=== PATIENT | female | born 1985 | race Caucasian/White ===

== ENCOUNTER 2022-06-24 23:43 | Observation (INO) ==
[2022-06-25] MEDS ORDERED: MoRPHine SULFATE 4 MG/ML 1 ML CARP\\VIAL ONE (00:02)
[2022-06-25] MEDS ORDERED: ONDANSETRON INJ 2 MG/ML 2 ML VIAL ONE ×2 (00:03→04:59)
[2022-06-25] MEDS ORDERED: ONDANSETRON INJ 2 MG/ML 2 ML VIAL IV STA (00:08)
[2022-06-25] MEDS ORDERED: MoRPHine SULFATE 4 MG/ML 1 ML CARP\\VIAL IV STA ×3 (00:08→01:35)
[2022-06-25] MEDS ORDERED: SODIUM CHLORIDE 0.9% 1000ML 1,000 ML IV SCH (00:15)
[2022-06-25] MEDS ORDERED: SODIUM CHLORIDE 0.9% 250 ML IV PRN ×3 (00:22→01:57)
[2022-06-25 00:23] LABS: Hematocrit (blood only) 34.3 % (34.1-44.9); Hemoglobin 11.8 g/dl (12.0-16.0); Mean Corpuscular Hemoglobin 30.3 pg (25.0-34.0); Mean Corpuscular Hgb Conc 34.4 g/dL (32.0-36.0); Mean Corpuscular Volume 88.2 fL (80.0-100.0); Mean Platelet Volume 10.1 fL (9.4-12.3); Platelet Count 384 K/uL (130-400); RDW Coefficient of Variation 15.6 % (11.5-14.5); RDW Standard Deviation 49.9 fL (36.4-46.3); Red Blood Count 3.89 M/uL (3.93-5.22); White Blood Count 28.74 K/ul (4.8-10.8)
[2022-06-25 00:40] LABS: Basophils % (auto) 0.3 %; Eosinophils # (auto) 0.05 K/uL (0-0.50); Eosinophils % (auto) 0.2 %; Immature Granulocytes # (auto) 0.21 K/uL (0.00-0.02); Immature Granulocytes % (auto) 0.7 %; Lymphocytes % (auto) 10.1 %; Monocytes # (auto) 0.86 K/uL (0.24-0.82); Neutrophils # (auto) 24.62 K/uL (1.4-6.5); Neutrophils % (auto) 85.7 %; RBC Morphology Unremarkable
[2022-06-25 00:44] LABS: Albumin Globulin Ratio 1.3 (0.9-2); BUN Creatinine Ratio 23.1 (10-20); Bilirubin,Total 0.4 mg/dl (0.2-1.0); Calcium 8.9 mg/dl (8.5-10.1); Creatinine Clr Calc Pharmacy 146.8 ml/min; Est GFR (African American) 133.3 ml/min; Globulin 3.2 gm/dl (2.5-4.0); Potassium 3.9 mmol/L (3.5-5.1); Total Protein 7.2 gm/dl (6.0-8.3)
--- NOTE | 2022-06-25 00:59 | Emergency Department Note ---
History of Present Illness General Chief complaint: Abdominal Pain Stated complaint: ABD PAIN,TROUBLE BREATHING,PAIN IN LUNGS 8.5 WKS P Time Seen by Provider: 06/24/22 23:54 History of Present Illness Maximum Pain Intensity: 7 This 37-year-old who is 8 and half weeks presents to the ER complaining of severe abdominal pain and rib pain for the past few hours Location: Abdomen Quality: Severe Severity: Severe Duration: This evening Timing: This evening Context: Patient was concerned and came in Modifying factors: better with nothing; worse with movement Patient is due to have her ultrasound tomorrow. She states her clots have been doubling. She follows with [facility]. This is her fourth . She has 1 living child. Patient denies vaginal bleeding, fevers, vomiting, diarrhea. Patient appears in severe amount of pain she is tachycardic and family is present. Home Medications Medication Instructions Recorded Confirmed Type aspirin 81 mg tablet,delayed 81 mg PO DAILY 06/25/22 06/25/22 History release vit no.133-ferrous 1 tab PO DAILY 06/25/22 06/25/22 History fumarate 28 mg-folic acid 800 mcg tablet () propranolol 10 mg tablet 10 mg PO DIRECTED PRN Migraine 06/25/22 06/25/22 History Headache sumatriptan succinate 100 mg tablet 100 mg PO DIRECTED PRN Migraine 06/25/22 06/25/22 History Headache Allergies Allergy/AdvReac Type Severity Reaction Status Date / Time No Known Allergies Allergy Verified 06/25/22 00:15 Past Med/Surg History Medical History History of multiple miscarriages No chronic diseases present Surgical History No significant past surgical history Social History Smoking Status: Never smoker Tobacco Type: Cigarettes Preferred Language: Portuguese Feels Safe at Home: Yes Review of Systems A total of 10 systems reviewed and were otherwise negative Physical Exam Vital Signs Vital Signs - 24 hr 06/24/22 23:44 06/25/22 00:13 06/25/22 00:13 Temperature 36.5 C Temperature Source Temporal Artery Scan Pulse Rate 117 H 99 H Pulse Rate [Finger] 95 H Pulse Rhythm Regular Pulse Strength Normal Respiratory Rate 22 20 Respiratory Effort / Characteristics Non-Labored Spontaneous Respiratory Depth Normal Respiratory Pattern Regular Blood Pressure 130/81 Blood Pressure [Left Arm] 119/80 Blood Pressure Mean 97 Blood Pressure Mean [Left Arm] 93 Blood Pressure Position Sitting Blood Pressure Position [Left Arm] Pulse Oximetry 99 97 97 Oxygen Delivery Method Room Air Room Air Sepsis Recent Fever Within 48 Hours No Sepsis New/Unexplained Change in Mental Status No Sepsis Action Taken by Nursing No Action Required 06/25/22 02:00 06/25/22 02:26 Temperature 36.9 C Temperature Source Oral Pulse Rate 99 H Pulse Rate [Finger] 90 Pulse Rhythm Pulse Strength Respiratory Rate 17 Respiratory Effort / Characteristics Respiratory Depth Respiratory Pattern Blood Pressure 142/92 H Blood Pressure [Left Arm] 131/78 Blood Pressure Mean 108 Blood Pressure Mean [Left Arm] 95 Blood Pressure Position Blood Pressure Position [Left Arm] Sitting Pulse Oximetry 98 97 Oxygen Delivery Method Room Air Sepsis Recent Fever Within 48 Hours Sepsis New/Unexplained Change in Mental Status Sepsis Action Taken by Nursing VITALS: Vitals are noted on the nurse's note and reviewed by myself. Vital signs mildly tachycardic. GENERAL: White female who appears in pain, in acute distress SKIN: The skin was without rashes, erythema, edema, or bruising. There is no tenting of the skin. Capillary reflex less than 2 seconds. HEAD: Normocephalic atraumatic. EARS: External auditory canals clear, EYES: Pupils equal round and reactive to light and accommodation. Conjunctivae without injection, sclerae without icterus. Extraocular movements intact. NOSE: Patent, turbinates without inflammation or discharge. MOUTH: Mucous membranes moist. Pharynx without erythema or exudate. Uvula midline. Airway patent. Tongue does not deviate. NECK: Supple without nuchal rigidity. No lymphadenopathy. No thyromegaly. Cervical spine is nontender. No JVD. HEART: Mildly tachycardic rate and rhythm LUNGS: Clear to auscultation bilaterally without wheezes, rales or rhonchi. No retractions or accessory muscle use. ABDOMEN: Positive bowel sounds x 4. Normal tympanic percussion. Soft, diffusely exquisitely tender to palpation, without masses or organomegaly. Paredes sign negative. + guarding + rebound tenderness. No CVA tenderness MUSCULOSKELETAL: No muscle atrophy, erythema, or edema noted. NEURO: Patient was alert and oriented to person place and time. Normal sensation to light and sharp touch. No focal neurological deficits. Course Administered Medications Discontinued Medications Hydromorphone HCl (Hydromorphone Inj 1 Mg/Ml Syringe) Confirm Administered Dose 1 mg .ROUTE .STK-MED ONE Stop: 06/25/22 02:15 Last Admin: 06/25/22 02:17 Dose: 1 mg Documented By: ALYSSA Hydromorphone HCl (Hydromorphone Inj 1 Mg/Ml Syringe) 1 mg IV NOW STA Stop: 06/25/22 02:17 Last Admin: 06/25/22 02:18 Dose: Not Given Documented By: ALYSSA Sodium Chloride (Nss 1000ml) 1,000 mls @ 999 mls/hr IV .Q1H1M GLENDY Stop: 06/25/22 01:15 Last Infusion: 06/25/22 01:05 Dose: 0 mls/hr Documented By: Admin: 06/25/22 00:13 Dose: 999 mls/hr Documented By: ANAY Sodium Chloride (Nss 1000ml) 1,000 mls @ 999 mls/hr IV .Q1H1M ONE Stop: 06/25/22 02:35 Last Admin: 06/25/22 01:41 Dose: 999 mls/hr Documented By: ANAY Morphine Sulfate (Morphine Sulfate 4 Mg/Ml 1 Ml Carp\Vial) Confirm Administered Dose 4 mg .ROUTE .STK-MED ONE Stop: 06/25/22 00:03 Last Admin: 06/25/22 00:09 Dose: 4 mg Documented By: ANAY Morphine Sulfate (Morphine Sulfate 4 Mg/Ml 1 Ml Carp\Vial) 4 mg IV NOW STA Stop: 06/25/22 00:09 Last Admin: 06/25/22 00:13 Dose: Not Given Documented By: ANAY Morphine Sulfate (Morphine Sulfate 4 Mg/Ml 1 Ml Carp\Vial) 4 mg IV NOW STA Stop: 06/25/22 00:54 Last Admin: 06/25/22 01:00 Dose: 4 mg Documented By: ANAY Morphine Sulfate (Morphine Sulfate 4 Mg/Ml 1 Ml Carp\Vial) 4 mg IV NOW STA Stop: 06/25/22 01:36 Last Admin: 06/25/22 01:40 Dose: 4 mg Documented By: ANAY Ondansetron HCl (Ondansetron Inj 2 Mg/Ml 2 Ml Vial) Confirm Administered Dose 4 mg .ROUTE .STK-MED ONE Stop: 06/25/22 00:04 Last Admin: 06/25/22 00:09 Dose: 4 mg Documented By: ANAY Ondansetron HCl (Ondansetron Inj 2 Mg/Ml 2 Ml Vial) 4 mg IV NOW STA Stop: 06/25/22 00:09 Last Admin: 06/25/22 00:13 Dose: Not Given Documented By: ANAY Medical Decision Making Medical Records Attestation: I reviewed the patient's medical records. Home Medications Current Medication List: was personally reviewed by me Laboratory Data Attestation: I reviewed the patient's lab results. 06/25/22 00:05 06/25/22 00:05 Lab Results 06/25/22 06/25/22 06/25/22 Range/Units 00:05 00:05 00:05 WBC 28.74 H (4.8-10.8) K/ul RBC 3.89 L (3.93-5.22) M/uL Hgb 11.8 L (12.0-16.0) g/dl POC Hgb (12.0-16.0) g/dl Hct 34.3 (34.1-44.9) % POC Hct (37-47) % MCV 88.2 (80.0-100.0) fL MCH 30.3 (25.0-34.0) pg MCHC 34.4 (32.0-36.0) g/dL RDW Std Deviation 49.9 H (36.4-46.3) fL RDW Coeff of Eveline 15.6 H (11.5-14.5) % Plt Count 384 (130-400) K/uL MPV 10.1 (9.4-12.3) fL Immature Gran % (Auto) 0.7 % Neut % (Auto) 85.7 % Lymph % (Auto) 10.1 % [place]ock[place] % (Auto) 3.0 % Eos % (Auto) 0.2 % Baso % (Auto) 0.3 % Neut # (Auto) 24.62 H (1.4-6.5) K/uL Lymph # (Auto) 2.90 (1.2-3.4) K/uL [place] # (Auto) 0.86 H (0.24-0.82) K/uL Eos # (Auto) 0.05 (0-0.50) K/uL Baso # (Auto) 0.10 (0-0.2) K/uL Immature Gran # (Auto) 0.21 H (0.00-0.02) K/uL RBC Morphology Unremarkable POC Sodium (135-144) mmol/L Sodium 132 L (136-145) mmol/L POC Potassium (3.3-5.0) mmol/L Potassium 3.9 (3.5-5.1) mmol/L POC Chloride (101-112) mmol/L Chloride 104 (98-107) mmol/L Carbon Dioxide 18 L (21-32) mmol/L POC Total CO2 (24-31) mmol/L Anion Gap 10 (3-11) POC Anion Gap (16-25) mmol/L POC BUN (7-18) mg/dl BUN 15 (6-23) mg/dl Creatinine 0.65 (0.6-1.2) mg/dl POC Creatinine (0.6-1.3) mg/dl Est Cr Clr Drug Dosing 146.8 ml/min Est GFR ( Amer) 133.3 ml/min Est GFR (Non-Af Amer) 115.0 ml/min BUN/Creatinine Ratio 23.1 H (10-20) Glucose 186 H (70-99(Fasting)) mg/dl POC Glucose (other) (70-99) mg/dl Calcium 8.9 (8.5-10.1) mg/dl POC Ioniz Calcium Gregorio (1.12-1.32) mmol/l Total Bilirubin 0.4 (0.2-1.0) mg/dl AST 16 (13-39) U/L ALT 20 (7-52) U/L Alkaline Phosphatase 61 (34-104) U/L Total Protein 7.2 (6.0-8.3) gm/dl Albumin 4.0 (3.4-5.0) gm/dl Globulin 3.2 (2.5-4.0) gm/dl Albumin/Globulin Ratio 1.3 (0.9-2) HCG, Quant 55914 mIU/ml SARS-CoV-2, RNA, NAAT (NEGATIVE) Blood Type Antibody Screen Crossmatch 06/25/22 06/25/22 06/25/22 Range/Units 00:11 01:50 Unknown WBC (4.8-10.8) K/ul RBC (3.93-5.22) M/uL Hgb (12.0-16.0) g/dl POC Hgb 9.9 L (12.0-16.0) g/dl Hct (34.1-44.9) % POC Hct 29 L (37-47) % MCV (80.0-100.0) fL MCH (25.0-34.0) pg MCHC (32.0-36.0) g/dL RDW Std Deviation (36.4-46.3) fL RDW Coeff of Eveline (11.5-14.5) % Plt Count (130-400) K/uL MPV (9.4-12.3) fL Immature Gran % (Auto) % Neut % (Auto) % Lymph % (Auto) % [place]ock[place] % (Auto) % Eos % (Auto) % Baso % (Auto) % Neut # (Auto) (1.4-6.5) K/uL Lymph # (Auto) (1.2-3.4) K/uL [place] # (Auto) (0.24-0.82) K/uL Eos # (Auto) (0-0.50) K/uL Baso # (Auto) (0-0.2) K/uL Immature Gran # (Auto) (0.00-0.02) K/uL RBC Morphology POC Sodium 136 (135-144) mmol/L Sodium (136-145) mmol/L POC Potassium 4.1 (3.3-5.0) mmol/L Potassium (3.5-5.1) mmol/L POC Chloride 105 (101-112) mmol/L Chloride (98-107) mmol/L Carbon Dioxide (21-32) mmol/L POC Total CO2 19 L (24-31) mmol/L Anion Gap (3-11) POC Anion Gap 17.0 (16-25) mmol/L POC BUN 14 (7-18) mg/dl BUN (6-23) mg/dl Creatinine (0.6-1.2) mg/dl POC Creatinine 0.5 L (0.6-1.3) mg/dl Est Cr Clr Drug Dosing ml/min Est GFR ( Amer) ml/min Est GFR (Non-Af Amer) ml/min BUN/Creatinine Ratio (10-20) Glucose (70-99(Fasting)) mg/dl POC Glucose (other) 149 H (70-99) mg/dl Calcium (8.5-10.1) mg/dl POC Ioniz Calcium Gregorio 1.17 (1.12-1.32) mmol/l Total Bilirubin (0.2-1.0) mg/dl AST (13-39) U/L ALT (7-52) U/L Alkaline Phosphatase (34-104) U/L Total Protein (6.0-8.3) gm/dl Albumin (3.4-5.0) gm/dl Globulin (2.5-4.0) gm/dl Albumin/Globulin Ratio (0.9-2) HCG, Quant mIU/ml SARS-CoV-2, RNA, NAAT NEGATIVE (NEGATIVE) Blood Type O Positive Antibody Screen NEGATIVE Crossmatch See Detail Imaging Data Attestation: I personally reviewed and interpreted this imaging study as follows: MDM Narrative Prior records/ancillary studies reviewed. Triage Nursing notes reviewed. Additional history obtained from family The patient's history was concerning for abdominal pain who is 8 and half weeks Differential diagnosis: Etiologies such as ruptured ectopic , miscarriage, appendicitis, diverticulitis, PUD, biliary pathology, UTI, pancreatitis, obstruction, mese nteric ischemia, aortic pathology, infections, inflammatory bowel disease, renal colic, as well as others were entertained. Physical examination findings: As above. ER treatment provided: An order was placed for continuous cardiac monitoring. The monitor shows a rate of 60-1 50 with a sinus rhythm per my interpretation. Limited Point of Care FAST Ultrasound performed by me: Indication: Concerns for ruptured ectopic Findings: Limited cardiac ultrasonography via subxiphoid and parasternal long view showed cardiac wall motion activity, no pericardial fluid, no tamponade. Limited chest ultrasound revealed bilateral lung sliding. Limited abdominal ultrasound revealed + free fluid within Morrisons pouch, + splenorenal space, + the pouch of Tyrel. Concerns for ruptured topic per my interpretation Impression: + FAST exam. 2 lines were emergently placed. Patient was typed and crossmatched for 2 units. She was consented to blood. Patient was transfused 2 units. OB was emergently contacted. On reassessment the patient felt better. Diagnostics interpreted by me: The labs revealed leukocytosis, mild anemia per my interpretation Repeat H&H was lower and patient was emergently transfused 2 units that was typed and crossmatched. Imaging studies: ent: FANTA DURAN (Female) : 89 Status: ER Date: 06/25/22 01:12 Room #: History: severe pain Slices: 69 Priors: Tech: Priya oPrtillo @ [phone] Exams: US OB 1st TRIMESTER Contrast: Accession Numbers: [id number] Referring Physician: YASMEEN ALVAREZ Preliminary Findings Only See Final Report For Complete Findings US OB 1st TRIMESTER: Difficult scan because the patient was in a lot of pain. There is complex free fluid in the pelvic cul-de-sac around bilateral adnexa as and trace free fluid in Morison's pouch. The endometrium is heterogeneous, vascular and thickened up to 2.5 cm. This could represent decidual reaction. Right ovary could not be visualized. Superior to the uterus and adjacent to the left ovary are 2 thick-walled collections. One of them measures 4 cm x 3 cm. The other measures 4 cm x 2.2 cm. The first contains a pole with a heart rate of 170 bpm and represents a left-sided ectopic . Since there is complex fluid in the cul-de-sac, rupture is suspected. (The second collection without a pole may represent an ovarian cyst.) The measurements correspond to approximately 6 weeks and 5 days. Radiologist: Chaparro Naik MD Study ready at 01:17 and initial results transmitted at 01:40 Communications: Clear Time Type Notes Call Doctor Ectopic Consultation: A consultation was placed with the OB Dr. Ag. The case was discussed and diagnostics were reviewed. The patient was evaluated in the ER for further treatment. I spoke to radiology who reviewed the ultrasound with me and patient is concerning for ruptured ectopic.Radiologist was unsure if there is flow to the ovary. He recommends clinical evaluation. Exam and history seem consistent with ruptured ectopic and concerns for possible left ovarian torsion . OB was immediately contacted. 2 lines were placed. She was typed and crossmatched for 2 units. She was hydrated as above. She was consented to blood. She will be taken to the OR by OB. Patient was reassessed multiple times. My bedside FAST ultrasound exam was positive she is sent down for dedicated ultrasound for OB. All questions were answered. She was reassessed multiple times. By the evaluation outlined above emergent etiologies such as appendicitis, diverticulitis, PUD, biliary pathology, UTI, pancreatitis, obstruction, mes enteric ischemia, aortic pathology, infections, inflammatory bowel disease, renal colic, as well as others were deemed relatively unlikely. The pt informed about the findings as listed above. All questions were answered and pleased with the treatment. The chart was completed utilizing [employer] Speech voice recognition software. Grammatical errors, random word insertions, pronoun errors, and incomplete sentences are an occassional consequence of this system due to software limitations, ambient noise, and hardware issues. Any formal questions or concerns about the content, text, or information contained within the body of this dictation should be directly addressed to the physician assistant associate full professor for clarification. Impression & Plan Hemoperitoneum due to rupture of left tubal ectopic , Ovarian torsion Critical Care Time Critical Care Time: Yes Total Critical Care Time: 35 I have personally spent 35 minutes of critical care time in the direct management of this patient. This includes bedside care, interpretation of diagnostic studies, and testing, discussion with consultants, patient, and family members, and other required patient management activities. This 35 minutes is in excess of all separately billable procedures. Discharge Plan Visit Data Chief Complaint: Abdominal Pain Stated Complaint: ABD PAIN,TROUBLE BREATHING,PAIN IN LUNGS 8.5 WKS P ED Provider: Yasmeen Alvarez ED Midlevel Provider: Sheba Merino Discharge Problem: Hemoperitoneum due to rupture of left tubal ectopic , Ovarian torsion Patient Disposition: Being Evaluated by Surgeon Condition: Fair Discharge Instructions Interventions: ED Discharge Assessment Last Done: 06/25/22 02:30
[2022-06-25] MEDS ORDERED: SODIUM CHLORIDE 0.9% 1000ML 1,000 ML IV ONE (01:35)
--- NOTE | 2022-06-25 01:47 | History & Physical Report ---
Date of Service June 25, 2022 Assessment & Plan (1) Ectopic : Plan: Operative laparoscopy with removal of ectopic planned History of Present Illness Chief Complaint: abdominal pain Primary Care Provider: Roland CrewsDO sumit 37 F [id number] presents to ER with lower quadrant abdominal pain that started earli er last night and has gotten progressively worse. Patient was scheduled to have blood work but never was seen in our office. Allergies Allergy/AdvReac Type Severity Reaction Status Date / Time No Known Allergies Allergy Verified 06/25/22 00:15 Home Medications Medication Instructions Recorded Confirmed Type aspirin 81 mg tablet,delayed 81 mg PO DAILY 06/25/22 06/25/22 History release vit no.133-ferrous 1 tab PO DAILY 06/25/22 06/25/22 History fumarate 28 mg-folic acid 800 mcg tablet () propranolol 10 mg tablet 10 mg PO DIRECTED PRN Migraine 06/25/22 06/25/22 History Headache sumatriptan succinate 100 mg tablet 100 mg PO DIRECTED PRN Migraine 06/25/22 06/25/22 History Headache Past Med/Surg History Medical History History of multiple miscarriages No chronic diseases present Surgical History No significant past surgical history Social History Smoking Status: Never smoker Tobacco Type: Cigarettes Preferred Language: Citizen Of [place] Feels Safe at Home: Yes Review of Systems Review of Systems: All systems reviewed & are unremarkable except as noted in HPI & below Physical Exam Constitutional: WD/WN, vitals as above Eyes: PERRL, conjunctivae normal, anicteric sclerae Respiratory: normal respiratory effort, lungs clear to auscultation Cardiovascular: RRR, no murmur, no edema Gastrointestinal (Abdomen): Inspection/Auscultation: + significant pannus abdomen is diffusely tender with presence of guarding and rebound. Musculoskeletal: Extremities: extremities normal to inspection Skin: no rashes, warm and dry Neurologic: patellar DTR's 2+ bilat, sensation intact Psychiatric: A+Ox3, euthymic affect Results & Data Results & Data ([facility]) Vital Signs (Past 12 Hours) Vital Signs Temp Pulse Pulse Resp BP BP Pulse Ox 06/25/22 00:13 99 H 97 06/25/22 00:13 95 H 20 119/80 97 06/24/22 23:44 36.5 C 117 H 22 130/81 99 O2 Del Method 06/25/22 00:13 Room Air 06/25/22 00:13 06/24/22 23:44 Room Air Code Status & VTE Plan VTE Prophylaxis Plan VTE Prophylaxis will be ordered: No
[2022-06-25 02:02] LABS: iSTAT Creatinine 0.5 mg/dl (0.6-1.3); iSTAT Hemoglobin 9.9 g/dl (12.0-16.0); iSTAT Ionized Calcium 1.17 mmol/l (1.12-1.32); iSTAT Potassium 4.1 mmol/L (3.3-5.0)
[2022-06-25] MEDS ORDERED: HYDROmorphone INJ 1 MG/ML SYRINGE ONE (02:14)
[2022-06-25] MEDS ORDERED: HYDROmorphone INJ 1 MG/ML SYRINGE IV STA (02:16)
[2022-06-25] MEDS ORDERED: fentaNYL citrate 100 MCG/2 ML VIAL ONE ×2 (02:16→03:47)
--- NOTE | 2022-06-25 02:16 | Anesthesiology Consultation ---
Date of Service June 25, 2022 Assessment & Plan (1) Encounter for pre-operative examination: Chart Review Chart Review: Acceptable Risk for Surgery History Surgery Operation Date: 06/25/22 02:30 Proposed Procedures p Laparoscopic Operative - Otoniel Ag MD Height/Weight Height: 5 ft 4 in Weight: 110.4 kg Allergies Allergy/AdvReac Type Severity Reaction Status Date / Time No Known Allergies Allergy Verified 06/25/22 00:15 Medications Home Medications Medication Instructions Recorded Confirmed Last Taken aspirin 81 mg tablet,delayed 81 mg PO DAILY 06/25/22 06/25/22 06/24/22 release vit no.133-ferrous 1 tab PO DAILY 06/25/22 06/25/22 06/24/22 fumarate 28 mg-folic acid 800 mcg tablet () propranolol 10 mg tablet 10 mg PO DIRECTED PRN Migraine 06/25/22 06/25/22 Unknown Headache sumatriptan succinate 100 mg tablet 100 mg PO DIRECTED PRN Migraine 06/25/22 06/25/22 Unknown Headache Active Medications Generic Name Dose Route Start Last Admin Trade Name Mee PRN Reason Stop Dose Admin Sodium Chloride 1,000 mls @ 999 mls/hr 06/25/22 01:35 06/25/22 01:41 Nss 1000ml IV 06/25/22 02:35 999 mls/hr .Q1H1M ONE Administration Past Medical History Medical History History of multiple miscarriages No chronic diseases present Past Surgical History Surgical History No significant past surgical history Social History Smoking Status: Never smoker Physical Exam Vital Signs Last Vital Signs Temp 36.5 C 06/24/22 23:44 Pulse 90 06/25/22 02:00 Resp 20 06/25/22 00:13 BP 131/78 06/25/22 02:00 Pulse Ox 98 06/25/22 02:00 O2 Del Method 06/25/22 02:00 Testing Laboratory Results 06/25/22 00:05 06/25/22 00:05 HCG, Quant [id number] mIU/ml 06/25/22 00:05 Blood Type O Positive 06/25/22 00:11 Antibody Screen NEGATIVE 06/25/22 00:11 06/25/22 01:50 POC Glucose (other) 149 H 06/25/22 00:05 HCG, Quant [id number]
[2022-06-25] MEDS ORDERED: BUPIVACAINE 0.5 % 5 MG/1 ML MPF 30ML VIAL ONE (02:21)
[2022-06-25] MEDS ORDERED: LIDOCAINE 2% MPF LOCAL 5 ML VIAL INFIL ONE (02:24)
[2022-06-25] MEDS ORDERED: PROPOFOL IV EMULSION 10 MG/ML 20 ML VIAL IV ONE (02:24)
[2022-06-25] MEDS ORDERED: ROCURONIUM BROMIDE 10 MG/ML 5 ML VIAL IV ONE (02:24)
[2022-06-25] MEDS ORDERED: SUCCINYLCHOLINE CHLORIDE 20 MG/ML 10 ML VIAL IV ONE (02:26)
[2022-06-25] MEDS ORDERED: ONDANSETRON INJ 2 MG/ML 2 ML VIAL IV PRN ×2 (03:27→05:44)
[2022-06-25] MEDS ORDERED: ATROPINE SULFATE 0.1 MG/ML 10ML SYR IV PRN (03:27)
[2022-06-25] MEDS ORDERED: PROMETHAZINE HCL 12.5 MG in SODIUM CHLORIDE 0.9% 50 ML IV PRN (03:27)
[2022-06-25] MEDS: HYDROmorphone INJ 1 MG/ML SYRINGE IV PRN ×2 (04:57→06:04)
[2022-06-25] MEDS ORDERED: ETOMIDATE 2 MG/ML 20 ML VIAL IV ONE (04:59)
[2022-06-25] MEDS ORDERED: NEOSTIGMINE METHYLSULFATE 1 MG/ML 10ML VIAL ONE (04:59)
[2022-06-25] MEDS ORDERED: GLYCOPYRROLATE 0.2 MG/ML VIAL ONE (04:59)
[2022-06-25] MEDS ORDERED: METOCLOPRAMIDE HCL INJ 5 MG/ML 2 ML VIAL ONE (04:59)
--- NOTE | 2022-06-25 05:01 | Post Operative Brief Note ---
Immediate Post Op Note v1 Date of Surgery June 25, 2022 Pre & Post Diagnosis Operation Date: 06/25/22 02:30 Pre-Op Diagnosis: (1) Ectopic Post-Op Diagnosis: (1) Ectopic I identified the patient and participated in the time-out.: Yes Procedure Operation Date: 06/25/22 02:30 Actual Procedures p Operative Laparoscopy with removal of Ectopic and Left Fallopian Tube(Not Applicable) - Otoniel Ag MD Surgeon Otoniel Ag MD [employer] [facility] surgery manager Estimated Blood Loss 50 Findings Consistent with Post-Op Diagnosis hemoperitoneum ruptured ectopic on left Fluids LR 1200 ml Specimens left tube and ectopic Drains Smith Catheter Anesthesia Type General Complications none Disposition Accompanied Patient To Recovery: Yes Overlapping Procedure I was present for: the critical portions of procedure. I was immediately available: during the entire case. Back up surgeon: was not required during procedure.
--- NOTE | 2022-06-25 05:12 | Anesthesiology Progress Note ---
Date of Service June 25, 2022 Anesthesia Post Procedure Vital Signs Vital Signs: Temp Pulse Pulse Pulse Resp BP BP 06/25/22 05:05 88 22 141/83 H 06/25/22 04:55 36.5 C 86 22 138/83 06/25/22 04:49 36.5 C 110 H 24 153/90 H 06/25/22 02:26 36.9 C 99 H 17 142/92 H 06/25/22 02:00 90 131/78 06/25/22 00:13 99 H 06/25/22 00:13 95 H 20 119/80 06/24/22 23:44 36.5 C 117 H 22 130/81 Pulse Ox O2 Del Method 06/25/22 05:05 92 Room Air 06/25/22 04:55 94 Room Air 06/25/22 04:49 97 Room Air 06/25/22 02:26 97 06/25/22 02:00 98 Room Air 06/25/22 00:13 97 Room Air 06/25/22 00:13 97 06/24/22 23:44 99 Room Air Pain Intensity Abdomen: Pain Intensity: 5 Transfer of Care Handoff Completed per policy Notes Mental Status: alert / awake / arousable Patient Amnestic to Procedure: Yes Nausea / Vomiting: adequately controlled Pain: adequately controlled Airway Patency, RR, SpO2: stable & adequate BP & HR: stable & adequate Hydration State: stable & adequate Anesthetic Complications: no major complications apparent
[2022-06-25] MEDS ORDERED: KETOROLAC 30 MG/ML VIAL IV PRN (05:44)
[2022-06-25] MEDS ORDERED: LACTATED RINGER'S 1,000 ML IV ONE (06:00)
[2022-06-25 07:08] LABS: Basophils # (auto) 0.04 K/uL (0-0.2); Basophils % (auto) 0.2 %; Hematocrit (blood only) 29.5 % (34.1-44.9); Hemoglobin 10.5 g/dl (12.0-16.0); Immature Granulocytes # (auto) 0.07 K/uL (0.00-0.02); Immature Granulocytes % (auto) 0.4 %; Lymphocytes # (auto) 2.02 K/uL (1.2-3.4); Lymphocytes % (auto) 10.7 %; Mean Corpuscular Hemoglobin 30.7 pg (25.0-34.0); Mean Corpuscular Hgb Conc 35.6 g/dL (32.0-36.0); Mean Corpuscular Volume 86.3 fL (80.0-100.0); Mean Platelet Volume 9.9 fL (9.4-12.3); Monocytes # (auto) 1.06 K/uL (0.24-0.82); Monocytes % (auto) 5.6 %; Neutrophils # (auto) 15.66 K/uL (1.4-6.5); Neutrophils % (auto) 83.1 %; Platelet Count 308 K/uL (130-400); RDW Coefficient of Variation 15.4 % (11.5-14.5); RDW Standard Deviation 48.6 fL (36.4-46.3); Red Blood Count 3.42 M/uL (3.93-5.22); White Blood Count 18.85 K/ul (4.8-10.8)
[2022-06-25] MEDS: MoRPHine SULFATE 4 MG/ML 1 ML CARP\\VIAL IV PRN ×6 (07:13→12:41)
[2022-06-25] MEDS: LACTATED RINGER'S 1,000 ML IV SCH ×2 (07:17→18:23)
--- NOTE | 2022-06-25 08:45 | Ultrasound Report ---
US OB <= 14 weeks fetus CLINICAL HISTORY: severe pelvic pain, ? rupture ectopic COMPARISON STUDY: Obstetrical ultrasound 07/15/2021. FINDINGS: The uterus measures 9.6 x 5.4 x 6.9 cm. Moderate amount of complex fluid seen within the pe lvis and extending into Morison's pouch. This likely represents hemoperitoneum. Endometrium is abnorm ally thickened and heterogeneous demonstrating color flow. This measures 4.2 x 4.1 x 2.4 cm. No intra uterine gestational sac identified. The right ovary was not identified. The left ovary measures 3.9 x 2.2 x 3.6 cm. The technologist had difficulty demonstrating color flow within the left ovary which c ould be technical. Within the left adnexa there is a 2.2 cm gestational sac containing an 8 mm pole with a heart rate of 170 BPM. Therefore, this is consistent with an ectopic . IMPRESSION: 1. Ectopic within the left adnexa with moderate hemoperitoneum suggesting a ruptured ectopi c . Emergent gynecologic consultation recommended. 2. The technologist was unable to document color flow within the left ovary which is likely technical given the normal size left ovary. However, clinical correlation recommended. 3. Enlarged and heterogeneous endometrium containing color flow. This could represent decidual reacti on. However, follow-up recommended to ensure resolution and to exclude the less likely possibility of a molar . ACT 112: Negative or not required by law. Electronically signed by: Samuel Galarza M.D. 06/25/2022 8:43 AM
[2022-06-25 10:19] LABS: Basophils # (auto) 0.05 K/uL (0-0.2); Basophils % (auto) 0.3 %; Eosinophils # (auto) 0.01 K/uL (0-0.50); Eosinophils % (auto) 0.1 %; Hematocrit (blood only) 29.1 % (34.1-44.9); Hemoglobin 9.9 g/dl (12.0-16.0); Immature Granulocytes # (auto) 0.06 K/uL (0.00-0.02); Immature Granulocytes % (auto) 0.4 %; Lymphocytes % (auto) 15.9 %; Mean Corpuscular Hemoglobin 30.4 pg (25.0-34.0); Mean Corpuscular Volume 89.3 fL (80.0-100.0); Monocytes # (auto) 0.98 K/uL (0.24-0.82); Neutrophils # (auto) 12.68 K/uL (1.4-6.5); Neutrophils % (auto) 77.3 %; Platelet Count 277 K/uL (130-400); RDW Coefficient of Variation 15.4 % (11.5-14.5); RDW Standard Deviation 50.8 fL (36.4-46.3); Red Blood Count 3.26 M/uL (3.93-5.22); White Blood Count 16.38 K/ul (4.8-10.8)
--- NOTE | 2022-06-25 10:27 | Obstetrical Progress Note ---
Date of Service June 25, 2022 Assessment & Plan Admission and Anticipated Discharge Date Admission Date: June 25, 2022 Subjective Postop check Patient is seen and examined Feels better but complains of "pain spasms" on and off, in her upper abdomen, under ribs OOB to BR and voided with no problems. No CP/ SOB/ Dizziness/ N&V/ VB/ Leg pain Tolerating clears Vital Signs Temp Pulse Pulse Pulse Resp BP BP 06/25/22 08:00 37.4 C 115 H 14 133/73 06/25/22 07:00 37.5 C 116 H 18 129/78 06/25/22 06:00 37.1 C 95 H 18 136/83 06/25/22 05:47 37.2 C 94 H 16 145/88 H 06/25/22 05:15 36.7 C 87 20 140/81 06/25/22 05:05 88 22 141/83 H 06/25/22 04:55 36.5 C 86 22 138/83 06/25/22 04:49 36.5 C 110 H 24 153/90 H 06/25/22 02:26 36.9 C 99 H 17 142/92 H 06/25/22 02:00 90 131/78 06/25/22 00:13 99 H 06/25/22 00:13 95 H 20 119/80 06/24/22 23:44 36.5 C 117 H 22 130/81 Pulse Ox O2 Del Method 06/25/22 08:00 95 Room Air 06/25/22 07:00 96 Room Air 06/25/22 06:00 94 Room Air 06/25/22 05:47 93 Room Air 06/25/22 05:15 92 Room Air 06/25/22 05:05 92 Room Air 06/25/22 04:55 94 Room Air 06/25/22 04:49 97 Room Air 06/25/22 02:26 97 06/25/22 02:00 98 Room Air 06/25/22 00:13 97 Room Air 06/25/22 00:13 97 06/24/22 23:44 99 Room Air PE: General: Alert, orientedx3, NAD CVS: S1S2 RRR Lungs: CTAB Abd: soft, tender, ND, BS+, Incisions C/D/I No VB Ext: NT, no edema, SCD's on AP: 37 yo female s/p Laparoscopy with ruptured ectopic and incomplete evacuation of blood cloths , pod#0 VSS Afebrile with pain Plan to add IV Tylenol and CBC now Continue to monitor closely Results & Data ([facility]) Vital Signs (Past 12 Hours) Vital Signs Temp Pulse Pulse Pulse Resp BP BP 06/25/22 08:00 37.4 C 115 H 14 133/73 06/25/22 07:00 37.5 C 116 H 18 129/78 06/25/22 06:00 37.1 C 95 H 18 136/83 06/25/22 05:47 37.2 C 94 H 16 145/88 H 06/25/22 05:15 36.7 C 87 20 140/81 06/25/22 05:05 88 22 141/83 H 06/25/22 04:55 36.5 C 86 22 138/83 06/25/22 04:49 36.5 C 110 H 24 153/90 H 06/25/22 02:26 36.9 C 99 H 17 142/92 H 06/25/22 02:00 90 131/78 06/25/22 00:13 99 H 06/25/22 00:13 95 H 20 119/80 06/24/22 23:44 36.5 C 117 H 22 130/81 Pulse Ox O2 Del Method 06/25/22 08:00 95 Room Air 06/25/22 07:00 96 Room Air 06/25/22 06:00 94 Room Air 06/25/22 05:47 93 Room Air 06/25/22 05:15 92 Room Air 06/25/22 05:05 92 Room Air 06/25/22 04:55 94 Room Air 06/25/22 04:49 97 Room Air 06/25/22 02:26 97 06/25/22 02:00 98 Room Air 06/25/22 00:13 97 Room Air 06/25/22 00:13 97 06/24/22 23:44 99 Room Air
[2022-06-25] MEDS: ACETAMINOPHEN 1,000 MG/100 ML VIAL IV PRN (10:52)
[2022-06-25] MEDS: AMOXICILLIN/CLAVULANATE 875 MG TAB PO SCH ×2 (12:05→17:33)
--- NOTE | 2022-06-25 13:28 | Operative Report (OR) ---
DATE OF SURGERY: 06/25/2022. PREOPERATIVE DIAGNOSIS: Ruptured left ectopic . POSTOPERATIVE DIAGNOSES: Ruptured left ectopic plus hemoperitoneum. SURGEON: Otoniel Ag MD. LANDSCAPE PHOTOGRAPHER: neurosurgical physician assistant. ANESTHESIA: General. COMPLICATIONS: None. TOTAL FLUIDS: 1200 mL. ESTIMATED BLOOD LOSS: 50 mL. TOTAL URINE: 200 mL. SPECIMEN: Left tube and ectopic . PROCEDURES: Operative laparoscopy with left salpingectomy and removal of ectopic and evacu ation of hemoperitoneum. CLINICAL HISTORY: The patient is a 37-year-old female, para 1-0-2-1, who presents to the ER with acu te abdominal pain that started the night prior and has progressively worsened to the point where she needed to come into the ER because of diffuse abdominal pain. There was no vaginal bleeding. The phoebe tiffanie had known she was and was attempting to set up a followup appointment for car e and had not yet been to the office. Because of the significant pain and the fluid that was in the abdomen that was diagnosed by ultrasound and a mass consistent with a left ectopic, decision was made to operate. The patient was given informed consent including the risks, benefits, and alternatives to surgery. A timeout was called prior to the start of the surgery. DESCRIPTION OF PROCEDURE: Under satisfactory general anesthesia, the patient was prepped and draped in the usual sterile fashion. A Smith catheter was then inserted. The vagina was inspected. There was no active bleeding. The posterior vault was examined. A weighted speculum was placed. A long A llis clamp was placed on the anterior lip of the cervix followed by a sponge on a stick for uterine m anipulation. Attention was then directed abdominally. Marcaine 1% was instilled infraumbilically. A small incision was made infraumbilically with a #11 knife blade. This was lifted up with 2 Allis c lamps. The Veress needle was then inserted and then tested for adequacy and approximately 3.5 liters of carbon dioxide gas were then used to create an artificial pneumoperitoneum. Veress needle was wi thdrawn. Incision was widened to approximately 1 cm. An 11 mm port was then inserted under direct vi sualization with the video camera. Upon entering into the abdominal cavity, it was noted that there was a hemoperitoneum with blood traveling up the gutters on both the right and left side up to the li adán edge. A second 5 mm probe was then inserted suprapubically in the midline under direct visualiza tion. The [place] mixer operator vacuum pan salt was then inserted and some of the blood was then suction irrigated and rem smooth for visualization. The ectopic was noted to be on the left side. The right tube and ovary were intact. Uterus was intact. After visualizing the ectopic on the left tube, a third port was insert ed on the left side. A #12 port was then inserted under direct visualization. The tube was grasped with a grasper and then using the LigaSure device, the tube was then cut free from the uterus using t he energy from LigaSure device. This was done serially and direct visualization was noted and pictur es were taken at the end of this procedure. The end of the tube was then irrigated. No active bleed ing was noted. The EndoCatch bag large was inserted into the port and then the specimen was placed i nto the bag and then removed from the left port. The specimen was then submitted to pathology for a separate evaluation. At the end of the procedure, some of the blood was then removed. The patient w as placed in reverse Trendelenburg and lot of the blood was removed, but there were still remaining b lood trapped into the small and large bowel that was not able to be removed. The final sponge, needl e and instrument counts were found to be correct. All remaining ports were then removed. The surgic al site was inspected with no bleeding and this was documented with still photography. The two large ports were then closed with 0 Vicryl suture in a deep suture, followed by 4-0 Monocryl for the subcu ticular skin and then Dermabond. The two instruments from the vagina were removed and then the Smith catheter was removed. The final sponge, needle and instrument count were found to be correct. The patient was then placed supine on a stretcher and taken to recovery room in stable condition. Total blood loss was 50 mL, the total fluids 1200 mL, and the total urine is 200 mL. Job ID: [id number]
[2022-06-25] MEDS: CALCIUM CARBONATE 500 MG CHEWABLE TAB PO PRN ×2 (13:48→18:51)
[2022-06-25] MEDS: oxyCODONE HCL IR 5 MG TAB (IMMEDIATE RELEASE) PO PRN ×3 (14:35→22:44)
--- NOTE | 2022-06-25 19:11 | Gynecologic Progress Note ---
Date of Service June 25, 2022 Assessment & Plan Admission and Anticipated Discharge Date Admission Date: June 25, 2022 Subjective Patient is reevaluated. Pain is better, was able to walk around the hallways Still has lower rib/ upper abdominal pain with deep brething. Voiding without difficulty. Flatus negative Has been eating small bites with no N&V Vital Signs Temp Pulse Pulse Pulse Resp BP BP 06/25/22 16:00 37.5 C 91 H 14 152/83 H 06/25/22 11:44 36.9 C 106 H 14 132/91 06/25/22 08:00 37.4 C 115 H 14 133/73 06/25/22 07:00 37.5 C 116 H 18 129/78 06/25/22 06:00 37.1 C 95 H 18 136/83 06/25/22 05:47 37.2 C 94 H 16 145/88 H 06/25/22 05:15 36.7 C 87 20 140/81 06/25/22 05:05 88 22 141/83 H 06/25/22 04:55 36.5 C 86 22 138/83 06/25/22 04:49 36.5 C 110 H 24 153/90 H 06/25/22 02:26 36.9 C 99 H 17 142/92 H 06/25/22 02:00 90 131/78 06/25/22 00:13 99 H 06/25/22 00:13 95 H 20 119/80 06/24/22 23:44 36.5 C 117 H 22 130/81 Pulse Ox O2 Del Method 06/25/22 16:00 96 Room Air 06/25/22 11:44 95 Room Air 06/25/22 08:00 95 Room Air 06/25/22 07:00 96 Room Air 06/25/22 06:00 94 Room Air 06/25/22 05:47 93 Room Air 06/25/22 05:15 92 Room Air 06/25/22 05:05 92 Room Air 06/25/22 04:55 94 Room Air 06/25/22 04:49 97 Room Air 06/25/22 02:26 97 06/25/22 02:00 98 Room Air 06/25/22 00:13 97 Room Air 06/25/22 00:13 97 06/24/22 23:44 99 Room Air Intake and Output 06/25/22 06/25/22 06/25/22 06:59 14:59 22:59 Intake Total 3600 / 3600 1100 / 2450 1350 / 2450 Output Total 50 / 50 400 / 1400 1000 / 1400 Balance 3550 / 3550 700 / 1050 350 / 1050 Intake: IV 1999 / 1999 1100 / 2100 1000 / 2100 Acetaminophen 1,000 mg In 100 100 / 100 ml @ 400 mls/hr IV Q8H PRN Rx#: [id number] Lactated Ringer's 1,000 ml @ 1000 / 2000 1000 / 2000 125 mls/hr IV .Q8H GLENDY Rx#: [id number] Sodium Chloride 0.9% 1000ML 1, 2000 / 1999 000 ml @ 999 mls/hr IV .Q1H1M ONE Rx#:[id number] IV Perioperative 1600 / 1600 Oral 350 / 350 Intake (Blood Product) Amt 0 / 0 Packed Cells, Leukoreduced 0 / 0 Unit [id number] Output: Urine 400 / 1400 1000 / 1400 Estimated Blood Loss 50 / 50 Other: Weight 110.4 kg Weight Measurement Method Stated by Patient Lab Results 06/25/22 06/25/22 06/25/22 Range/Units 00:05 00:05 00:05 WBC 28.74 H (4.8-10.8) K/ul RBC 3.89 L (3.93-5.22) M/uL Hgb 11.8 L (12.0-16.0) g/dl POC Hgb (12.0-16.0) g/dl Hct 34.3 (34.1-44.9) % POC Hct (37-47) % MCV 88.2 (80.0-100.0) fL MCH 30.3 (25.0-34.0) pg MCHC 34.4 (32.0-36.0) g/dL RDW Std Deviation 49.9 H (36.4-46.3) fL RDW Coeff of Eveline 15.6 H (11.5-14.5) % Plt Count 384 (130-400) K/uL MPV 10.1 (9.4-12.3) fL Immature Gran % (Auto) 0.7 % Neut % (Auto) 85.7 % Lymph % (Auto) 10.1 % Castro % (Auto) 3.0 % Eos % (Auto) 0.2 % Baso % (Auto) 0.3 % Neut # (Auto) 24.62 H (1.4-6.5) K/uL Lymph # (Auto) 2.90 (1.2-3.4) K/uL Castro # (Auto) 0.86 H (0.24-0.82) K/uL Eos # (Auto) 0.05 (0-0.50) K/uL Baso # (Auto) 0.10 (0-0.2) K/uL Immature Gran # (Auto) 0.21 H (0.00-0.02) K/uL RBC Morphology Unremarkable POC Sodium (135-144) mmol/L Sodium 132 L (136-145) mmol/L POC Potassium (3.3-5.0) mmol/L Potassium 3.9 (3.5-5.1) mmol/L POC Chloride (101-112) mmol/L Chloride 104 (98-107) mmol/L Carbon Dioxide 18 L (21-32) mmol/L POC Total CO2 (24-31) mmol/L Anion Gap 10 (3-11) POC Anion Gap (16-25) mmol/L POC BUN (7-18) mg/dl BUN 15 (6-23) mg/dl Creatinine 0.65 (0.6-1.2) mg/dl POC Creatinine (0.6-1.3) mg/dl Est Cr Clr Drug Dosing 146.8 ml/min Est GFR ( Amer) 133.3 ml/min Est GFR (Non-Af Amer) 115.0 ml/min BUN/Creatinine Ratio 23.1 H (10-20) Glucose 186 H (70-99(Fasting)) mg/dl POC Glucose (other) (70-99) mg/dl Calcium 8.9 (8.5-10.1) mg/dl POC Ioniz Calcium Gregorio (1.12-1.32) mmol/l Total Bilirubin 0.4 (0.2-1.0) mg/dl AST 16 (13-39) U/L ALT 20 (7-52) U/L Alkaline Phosphatase 61 (34-104) U/L Total Protein 7.2 (6.0-8.3) gm/dl Albumin 4.0 (3.4-5.0) gm/dl Globulin 3.2 (2.5-4.0) gm/dl Albumin/Globulin Ratio 1.3 (0.9-2) HCG, Quant 27061 mIU/ml SARS-CoV-2, RNA, NAAT (NEGATIVE) Blood Type Antibody Screen Crossmatch 06/25/22 06/25/22 06/25/22 Range/Units 00:11 01:50 06:57 WBC 18.85 H (4.8-10.8) K/ul RBC 3.42 L (3.93-5.22) M/uL Hgb 10.5 L (12.0-16.0) g/dl POC Hgb 9.9 L (12.0-16.0) g/dl Hct 29.5 L (34.1-44.9) % POC Hct 29 L (37-47) % MCV 86.3 (80.0-100.0) fL MCH 30.7 (25.0-34.0) pg MCHC 35.6 (32.0-36.0) g/dL RDW Std Deviation 48.6 H (36.4-46.3) fL RDW Coeff of Eveline 15.4 H (11.5-14.5) % Plt Count 308 (130-400) K/uL MPV 9.9 (9.4-12.3) fL Immature Gran % (Auto) 0.4 % Neut % (Auto) 83.1 % Lymph % (Auto) 10.7 % Castro % (Auto) 5.6 % Eos % (Auto) 0.0 % Baso % (Auto) 0.2 % Neut # (Auto) 15.66 H (1.4-6.5) K/uL Lymph # (Auto) 2.02 (1.2-3.4) K/uL Castro # (Auto) 1.06 H (0.24-0.82) K/uL Eos # (Auto) 0.00 (0-0.50) K/uL Baso # (Auto) 0.04 (0-0.2) K/uL Immature Gran # (Auto) 0.07 H (0.00-0.02) K/uL RBC Morphology POC Sodium 136 (135-144) mmol/L Sodium (136-145) mmol/L POC Potassium 4.1 (3.3-5.0) mmol/L Potassium (3.5-5.1) mmol/L POC Chloride 105 (101-112) mmol/L Chloride (98-107) mmol/L Carbon Dioxide (21-32) mmol/L POC Total CO2 19 L (24-31) mmol/L Anion Gap (3-11) POC Anion Gap 17.0 (16-25) mmol/L POC BUN 14 (7-18) mg/dl BUN (6-23) mg/dl Creatinine (0.6-1.2) mg/dl POC Creatinine 0.5 L (0.6-1.3) mg/dl Est Cr Clr Drug Dosing ml/min Est GFR ( Amer) ml/min Est GFR (Non-Af Amer) ml/min BUN/Creatinine Ratio (10-20) Glucose (70-99(Fasting)) mg/dl POC Glucose (other) 149 H (70-99) mg/dl Calcium (8.5-10.1) mg/dl POC Ioniz Calcium Gregorio 1.17 (1.12-1.32) mmol/l Total Bilirubin (0.2-1.0) mg/dl AST (13-39) U/L ALT (7-52) U/L Alkaline Phosphatase (34-104) U/L Total Protein (6.0-8.3) gm/dl Albumin (3.4-5.0) gm/dl Globulin (2.5-4.0) gm/dl Albumin/Globulin Ratio (0.9-2) HCG, Quant mIU/ml SARS-CoV-2, RNA, NAAT (NEGATIVE) Blood Type O Positive Antibody Screen NEGATIVE Crossmatch See Detail 06/25/22 06/25/22 Range/Units 10:07 Unknown WBC 16.38 H (4.8-10.8) K/ul RBC 3.26 L (3.93-5.22) M/uL Hgb 9.9 L (12.0-16.0) g/dl POC Hgb (12.0-16.0) g/dl Hct 29.1 L (34.1-44.9) % POC Hct (37-47) % MCV 89.3 (80.0-100.0) fL MCH 30.4 (25.0-34.0) pg MCHC 34.0 (32.0-36.0) g/dL RDW Std Deviation 50.8 H (36.4-46.3) fL RDW Coeff of Eveline 15.4 H (11.5-14.5) % Plt Count 277 (130-400) K/uL MPV 10.0 (9.4-12.3) fL Immature Gran % (Auto) 0.4 % Neut % (Auto) 77.3 % Lymph % (Auto) 15.9 % Castro % (Auto) 6.0 % Eos % (Auto) 0.1 % Baso % (Auto) 0.3 % Neut # (Auto) 12.68 H (1.4-6.5) K/uL Lymph # (Auto) 2.60 (1.2-3.4) K/uL Castro # (Auto) 0.98 H (0.24-0.82) K/uL Eos # (Auto) 0.01 (0-0.50) K/uL Baso # (Auto) 0.05 (0-0.2) K/uL Immature Gran # (Auto) 0.06 H (0.00-0.02) K/uL RBC Morphology POC Sodium (135-144) mmol/L Sodium (136-145) mmol/L POC Potassium (3.3-5.0) mmol/L Potassium (3.5-5.1) mmol/L POC Chloride (101-112) mmol/L Chloride (98-107) mmol/L Carbon Dioxide (21-32) mmol/L POC Total CO2 (24-31) mmol/L Anion Gap (3-11) POC Anion Gap (16-25) mmol/L POC BUN (7-18) mg/dl BUN (6-23) mg/dl Creatinine (0.6-1.2) mg/dl POC Creatinine (0.6-1.3) mg/dl Est Cr Clr Drug Dosing ml/min Est GFR ( Amer) ml/min Est GFR (Non-Af Amer) ml/min BUN/Creatinine Ratio (10-20) Glucose (70-99(Fasting)) mg/dl POC Glucose (other) (70-99) mg/dl Calcium (8.5-10.1) mg/dl POC Ioniz Calcium Gregorio (1.12-1.32) mmol/l Total Bilirubin (0.2-1.0) mg/dl AST (13-39) U/L ALT (7-52) U/L Alkaline Phosphatase (34-104) U/L Total Protein (6.0-8.3) gm/dl Albumin (3.4-5.0) gm/dl Globulin (2.5-4.0) gm/dl Albumin/Globulin Ratio (0.9-2) HCG, Quant mIU/ml SARS-CoV-2, RNA, NAAT NEGATIVE (NEGATIVE) Blood Type Antibody Screen Crossmatch CVS S1S2 RRR Lungs: CTAB Abd: soft, less tender, ND, BS diminished No VB Ext: NT, NO edema Plan to observe overnight, IVF with KCL, Reglan to increase bowel motility Continue to monitor closely Results & Data ([facility]) Vital Signs (Past 12 Hours) Vital Signs Temp Pulse Resp BP Pulse Ox O2 Del Method 06/25/22 16:00 37.5 C 91 H 14 152/83 H 96 Room Air 06/25/22 11:44 36.9 C 106 H 14 132/91 95 Room Air 06/25/22 08:00 37.4 C 115 H 14 133/73 95 Room Air
[2022-06-25] MEDS: D5NSS + 20MEQ KCL 20 MEQ/1,000 ML BAG IV SCH (19:31)
[2022-06-25] MEDS: METOCLOPRAMIDE HCL INJ 5 MG/ML 2 ML VIAL IV SCH (19:31)
[2022-06-25] MEDS: IBUPROFEN 600 MG TAB PO PRN (19:32)
[2022-06-26] MEDS: METOCLOPRAMIDE HCL INJ 5 MG/ML 2 ML VIAL IV SCH ×2 (02:06→07:28)
[2022-06-26] MEDS: D5NSS + 20MEQ KCL 20 MEQ/1,000 ML BAG IV SCH ×2 (02:06→09:29)
[2022-06-26] MEDS: IBUPROFEN 600 MG TAB PO PRN ×2 (02:18→10:09)
[2022-06-26] MEDS: oxyCODONE HCL IR 5 MG TAB (IMMEDIATE RELEASE) PO PRN ×3 (02:18→10:08)
[2022-06-26] MEDS ORDERED: COUGH DROP (SUGAR FREE) LOZ 24 LOZ/1 BOX BUCCAL ONE (04:53)
[2022-06-26] MEDS: AMOXICILLIN/CLAVULANATE 875 MG TAB PO SCH (07:28)
[2022-06-26] MEDS: ACETAMINOPHEN 1,000 MG/100 ML VIAL IV PRN (07:39)
--- NOTE | 2022-07-02 14:00 | Discharge Summary (DS) ---
DATE OF ADMISSION: 06/25/2022. DATE OF DISCHARGE: 06/26/2022. HOSPITAL COURSE: The patient was admitted on 06/25/2022 through the emergency room with no current p renatal care. She is a 37-year-old female, para 1-0-2-1, presenting to the ER with acute abdominal p ain that started the night prior and progressively worsened to the point needing to be seen due to di ffuse abdominal pain. There was no vaginal bleeding. Labs were drawn. The hCG level was 33,535. T here was an ectopic seen in the left adnexa with moderate hemoperitoneum, suggesting a rupt ured ectopic . The patient was taken to the operating room where an operative laparoscopy w ith left salpingectomy, removal of ectopic and evacuation of hemoperitoneum was performed. There were no complications of this procedure. The patient was subsequently discharged home on 06/15, the following morning in stable condition. Home going instructions were given. Medications on discharge include Motrin and Percocet. Followup will be in the office in 1 week for a followup visit. Regular diet on discharge. CONDITION ON DISCHARGE: Stable. Job ID: [id number]
== END 2022-06-26 10:30 | disposition home or self-care (01) ==
LOC: ED 23:43 → OR 06-25 02:30 → INTOOBSV 06-25 02:31 → 4E1 06-25 02:31 → OR 06-25 02:37

== ENCOUNTER 2023-12-28 07:40 | Inpatient (IN) ==
--- OUTSIDE RECORDS SUMMARY | 2023-12-28 07:47 | External Medical Summary | Summary of Care ---
Author Name Unknown Organization [facility] Address [address] [place] [address] Phone [phone] Care Team Providers Care Sr. Operations Manager Name Role Phone Unavailable Primary Care Provider Unavailabl e Reason for Visit * Reason Comments Blood Pressure Check Encounter Details Date Type Department Care Team (Late st Contact Info) Description 12/18/2023 10:00 AM EDT Nurse Only Gynecology/Obstetrics [facility] [address] [facility] [address] [address], Nurse Obgyn Injection [address] [place] [address] Blood Pressure Check Allergies No known active allergiesdocumented as of this encounter (statuses as of 12/18/2023) Medications Medication Sig Dispensed Refills Start Date End Date Status Vitamin 27-0.8 MG Oral Tablet Take by mouth. Active Aspirin 81 MG Oral Capsule Take by mouth. Active Magnesium 400 MG Oral Tablet Take by mouth. Active QA on RequestTouch Verio Flex System w/Device Kit Use to test blood sugars 4 times daily (fasting, 1 hour after breakfast, lunch, and dinner) 1 Kit 10/09/2023 Active Additional Information Patient not taking.Reported on 10/19/2023 OneTouch Delica Lancets 30G Use to test blood sugars 4 times daily (fasting, 1 hour after breakfast, lunch, and dinner) 200 Each 6 10/09/2023 Active Additional Information Patient not taking.Reported on 10/19/2023 OneTouch Verio In Vitro Strip (Glucose Blood) Use to test blood sugars 4 times daily (fasting, 1 hour after breakfast, lunch, and dinner) 100 Strip 6 10/23/2023 Active OneTouch Verio In Vitro Strip (Glucose Blood) Use to test blood sugars 4 times daily (fasting, 1 hour after breakfast, lunch, and dinner) 125 Strip 6 10/23/2023 Active documented as of this encounter (statuses as of 12/18/2023) Active Problems Problem Noted Date Diagnosed Date with 29 completed weeks gestation 11/2023 Excessive growth affec ting management of , antepartum 10/08/2023 Last Assessment & Plan: EFW 90%ile today with large AC. Projected EFW at her EDC along very stable growth curve is < 4500g and Yari should be delivered at 39 weeks. Diet controlled gestational diabetes mellitus (GDM) in third trimester 07/06/2023 Overview: Diagnosed at 27 weeks Nutrition consult ordered Lab Results Component Value Date/Time 50-G GESTATIONAL GLUCOSE, 1 HOUR - [facility] 175 (H) 07/04/2023 12:39 PM 100-G GESTATIONAL GLUCOSE, 1 HOUR - [facility] 196 (H) 10/08/2023 09:08 AM 100-G GESTATIONAL GLUCOSE, 2 HOUR - [facility] 186 (H) 10/08/2023 10:05 AM 100-G GESTATIONAL GLUCOSE, 3 HOUR - [facility] 114 10/08/2023 11:02 AM 100-G GESTATIONAL GLUCOSE, FASTING - [facility] 84 10/08/2023 08:01 AM 10/19/23: MFM ADAPT consult complete. Enrolled in Current [employer]. Instructions provided to report blood sugars each week for MFM review; Patient has her glucometer and lancets, however, has been waiting for pharmacy to have strips in stock. Rx for strips was called in to a different pharmacy today, so pt is hoping to receive strips tomorrow. 10/27/23: RPM reviewed; Stable. Continue diet control. 11/03/[id number] 11/10/23: RPM reviewed; Stable 11/17/[id number]-inbscxt stable 11/24/[id number]-tbixnz 11/30/[id number]-rghluo 12/08/[id number]-NOZ-boryko 12/15/[id number]-zjiwwk Last Assessment & Plan: Working with ADAPT. Supervision of high [facility] 06/26/2023 Bipolar disease during 06/26/2023 Subchorionic hematoma, antepartum 06/09/2023 Overview: -At [facility] 9w1d -> "small GLENDY" per ER physician Last Assessment & Plan: DISCUSSION: -Reviewed that the cause of subchorionic hemorrhage (GLENDY) is largely unknown. However, in the absence of vaginal bleeding, a small GLENDY is not associated with an increased rate of poor outcomes. Most asymptomatic GLENDY resolve by 20 weeks gestation. -GLENDY associated with vaginal bleeding is associated with an increased risk for miscarriage, placental abruption, premature rupture of amniotic membranes, and labor/delivery. - outcome associated with GLENDY also relates to location, with worse outcomes observed for retroplacental hematomas, compared to marginal hematomas. The location, rather than the size of a GLENDY may be the most important predictor of outcome. Evidence relating to the size of the hematoma and the risk of adverse outcomes is inconclusive. RECOMMENDATIONS: -Expectant management is recommended with close monitoring of maternal tolerance of bleeding. History of transfusion 06/04/2023 Overview: Pt report received blood during emergent surgery d/t ectopic Last Assessment & Plan: -Positive AB screen, see above. Red blood cell antibody positive 06/03/2023 Overview: O positive Positive for antibodies: anti-c, anti-e, and anti-fya See scanned encounter regarding transfusion recommendations Last Assessment & Plan: Repeat titer drawn 12/02. Antepartum multigravida of advanced maternal age 1206/02/2023 Overview: Patient age 38 at delivery NIPT: to be coordinate by primary OB Genetics referral: declined MFM anatomy scan scheduled on 08/10/2023 Last Assessment & Plan: Considerations: We discussed the increased of both obstetric and medical complication associated with advanced maternal age, especially maternal age > 45 years of age. There is not an increased risk of aneuploidy if using donor eggs. There is an increased risk of stillbirth, miscarriage, ectopic , congenital anomalies, preeclampsia, poor growth, gestational diabetes, placenta previa, anomalies, need for section, and other medical/obstetric complications. As a result of the above, there is an increased risk of delivery which is associated with an increased risk of morbidity and mortality. After discussion of the genetic screening/testing options pt opted to pursue cffDNA to be coordinated by primary OB In addition to the risk of chromosomal abnormalities, there is an increased risk of congenital/structural anomalies. Recommendations: Recommend M anatomy ultrasound at 19-20 weeks gestation. Recommend daily Baby Aspirin 81 mg If patient takes Lovenox prior to cffDNA being drawn, there is an increased risk for low fraction/no-call results This is also true given her starting BMI in Would likely defer cffDNA until 13-14 weeks if able to avoid false negatives Class 3 severe obesity due t o excess calories without serious comorbidity with body mass index (BMI) of 40.0 to 44.9 in adult 05/29/2023 Family history of autism 05/29/2023 Overview: FOB's siblings with history of autism Last Assessment & Plan: -Declines genetics referral ASCUS with positive high risk HPV cervical 07/10 Overview: Hx of ASCUS +HPV on pap Last Assessment & Plan: -Ensure proper follow up by primary ACCESS TECH team History of migraine 06/28/2021 Overview: Fioricet not covered by insurance. Neurologist recommended propranolol. Message to [facility] for advice. Migraine with aura and witho ut status migrainosus, not intractable 03/23/2018 Obesity affecting , antepartum 03/23/20 18 Overview: Pre gravid BMI: 42.6 Class 3 obesity Recommend early 1 hour GTT Baseline Preeclampsia Labs Lab Results Component Value Date/Time PLATELET AUTO - [facility] 343 05/29/2023 01:04 PM CREATININE - [facility] 0.6 05/29/2023 01:04 PM AST - [facility] 17 05/29/2023 01:04 PM ALT - [facility] 19 05/29/2023 01:04 PM PROTEIN/ CREATININE RATIO, URINE - [facility] 73 05/29/2023 03:07 PM Last Assessment & Plan: I reviewed the ultrasound. The overall estimated weight is consistent with the 89th percentile for the gestational age and the anatomy that was visualized appears unremarkable. The amniotic fluid volume is subjectively normal and the fetus is in the transverse presentation. Estimated Date of Delivery Comme nts Yes 01/02/2024 Based on last me nstrual period of 03/28/2023 documented as of this encounter (statuses as of 12/18/2023) Resolved Problems Problem Noted Date Diagnosed Date Resolved Date Uterine fibroid in 06/02/2023 06/09/2023 Overview: Uterine fibroid noted on dating ultrasound EXAM: US PELVIS TRANS-VAGINAL OB - 05/08/2023 9:01 am HISTORY: dating COMPARISON: None TECHNIQUE: Real time transvaginal sonographic imaging of the pelvis was performed. FINDINGS Early gestational sac in uterus containing yolk sac and no pole. Mean sac diameter 11 mm which equates to 5 weeks 1 day. MYOMETRIUM: Heterogeneous, small anterior fibroid measuring 1.5 x 1.2 x 1.2 cm RIGHT OVARY: 3.2 cm x 1.6 cm x 1.4 cm, 3.6 ml. Normal LEFT OVARY: 2.2 cm x 1.8 cm x 2.0 cm, 4.1 ml. Normal MISCELLANEOUS: No significant free fluid. IMPRESSION 1. Early gestational sac in uterus containing yolk sac and no pole. Mean sac diameter 11 mm which equates to 5 weeks 1 day. Most likely too early in to see pole. Blighted ovum another possibility. Follow-up ultrasound in 2 weeks could distinguish these possibilities. Supervision of normal 05/29/2023 06/26/2023 Antiphospholipid antibody sy ndrome complicating 05/29/2023 12/04/2023 Overview: Per MFM (Ask a Doc) pt technically does not have diagnosis of APS. Possible diagnosis of APS [biochemical and ectopic pregnancies do not contribute to the diagnosis, bu the possible loss after 10 weeks would qualify] Additionally, lab testing repeated but not 12 weeks apart and different AB were positive on each draw (anticardiolipin AB first and then b2-glycoprotein at repeat) Hx: 2014 - male infant, full term different FOB, conceieved on COCPs, , no complications 06/2021 - SAB, did have US confirmed , demise sometime between [id number]-85 w0d, no testing done, no difficulty conceiving, current FOB 09/2021 - biochemical, 3 days +HPTs, then bled and became negative. Neg hcg just after bleeding, no difficulty conceiving, current FOB 06/2022 - ectopic , surgical removal of and L tube, current FOB 10/2022 - biochemical, +HPT, then bled, current FOB Last Assessment & Plan: CONSIDERATIONS: Discussed that antiphospholipid syndrome (APS) is an immune disorder that has been associated with obstetric morbidity including recurrent miscarriage, loss, growth restriction, preeclampsia and delivery. Discussed that to be diagnosed with APS, a patient must have both clinical and laboratory features. One of the following establishes the clinical criteria: Vascular thrombosis (arterial, venous, or small vessel thrombosis in any tissue or organ). One or more unexplained demise at or beyond 10 weeks' gestation of a morphologically normal fetus (documented by ultrasound or direct examination of fetus). One or more premature births of a morphologically normal prior to 34 weeks' gestation due to severe preeclampsia, eclampsia, or placental insufficiency (eg FGR [ growth restriction]). Three or more unexplained, consecutive miscarriages prior to 10 weeks (with maternal/paternal chromosomal, anatomic, and hormonal causes excluded). For laboratory criteria, the same test for acquired antibody must be abnormal twice, 12 weeks apart (as transient elevations can occur and resolve): 1. Positive lupus anticoagulant (LAC). 2. Anticardiolipin antibodies (GEOVANNA) (IgG or IgM greater than 40 or greater than 99th percentile). 3. Anti-?2-glycoprotein I greater than 99th percentile. patients without a history of thrombotic events may also benefit from anticoagulation, though the optimal treatment has not been well studied. Women with APS have a 5% to 12% risk of arterial or venous thromboembolism in , a fourth of which occur . RECOMMENDATIONS: For patients with antiphospholipid syndrome (APS) and either a history of recurrent loss or sporadic loss and no prior episode of VTE, we recommend low-dose aspirin (81 mg or less) and prophylactic dose anticoagulation therapy throughout with lovenox and transition heparin at 36 weeks and 6 weeks . Recommend serial Maternal- Medicine ultrasounds for growth starting at 24 weeks' gestation. Recommend surveillance with twice weekly NST starting at 32 weeks and delivery by EDC. Estrogen-containing oral contraceptives should be avoided because of the increased risk of thrombosis. Recommend followup with Hematology or Rheumatology after the period for long-term management. Ask-A-Doc message sent today given questionable but concerning Hx for APS. Pending recommendations the above reccs may differ. Regardless, patient will have serial growth scans for C3 obesity but medication regimen will either be ASA alone or ASA with prophylactic AC. Body mass index (BMI) of 40. 0 to 44.9 in adult 10/20/2022 06/26/2023 Overview: Per Obesity protocol Supervision of other normal 06/28/2021 06/24/2022 , normal first 01/03/2014/02/2015 Overview: Urine culture contaminated at NOB. Repeat next visit Patient declines flu vaccine. 03/27/2014 Holley Eng RN Patient declines Tdap vaccine 06/05/14 Holley Eng RN Induction scheduled for 08/07 Obesity, Class I, BMI 30.0-3 4.9 (see actual BMI) 01/03/2014 08/13/2020 Overview: Early glucola ordered-- WNL ASCUS with positive high risk HPV 06/24/2012 08/13/2020 Overview: 05/25- pap ASCUS +HR HPV Colpo 07/27Dr Haim - ecc neg Pap 02/24 - ASCUs + HR HPV Colpo 06/27 Dr Briceno - CIN1 neg ECC, repeat pap 6 mon Pap 01/25- WNL Seborrheic dermatitis 10/14/20052020 Overview: forehead ICD-10 update of inactive term Nystagmus 09/16/2004 08/13/2020 ALCOHOL ABUSE-UNSPEC 02/07/2004 021 Major depressive disorder, r ecurrent episode, moderate 08/14/2003 08/13/2020 BIPOLAR AFFEC, DEPR-MOD 08/14/200306/2020 Borderline personality disorder 08/14/2003 08/13/2020 documented as of this encounter (statuses as of 12/18/2023) Immunizations Name Administration Dates Next Due COVID-19 mRNA, LNP-s, No Pre serve, 2-Dose Series (FamilyLeaf) 05/04/2021,09/04/2020,08/14/2020 COVID-19, MRNA-LNP, 23-24, P F, 30 MCG/0.3 mL, 12 YRS AND ABOVE, IM ([facility] [facility] 03/07/2023 HPV Vaccine, 4-Valent 05/26/2012,02/24/2012,07/17 PPD 08/19/2022,01/09/2012,02/10/2007 Seasonal Influenza Vac, Quad , Cell Cult, PF, 6 Mos and Up, IM, (Flucelvax Quad) 02/27/2022 Seasonal Influenza Virus Vac cine, Unspecified Formulation 03/21/2020 Seasonal Influenza, PF, 6 M & above, IM , (FluLaval or Fluzone) 03/02/2021,03/23/2018 Seasonal Influenza, Quadriva lent, No Preserve, IM 03/07/2023 Seasonal Influenza, Split, I IV3, With Preserve, Inj 02/24/2012,05/30/2011,03/29/2010 TDAP (age 10 and older)(Boostrix) 10/08/2023 TDAP, Age 7 and older, IM (Adacel) 05/30/2011 documented as of this encounter Social History Tobacco Use Types Packs/Day Years Used Date Smoking Tobacco: Former Cigarettes 0.3 2 1 - 03/23/2013 Smokeless Tobacco: Never Alcohol Use Standard Drinks/Week Comments Not Currently 1.7 (1 standard drink = 0.6 oz p ure alcohol) none since + preg test AUDIT-C Answer Date Recorded Q1: How often do you have a drink containing alc ohol? Monthly or less 08/13/2020 Q2: How many drinks containi ng alcohol do you have on a typical day when you are drinking? Not asked 08/13/2020 Q3: How often do you have si x or more drinks on one occasion? Not asked 08/13/2020 PHQ-2 Answer Date Recorded PHQ-2 Score 0 10/25/2018 Hunger Vital Sign Answer Date Recorded Within the past 12 months, y ou worried that your food would run out before you got the money to buy more. Never true 08/04/19 24 Within the past 12 months, t he food you bought just didn't last and you didn't have money to get more. Never true 08/04/2023 [place] Depression Scale Answer Date Recorded [place] Depression Scale Total 5 05/29/2023 The thought of harming myself has occurred to me . Never 05/29/2023 Childcare Answer Date Recorded Do you feel overwhelmed with taking care of a child, family member or friend? No 08/04/2023 Does your family need help f inding childcare? (Household - for ages 0-17 years) Not on file 08/04/2023 Clothing Answer Date Recorded Have you been unable to get clothing when it was really needed? No 08/04/2023 Is your family able to get c lothes or diapers when needed? (Household - for ages 0-17 years) Not on file 08/04/2023 Personal Safety Answer Date Recorded Do you feel unsafe or have concerns for your saf ety? No 08/04/2023 Do you have concerns for you r family's safety? (Household - for ages 0-17 years) Not on file 08/04/2023 Utilities Answer Date Recorded Do you have trouble paying y our heating, water, or electric bill? No 08/04/2023 Is your family able to pay t he heat, water, or electric bill? (Household - for ages 0-17 years) Not on file 08/04/2023 Does your family have access to good internet? (Household - for ages 0-17 years) Not on file 08/04/2023 Employment Status Answer Date Recorded Are you unemployed or without regular income? No 08/04/2023 Does the household have a re gular source of income? (Household - for ages 0-17 years) Not on file 08/04/2023 Social Connections Answer Date Recorded How often do you feel lonely or isolated from th ose around you? Never 08/04/2023 Financial Resource Strain Answer Date R ecorded Do you have any trouble payi ng for your medications, or do you think you might in the future? No 08/04/2023 Does your family have troubl e paying for medicine? (Household - for ages 0-17 years) Not on file 08/04/2023 Transportation Needs Answer Date Record ed READ ONLY Do you have troubl e getting a ride to medical visits or work? Never True 08/04/2023 Does your family have a hard time getting a ride to doctors visits? (Household - for ages 0-17 years) Not on file 08/04/2023 Has lack of transportation k ept you from medical appointments, meetings, work, or from getting things needed for daily living? Check all that apply. (Adult - for ages 18 years and over) Not on file 08/04/2023 Do you (or your family) have trouble finding or paying for a ride (transportation)? (Household - for ages 0-17 years) Not on file 08/04/2023 Housing Stability Answer Date Recorded Do you currently live in a s helter or have no steady place to sleep at night? No 08/04/2023 READ ONLY Do you think you a re at risk of becoming homeless? No 08/04/2023 Does your family worry about paying for your home or becoming homeless? (Household - for ages 0-17 years) Not on file 0 08/04/2023 Are you homeless or worried that you might be in the future? (Adult - for ages 18 years and over) Not on file Are you (or your family) javid eless or worried that you might be in the future? (Household - for ages 0-17 years) Not on file Food Insecurity Answer Date Recorded Do you need food for this week? No 08/04/2023 Are you able to get enough f ood for your family? (Household - for ages 0-17 years) Not on file 08/04/2023 Does your family need food t his week? (Household - for ages 0-17 years) Not on file 08/04/2023 Do you always have enough fo od for your family? (Household - for ages 0-17 years) Not on file 08/04/2023 Estimated Date of Delivery Comme nts Yes 01/02/2024 Based on last me nstrual period of 03/28/2023 Sex and Gender Information Value Date Recorded Sex Assigned at Female 11/17/2021 7:15 PM EDT Gender Identity Female 11/17/2021 7:15 PM EDT Sexual Orientation Straight 11/17/2021 7: 15 PM EDT Job Start Date Occupation Industry Not on file Not on file Not on file documented as of this encounter Last Filed Vital Signs Vital Sign Reading Time Taken Comments Blood Pressure 122/82 12/18/2023 10:04 AM EDT Pulse - - Temperature - - Respiratory Rate - - Oxygen Saturation - - Inhaled Oxygen Concentration - - Weight - - Height - - Body Mass Index - - documented in this encounter Nursing Notes * Caroline Cabrera LPN - 12/18/2023 10:12 AM EDT Pt here today for BP check Denies new onset of MOHAN, vision changes, decreased movement. BP today in office 122/82 Urine collected- results in chart All information review with Wandy FINCH who advised good BP today, to keep next week appt as scheduled and to call with onset of new symptoms/concerns. Pt verbalized understanding. documented in this encounter Plan of Treatment Upcoming Encounters Date Type Department Care Team (Late st Contact Info) Description 12/23/2023 1:00 PM EDT Office Visit Gynecology/Obstetrics Enzo Snyder [address] [place] [address] Niya Goodrich CRNP [address] [place] [address] Talita Snyder [facility] [address] [place] [address] 12/30/2023 1:00 PM EDT Office Visit Gynecology/Obstetrics Enzo Snyder [address] [place] [address] Niya Goodrich CRNP [address] [place] [address] Claudio, Non Stress [facility] [address] [place] [address] Health Maintenance Due Date Last Done Comments Influenza Vaccine (FLU shot) (#1) 2024 03/07/2023, 02/27/2022, 03/02/2021, Additional history exists Diabetes Screening 05/29/2026 05/29/2023, 0 07/15/2022, 03/14/2004 Pap Smear 05/29/2026 05/29/2023, 06/15, 05/18/2018, Additional history exists Cervical Cancer Screening 05/29/2028 HPV/Co-Test 05/29/2028 05/29/2023 DTaP,Tdap,and Td Vaccines (8 - Td or Tdap) 10/07/2033 10/08/2023, 05/30/2011, 02/04/2000, Additional history exists Hepatitis B Vaccine Completed 06/22/2000, 04/07/2000, 02/04/2000 HPV (Gardasil) Vaccine Completed 2, 02/24/2012, 08/11/2011 COVID-19 Vaccine Completed 03/07/2023, , 09/04/2020, Additional history exists MENINGOCOCCAL (MENACTRA/MENVEO) Aged Out No longer eligible based on patient's age to complete this topic Pneumococcal Vaccine: Pediatrics (0 to 5 Years) and At-Risk Patients (6 to 64 Years) Aged Out No longer eligible based on patient's age to complete this topic documented as of this encounter Medical Devices Not on filedocumented as of this encounter Procedures Procedure Name Priority Date/Time Associated Diagnosis Comments URINALYSIS, POINT OF CARE (ENTER/EDIT) Routine 12/18/2023 BP check documented in this encounter Results * URINALYSIS, POINT OF CARE (ENTER/EDIT) (12/18/2023) Color, Urine Yellow Yellow or Light Yellow Clarity, Urine Clear Clear Glucose, Urine Negative Negative mg/dL Bilirubin, Urine Negative Negative Ketone, Urine Negative Negative mg/dL Specific [place], Urine 1.025 1.003 - 1.030 Blood, Urine Negative Negative pH, Urine 7.0 5.0 - 7.5 units Protein, Urine Trace Negative mg/dL Urobilinogen, Urine 0.2 0.2 - 1.0 mg/dL Nitrite, Urine Negative Negative Esterase, Urine Trace Negative Urine 12/18/2023 Jt Whitmore MD LAB POINT OF CARE [facility] ENTER/EDIT ORDERABLES documented in this encounter Visit Diagnoses Diagnosis BP check- Primary Screening for hypertension documented in this encounter
--- OUTSIDE RECORDS SUMMARY | 2023-12-28 07:47 | External Medical Summary | Summary of Care ---
Author Name Unknown Organization [facility] Address [address] [place] [address] Phone [phone] Care Team Providers Care Behavioral Medical Director Name Role Phone Unavailable Primary Care Provider Unavailabl e Reason for Visit * Reason Comments Non Stress Test Return Visit Encounter Details Date Type Department Care Team (Late st Contact Info) Description 12/23/2023 1:00 PM EDT Office Visit Gynecology/Obstetric s [facility] [address] [facility] [place] [address] Niya Goodrich CRNP [address] [facility] [address] Tal[facility] Stress Tests [facility]no[facility] [address] [facility] [address] Supervision of high risk in third trimester*; Obesity affecting , antepartum, unspecified obesity type; Family history of autism; Antepartum multigravida of advanced maternal age; Red blood cell antibody positive; History of transfusion; Subchorionic hematoma, antepartum, single or unspecified fetus; Bipolar disease during in third trimester (HCC); Diet controlled gestational diabetes mellitus (GDM) in third trimester; Excessive growth affecting management of , antepartum, single or unspecified fetus Allergies No known active allergiesdocumented as of this encounter (statuses as of 12/23/2023) Medications Medication Sig Dispensed Refills Start Date End Date Status Vitamin 27-0.8 MG Oral Tablet Take by mouth. Active Aspirin 81 MG Oral Capsule Take by mouth. Active Magnesium 400 MG Oral Tablet Take by mouth. Active [employer]vision Pharm[employer] Verio Flex System w/Device Kit Use to [...] as of this encounter (statuses as of 12/23/2023) Active Problems Problem Noted Date Diagnosed Date [...] 10/27/23: RPM reviewed; Stable. Continue diet control. 11/03/20239787-BHR-dqyscf 11/10/23: RPM reviewed; Stable 11/17/20234979-QDH-kqcrvnm stable 11/24/20238542-UPV-pwzguu 11/30/20239798-UQP-uwfhgh 12/08/20235046-UEK-valedv 12/15/20233925-CZV-tqkdzw 12/21/23: RPM reviewed; Stable Last Assessment & Plan: Working with [employer]. Supervision of high risk in third [facility] 06/26/2023 Bipolar disease during 06/26/2023 Subchorionic hematoma, antepartum 06/09/2023 Overview: -At [facility] 9w1d -> "small GLENDY" per ER [...] increased risk of congenital/structural anomalies. Recommendations: Recommend MFM anatomy ultrasound at 19-20 weeks gestation. 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 Neurologist recommended propranolol. Message to [facility] for advice. Migraine with aura and witho [...] as of this encounter (statuses as of 12/23/2023) Resolved Problems Problem Noted Date Diagnosed Date [...] have US confirmed , demise sometime between 0z1a-14 w0d, no testing done, no difficulty conceiving, [...] other normal 06/28/2021 06/24/2022 , normal first 01/03/2014 03/0 02/2015 Overview: Urine culture contaminated at [facility]. Repeat next visit Patient declines flu vaccine. 03/27/2014 Holley L Eng, RN Patient declines Tdap vaccine 06/05/14 Holley Eng, BETTY Induction scheduled for 08/07 Obesity, Class I, [...] as of this encounter (statuses as of 12/23/2023) Immunizations Name Administration Dates Next Due COVID-19 mRNA, LNP-s, No Pre serve, 2-Dose Series ([facility]) 05/04/2021,09/04/2020,08/14/2020 COVID-19, MRNA-LNP, 23-24, P F, 30 MCG/0.3 mL, 12 YRS AND ABOVE, IM ([employer]-ComirnatSpoqa) 03/07/2023 HPV Vaccine, 4-Valent 05/26/2012,02/24/2012,07/17 PPD 08/19/2022,01/09/2012,02/10/2007 [...] money to get more. Never true 08/04/2023 [place] Depression Scale Answer Date Recorded [place] Depression Scale Total 5 05/29/2023 The thought [...] Sign Reading Time Taken Comments Blood Pressure 124/82 12/23/2023 1:03 PM EDT Pulse - - Temperature - - Respiratory Rate - - Oxygen Saturation - - Inhaled Oxygen Concentration - - Weight 115.7 kg (255 lb) 12/23/2023 1:03 PM EDT Height - - Body Mass Index 43.77 12/02/2023 2:32 PM EDT documented in this encounter Progress Notes * Niya Goodrich CRNP - 12/23/2023 12:55 PM EDT 38w4d Baby is active. Some ctx, were as close as every 8 mins on Thursday, but since spaced out. No LOF or bleeding. Declines cervical exam. Induction is next week, return prn. JOSETTE To ASSESSMENT assessment with Non-stress Test completed on 12/23/2023 at 38.4 weeks gestation for indicationof obesity heart baseline: 120 bpm Variability: Moderate Decelerations: absent Accelerations: present Contractions: Present x1 NST start time: 1253 NST stop time: 1318 NST strip reviewed, interpreted, and approved by OB provider, JOSETTE To . NST strip stored in clinic storage file documented in this encounter Plan of Treatment Upcoming Encounters Date Type Department Care Team (Late st Contact Info) Description 01/19/2024 11:30 AM EDT Office Visit Gynecology/Obstetrics [facility] [address] [place] [address] Wandy Li CRNP [address] [place] [address] 02/08/2024 10:30 AM EDT Office Visit Gynecology/Obstetrics [facility] [place] [address] Ju Yan, DNP, CNM [address] [facility] [place] [address] Health Maintenance Due Date Last Done Comments [...] Not on filedocumented as of this encounter Visit Diagnoses Diagnosis Supervision of high risk in third trimester- Primary Unspecified high-risk Obesity affecting , antepartum, unspecified obesity type Family history of autism Family history of psychiatric condition Antepartum multigravida of advanced maternal age Red blood cell antibody positive Other and unspecified nonspecific immunological findings History of transfusion Other specified personal history presenting hazards to health Subchorionic hematoma, antepartum, single or unspecified fetus Bipolar disease during in third trimester (HCC) Diet controlled gestational diabetes mellitus (GDM) in third trimester Excessive growth affecting management of , antepartum, single or unspecified fetus documented in this encounter
--- OUTSIDE RECORDS SUMMARY | 2023-12-28 07:47 | External Medical Summary | Summary of Care ---
Author Name Unknown Organization [facility] Address [address] [place] [address] Phone [phone] Care Team Providers Care Director Of In Service Education Name Role Phone Unavailable Primary Care Provider Unavailabl e Reason for Visit * Reason Comments Outpatient Testing Encounter Details Date Type Department Care Team (Late st Contact Info) Description 12/16/2023 1:50 PM EDT Laboratory Laboratory, [facility] [address] [place] [id number] [facility] [address] [place] [address] Elevated blood pressure, situational Allergies No known active allergiesdocumented as of this encounter (statuses as of 12/16/2023) Medications Medication Sig Dispensed Refills Start Date End Date Status Vitamin 27-0.8 MG Oral Tablet Take by mouth. Active Aspirin 81 MG Oral Capsule Take by mouth. Active Magnesium 400 MG Oral Tablet Take by mouth. Active OneTouch Verio Flex System w/Device Kit Use to [...] as of this encounter (statuses as of 12/16/2023) Active Problems Problem Noted Date Diagnosed Date [...] 10/27/23: RPM reviewed; Stable. Continue diet control. 11/03/20235197-TJD-amcudz 11/10/23: RPM reviewed; Stable 11/17/20235847-PZD-fkrvwgv stable 11/24/20231328-YRX-uinyqt 11/30/20231546-PLX-gioyff 12/08/20236285-SOK-nxiseo 12/15/20238303-VEU-vsmohw Last Assessment & Plan: Working with [employer]. 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 Neurologist recommended propranolol. Message to [facility] for advice. Migraine with aura and [...] as of this encounter (statuses as of 12/16/2023) Resolved Problems Problem Noted Date Diagnosed Date [...] b2-glycoprotein at repeat) Hx: 2014 - male , full term different FOB, conceieved on COCPs, , no complications 06/2021 - SAB, did have US confirmed , demise sometime between 9t4v-60 w0d, no testing done, no difficulty conceiving, [...] Overview: 05/25- pap ASCUS +HR HPV Colpo 07/27 Haim - ecc neg Pap 02/24 - [...] as of this encounter (statuses as of 12/16/2023) Immunizations Name Administration Dates Next Due COVID-19 mRNA, LNP-s, No Pre serve, 2-Dose Series ([employer]) 05/04/2021,09/04/2020,08/14/2020 COVID-19, MRNA-LNP, 23-24, P F, 30 MCG/0.3 mL, 12 YRS AND ABOVE, IM (PFI[employer]ER-Comirnaty) 03/07/2023 HPV Vaccine, 4-Valent 05/26/2012,02/24/2012,07/17 PPD 08/19/2022,01/09/2012,02/10/2007 [...] money to get more. Never true 08/04/2023 [place] Depression Scale Answer Date Recorded [place] Depression Scale Total 5 05/29/2023 The thought [...] on file documented as of this encounter Plan of Treatment Upcoming Encounters Date Type Department Care Team (Late st Contact Info) Description 12/18/2023 10:00 AM EDT Nurse Only Gynecology/Obstetrics [facility] [address] [place] [address] Gw, Nurse Obgyn Injection [address] [place] [address] 12/23/2023 1:00 PM EDT Office Visit Gynecology/Obstetrics [facility] [address] [place] [address] Niya Goodrich CRNP [address] [place] [address] Claudio Non Stress Tests Enoch [address] [place] [address] 12/30/2023 1:00 PM EDT Office Visit Gynecology/Obstetrics [facility] [address] [place] [address] BackNiya monroy CRNP [address] [place] [address] Claudio Non Stress Tests Enoch [address] [place] [address] Pending Results Name Type Priority Associated Diagnoses Date /Time PROTEIN/ CREATININE RATIO, URINE Lab Routine Elevated blood pressure, situational 12/16/2023 1:50 PM EDT CBC Lab Routine Elevated blood pressure, situational 12/16/2023 1:50 PM EDT CREATININE Lab Routine Elevated blood pressure, situational 12/16/2023 1:50 PM EDT HEPATIC FUNCTION PANEL Lab Routine Elevated blood pressure, situational 12/16/2023 1:50 PM EDT Health Maintenance Due Date Last Done Comments [...] as of this encounter Visit Diagnoses Diagnosis Elevated blood pressure, situational Elevated blood pressure reading without diagnosis of hypertension documented in this encounter
--- OUTSIDE RECORDS SUMMARY | 2023-12-28 07:48 | External Medical Summary ---
Author Name Unknown Address Unknown Organization K01:LABORATORY [facility] - [address] [place] [address] Laboratory Report Ordering Provider Test Date Status JOCE ROTH 12/03/2023 08:27:12 Final Serial titers for anti-e, an ti-C, anti- Fy(a) Observation Date Value Abnormality Reference (Units ) Status ABO 12/03/2023 08:27:12 O Final RH 12/03/2023 08:27:12 Positive Final Antibodies may delay blood a vailability
If RBC use is anticipated, place a prepare order RED BLOOD CELL ANTIBODY SCREEN 12/03/2023 08:27:12 Positive Final SPECIMEN EXPIRATION DATE 12/03/2023 08:27:12 12/06/2023 23:5 9 Final Performing Location LABORATORY [facility] - [address] [place] [address]
--- OUTSIDE RECORDS SUMMARY | 2023-12-28 07:48 | External Medical Summary ---
Author Name Unknown Address Unknown Organization K0G:[facility] - [address] [place] [address] Laboratory Report Ordering Provider Test Date Status TISHBACKER 12/16/2023 13:50:45 Final Observation Date Value Abnormality Reference (Units ) Status Albumin 12/16/2023 13:50:45 3.7 Below low normal 3.8-5.0 (g/dL) Final AST (Aspartate aminotransferase) 12/16/2023 13:50:45 11 10-35 (U/L) Final Alk Phos 12/16/2023 13:50:45 147 Above high normal 35-130 (U/L) Final ALT (Alanine aminotransferase) 12/16/2023 13:50:45 <5 Below low normal 10-35 (U/L) Final Bilirubin, Total 12/16/2023 13:50:45 0.2 <=1.2 (mg/dL) Final Bilirubin, Direct 12/16/2023 13:50:45 <0.2 0.0-0.3 (mg/dL) Final Protein 12/16/2023 13:50:45 6.9 6.0-8.3 (g/dL) Final Performing Location [facility] - [address] [place] [address]
--- OUTSIDE RECORDS SUMMARY | 2023-12-28 07:48 | External Medical Summary ---
Author Name Unknown Address Unknown Organization K01:[facility] [place] [address] [place] [address] Laboratory Report Ordering Provider Test Date Status HAZEL NEWTON 12/09/2023 11:13:46 Final Observation Date Value Abnormality Reference (Units ) Status Streptococcus agalactiae DNA [Presence] in Specimen by NIKOS with probe detection 12/09/2023 11:13:46 Negative Negative Final No Group B Streptococcus det ected by culture-enhanced PCR (amplified probe). GBS GBSCT - [facility] 12/09/2023 11:13:46 0.0 Final GBS SPCCT - [facility] 12/09/2023 11:13:46 30.5 Final Performing Location [facility] [place] [address] [place] [address]
--- OUTSIDE RECORDS SUMMARY | 2023-12-28 07:48 | External Medical Summary | Summary of Care ---
Author Name Unknown Organization [facility] Address [address] [place] [address] Phone [phone] Care Team Providers Care Rn Ccu Name Role Phone Unavailable Primary Care Provider Unavailabl e Reason for Visit * Reason Comments Outpatient Testing Encounter Details Date Type Department Care Team (Late st Contact Info) Description 12/03/2023 9:20 AM EDT Laboratory Laboratory, [facility] [address] [place] [phone] [facility] [address] [place] [address] Red blood cell antibody positive Allergies No known active allergiesdocumented as of this encounter (statuses as of 12/07/2023) Medications Medication Sig Dispensed Refills Start Date [...] as of this encounter (statuses as of 12/07/2023) Active Problems Problem Noted Date Diagnosed Date [...] 10/27/23: RPM reviewed; Stable. Continue diet control. 11/03/20236786-YFG-synqlv 11/10/23: RPM reviewed; Stable 11/17/20233748-YNE-vnxxoyw stable 11/24/20233627-ZWD-drfopz 11/30/20237553-VUB-dwhgud Last Assessment & Plan: Working with [employer]. Supervision of high risk in third trim annamarie 06/26/2023 Bipolar disease during 06/26/2023 Subchorionic hematoma, antepartum 06/09/2023 Overview: -At [facility] 9w1d -> "small GLENDY" per ER physician [...] increased risk of congenital/structural anomalies. Recommendations: Recommend [facility] anatomy ultrasound at 19-20 weeks gestation. 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 Neurologist recommended propranolol. Message to [facility] for advice. Migraine with aura and [...] as of this encounter (statuses as of 12/07/2023) Resolved Problems Problem Noted Date Diagnosed Date [...] have US confirmed , demise sometime between 1n2a-34 w0d, no testing done, no difficulty conceiving, [...] episode, moderate 08/14/2003 08/13/2020 BIPOLAR AFFEC, DEPR-MOD 08/14/2003/06/2020 Borderline personality disorder 08/14/2003 08/13/2020 documented as of this encounter (statuses as of 12/07/2023) Immunizations Name Administration Dates Next Due COVID-19 mRNA, LNP-s, No Pre serve, 2-Dose Series ([employer]) 05/04/2021,09/04/2020,08/14/2020 COVID-19, MRNA-LNP, 23-24, P F, 30 MCG/0.3 mL, 12 YRS AND ABOVE, IM ([employer]) 03/07/2023 HPV Vaccine, 4-Valent 05/26/2012,02/24/2012,07/17 PPD 08/19/2022,01/09/2012,02/10/2007 [...] money to get more. Never true 08/04/2023 [place] Depression Scale Answer Date Recorded [place] Depression Scale Total 5 05/29/2023 The thought [...] Care Team (Late st Contact Info) Description 12/09/2023 10:15 AM EDT Office Visit Gynecology/Obstetrics [facility] [address] [place] [address] Wandy Li CRNP [address] [place] [address] Claudio, Non Stress Tests Enoch [address] [place] [address] 12/16/2023 1:00 PM EDT Office Visit Gynecology/Obstetrics [facility] [address] [place] [address] Niya Goodrich CRNP [address] [place] [address] Claudio, Non Stress Tests Enoch [address] [place] [address] 12/23/2023 1:00 PM EDT Office Visit Gynecology/Obstetrics [facility] [address] [place] [address] Niya Goodrich CRNP [address] [place] [address] Claudio, Non Stress Tests Enoch [address] [place] [address] 12/30/2023 1:00 PM EDT Office Visit Gynecology/Obstetrics Enzo [facility] [address] [place] [address] [place], JOSETTE Holliday [address] [place] [address] Claudio, Non Stress Tests Enoch [address] [place] [address] Pending Results Name Type Priority Associated Diagnoses Date /Time RED BLOOD CELL ANTIBODY IDENTIFICATION INTERPRETATION Lab STAT Red blood cell antibody positive 12/03/2023 8:27 AM EDT Scheduled Orders Name Type Priority Associated Diagnoses Orde r Schedule RED BLOOD CELL ANTIBODY IDENTIFICATION INTERPRETATION Lab STAT Red blood cell antibody positive Expected: 12/07/2023, Expires: 01/05/2025 Health Maintenance Due Date Last Done Comments Diabetes Screening 05/29/2026 05/29/2023, 0 07/15/2022, 03/14/2004 Pap Smear 05/29/2026 05/29/2023, 06/15, 05/18/2018, Additional history exists Cervical Cancer Screening 05/29/2028 HPV/Co-Test 05/29/2028 05/29/2023 DTaP,Tdap,and Td Vaccines (8 - Td or Tdap) 10/07/2033 10/08/2023, 05/30/2011, 02/04/2000, Additional history exists Hepatitis B Completed 06/22/2000, 03/16, 02/04/2000 GARDASIL-HPV IMMUNIZATION SERIES Completed 05/26/2012, 02/24/2012, 08/11/2011 COVID-19 Vaccine Completed 03/07/2023, , 09/04/2020, Additional history exists Influenza Vaccine (FLU shot) Completed , 02/27/2022, 03/02/2021, Additional history exists MENINGOCOCCAL (MENACTRA/MENVEO) Aged Out [...] Procedure Name Priority Date/Time Associated Diagnosis Comments RED BLOOD CELL ANTIBODY IDENTIFICATION STAT 12/03/2023 8:27 AM EDT Red blood cell antibody positive RED BLOOD CELL ANTIBODY TITER Routine 12/03/2023 8:27 AM EDT Red blood cell antibody positive TYPE AND SCREEN STAT 12/03/2023 8:27 AM EDT Red blood cell antibody positive documented in this encounter Results * RED BLOOD CELL ANTIBODY IDENTIFICATION (12/03/2023 8:27 AM EDT) Red Blood Cell Antibody Identification No new alloantibodies identified 12/07/2023 12:27 PM EDT LAB[facility] Comment:Previously identifie d Anti-C, Anti-e, and Anti-Fya, no additional alloantibodies identified. Blood Venous blood specimen / Unknown Venipuncture / Unknown 12/03/2023 8:27 AM EDT 12/03/2023 8:27 AM EDT Eloy Bae MD LAB BLOOD BANK TEST ORDERABLES LAB[facility]ATORY [facility] [address] [place] [address] * TYPE AND SCREEN (12/03/2023 8:27 AM EDT) ABO O 12/03/2023 2:53 PM EDT LAB[facility] Rh Positive 12/03/2023 2:53 PM EDT [facility] Comment: Antibodies may delay blood availability If RBC use is anticipated, place a prepare order Red Blood Cell Antibody Screen Positive 12/03/2023 2:53 PM EDT LAB[facility] Specimen Expiration Date 12/06/2023 23:59 12/03/2023 2:53 PM EDT LAB[facility] Blood Venous blood specimen / Unknown Venipuncture / Unknown 12/03/2023 8:27 AM EDT 12/03/2023 8:27 AM EDT Eloy Bae MD LAB BLOOD BANK TEST ORDERABLES Performing Organization Address City/[facility] Co de Phone Number LABORATORY [facility] [address] [place] [address] * RED BLOOD CELL ANTIBODY TITER (12/03/2023 8:27 AM EDT) Antibody Titer Anti-C Titer: Less than 1 Anti-Fya Titer : Less than 1 Anti-e Titer : Less than 1 12/04/2023 2:58 PM EDT LAB[facility]ORY [facility] Blood Venous blood specimen / Unknown Venipuncture / Unknown 12/03/2023 8:27 AM EDT 12/03/2023 8:27 AM EDT Eloy Bae MD LAB BLOOD BANK TEST ORDERABLES Performing Organization Address City/[facility] Co de Phone Number LAB[facility]ATORY [facility] [address] [place] [address] documented in this encounter Visit Diagnoses Diagnosis Red blood cell antibody positive Other and unspecified nonspecific immunological findings documented in this encounter
--- OUTSIDE RECORDS SUMMARY | 2023-12-28 07:48 | External Medical Summary | Summary of Care ---
Author Name Unknown Organization [facility] Address [address] [place] [address] Phone [phone] Care Team Providers Care Accounting Systems Manager Name Role Phone Unavailable Primary Care Provider Unavailabl e Encounter Details Date Type Department Care Team (Late st Contact Info) Description 12/03/2023 8:45 AM EDT Office Visit Fixed Income Analyst Obstetrics Maternal Medicine, [facility] [address] [place] [address] Kiah Pompa, DO [address] [place], [place] [id number] Red blood cell antibody positive*; Obesity affecting , antepartum, unspecified obesity type; Excessive growth affecting management of , antepartum, single or unspecified fetus; Ultrasound for screening for growth restriction; 35 weeks gestation of Allergies No known active allergiesdocumented as of this encounter (statuses as of 12/04/2023) Medications Medication Sig Dispensed Refills Start Date End Date Status Vitamin 27-0.8 MG Oral Tablet Take by mouth. Active Aspirin 81 MG Oral Capsule Take by mouth. Active Magnesium 400 MG Oral Tablet Take by mouth. Active LocBox LabsTouch Verio Flex System w/Device Kit Use to [...] as of this encounter (statuses as of 12/04/2023) Active Problems Problem Noted Date Diagnosed Date [...] 10/27/23: RPM reviewed; Stable. Continue diet control. 11/03/20230976-UPS-cwpqby 11/10/23: RPM reviewed; Stable 11/17/20233946-JFF-eomrpkk stable 11/24/20230891-DWY-bbrwtd 11/30/[id number]-QXM-ffagqx Last Assessment & Plan: Working with [employer]. Supervision of high risk in [facility] 06/26/2023 Bipolar disease during 06/26/2023 Subchorionic hematoma, antepartum 06/09/2023 Overview: -At [facility] 9w1d -> "small GLENDY" per ER physician [...] Plan: -Ensure proper follow up by primary ACTIVITIES COORDINATOR team History of migraine 06/28/2021 Overview: Fioricet not covered by insurance. Neurologist recommended propranolol. Message to [facility] for advice. Migraine with aura and [...] as of this encounter (statuses as of 12/04/2023) Resolved Problems Problem Noted Date Diagnosed Date [...] have US confirmed , demise sometime between 1o7j-10 w0d, no testing done, no difficulty conceiving, [...] episode, moderate 08/14/2003 08/13/2020 BIPOLAR AFFEC, DEPR-MOD 08/14/2003 03/0 06/2020 Borderline personality disorder 08/14/2003 08/13/2020 documented as of this encounter (statuses as of 12/04/2023) Immunizations Name Administration Dates Next Due COVID-19 mRNA, LNP-s, No Pre serve, 2-Dose Series (Phantom) 05/04/2021,09/04/2020,08/14/2020 COVID-19, MRNA-LNP, 23-24, P F, 30 MCG/0.3 mL, 12 YRS AND ABOVE, IM (Aptela-ComirnatOptify) 03/07/2023 DTaP Dipth/Tet/Acell Pertussis (Infanrix), Peds 06/16/1992,11/13/1988,01/14/1988,1987,1987 HPV Vaccine, 4-Valent 05/26/2012,02/24/2012,07/17 Hepatitis B, 0-19 yrs 06/22/2000,04/07/2000,01/14 MMR - Measles/Mumps/Rubella Vaccine 06/16/1992,0 08/13/1988 OPV - Polio Virus Vaccine (Oral) 993,11/13/1988,01/14/1988,1987,1987 PPD 08/19/2022,01/09/2012,02/10/2007 Seasonal Influenza Vac, Quad , Cell Cult, PF, 6 Mos and Up, IM, (Flucelvax Quad) 02/27/2022 Seasonal Influenza Virus Vac cine, Unspecified Formulation 03/21/2020 Seasonal Influenza, PF, 6 M & above, IM , (FluLaval or Fluzone) 03/02/2021,03/23/2018 Seasonal Influenza, Quadriva lent, No Preserve, IM 03/07/2023 Seasonal Influenza, Split, I IV3, With Preserve, Inj 02/24/2012,05/30/2011,03/29/2010 TD - Tetanus/Diptheria (ADULT) 02/04/2000 TDAP (age 10 and older)(Boostrix) 10/08/2023 TDAP, [...] money to get more. Never true 08/04/2023 [place] Depression Scale Answer Date Recorded [place] Depression Scale Total 5 05/29/2023 The thought [...] on file documented as of this encounter Progress Notes * Kiah Pompa, DO - 12/04/2023 9:17 AM EDT Yari presented for an ultrasound for the following indications: Red blood cell antibody positive Assessment & Plan: Repeat titer drawn 12/02. Obesity affecting , antepartum, unspecified obesity type Excessive growth affecting management of , antepartum, single or unspecified fetus Assessment & Plan: EFW 90%ile today with large AC. Projected EFW at her EDC along very stable growth curve is < 4500g and Yari should be delivered at 39 weeks. Ultrasound for screening for growth restriction 35 weeks gestation of Ultrasound summary: Patient presented for growth assessment at 35w 5d. Large AC noted at 99% with overall EFW of 3209 g at 90%. ANTONIO 17.6 cm. Cephalic presentation. I reviewed the ultrasound images. Yari was given the opportunity to meet with me if she had any questions. Please refer to the ultrasound report for additional details about today's ultrasound examination. RECOMMENDATIONS: Follow up with MFM for ultrasound as clinically indicated. Weekly NSTs. See prior formal MFM consultation note. Thank you for allowing us to participate in the care of this patient. Please call with any questions. Kiah Pompa DO 12/04/2023 9:17 AM documented in this encounter Miscellaneous Notes * Assessment & Plan Note - Kiah Pompa DO - 12/04/2023 9:17 AM EDT Associated Problem(s): Excessive growth affecting management of , antepartum EFW 90%ile today with large AC. Projected EFW at her EDC along very stable growth curve is < 4500g and Yari should be delivered at 39 weeks. * Assessment & Plan Note - Kiah Pompa DO - 12/04/2023 9:16 AM EDT Associated Problem(s): Red blood cell antibody positive Repeat titer drawn 12/02. documented in this encounter Plan of Treatment Upcoming Encounters Date Type Department Care Team (Late st Contact Info) Description 12/09/2023 10:15 AM EDT Office Visit Gynecology/Obstetrics Enzo Snyder [address] [place] [address] Wandy Li CRNP [address] [place] [address] Claudio Non Stress Tests Enoch [address] [place] [address] 12/16/2023 1:00 PM EDT Office Visit Gynecology/Obstetrics Enzo Snyder [address] [place] [address] BackNiya monroy CRNP [address] [place], [place] [address] Claudio Non Stress Tests Enoch [address] [place] [address] 12/23/2023 1:00 PM EDT Office Visit Gynecology/Obstetrics Enzo Snyder [address] [place] [address] BackerNiya CRNP [address] [place] [address] Talita Snyder Stress Tests Enoch [address] [place] [address] 12/30/2023 1:00 PM EDT Office Visit Gynecology/Obstetrics Enzo Snyder [address] [place] [address] BackerNiya CRNP [address] [place] [address] Talita Snyder Stress Tests Enoch [address] [place] [address] Health Maintenance Due Date Last Done Comments [...] as of this encounter Visit Diagnoses Diagnosis Red blood cell antibody positive- Primary Other and unspecified nonspecific immunological findings Obesity affecting , antepartum, unspecified obesity type Excessive growth affecting management of , antepartum, single or unspecified fetus Ultrasound for screening for growth restriction screening for growth retardation using ultrasonics 35 weeks gestation of state, incidental documented in this encounter
--- OUTSIDE RECORDS SUMMARY | 2023-12-28 07:48 | External Medical Summary ---
Author Name Unknown Address Unknown Organization K[facility] [facility] [address] [place] [id number] Laboratory Report Ordering Provider Test Date Status ERLIN WINSTON 12/16/2023 13:50:45 Final Observation Date Value Abnormality Reference (Units ) Status Creatinine 12/16/2023 13:50:45 0.6 0.5-1.0 (mg/dL) Final Glomerular filtration rate/1.73 sq M.predicted [Volume Rate/Area] in Serum, Plasma or Blood by Creatinine-based formula (CKD-EPI) 12/16/2023 13:50:45 >90 >=60 (mL/min) Final eGFR is calculated based on the CKD-EPI 2020 equation Performing Location [facility]ORY [facility] [address] - [address] [place] [address]
--- OUTSIDE RECORDS SUMMARY | 2023-12-28 07:48 | External Medical Summary ---
Author Name Unknown Address Unknown Organization K0G:[facility] [place] [address] [place] [id number] Laboratory Report Ordering Provider Test Date Status TISHBACKER 12/16/2023 13:50:45 Final Observation Date Value Abnormality Reference (Units ) Status WBC, Total 12/16/2023 13:50:45 13.54 Above high normal 4 .00-10.80 (K/uL) Final RBC 12/16/2023 13:50:45 4.39 3.85-5.15 (M/uL) Final Hemoglobin 12/16/2023 13:50:45 12.6 12.0-15.3 (g/dL) Final HCT 12/16/2023 13:50:45 38.0 36.0-45.2 (%) Final MCV 12/16/2023 13:50:45 86.6 81.5-97.5 (fL) Final MCH 12/16/2023 13:50:45 28.7 27.0-34.0 (pg) Final MCHC 12/16/2023 13:50:45 33.2 32.0-36.0 (g/dL) Final RDW 12/16/2023 13:50:45 14.7 11.5-15.5 (%) Final Platelets 12/16/2023 13:50:45 264 140-400 (K /uL) Final MPV 12/16/2023 13:50:45 11.9 6.6-11.1 ( fL) Final Performing Location LAB[facility]ATORY [facility] [place] [address] - [address] [place] [id number]
--- OUTSIDE RECORDS SUMMARY | 2023-12-28 07:48 | External Medical Summary | Summary of Care ---
Author Name Unknown Organization [facility] Address [address] [place] [address] Phone [phone] Care Team Providers Care Gas Manager Name Role Phone Unavailable Primary Care Provider Unavailabl e Reason for Visit * Reason Comments Outpatient Testing Encounter Details Date Type Department Care Team (Late st Contact Info) Description 12/03/2023 9:20 AM EDT Laboratory Laboratory, [facility] [address] [place] [phone] [facility] [address] [place] [address] Red blood cell antibody positive Allergies No known active allergiesdocumented as of this encounter (statuses as of 12/03/2023) Medications Medication Sig Dispensed Refills Start Date [...] as of this encounter (statuses as of 12/03/2023) Active Problems Problem Noted Date Diagnosed Date with 29 completed weeks gestation 11/2023 Excessive growth affec ting management of , antepartum 10/08/2023 Last Assessment & Plan: LGA persists today, with EFW at 94%ile. Message left for patient and myG message sent to review her results; prior at 4000g. This baby likely similar in size. We will reevaluate at next visit. Diet controlled gestational diabetes mellitus (GDM) in [...] 10/27/23: RPM reviewed; Stable. Continue diet control. 11/03/[id number]-ATX-euesxj 11/10/23: RPM reviewed; Stable 11/17/[id number]-WED-vopwguv stable 11/24/20237588-SLV-iqvhqt 11/30/20230481-OKB-jzaotz Last Assessment & Plan: Working with [employer]. Supervision of high risk in [facility] 06/26/2023 Bipolar disease during 06/26/2023 Subchorionic hematoma, antepartum 06/09/2023 Overview: -At [facility] 9w1d -> "small GLENDY" per ER [...] regarding transfusion recommendations Last Assessment & Plan: I reviewed her most recent antibody titer. I told her that the critical titer would be 8 or above for MCA Doppler evaluation. Antepartum multigravida of advanced maternal age 1206/02/2023 [...] increased risk of congenital/structural anomalies. Recommendations: Recommend [facility] anatomy ultrasound at 19-20 weeks gestation. [...] of 40.0 to 44.9 in adult 05/29/2023 Antiphospholipid antibody syndrome complicating 05/29/2023 Overview: Per M (Ask a Doc) pt technically does not [...] have US confirmed , demise sometime between 6u5w-41 w0d, no testing done, no difficulty conceiving, [...] ASA alone or ASA with prophylactic AC. Family history of autism 05/29/2023 Overview: FOB's siblings with history of autism Last Assessment & Plan: -Declines genetics referral ASCUS with positive high risk HPV cervical 07/10 Overview: Hx of ASCUS +HPV on pap Last Assessment & Plan: -Ensure proper follow up by primary IT OPERATIONS ANALYST team History of migraine 06/28/2021 Overview: Fioricet not covered by insurance. Neurologist recommended propranolol. Message to [facility] for advice. Migraine with aura and [...] as of this encounter (statuses as of 12/03/2023) Resolved Problems Problem Noted Date Diagnosed Date [...] these possibilities. Supervision of normal 05/29/2023 06/26/2023 Body mass index (BMI) of 40. 0 [...] as of this encounter (statuses as of 12/03/2023) Immunizations Name Administration Dates Next Due COVID-19 mRNA, LNP-s, No Pre serve, 2-Dose Series ([employer]) 05/04/2021,09/04/2020,08/14/2020 COVID-19, MRNA-LNP, 23-24, P F, 30 [...] money to buy more. Never true 08/04/19 Within the past 12 months, t he food you bought just didn't last and you didn't have money to get more. Never true 08/04/2023 [place] Depression Scale Answer Date Recorded [place] Depression Scale Total 5 05/29/2023 The thought [...] Contact Info) Description 12/03/2023 8:45 AM EDT Imaging Maternal Medicine Imaging, Enoch Snyder [address] [place] [address] [place] [address] Antepartum multigravida of advanced maternal age; Antiphospholipid antibody syndrome complicating (HCC); Class 3 severe obesity due to excess calories without serious comorbidity with body mass index (BMI) of 40.0 to 44.9 in adult (HCC); Migraine with aura and without status migrainosus, not intractable; Obesity affecting , antepartum, unspecified obesity type; Red blood cell antibody positive 12/03/2023 8:45 AM EDT Office Visit As400 Programmer Obstetrics Maternal Medicine, Enoch Snyder [address] [place] [address] [place] [address] Kiah Pompa, DO [address] [place] [address] Arrived 12/09/2023 10:15 AM EDT Office Visit [facility]necology[facility] s [facility]zo [facility] [place] [address] Wandy Li CRNP [address] [facility] [place] [address] Snyder, Non Stress Tests Enoch [address] [place] [address] 12/16/2023 1:00 PM EDT Office Visit Gynecology/Obstetric s Enzo Snyder [address] [place] [address] Backer, JOSETTE Holliday [address] [place] [address] Claudio, Non Stress Tests Enoch [address] [place] [address] 12/23/2023 1:00 PM EDT Office Visit Gynecology/Obstetric s Enzo Snyder [address] [place] [address] Backer, JOSETTE Holliday [address] [place] [address] Claudio Non Stress Tests Enoch [address] [place] [address] 12/30/2023 1:00 PM EDT Office Visit Gynecology/Obstetric s Enzo Snyder [address] [place] [address] Backer, JOSETTE Holliday [address] [place] [address] Claudio Non Stress Tests Enoch [address] [place] [address] Pending Results Name Type Priority Associated Diagnoses Date /Time RED BLOOD CELL ANTIBODY TITER Lab Routine Red blood cell antibody positive 12/03/2023 8:27 AM EDT Health Maintenance Due Date Last Done [...] as of this encounter Visit Diagnoses Diagnosis Antepartum multigravida of advanced maternal age Antiphospholipid antibody syndrome complicating (HCC) Other current maternal conditions classifiable elsewhere, complicating , childbirth, or the puerperium, unspecified as to episode of care Class 3 severe obesity due to excess calories without serious comorbidity with body mass index (BMI) of 40.0 to 44.9 in adult (HCC) Migraine with aura and without status migrainosus, not intractable Migraine with aura, without mention of intractable migraine without mention of status migrainosus Obesity affecting , antepartum, unspecified obesity type Red blood cell antibody positive Other and unspecified nonspecific immunological findings Red blood cell antibody positive Other and unspecified nonspecific immunological findings documented in this encounter
--- OUTSIDE RECORDS SUMMARY | 2023-12-28 07:48 | External Medical Summary | Summary of Care ---
Author Name Unknown Organization [facility] Address [address] [place] [address] Phone [phone] Care Team Providers Care Plate Printer Name Role Phone Unavailable Primary Care Provider Unavailabl e Encounter Details Date Type Department Care Team (Late st Contact Info) Description 12/03/2023 8:45 AM EDT Office Visit Animal Care Worker Obstetrics Maternal Medicine, [facility] [address] [place] [address] Kiah Pompa, DO [address] [place], [place] [phone] Red blood cell antibody positive*; Obesity affecting [...] MG Oral Tablet Take by mouth. Active NudgeTouch Verio Flex System w/Device Kit Use to [...] 10/27/23: RPM reviewed; Stable. Continue diet control. 11/03/20231215-GEQ-xrhgxz 11/10/23: RPM reviewed; Stable 11/17/20234701-EQW-dbykmku stable 11/24/20231094-VWO-teahjf 11/30/20238040-YRJ-dejmjb Last Assessment & Plan: Working with [employer]T. Supervision of high risk in [facility] 06/26/2023 Bipolar disease during 06/26/2023 Subchorionic hematoma, antepartum 06/09/2023 Overview: -At [facility] 9w1d -> "small GLENDY" per ER physician [...] Plan: -Ensure proper follow up by primary PRE K TEACHER team History of migraine 06/28/2021 Overview: Fioricet not covered by insurance. Neurologist recommended propranolol. Message to [facility] for advice. Migraine with aura [...] have US confirmed , demise sometime between 5d3h-08 w0d, no testing done, no difficulty conceiving, [...] mRNA, LNP-s, No Pre serve, 2-Dose Series ([employer]) 05/04/2021,09/04/2020,08/14/2020 COVID-19, MRNA-LNP, 23-24, P F, 30 MCG/0.3 mL, 12 YRS AND ABOVE, IM (emere-Comirnaty) 03/07/2023 HPV Vaccine, 4-Valent 05/26/2012,02/24/2012,07/17 PPD 08/19/2022,01/09/2012,02/10/2007 [...] money to get more. Never true 08/04/2023 [place] Depression Scale Answer Date Recorded [place] Depression Scale Total 5 05/29/2023 The thought [...] of this encounter Progress Notes * Kiah Pompa DO - 12/04/2023 9:17 AM EDT Yari [...] Visit Gynecology/Obstetrics Enzo Snyder [address] [place] [address] Wandy Li CRNP [address] [place] [address] Claudio Non Stress Tests Enoch [address] [place] [address] 12/16/2023 1:00 PM EDT Office Visit Gynecology/Obstetrics Enzo Snyder [address] [place] [address] Niya Goodrich CRNP [address] [place] [address] Claudio Non Stress Tests Enoch [address] [place] [address] 12/23/2023 1:00 PM EDT Office Visit Gynecology/Obstetrics Enzo Snyder [address] [place] [address] Niya Goodrich CRNP [address] [place] [address] Claudio, Non Stress Tests Enoch [address] [place] [address] 12/30/2023 1:00 PM EDT Office Visit Gynecology/Obstetrics Enzo Snyder [address] [place] [address] Niya Goodrich CRNP [address] [place] [address] Claudio, Non Stress Tests Enoch [address] [place] [place] [address] Health Maintenance Due Date Last Done Comments [...]
--- OUTSIDE RECORDS SUMMARY | 2023-12-28 07:48 | External Medical Summary | Summary of Care ---
Author Name Unknown Organization [facility] Address [address] [place] [address] Phone [phone] Care Team Providers Care Hydroelectric Plant Electrical Engineer Name Role Phone Unavailable Primary Care Provider Unavailabl e Reason for Visit * Reason Comments Return Visit Non Stress Test Encounter Details Date Type Department Care Team (Late st Contact Info) Description 12/16/2023 1:00 PM EDT Office Visit Gynecology/Obstetric s Ulises'tayo Snyder [address] [facility] [place] [address] Niya Goodrich CRNP [address] [place] [address] Talita Snyder Stress Tests Enoch [address] [facility] [place] [address] Supervision of high risk in third trimester*; [...] of , antepartum, single or unspecified fetus; Elevated blood pressure, situational Allergies No known [...] 10/27/23: RPM reviewed; Stable. Continue diet control. 11/03/20235974-XHB-eusmou 11/10/23: RPM reviewed; Stable 11/17/20230831-ZOO-tlkyomr stable 11/24/20239419-BWG-weeitf 11/30/20236177-XJH-zyywqf 12/08/20239070-SAN-fonuqk 12/15/20235864-NKB-txjexj Last Assessment & Plan: Working with [employer]. Supervision of high risk in [facility] 06/26/2023 Bipolar disease during 06/26/2023 Subchorionic hematoma, antepartum 06/09/2023 Overview: -At [facility] 9w1d -> "small GLENDY" per ER [...] Plan: -Ensure proper follow up by primary DIRECTOR FAMILY team History of migraine 06/28/2021 Overview: Fioricet not covered by insurance. Neurologist recommended propranolol. Message to [facility] for advice. Migraine with aura and [...] have US confirmed , demise sometime between 2z9q-48 w0d, no testing done, no difficulty conceiving, [...] moderate 08/14/2003 08/13/2020 BIPOLAR AFFEC, DEPR-MOD 08/14/2003 030 06/2020 Borderline personality disorder 08/14/2003 08/13/2020 documented as of this encounter (statuses as of 12/16/2023) Immunizations Name Administration Dates Next Due COVID-19 mRNA, LNP-s, No Pre serve, 2-Dose Series (TRELYS) 05/04/2021,09/04/2020,08/14/2020 COVID-19, MRNA-LNP, 23-24, P F, 30 MCG/0.3 mL, 12 YRS AND ABOVE, IM (P[employer]ir[employer]) 03/07/2023 HPV Vaccine, 4-Valent 05/26/2012,02/24/2012,07/17 PPD 08/19/2022,01/09/2012,02/10/2007 [...] money to get more. Never true 08/04/2023 Columbia Depression Scale Answer Date Recorded Columbia Depression Scale Total 5 05/29/2023 The [...] Sign Reading Time Taken Comments Blood Pressure 134/88 12/16/2023 1:06 PM EDT Pulse - - Temperature - - Respiratory Rate - - Oxygen Saturation - - Inhaled Oxygen Concentration - - Weight 116.6 kg (257 lb) 12/16/2023 1:06 PM EDT Height - - Body Mass Index 44.11 12/02/2023 2:32 PM EDT documented in this encounter Progress Notes * Niya Goodrich CRNP - 12/16/2023 1:06 PM EDT 37w4d BP elevated, not to 140/90. She denies vision changes, epigastric pain, increased swelling. Had a MOHAN over the weekend, resolved; attributes this to the weather. Baby is moving well. Generally more uncomfortable with pelvic pain/pressure. No regular ctx, bleeding, leaking. Will get preE labs, pt to return Thursday for nurse visit for BP check/urine dip. Call sooner with any new symptoms/concerns - reviewed reasons to call. JOSETTE To ASSESSMENT assessment with Non-stress Test completed on 12/16/2023 at 37.4 weeks gestation for indication of obesity heart baseline: 120 bpm Variability: Moderate Decelerations: absent Accelerations: present Contractions: Present, irregular NST start time: 1257 NST stop time: 1322 NST strip reviewed, interpreted, and approved by OB provider, JOSETTE To . NST strip stored in clinic storage file documented in this encounter Plan of Treatment Upcoming Encounters Date Type Department Care Team (Late st Contact Info) Description 12/18/2023 10:00 AM EDT Nurse Only Gynecology/Obstetrics UlisesElietayo Snyder [address] [place] [address] Gw, Nurse Obgyn Injection [address] [place] [address] 12/23/2023 1:00 PM EDT Office Visit Gynecology/Obstetrics Ulisesjosi Snyder [address] [place] [address] Niya Goodrich CRNP [address] [place] [address] Claudio Non Stress Tests Enoch [address] [place] [address] 12/30/2023 1:00 PM EDT Office Visit Gynecology/Obstetrics Ulisesjosi Snyder [address] [place] [address] Niya Goodrich CRNP [address] [place] [address] Snyder, Non Stress Tests Enoch [address] [place] [address] Pending Results Name Type Priority Associated Diagnoses Date /Time PROTEIN/ CREATININE RATIO, URINE Lab Routine Elevated blood pressure, situational 12/16/2023 1:50 PM EDT CBC Lab Routine Elevated blood pressure, situational 12/16/2023 1:50 PM EDT CREATININE Lab Routine Elevated blood pressure, situational 12/16/2023 1:50 PM EDT HEPATIC FUNCTION PANEL Lab Routine Elevated blood pressure, situational 12/16/2023 1:50 PM EDT Scheduled Orders Name Type Priority Associated Diagnoses Orde r Schedule PROTEIN/ CREATININE RATIO, URINE Lab Routine Elevated blood pressure, situational Expected: 12/16/2023 (Approximate), Expires: 12/15/2024 CBC Lab Routine Elevated blood pressure, situational Expected: 12/16/2023 (Approximate), Expires: 12/15/2024 CREATININE Lab Routine Elevated blood pressure, situational Expected: 12/16/2023 (Approximate), Expires: 12/15/2024 HEPATIC FUNCTION PANEL Lab Routine Elevated blood pressure, situational Expected: 12/16/2023 (Approximate), Expires: 12/15/2024 Health Maintenance Due Date Last Done Comments [...] of , antepartum, single or unspecified fetus Elevated blood pressure, situational Elevated blood pressure reading without diagnosis of hypertension documented in this encounter
--- OUTSIDE RECORDS SUMMARY | 2023-12-28 07:48 | External Medical Summary ---
Author Name Unknown Address Unknown Organization K01:[facility] - [address] [address] Laboratory Report Ordering Provider Test Date Status ERLIN WINSTON 12/16/2023 13:50:45 Final Normal: <150 mg/ g creatinine
High: 150-500 mg/g creatinine
Very High: >500 mg/g creatinine
Nephrotic: >3000 mg/g creatinine Observation Date Value Abnormality Reference (Units ) Status Protein/Creatinine [Ratio] in Urine 12/16/2023 13:50:45 119 <150 (mg/g ) Final Protein, Urine 12/16/2023 13:50:45 13 (mg/dL) Final Creatinine, Urine 12/16/2023 13:50:45 109 (mg/dL) Final Performing Location [facility] - [address] [place] [address]
--- OUTSIDE RECORDS SUMMARY | 2023-12-28 07:48 | External Medical Summary | Summary of Care ---
Author Name Unknown Organization [facility] Address [address] [place] [address] Phone [phone] Care Team Providers Care Manager Nuclear Name Role Phone Unavailable Primary Care Provider Unavailabl e Reason for Visit * Reason Comments Return Visit Non Stress Test Encounter Details Date Type Department Care Team (Late st Contact Info) Description 12/09/2023 10:15 AM EDT Office Visit Gynecology/Obstetric s Ulises's Claudio [address] [place] [address] Wandy Li CRNP [address] [place] [facility] [place] [address] Claudio Non Stress Tests Enoch [address] [place] [address] Antepartum multigravida of advanced maternal age*; Obesity affecting , antepartum, unspecified obesity type; Family history of autism; Red blood cell antibody positive; History of transfusion; Supervision of high risk in third trimester; Bipolar disease during in third trimester (HCC); Diet controlled gestational diabetes mellitus (GDM) in third trimester; Excessive growth affecting management of , antepartum, single or unspecified fetus Allergies No known active allergiesdocumented as of this encounter (statuses as of 12/09/2023) Medications Medication Sig Dispensed Refills Start Date End Date Status Vitamin 27-0.8 MG Oral Tablet Take by mouth. Active Aspirin 81 MG Oral Capsule Take by mouth. Active Magnesium 400 MG Oral Tablet Take by mouth. Active DotProductTouch Verio Flex System w/Device Kit Use to [...] as of this encounter (statuses as of 12/09/2023) Active Problems Problem Noted Date Diagnosed Date [...] 10/27/23: RPM reviewed; Stable. Continue diet control. 11/03/20239371-LGS-jyalur 11/10/23: RPM reviewed; Stable 11/17/20230413-BLJ-kxdptio stable 11/24/20239978-PEI-ikizkx 11/30/20231692-REM-ofybpi 12/08/20235339-EFH-zxcose Last Assessment & Plan: Working with [employer]. Supervision of high risk in third [facility] [place]amar[place] 06/26/2023 Bipolar disease during 06/26/2023 Subchorionic hematoma, antepartum 06/09/2023 Overview: -At [facility] 9w1d -> "small GLENDY" per ER [...] Plan: -Ensure proper follow up by primary SPEEDER HAND team History of migraine 06/28/2021 Overview: Fioricet not covered by insurance. Neurologist recommended propranolol. Message to [facility] for advice. Migraine with aura and witho [...] as of this encounter (statuses as of 12/09/2023) Resolved Problems Problem Noted Date Diagnosed Date [...] have US confirmed , demise sometime between 5c8d-81 w0d, no testing done, no difficulty conceiving, [...] as of this encounter (statuses as of 12/09/2023) Immunizations Name Administration Dates Next Due COVID-19 mRNA, LNP-s, No Pre serve, 2-Dose Series ([employer]) 05/04/2021,09/04/2020,08/14/2020 COVID-19, MRNA-LNP, 23-24, P F, 30 MCG/0.3 mL, 12 YRS AND ABOVE, IM ([facility]) 03/07/2023 HPV Vaccine, 4-Valent 05/26/2012,02/24/2012,07/17 PPD 08/19/2022,01/09/2012,02/10/2007 [...] money to get more. Never true 08/04/2023 Lyons Depression Scale Answer Date Recorded Ly[place] Depression Scale Total 5 05/29/2023 The thought [...] Sign Reading Time Taken Comments Blood Pressure 118/70 12/09/2023 10:21 AM EDT Pulse - - Temperature - - Respiratory Rate - - Oxygen Saturation - - Inhaled Oxygen Concentration - - Weight 116 kg (255 lb 12.8 oz) 12/09/2023 10:21 AM EDT Height - - Body Mass Index 43.91 12/02/2023 2:32 PM EDT documented in this encounter Progress Notes * Wandy Li CRNP - 12/09/2023 10:23 AM EDT 36w4d No concerns. Feeling well overall. Baby is active. Denies contractions, bleeding, LOF. Reports good blood sugar readings, has had only a few elevated readings. Baby continues to be LGA, had last growth last week with MFM. Recommend IOL at 39w, scheduled today. GBS today. Sanitation Director Documentation Provider requested line assembler. Name of line assembler: Caroline ASSESSMENT assessment with Non-stress Test completed on 12/09/2023 at 36.4weeks gestation for indication of obesity heart baseline: 130 bpm Variability: Moderate Decelerations: absent Accelerations: present Contractions: None NST start time: 1008 NST stop time: 1042 NST strip reviewed, interpreted, and approved by OB provider, JOSETTE Byers . NST strip stored in clinic storage file * Divya Lambert MED ASSIST - 12/09/2023 10:21 AM EDT Patient present today for NST 36w4d Denies vaginal bleeding/rom + movements Increased constipation GBS today documented in this encounter Plan of Treatment Upcoming Encounters Date Type Department Care Team (Late st Contact Info) Description 12/16/2023 1:00 PM EDT Office Visit Gynecology/Obstetrics Enzo Snyder [address] [place] [address] Niya Goodrich CRNP [address] [place] [address] Talita Snyder Stress Tests Enoch [address] [place] [address] 12/23/2023 1:00 PM EDT Office Visit Gynecology/Obstetrics Enzo Snyder [address] [place] [address] Niya Goodrich CRNP [address] [place] [address] Claudio Non Stress Tests Enoch [address] [place] [address] 12/30/2023 1:00 PM EDT Office Visit Gynecology/Obstetrics Enzo Snyder [address] [place] [address] Niya Goodrich CRNP [address] [place] [address] Snyder, Non Stress Tests Enoch [address] [place] [address] Pending Results Name Type Priority Associated Diagnoses Date /Time GROUP B STREP CULTURE/PCR Lab Routine Antepartum multigravida of advanced maternal age 0612/09/2023 11:13 AM EDT Scheduled Orders Name Type Priority Associated Diagnoses Orde r Schedule GROUP B STREP CULTURE/PCR Lab Routine Antepartum multigravida of advanced maternal age Expected: 12/09/2023, Expires: 12/08/2024 Health Maintenance Due Date Last Done Comments [...] Diagnoses Diagnosis Antepartum multigravida of advanced maternal age- Primary Obesity affecting , antepartum, unspecified obesity type Family history of autism Family history of psychiatric condition Red blood cell antibody positive Other and unspecified nonspecific immunological findings History of transfusion Other specified personal history presenting hazards to health Supervision of high risk in third trimester Unspecified high-risk Bipolar disease during in third trimester (HCC) Diet controlled gestational diabetes mellitus (GDM) in third trimester Excessive growth affecting management of , antepartum, single or unspecified fetus documented in this encounter
--- OUTSIDE RECORDS SUMMARY | 2023-12-28 07:48 | External Medical Summary | Summary of Care ---
Author Name Unknown Organization [facility] Address [address] [place] [address] Phone [phone] Care Team Providers Care Farm Mechanic Apprentice Name Role Phone Unavailable Primary Care Provider Unavailabl e Encounter Details Date Type Department Care Team (Late st Contact Info) Description 12/09/2023 Telephone Gynecology/Obstetrics Enzo Snyder [address] [address] Wandy Li CRNP [address] [place] [address] Allergies No known active allergiesdocumented as of this encounter (statuses as of 12/10/2023) Medications Medication Sig Dispensed Refills Start Date End Date Status Vitamin 27-0.8 MG Oral Tablet Take by mouth. Active Aspirin 81 MG Oral Capsule Take by mouth. Active Magnesium 400 MG Oral Tablet Take by mouth. Active Amino AppsTouch Verio Flex System w/Device Kit Use to [...] Additional Information Patient not taking.Reported on 10/19/2023 Amino AppsTouch Verio In Vitro Strip (Glucose Blood) Use to test blood sugars 4 times daily (fasting, 1 hour after breakfast, lunch, and dinner) 100 Strip 6 10/23/2023 Active OneMindBodyGreenuch VerZidoff eCommerce In Vitro Strip (Glucose Blood) Use to test blood sugars 4 times daily (fasting, 1 hour after breakfast, lunch, and dinner) 125 Strip 6 10/23/2023 Active documented as of this encounter (statuses as of 12/10/2023) Active Problems Problem Noted Date Diagnosed Date [...] 10/27/23: RPM reviewed; Stable. Continue diet control. 11/03/20230240-AUP-fflfwq 11/10/23: RPM reviewed; Stable 11/17/20230009-PWI-odcdwlp stable 11/24/20239248-GOD-obrhkh 11/30/20238595-YAD-hfxdqa 12/08/20234923-NUG-ytzfud Last Assessment & Plan: Working with [employer]. 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 Neurologist recommended propranolol. Message to [facility] for advice. Migraine with aura and witho [...] as of this encounter (statuses as of 12/10/2023) Resolved Problems Problem Noted Date Diagnosed Date [...] have US confirmed , demise sometime between 7b4s-84 w0d, no testing done, no difficulty conceiving, [...] visit Patient declines flu vaccine. 03/27/2014 Holley Eng, RN Patient declines Tdap vaccine 06/05/14 Holley Eng, RN Induction scheduled for 08/07 Obesity, Class [...] 6 mon Pap 01/25- WNL Seborrheic dermatitis 10/14/2005 03/01/ 2021 Overview: forehead ICD-10 update of inactive term Nystagmus 09/16/2004 08/13/2020 ALCOHOL ABUSE-UNSPEC 02/07/2004 021 Major depressive disorder, r ecurrent episode, moderate 08/14/2003 08/13/2020 BIPOLAR AFFEC, DEPR-MOD 08/14/2003 03/0 06/2020 Borderline personality disorder 08/14/2003 08/13/2020 documented as of this encounter (statuses as of 12/10/2023) Immunizations Name Administration Dates Next Due COVID-19 mRNA, LNP-s, No Pre serve, 2-Dose Series ([employer]) 05/04/2021,09/04/2020,08/14/2020 COVID-19, MRNA-LNP, 23-24, P F, 30 [...] money to get more. Never true 08/04/2023 [place] Depression Scale Answer Date Recorded [place] Depression Scale Total 5 05/29/2023 The thought [...] on file documented as of this encounter Miscellaneous Notes * Telephone Encounter - Jaky Santamaria RN - 12/09/2023 12:58 PM EDT Maurice Christiansen scheduled patient for IOL on 12/27 at [facility]. Please make provider aware. Also sent her message r/e fax number for FMLA. documented in this encounter Plan of Treatment Upcoming Encounters Date Type Department Care Team (Late st Contact Info) Description 12/16/2023 1:00 PM EDT Office Visit Gynecology/Obstetrics Enzo Snyder [address] [place] [address] Niya Goodrich CRNP [address] [place] [address] Talita Snyder Stress Tests Enoch [address] [place] [address] 12/23/2023 1:00 PM EDT Office Visit Gynecology/Obstetrics Enzo Snyder [address] [place] [address] Niya Goodrich CRNP [address] [place] [address] Talita Snyder Stress Tests Enoch [address] [place] [address] 12/30/2023 1:00 PM EDT Office Visit Gynecology/Obstetrics Enzo Snyder [address] [place] [address] Backer, NiyaJOSETTE Vo [address] [place] [address] Claudio, Non Stress Tests Enoch [address] [place] [address] Health Maintenance Due Date Last Done Comments [...]
--- OUTSIDE RECORDS SUMMARY | 2023-12-28 07:48 | External Medical Summary | Summary of Care ---
Author Name Unknown Organization [facility] Address [address] [place] [address] Phone [phone] Care Team Providers Care Air Chipper Name Role Phone Unavailable Primary Care Provider Unavailabl e Encounter Details Date Type Department Care Team (Late st Contact Info) Description 12/09/2023 Telephone Gynecology/Obstetrics Enzo Snyder [address] [address] Wandy Li CRNP [address] [place] [address] Allergies No known active allergiesdocumented as of this encounter (statuses as of 12/09/2023) Medications Medication Sig Dispensed Refills Start Date End Date Status Vitamin 27-0.8 MG Oral Tablet Take by mouth. Active Aspirin 81 MG Oral Capsule Take by mouth. Active Magnesium 400 MG Oral Tablet Take by mouth. Active GameFlyTouch Verio Flex System w/Device Kit Use to [...] Additional Information Patient not taking.Reported on 10/19/2023 GameFlyTouch Verio In Vitro Strip (Glucose Blood) Use to test blood sugars 4 times daily (fasting, 1 hour after breakfast, lunch, and dinner) 100 Strip 6 10/23/2023 Active OneInotek Pharmaceuticalsuch VerNusocket In Vitro Strip (Glucose Blood) Use to [...] 10/27/23: RPM reviewed; Stable. Continue diet control. 11/03/20239537-LQC-pbxaew 11/10/23: RPM reviewed; Stable 11/17/20232792-KXF-qujgedr stable 11/24/20235914-YUE-ldohto 11/30/20239200-ODK-eopzgt 12/08/20237412-HME-zhgohs Last Assessment & Plan: Working with [employer]. Supervision of high risk in third [facility] [place]amar[place] 06/26/2023 Bipolar disease during 06/26/2023 Subchorionic hematoma, antepartum 06/09/2023 Overview: -At [facility] 9w1d -> "small GLENDY" per ER [...] Plan: -Ensure proper follow up by primary PERSONAL COMPANION team History of migraine 06/28/2021 Overview: Fioricet not covered by insurance. Neurologist recommended propranolol. Message to [facility] for advice. Migraine with aura and [...] have US confirmed , demise sometime between 7a5w-59 w0d, no testing done, no difficulty conceiving, [...] mRNA, LNP-s, No Pre serve, 2-Dose Series ([employer]) 05/04/2021,09/04/2020,08/14/2020 COVID-19, MRNA-LNP, 23-24, P F, 30 [...] money to get more. Never true 08/04/2023 [place] Depression Scale Answer Date Recorded [place] Depression Scale Total 5 05/29/2023 The thought [...] scheduled patient for IOL on 12/27 at [facility]. Please make provider aware. Also sent her message r/e fax number for FMLA. documented in this encounter Plan of Treatment Upcoming Encounters Date Type Department Care Team (Late st Contact Info) Description 12/16/2023 1:00 PM EDT Office Visit Gynecology/Obstetrics Enzo Snyder [address] [place] [address] Niya Goodrich CRNP [address] [place] [address] Talita Snyder Stress Tests Enoch [address] [place] [address] 12/23/2023 1:00 PM EDT Office Visit Gynecology/Obstetrics Enzo Snyder [address] [place] [address] Niya Goodrich CRNP [address] [place] [address] Talita Snyder Stress Tests Enoch [address] [place] [address] 12/30/2023 1:00 PM EDT Office Visit Gynecology/Obstetrics Enzo Snyder [address] [place] [address] Backer, NiyaJOSETTE Vo [address] [place] [address] Claudio, Non Stress Tests Enoch [address] [place] [address] Health Maintenance Due Date Last Done Comments [...]
--- OUTSIDE RECORDS SUMMARY | 2023-12-28 07:48 | External Medical Summary | Summary of Care ---
Author Name Unknown Organization [facility] Address [address] [place] [address] Phone [phone] Care Team Providers Care Tablet Coater Name Role Phone Unavailable Primary Care Provider Unavailabl e Encounter Details Date Type Department Care Team (Late st Contact Info) Description 12/09/2023 Telephone Gynecology/Obstetrics Enzo Snyder [address] [place] [address] Wandy Li CRNP [address] [place] [address] Allergies No known active allergiesdocumented as of this encounter (statuses as of 12/10/2023) Medications Medication Sig Dispensed Refills Start Date End Date Status Vitamin 27-0.8 MG Oral Tablet Take by mouth. Active Aspirin 81 MG Oral Capsule Take by mouth. Active Magnesium 400 MG Oral Tablet Take by mouth. Active SocialGuidesTouch Verio Flex System w/Device Kit Use to [...] Additional Information Patient not taking.Reported on 10/19/2023 SocialGuidesTouch Verio In Vitro Strip (Glucose Blood) Use to test blood sugars 4 times daily (fasting, 1 hour after breakfast, lunch, and dinner) 100 Strip 6 10/23/2023 Active OneHeySpaceuch VerBountii In Vitro Strip (Glucose Blood) Use to [...] 10/27/23: RPM reviewed; Stable. Continue diet control. 11/03/20232262-JTW-nykypi 11/10/23: RPM reviewed; Stable 11/17/20235561-VGY-yibwswy stable 11/24/20235363-GZU-zygmzf 11/30/20231922-NPP-iwmkge 12/08/20230131-KCD-wcpvwe Last Assessment & Plan: Working with [employer]. Supervision of high risk in third [facility] 06/26/2023 Bipolar disease during 06/26/2023 Subchorionic hematoma, antepartum 06/09/2023 Overview: -At [facility] 9w1d -> "small GLENDY" per ER physician [...] Plan: -Ensure proper follow up by primary CHEF SAUCIER team History of migraine 06/28/2021 Overview: Fioricet not covered by insurance. Neurologist recommended propranolol. Message to [facility] for advice. Migraine with aura and [...] have US confirmed , demise sometime between 1u6m-69 w0d, no testing done, no difficulty conceiving, [...] mRNA, LNP-s, No Pre serve, 2-Dose Series ([employer]) 05/04/2021,09/04/2020,08/14/2020 COVID-19, MRNA-LNP, -24, P F, 30 MCG/0.3 mL, 12 YRS AND ABOVE, IM (PFIZER-Comirnaty) 03/07/2023 DTaP Dipth/Tet/Acell Pertussis (Infanrix), Peds 06/16/1992,11/13/1988,01/14/1988,1987,1987 [...] money to get more. Never true 08/04/2023 [place] Depression Scale Answer Date Recorded [place] Depression Scale Total 5 05/29/2023 The thought [...] encounter Miscellaneous Notes * Telephone Encounter - Елена Muñiz OSA - 12/10/2023 3:03 PM EDT Forms faxed to number listed below. * Telephone Encounter - Jaky Santamaria RN - 12/09/2023 12:58 PM EDT Maurice Christiansen scheduled patient for IOL on 12/27 at [facility]. Please make provider aware. Also sent her message r/e fax number for FMLA. documented in this encounter Plan of Treatment Upcoming Encounters Date Type Department Care Team (Late st Contact Info) Description 12/16/2023 1:00 PM EDT Office Visit Gynecology/Obstetrics Enzo Snyder [address] [place] [address] Niya Goodrich CRNP [address] [place] [address] Claudio, Non Stress Tests Enoch [address] [place] [address] 12/23/2023 1:00 PM EDT Office Visit Gynecology/Obstetrics Enzo Snyder [address] [place] [address] Niya Goodrich CRNP [address] [place] [address] Claudio Non Stress Tests Enoch [address] [place], [place] [address] 12/30/2023 1:00 PM EDT Office Visit Gynecology/Obstetrics Enzo Snyder [address] [place] [address] Niya Goodrich CRNP [address] [place] [address] Claudio Non Stress Tests Enoch [address] [place], [place] [address] Health Maintenance Due Date Last Done Comments [...]
--- OUTSIDE RECORDS SUMMARY | 2023-12-28 07:48 | External Medical Summary | Summary of Care ---
Author Name Unknown Organization [facility] Address [address] [place] [address] Phone [phone] Care Team Providers Care Guest Relations Manager Name Role Phone Unavailable Primary Care Provider Unavailabl e Encounter Details Date Type Department Care Team (Late st Contact Info) Description 12/03/2023 8:45 AM EDT Office Visit Space Planner Obstetrics Maternal Medicine, [facility] [address] [place] [address] Kiah Pompa, DO [address], [place] [id number] Red blood cell antibody positive*; Obesity affecting [...] MG Oral Tablet Take by mouth. Active Graphite SoftwareTouch Verio Flex System w/Device Kit Use to [...] 10/27/23: RPM reviewed; Stable. Continue diet control. 11/03/20236492-YVB-uosvhg 11/10/23: RPM reviewed; Stable 11/17/20233026-PZC-efphbdn stable 11/24/20234636-HSL-kfjnkz 11/30/20233979-MYZ-lhwhle Last Assessment & Plan: Working with [employer]. Supervision of high risk in 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 Neurologist recommended propranolol. Message to [facility] for advice. Migraine with aura and [...] have US confirmed , demise sometime between 7r2u-62 w0d, no testing done, no difficulty conceiving, [...] mRNA, LNP-s, No Pre serve, 2-Dose Series ([employer]cing[employer]Net) 05/04/2021,09/04/2020,08/14/2020 COVID-19, MRNA-LNP, 23-24, P F, 30 MCG/0.3 mL, 12 YRS AND ABOVE, IM ([employer]-Comirnaty) 03/07/2023 HPV Vaccine, 4-Valent 05/26/2012,02/24/2012,07/17 PPD 08/19/2022,01/09/2012,02/10/2007 [...] money to get more. Never true 08/04/2023 [place] Depression Scale Answer Date Recorded [place] Depression Scale Total 5 05/29/2023 The thought [...] Snyder [address] [place] [address] Wandy Li CRNP [address] [place] [address] Claudio Non Stress Tests Enoch [address] [place] [address] 12/16/2023 1:00 PM EDT Office Visit Gynecology/Obstetrics Enzo Snyder [address] [place] [address] Niya Goodrich CRNP [address] [place] [address] Claudio Non Stress Tests Enoch [address] [place] [address] 12/23/2023 1:00 PM EDT Office Visit Gynecology/Obstetrics Enzo Snyder [address] [place] [address] Niya Goodrich CRNP [address] [place] [address] Claudio, Non Stress Tests Enoch [address] [place] [address] 12/30/2023 1:00 PM EDT Office Visit Gynecology/Obstetrics Enzo Snyder [address] [place] [address] Niya Goodrich CRNP [address] [place] [address] Claudio, Non Stress Tests Enoch [address] [place] [address] Health Maintenance Due Date Last Done Comments [...]
--- OUTSIDE RECORDS SUMMARY | 2023-12-28 07:49 | External Medical Summary | Summary of Care ---
Author Name Unknown Organization [facility] Address [address] [place] [address] Phone [phone] Care Team Providers Care Town Justice Name Role Phone Unavailable Primary Care Provider Unavailabl e Reason for Visit * Reason Comments Return Visit Non Stress Test Encounter Details Date Type Department Care Team (Late st Contact Info) Description 11/25/2023 1:15 PM EDT Office Visit Gynecology/Obstetric s Enzo Snyder [address] [place] [address] Matilda Lambert PA-C [address] [place] [address] Claudio Non Stress Tests Enoch [address] [place] [address] Supervision of high risk in third trimester*; Obesity affecting , antepartum, unspecified obesity type; Antiphospholipid antibody syndrome complicating (HCC); Family history of autism; Antepartum multigravida of [...] as of this encounter (statuses as of 11/25/2023) Medications Medication Sig Dispensed Refills Start Date [...] as of this encounter (statuses as of 11/25/2023) Active Problems Problem Noted Date Diagnosed Date [...] 10/27/23: RPM reviewed; Stable. Continue diet control. 11/03/20237561-YTM-hncngs 11/10/23: RPM reviewed; Stable 11/17/20238706-JXP-xgvcows stable 11/24/20232320-SZV-dnhgqi Last Assessment & Plan: Working with [employer]. Supervision of high risk in third [facility] [place] 06/26/2023 Bipolar disease during 06/26/2023 Subchorionic hematoma, antepartum 06/09/2023 Overview: -At [facility] 9w1d -> "small GLENDY" per ER physician [...] have US confirmed , demise sometime between 1x0e-15 w0d, no testing done, no difficulty conceiving, [...] Plan: -Ensure proper follow up by primary SERVICE DESK TECHNICIAN team History of migraine 06/28/2021 Overview: Fioricet not covered by insurance. Neurologist recommended propranolol. Message to [facility] for advice. Migraine with aura and [...] as of this encounter (statuses as of 11/25/2023) Resolved Problems Problem Noted Date Diagnosed Date [...] as of this encounter (statuses as of 11/25/2023) Immunizations Name Administration Dates Next Due COVID-19 mRNA, LNP-s, No Pre serve, 2-Dose Series ([employer]) 05/04/2021,09/04/2020,08/14/2020 COVID-19, MRNA-LNP, 23-24, P F, 30 MCG/0.3 mL, 12 YRS AND ABOVE, IM (CIT[employer] PharmaceuticalComirnatLexpertia.com) 03/07/2023 HPV Vaccine, 4-Valent 05/26/2012,02/24/2012,07/17 PPD 08/19/2022,01/09/2012,02/10/2007 [...] money to get more. Never true 08/04/2023 [place] Depression Scale Answer Date Recorded [place] Depression Scale Total 5 05/29/2023 The thought of harming myself has occurred to me . Never 05/29/2023 Estimated Date of Delivery Comme nts Yes [...] Sign Reading Time Taken Comments Blood Pressure 128/84 11/25/2023 1:24 PM EDT Pulse - - Temperature - - Respiratory Rate - - Oxygen Saturation - - Inhaled Oxygen Concentration - - Weight 115.2 kg (254 lb) 11/25/2023 1:24 PM EDT Height 162.6 cm (5' 4") 11/25/2023 1:24 PM EDT Body Mass Index 43.6 11/25/2023 1:24 PM EDT documented in this encounter Progress Notes * Matilda Lambert PA-C - 11/25/2023 2:00 PM EDT 34w4d ASSESSMENT assessment with Non-stress Test completed on 11/25/2023 at 34.4 weeks gestation for indicationof gestational diabetes mellitus and obesity heart baseline: 125 bpm Variability: Moderate Decelerations: absent Accelerations: present Contractions: None NST start time: 13:25 NST stop time: 14:47 NST strip reviewed, interpreted, and approved by OB provider, Matilda Lambert PA-C. NST strip stored in clinic storage file Doing well. Getting more uncomfortable sleeping at night. Denies VB, LOF, contractions. Pos fm. Paperwork from work given to Елена today. Pt to let us know fax number. RTC in 1 week for NST secondary to class 3. Next MFM scan 12/03/2023. Matilda Lambert PA-C documented in this encounter Nursing Notes * Naomi Oshea LPN - 11/25/2023 1:36 PM EDT 34w4d NST, ANDREW documented in this encounter Plan of Treatment Upcoming Encounters Date Type Department Care Team (Late st Contact Info) Description 12/02/2023 2:30 PM EDT Office Visit Gynecology/Obstetrics Enzo Snyder [address] [place] [address] Jt Whitmore MD [address] [place] [address] Claudio, Non Stress Tests Enoch [address] [place] [address] 12/03/2023 8:45 AM EDT Imaging Maternal Medicine Imaging, [place] [address] 12/03/2023 8:45 AM EDT Office Visit Desktop Architect Obstetrics Maternal Medicine, [place] [place] [address] Kiah Pompa, DO [address] [place] [address] 12/09/2023 10:15 AM EDT Office Visit Gynecology/Obstetrics Enzo Snyder [address] [place] [address] Wandy Li CRNP [address] [place] [address] Claudio Non Stress Tests Enoch [address] [place] [address] 12/16/2023 1:00 PM EDT Office Visit Gynecology/Obstetrics Enzo Snyder [address] [place] [address] iNya Goodrich CRNP [address] [place] [address] Claudio Non Stress Tests Enoch [address] [place] [address] 12/23/2023 1:00 PM EDT Office Visit Gynecology/Obstetrics Enzo Snyder [address] [place] [address] Niya Goodrich CRNP [address] [place] [address] Claudio, Non Stress Tests Enoch [address] [place] [address] 12/30/2023 1:00 PM EDT Office Visit Gynecology/Obstetrics Enzo Snyder [address] [place] [address] Niya Goodrich CRNP [address] [place] [address] Claudio, Non Stress Tests Enoch [address] [place] [address] Health Maintenance Due Date Last Done Comments [...] Obesity affecting , antepartum, unspecified obesity type Antiphospholipid antibody syndrome complicating (HCC) Other current maternal conditions classifiable elsewhere, complicating , childbirth, or the puerperium, unspecified as to episode of care Family history of autism Family history of [...]
--- OUTSIDE RECORDS SUMMARY | 2023-12-28 07:49 | External Medical Summary ---
Author Name Unknown Address Unknown Organization K01:[facility] [place] [facility] - [facility] [address] [facility] [place] [address] Laboratory Report Ordering Provider Test Date Status JOCE ROTH 12/03/2023 08:27:12 Final Observation Date Value Abnormality Reference (Units) Status Blood group antibody investigation [Interpretation] in Plasma or RBC 12/03/2023 08:27:12 Findings: Final Blood group antibody investigation [Interpretation] in Plasma or RBC 12/03/2023 08:27:12 No new antibodies detected Final Blood group antibody investigation [Interpretation] in Plasma or RBC 12/03/2023 08:27:12 Anti-C, -e, and -Fy(a) Titers: All less than 1 Final Blood group antibody investigation [Interpretation] in Plasma or RBC 12/03/2023 08:27:12 Final Blood group antibody investigation [Interpretation] in Plasma or RBC 12/03/2023 08:27:12 The patient is a 38 year old female with ABO/RH type of O positive. Results of this antibody identification testing are consistent with the patient's history of Anti-e, Anti-Fy(a) and demonstrate Anti-C. Antibody to C-antigen, e-antigen, Fy(a)-antigen can result from alloimmunization from transfusion or . These findings place the patient at risk for hemolytic transfusion reaction. Crossmatch compatible O-slvxorq-upsvvegp, r-fsurrbu-mvzefjiv, Fy(a)-antigen-negative RBCs should be given if transfusion is necessary, approximately less than 1% of blood donors will be compatible. Final Blood group antibody investigation [Interpretation] in Plasma or RBC 12/03/2023 08:27:12 Final Performing Location [facility] [place] [facility] [address] [facility] [place] [address]
--- OUTSIDE RECORDS SUMMARY | 2023-12-28 07:49 | External Medical Summary | Summary of Care ---
Author Name Unknown Organization [facility] Address [address] [place] [address] Phone [phone] Care Team Providers Care Renovation Plant Supervisor Name Role Phone Unavailable Primary Care Provider Unavailabl e Reason for Visit * Reason Comments Return Visit Encounter Details Date Type Department Care Team (Late st Contact Info) Description 11/13/2023 4:30 PM EDT Office Visit Gynecology/Obstetric s Enzo Snyder [address] [place] [address] Matilda Lambert PA-C [address] [place] [address] Supervision of high risk in third trimester*; [...] as of this encounter (statuses as of 11/13/2023) Medications Medication Sig Dispensed Refills Start Date [...] as of this encounter (statuses as of 11/13/2023) Active Problems Problem Noted Date Diagnosed Date [...] 10/27/23: RPM reviewed; Stable. Continue diet control. 11/03/20235951-HSX-lixaqn 11/10/23: RPM reviewed; Stable Last Assessment & Plan: Working with [employer]. Supervision of high risk in third trim [place] 06/26/2023 Bipolar disease during 06/26/2023 Subchorionic hematoma, antepartum 06/09/2023 Overview: -At [facility] 9w1d -> "small GLENDY" per ER physician [...] Antiphospholipid antibody syndrome complicating 05/29/2023 Overview: Per [facility] (Ask a Doc) pt technically does not [...] have US confirmed , demise sometime between 3i2o-38 w0d, no testing done, no difficulty conceiving, [...] Plan: -Ensure proper follow up by primary CAD DRAFTER team History of migraine 06/28/2021 Overview: Fioricet not covered by insurance. Neurologist recommended propranolol. Message to [facility] for advice. Migraine with aura and [...] as of this encounter (statuses as of 11/13/2023) Resolved Problems Problem Noted Date Diagnosed Date [...] as of this encounter (statuses as of 11/13/2023) Immunizations Name Administration Dates Next Due COVID-19 mRNA, LNP-s, No Pre serve, 2-Dose Series ([employer] 05/04/2021,09/04/2020,08/14/2020 COVID-19, MRNA-LNP, 23-24, P F, 30 MCG/0.3 mL, 12 YRS AND ABOVE, IM (CollabspotComirnat) 03/07/2023 HPV Vaccine, 4-Valent 05/26/2012,02/24/2012,07/17 PPD 08/19/2022,01/09/2012,02/10/2007 [...] money to get more. Never true 08/04/2023 [place] Depression Scale Answer Date Recorded [place] Depression Scale Total 5 05/29/2023 The thought [...] Sign Reading Time Taken Comments Blood Pressure 122/72 11/13/2023 4:31 PM EDT Pulse - - Temperature - - Respiratory Rate - - Oxygen Saturation - - Inhaled Oxygen Concentration - - Weight 117.1 kg (258 lb 3.2 oz) 11/13/2023 4:31 PM EDT Height 162.6 cm (5' 4") 11/13/2023 4:31 PM EDT Body Mass Index 44.32 11/13/2023 4:31 PM EDT documented in this encounter Progress Notes * Matilda Lambert PA-C - 11/13/2023 5:09 PM EDT 32w6d Doing well. Baby is LGA, next growth planned with MFM in 3 weeks. GDM remains diet controlled and she is compliant with reporting. Reviewed NST to start weekly at 34 weeks. Pt aware and will scheduled. Delivery by EDC. Denies LOF, VB, contractions. Baby is active. RTC in about 2 weeks Matlida Lambert PA-C documented in this encounter Nursing Notes * Jaky Santamaria RN - 11/13/2023 4:25 PM EDT Patient here for ANDREW visit 32w6d No concerns Labor instructions given +FM Jaky Santamaria RN documented in this encounter Plan of Treatment Upcoming Encounters Date Type Department Care Team (Late st Contact Info) Description 12/03/2023 8:45 AM EDT Imaging Maternal Medicine Imaging, [facility] [address] [place] [phone] 12/03/2023 8:45 AM EDT Office Visit School Photographer Obstetrics Maternal Medicine, [address] [place] [address] Kiah Pompa, DO [address] [place] [address] Health Maintenance Due Date Last Done Comments [...]
--- OUTSIDE RECORDS SUMMARY | 2023-12-28 07:49 | External Medical Summary | Summary of Care ---
Author Name Unknown Organization [facility] Address [address] [place] [address] Phone [phone] Care Team Providers Care Senior Hardware Engineer Name Role Phone Unavailable Primary Care Provider Unavailabl e Encounter Details Date Type Department Care Team (Late st Contact Info) Description 12/02/2023 2:30 PM EDT Office Visit Gynecology/Obstetric s Ulises'tayo Snyder [address] [place] [address] Jt Whitmore MD [address] [place] [address] Talita Snyder Stress Tests Enoch [address] [place] [address] Obesity affecting , antepartum, unspecified obesity type*; Antiphospholipid antibody syndrome complicating (HCC); Family history of autism; Antepartum multigravida of advanced maternal age; Red blood cell antibody positive; History of transfusion; Subchorionic hematoma, antepartum, single or unspecified fetus; Supervision of high risk in third trimester; Bipolar disease during in third trimester (HCC); Diet controlled gestational diabetes mellitus (GDM) in third trimester; Excessive growth affecting management of , antepartum, single or unspecified fetus Allergies No known active allergiesdocumented as of this encounter (statuses as of 12/02/2023) Medications Medication Sig Dispensed Refills Start Date End Date Status Vitamin 27-0.8 MG Oral Tablet Take by mouth. Active Aspirin 81 MG Oral Capsule Take by mouth. Active Magnesium 400 MG Oral Tablet Take by mouth. Active [employer]Touch Verio Flex System w/Device Kit Use to [...] as of this encounter (statuses as of 12/02/2023) Active Problems Problem Noted Date Diagnosed Date [...] 11:02 AM 100-G GESTATIONAL GLUCOSE, FASTING - INGEER 84 10/08/2023 08:01 AM 10/19/23: MFM ADAPT [...] 10/27/23: RPM reviewed; Stable. Continue diet control. 11/03/20239094-MIM-fafhui 11/10/23: RPM reviewed; Stable 11/17/20236519-CSJ-hiyfgeb stable 11/24/20233700-EGX-zrswil 11/30/20238123-OLC-wszsen Last Assessment & Plan: Working with ADAPT. Supervision of high risk in third [facility] 06/26/2023 Bipolar disease during 06/26/2023 Subchorionic hematoma, antepartum 06/09/2023 Overview: -At [facility] 9w1d -> "small GLENDY" per ER [...] Antiphospholipid antibody syndrome complicating 05/29/2023 Overview: Per MFM (Ask a Doc) pt [...] have US confirmed , demise sometime between 8b5j-47 w0d, no testing done, no difficulty conceiving, [...] Plan: -Ensure proper follow up by primary SYSTEMS DEVELOPMENT CONSULTANT team History of migraine 06/28/2021 Overview: Fioricet not covered by insurance. Neurologist recommended propranolol. Message to [facility] for advice. Migraine with aura and [...] as of this encounter (statuses as of 12/02/2023) Resolved Problems Problem Noted Date Diagnosed Date [...] moderate 08/14/2003 08/13/2020 BIPOLAR AFFEC, DEPR-MOD 08/14/2003 0306/2020 Borderline personality disorder 08/14/2003 08/13/2020 documented as of this encounter (statuses as of 12/02/2023) Immunizations Name Administration Dates Next Due COVID-19 mRNA, LNP-s, No Pre serve, 2-Dose Series ([employer]) 05/04/2021,09/04/2020,08/14/2020 COVID-19, MRNA-LNP, 23-24, P F, 30 MCG/0.3 mL, 12 YRS AND ABOVE, IM ([email or web address]) 03/07/2023 HPV Vaccine, 4-Valent 05/26/2012,02/24/2012,07/17 PPD 08/19/2022,01/09/2012,02/10/2007 [...] money to get more. Never true 08/04/2023 Elida Depression Scale Answer Date Recorded Elida Depression Scale Total 5 05/29/2023 The thought [...] 08/04/2023 Does the household have a re lar source of income? (Household - for ages [...] Sign Reading Time Taken Comments Blood Pressure 120/68 12/02/2023 2:32 PM EDT Pulse - - Temperature - - Respiratory Rate - - Oxygen Saturation - - Inhaled Oxygen Concentration - - Weight 115.7 kg (255 lb) 12/02/2023 2:32 PM EDT Height 162.6 cm (5' 4") 12/02/2023 2:32 PM EDT Body Mass Index 43.77 12/02/2023 2:32 PM EDT documented in this encounter Progress Notes * Jt Whitmore MD - 12/02/2023 3:17 PM EDT ASSESSMENT assessment with Non-stress Test completed on 12/02/2023 at 35weeks gestation for indication ofobesity heart baseline: 130 bpm Variability: Moderate Decelerations: absent Accelerations: present Contractions: None NST start time: 14:22 NST stop time: 14;50 NST strip reviewed, interpreted, and approved by OB provider, . NST strip stored in clinic storage file documented in this encounter Plan of Treatment Upcoming Encounters Date Type Department Care Team (Late st Contact Info) Description 12/03/2023 8:45 AM EDT Imaging Maternal Medicine Imaging, Enoch Jacksons [address] [place] [address] 12/03/2023 8:45 AM EDT Office Visit Banking Center Manager Obstetrics Maternal Medicine, Enoch Snyder [address] [place] [address] Kiah Pompa, DO [address] [place] [address] 12/09/2023 10:15 AM EDT Office Visit Gynecology/Obstetrics UlisesElietayo Snyder [address] [place] [address] Wandy Li CRNP [address] [place] [address] Claudio, Non Stress Tests Enoch [address] [place] [address] 12/16/2023 1:00 PM EDT Office Visit Gynecology/Obstetrics Ulisesjosi Jacksons [address] [place] [address] Niya Goodrich CRNP [address] [place] [address] Snyder, Non Stress Tests Enoch [address] [place] [address] 12/23/2023 1:00 PM EDT Office Visit Gynecology/Obstetrics Enzo Snyder [address] [place] [address] Niya Goodrich CRNP [address] [place] [address] Claudio, Non Stress Tests Enoch [address] [place] [address] 12/30/2023 1:00 PM EDT Office Visit Gynecology/Obstetrics Enzo Snyder [address] [place] [address] Niya Goodrich CRNP [address] [place] [address] Claudio, Non Stress Tests Enoch [address] [place] [address] Health Maintenance Due Date Last Done Comments [...] as of this encounter Visit Diagnoses Diagnosis Obesity affecting , antepartum, unspecified obesity type- Primary Antiphospholipid antibody syndrome complicating (HCC) Other current [...] Subchorionic hematoma, antepartum, single or unspecified fetus Supervision of high risk in third trimester Unspecified high-risk Bipolar disease during in third trimester (HCC) Diet controlled gestational diabetes mellitus (GDM) in third trimester Excessive growth affecting management of , antepartum, single or unspecified fetus documented in this encounter
--- OUTSIDE RECORDS SUMMARY | 2023-12-28 07:49 | External Medical Summary ---
Author Name Unknown Address Unknown Organization K01:LABORATORY [facility] - [address] [place] [address] Laboratory Report Ordering Provider Test Date Status JOCE ROTH 12/03/2023 08:27:12 Final Serial titers for anti-e, an ti-C, anti- Fy(a) Observation Date Value Abnormality Reference (Units ) Status ANTIBODY TITER 12/03/2023 08:27:12 Anti-C Titer: Less than 1 Final ANTIBODY TITER 12/03/2023 08:27:12 Anti-Fya Titer : Less than 1 Final ANTIBODY TITER 12/03/2023 08:27:12 Anti-e Titer : Less than 1 Final Performing Location LAB[facility]ATORY [facility] B[facility]OD [facility] - [address] [place] [address]
--- OUTSIDE RECORDS SUMMARY | 2023-12-28 07:49 | External Medical Summary | Summary of Care ---
Author Name Unknown Organization [facility] Address [address] [place] [address] Phone [phone] Care Team Providers Care Lyft Driver Name Role Phone Unavailable Primary Care Provider Unavailabl e Reason for Visit * Reason Comments Outpatient Testing Encounter Details Date Type Department Care Team (Late st Contact Info) Description 11/05/2023 1:10 PM EDT Laboratory Laboratory, [facility] [address] [place] [id number] [facility] [address] [place] [address] Red blood cell antibody positive Allergies No known active allergiesdocumented as of this encounter (statuses as of 11/10/2023) Medications Medication Sig Dispensed Refills Start Date [...] as of this encounter (statuses as of 11/10/2023) Active Problems Problem Noted Date Diagnosed Date [...] 10/27/23: RPM reviewed; Stable. Continue diet control. 11/03/20232759-COT-mlwtnx Last Assessment & Plan: Working with ADAPT. Supervision of high risk in [facility] 06/26/2023 Bipolar disease during 06/26/2023 [...] have US confirmed , demise sometime between 0t4x-39 w0d, no testing done, no difficulty conceiving, [...] Plan: -Ensure proper follow up by primary TRAIN MASTER team History of migraine 06/28/2021 Overview: Fioricet not covered by insurance. Neurologist recommended propranolol. Message to [facility] for advice. Migraine with aura and witho [...] as of this encounter (statuses as of 11/10/2023) Resolved Problems Problem Noted Date Diagnosed Date [...] as of this encounter (statuses as of 11/10/2023) Immunizations Name Administration Dates Next Due COVID-19 mRNA, LNP-s, No Pre serve, 2-Dose Series ([employer]) 05/04/2021,09/04/2020,08/14/2020 COVID-19, MRNA-LNP, 23-24, P F, 30 [...] 02/04/2000 TDAP (age 10 and older)(Boostrix) 10/08/2023 TDAP (age 11 and older)(Adacel) 05/30/2011 documented as of this encounter Social [...] money to get more. Never true 08/04/2023 Kellogg Depression Scale Answer Date Recorded Kellogg Depression Scale Total 5 05/29/2023 The thought [...] as of this encounter Miscellaneous Notes * Addendum Note - Favio Peters, TECH - 11/10/2023 10:05 AM EDTAddended by: FAVIO PETERS on: 11/10/2023 10:05 AM Modules accepted: Orders documented in this encounter Plan of Treatment Upcoming Encounters Date Type Department Care Team (Late st Contact Info) Description 11/13/2023 4:30 PM EDT Office Visit Gynecology/Obstetrics Enzo Snyder [address] [place] [address] Matilda Lambert PA-C [address] [place] [address] 12/03/2023 8:45 AM EDT Imaging Maternal Medicine Imaging, Enoch Jacksontayo [place] [phone] 12/03/2023 8:45 AM EDT Office Visit Raw Material Handler Obstetrics [facility]aternal Medicine[facility] [place] [address] Kiah Pompa, DO [address] [place] [address] Pending Results Name Type Priority Associated Diagnoses Date /Time RED BLOOD CELL ANTIBODY TITER Lab Routine Red blood cell antibody positive 11/05/2023 12:31 PM EDT RED BLOOD CELL ANTIBODY IDENTIFICATION INTERPRETATION Lab Routine Red blood cell antibody positive 11/05/2023 12:31 PM EDT Scheduled Orders Name Type Priority Associated Diagnoses Orde r Schedule RED BLOOD CELL ANTIBODY IDENTIFICATION INTERPRETATION Lab Routine Red blood cell antibody positive Expected: 11/10/2023, Expires: 12/10/2024 Health Maintenance Due Date Last Done Comments [...] Comments RED BLOOD CELL ANTIBODY IDENTIFICATION STAT 11/05/2023 12:31 PM EDT Red blood cell antibody positive TYPE AND SCREEN STAT 11/05/2023 12:31 PM EDT Red blood cell antibody positive documented in this encounter Results * RED BLOOD CELL ANTIBODY IDENTIFICATION (11/05/2023 12:31 PM EDT) Red Blood Cell Antibody Identification No new alloantibodies identified 11/06/2023 10:17 AM EDT LAB[facility]ATORY [facility] Comment:Previously identifie d Anti-C, Anti-e, and Anti-Fya Blood Venous blood specimen / Unknown Venipuncture / Unknown 11/05/2023 12:31 PM EDT 11/05/2023 12:31 PM EDT Eloy Bae MD LAB BLOOD BANK TEST ORDERABLES LAB[facility]ATORY [facility] [address] [place] [address] * TYPE AND SCREEN (11/05/2023 12:31 PM EDT) ABO O 11/06/2023 7:11 AM EDT LAB[facility]ATORY [facility] Rh Positive 11/06/2023 7:11 AM EDT LAB[facility]ATORY [facility] Red Blood Cell Antibody Screen Positive 11/06/2023 7:11 AM EDT LAB[facility]ATORY [facility] Comment: Antibodies may delay blood availability If RBC use is anticipated, place a prepare order Specimen Expiration Date 11/08/2023 23:59 11/06/2023 7:11 AM EDT LAB[facility]ATORY [facility] Blood Venous blood specimen / Unknown Venipuncture / Unknown 11/05/2023 12:31 PM EDT 11/05/2023 12:31 PM EDT Eloy Bae MD LAB BLOOD BANK TEST ORDERABLES LAB[facility]ATORY [facility] [address] [place] [address] documented in this encounter Visit Diagnoses Diagnosis Red blood cell antibody positive Other and unspecified nonspecific immunological findings documented in this encounter
--- OUTSIDE RECORDS SUMMARY | 2023-12-28 07:49 | External Medical Summary | Summary of Care ---
Author Name Unknown Organization [facility] Address [address] [place] [address] Phone [phone] Care Team Providers Care Recruit Instructor Name Role Phone Unavailable Primary Care Provider Unavailabl e Encounter Details Date Type Department Care Team (Late st Contact Info) Description 11/27/2023 Telephone Gynecology/Obstetrics Enzo Snyder [address] [place] [address] Matilda Lambert PA-C [address] [place] [address] Allergies No known active allergiesdocumented as of this encounter (statuses as of 11/27/2023) Medications Medication Sig Dispensed Refills Start Date End Date Status Vitamin 27-0.8 MG Oral Tablet Take by mouth. Active Aspirin 81 MG Oral Capsule Take by mouth. Active Magnesium 400 MG Oral Tablet Take by mouth. Active [employer]Touch Verio Flex System w/Device Kit Use to [...] Additional Information Patient not taking.Reported on 10/19/2023 Dang LeTouch Verio In Vitro Strip (Glucose Blood) Use to test blood sugars 4 times daily (fasting, 1 hour after breakfast, lunch, and dinner) 100 Strip 6 10/23/2023 Active [employer] In Vitro Strip (Glucose Blood) Use to test blood sugars 4 times daily (fasting, 1 hour after breakfast, lunch, and dinner) 125 Strip 6 10/23/2023 Active documented as of this encounter (statuses as of 11/27/2023) Active Problems Problem Noted Date Diagnosed Date with 29 completed weeks gestation 11/2023 Excessive growth affec ting management of , antepartum 10/08/2023 Last Assessment & Plan: LGA persists today, with EFW at 94%ile. Message left for patient and Coravin message sent to review her results; prior [...] 10/27/23: RPM reviewed; Stable. Continue diet control. 11/03/20238094-PED-rbeaak 11/10/23: RPM reviewed; Stable 11/17/20230197-SGC-qleyzss stable 11/24/20230055-EHV-xxmxpx Last Assessment & Plan: Working with ADAPT. Supervision of high risk in third [facility] 06/26/2023 Bipolar disease during 06/26/2023 Subchorionic hematoma, antepartum 06/09/2023 Overview: -At [facility] 9w1d -> "small GLENDY" per [...] have US confirmed , demise sometime between 5z5i-15 w0d, no testing done, no difficulty conceiving, [...] Plan: -Ensure proper follow up by primary INSTITUTIONAL NUTRITION CONSULTANT team History of migraine 06/28/2021 Overview: Fioricet not covered by insurance. Neurologist recommended propranolol. Message to [facility] for advice. Migraine with aura and [...] as of this encounter (statuses as of 11/27/2023) Resolved Problems Problem Noted Date Diagnosed Date [...] Patient declines flu vaccine. 03/27/2014 Holley Eng, BETTY Patient declines Tdap vaccine 06/05/14 Holley Eng [...] as of this encounter (statuses as of 11/27/2023) Immunizations Name Administration Dates Next Due COVID-19 mRNA, LNP-s, No Pre serve, 2-Dose Series ([employer]) 05/04/2021,09/04/2020,08/14/2020 COVID-19, MRNA-LNP, 23-24, P F, 30 MCG/0.3 mL, 12 YRS AND ABOVE, IM ([employer]) 03/07/2023 HPV Vaccine, 4-Valent 05/26/2012,02/24/2012,07/17 PPD 08/19/2022,01/09/2012,02/10/2007 [...] money to get more. Never true 08/04/2023 Steptoe Depression Scale Answer Date Recorded Steptoe Depression Scale Total 5 05/29/2023 The thought [...] encounter Miscellaneous Notes * Telephone Encounter - Matilda Lambert PA-C - 11/27/2023 8:03 AM EDT Leave paperwork completed and signed by provider. Given back to Елена. Pt was to send in fax number so we know where to fax. Will await her response. Matilda Lambert PA-C documented in this encounter Plan of Treatment Upcoming Encounters Date Type Department Care Team (Late st Contact Info) Description 12/02/2023 2:30 PM EDT Office Visit Gynecology/Obstetrics [facility] [address] [place] [address] Jt Whitmore MD [address] [place] [address] Talita Snyder Stress Tests Enoch [address] [place] [address] 12/03/2023 8:45 AM EDT Imaging Maternal Medicine Imaging, [address] [address] 12/03/2023 8:45 AM EDT Office Visit Dynamotor Repairer Obstetrics Maternal Medicine, Enoch Snyder [address] [place] [address] Kiah Pompa, DO [address] [place] [address] 12/09/2023 10:15 AM EDT Office Visit Gynecology/Obstetrics [place] Snyder [address] [place] [address] Wandy Li CRNP [address] [place] [address] Talita Snyder Stress Tests Enoch [address] [place] [address] 12/16/2023 1:00 PM EDT Office Visit Gynecology/Obstetrics [place] Snyder [address] [place] [address] Niya Goodrich CRNP [address] [place] [address] Talita Snyder Stress Tests Enoch [address] [place] [address] 12/23/2023 1:00 PM EDT Office Visit Gynecology/Obstetrics Enzo Snyder [address] [place] [address] Niya Goodrich CRNP [address] [place] [address] Claudio, Non Stress Tests Enoch [address] [place] [address] 12/30/2023 1:00 PM EDT Office Visit Gynecology/Obstetrics Enzo Snyder [address] [place] [address] Niya Goodrich CRNP [address] [place] [address] Claudio, Non Stress Tests Enoch [address] [place] [address] Health Maintenance Due Date Last Done Comments [...]
--- OUTSIDE RECORDS SUMMARY | 2023-12-28 07:49 | External Medical Summary ---
Author Name Unknown Address Unknown Organization K01:LABORATORY [facility] - [address] [place] [address] Laboratory Report Ordering Provider Test Date Status JOCE ROTH 12/03/2023 08:27:12 Correction Serial titers for anti-e, an ti-C, anti- Fy(a) Observation Date Value Abnormality Reference (Units) Status RED BLOOD CELL ANTIBODY IDENTIFICATION 08:27:12 No new alloantibodies identified Correction Previously identified Anti-C , Anti-e, and Anti-Fya, no additional alloantibodies identified. Performing Location LABORATORY [facility] B[facility]OD [facility] - [address] [place] [address]
--- OUTSIDE RECORDS SUMMARY | 2023-12-28 07:50 | External Medical Summary ---
Author Name Unknown Address Unknown Organization K01:[facility] [address] [facility] [address] Laboratory Report Ordering Provider Test Date Status JOCE ROTH 11/05/2023 12:31:35 Final Observation Date Value Abnormality Reference (Units) Status Blood group antibody investigation [Interpretation] in Plasma or RBC 11/05/2023 12:31:35 Findings: Final Blood group antibody investigation [Interpretation] in Plasma or RBC 11/05/2023 12:31:35 Anti-C, Anti-e, and Anti-Fy(a) Final Blood group antibody investigation [Interpretation] in Plasma or RBC 11/05/2023 12:31:35 Final Blood group antibody investigation [Interpretation] in Plasma or RBC 11/05/2023 12:31:35 Final Blood group antibody investigation [Interpretation] in Plasma or RBC 11/05/2023 12:31:35 The patient is a 38 year old female with ABO/RH type of O Results of this antibody identification testing demonstrate Anti-C, Anti-e, Anti-Fy(a). Antibody to C-antigen, e-antigen, Fy(a)-antigen can result from alloimmunization from transfusion or . These findings place the patient at risk for hemolytic transfusion reaction. Crossmatch compatible G-tbmewgz-zouazpbz, o-vzaouxc-jrhwzoxe, Fy(a)-antigen-negative RBCs should be given if transfusion is necessary, approximately less than 1% of blood donors will be compatible. Final Performing Location [facility] [place] [address] [facility] [address]
--- OUTSIDE RECORDS SUMMARY | 2023-12-28 07:50 | External Medical Summary | Summary of Care ---
Author Name Unknown Organization [facility] Address [address] [place] [address] Phone [phone] Care Team Providers Care Communications Planner Name Role Phone Unavailable Primary Care Provider Unavailabl e Reason for Referral * Evaluate & Treat - Unlimited Visits (Within 3 days (urgent)) - Authorized Specialty Diagnoses / Procedures Referred By Contac t Referred To Contact Substation Manager Diagnoses Diet controlled gestational diabetes mellitus (GDM) in third trimester Sheba Mckinnon CRNP [address] [place] [address] Referral ID Status Reason Start Date Expiration Date Visits Requested Visits Authorized [id number] Authorized Specialty Services Required 10/19/2023 1 1 Question Answer Referral Priority Within 3 days (urgent) Where should this appointment be scheduled? [facility] Type Chronic Disease Management Chronic Disease Management Diabetes in Alarm Settings Standard per protocol Comments OneTouch Verio Reason for Visit * Reason Comments Consultation Gestational diabetes * Evaluate & Treat - Unlimited Visits (Within 3 days (urgent)) - Authorized Specialty Diagnoses / Procedures Referred By Contac t Referred To Contact Obstetrics/Gynecology / Maternal Medicine Diagnoses Gestational diabetes mellitus (GDM), antepartum, gestational diabetes method of control unspecified Nubia Saab CNM [address] [place] [address] Referral ID Status Reason Start Date Expiration Date Visits Requested Visits Authorized [id number] Authorized Specialty Services Required 10/09/2023 [id number] Encounter Details Date Type Department Care Team (Late st Contact Info) Description 10/19/2023 4:15 PM EDT Telemedicine Auto Suspension And Steering Mechanic Obstetrics Maternal Medicine, [place] [address] [place] [address] Sheba Mckinnon CRNP [address] [place] [address] Diet controlled gestational diabetes mellitus (GDM) in third trimester*; Supervision of high risk in third trimester; with 29 completed weeks gestation Allergies No known active allergiesdocumented as of this encounter (statuses as of 10/19/2023) Medications Medication Sig Dispensed Refills Start Date End Date Status Vitamin 27-0.8 MG Oral Tablet Take by mouth. 0 Active Aspirin 81 MG Oral Capsule Take by mouth. 0 Active Magnesium 400 MG Oral Tablet Take by mouth. 0 Active OneTouch Verio In Vitro Strip (Glucose Blood) Use to test blood sugars 4 times daily (fasting, 1 hour after breakfast, lunch, and dinner) 125 Strip 6 10/09/2023 Active Additional Information Patient not taking.Reported on 10/19/2023 OneTouch Verio Flex System w/Device Kit Use to test blood sugars 4 times daily (fasting, 1 hour after breakfast, lunch, and dinner) 1 Kit 0 10/09/2023 Active Additional Information Patient not taking.Reported on 10/19/2023 OneTouch Delica Lancets 30G Use to test blood sugars 4 times daily (fasting, 1 hour after breakfast, lunch, and dinner) 200 Each 6 10/09/2023 Active Additional Information Patient not taking.Reported on 10/19/2023 documented as of this encounter (statuses as of 10/19/2023) Active Problems Problem Noted Date Diagnosed Date with 29 completed weeks gestation 11/2023 Excessive growth affec ting management of , antepartum 10/08/2023 Last Assessment & Plan: LGA growth noted today. 3'GTT performed today is positive. Recommend aggressive blood glucose management and will continue to follow for growth. Please refer to [facility] RANDOLPH if we can assist with GDM. Diet controlled gestational diabetes mellitus (GDM) in [...] pt is hoping to receive strips tomorrow. Last Assessment & Plan: CONSIDERATIONS: Reviewed etiology and risks associated with gestational diabetes mellitus (GDM), including risks to , fetus, and maternal progression to Type 2 DM. Instructed on proper use of glucometer; supplies ordered, if indicated. Advised that life-long screening for diabetes is recommended every 1-3 years. RECOMMENDATIONS: Recommend monitoring blood sugars with daily fasting blood sugar (maintained at less than or equal to 95) and 1 hour postprandial measurements (maintained at less than or equal to 140). Medications should be adjusted to maintain these target values. Report levels to MFM (Maternal- Medicine) weekly. Recommend nutrition consult with RDN (Registered Dietitian Transmission Maintenance Supervisor). Lifestyle changes are also indicated including optimizing gestational weight gain and physical activity of 30 minutes per day, if not otherwise contraindicated in . Insulin is preferred if medications are indicated to optimize euglycemia. Metformin (preferred over glyburide) may also be used in some circumstances. Reviewed the risks and benefits of each. Recommend ultrasound, surveillance and delivery as follows: A1GDM, delivery should be accomplished by 41w0d. A2GDM, recommend growth assessment with MFM every 4 weeks, initiate surveillance at 32 weeks and continue until delivery at 39 weeks. Recommend intrapartum monitoring every 1-2 hours (A2GDM) or every 4 hours (A1GDM) and treat with insulin if indicated. Recommend 2-hour glucose tolerance testing with 75-gram glucose load 6-8 weeks . Supervision of high risk in [facility] 06/26/2023 Bipolar disease during 06/26/2023 Subchorionic hematoma, antepartum 06/09/2023 Overview: -At [facility] 9w1d -> "small GLENDY" per ER [...] Antiphospholipid antibody syndrome complicating 05/29/2023 Overview: Per [facility] (Ask a Doc) pt technically does not [...] have US confirmed , demise sometime between 7o4y-75 w0d, no testing done, no difficulty conceiving, [...] Plan: -Ensure proper follow up by primary ELECTRONIC INSTRUMENT TRADES WORKER team History of migraine 06/28/2021 Overview: Fioricet not covered by insurance. Neurologist recommended propranolol. Message to [facility] for advice. Migraine with aura and witho [...] as of this encounter (statuses as of 10/19/2023) Resolved Problems Problem Noted Date Diagnosed Date [...] as of this encounter (statuses as of 10/19/2023) Immunizations Name Administration Dates Next Due COVID-19 mRNA, LNP-s, No Pre serve, 2-Dose Series ([employer]) 05/04/2021,09/04/2020,08/14/2020 COVID-19, MRNA-LNP, 23-24, P F, 30 MCG/0.3 mL, 12 YRS AND ABOVE, IM ([employer]-Comirnaty) 03/07/2023 HPV Vaccine, 4-Valent 05/26/2012,02/24/2012,07/17 PPD 08/19/2022,01/09/2012,02/10/2007 [...] 02/24/2012,05/30/2011,03/29/2010 TDAP (age 10 and older)(Boostrix) 10/08/2023 TDAP [...] money to get more. Never true 08/04/2023 [place] Depression Scale Answer Date Recorded [place] Depression Scale Total 5 05/29/2023 The thought [...] as of this encounter Progress Notes * Sheba Mckinnon CRNP - 10/19/2023 5:09 PM EDT MATERNAL MEDICINE CONSULT Yari Justice Consult date: 10/19/23 REFERRING PROVIDER: JOSETTE Byers Patient location: HOME. I was in a hospital or clinic location. After connecting through televideo,patient was verified with two unique identifiers. Patient (or authorized legal senior customer service representative) was then informed that this was a Telemedicine visit and being conducted confidentially over secure lines. Methods to assure confidentiality were taken. Patient acknowledged consent and understanding of pr ivacy and security of the Telemedicine visit. The patient agreed to participate. Yari Lindquist is a 38 year old with intrauterine at 29w2d (Estimated Date of Delivery: 01/02/24 by exact LMP) who presents today for an MFM consult due to gestational diabetes. Ms. Lindquist had a full MFM consult on 06/09/2023 due to advanced maternal age, obesity, Antiphospholipid antibody syndrome, history of uterine fibroid, family history of autism and red blood cell antibodies. Please refer to prior MFM consult and notes for details regarding additional risk factors and recommendations. HPI/CURRENT : pre- BMI=class 3 obesity (115.7 kg (255 lb); 5' 4"); complicated by above. Genetic testing: Opted out [id number] Problems (from 05/28/23 to present) Problem Noted Resolved Diet controlled gestational diabetes mellitus (GDM) in third trimester 07/06/2023 by Niya Goodrich CRNP No Overview Addendum 10/19/2023 5:09 PM by Sheba Mckinnon CRNP Diagnosed at 27 weeks Nutrition consult ordered [...] 10/19/23: MFM [facility] consult complete. Enrolled in [employer]. Instructions provided to report blood sugars each week for MFM review; Patient has her glucometer and lancets, however, has been waiting for pharmacy to have strips in stock. Rx for strips was called in to a different pharmacy today,so pt is hoping to receive strips tomorrow. I have reviewed this patient's previous OB ultrasound reports, pertinent labwork and testing provided by her referring OB provider. Current Outpatient Medications Medication Sig Dispense Refill Aspirin 81 MG Oral Capsule Take by mouth. Magnesium 400 MG Oral Tablet Take by mouth. OneTouch Delica Lancets 30G Use to test blood sugars 4 times daily (fasting, 1 hour after breakfast, lunch, and dinner) (Patient not taking: Reported on 10/19/2023) 200 Each 6 OneTouch Verio Flex System w/Device Kit Use to test blood sugars 4 times daily (fasting, 1 hour after breakfast, lunch, and dinner) (Patient not taking: Reported on 10/19/2023) 1 Kit 0 OneTouch Verio In Vitro Strip (Glucose Blood) Use to test blood sugars 4 times daily (fasting, 1 hour after breakfast, lunch, and dinner) (Patient not taking: Reported on 10/19/2023) 125 Strip 6 Vitamin 27-0.8 MG Oral Tablet Take by mouth. No current facility-administered medications for this visit. Review of patient's allergies indicates: No Known Allergies OB History Para Term AB Living 6 1 1 0 4 1 SAB IAB Ectopic Multiple Live Births 3 0 1 0 1 # Outcome Date GA Lbr Sunny/2nd Weight Sex Delivery Anes PTL Lv 6 Current 5 SAB 10/2022 Biochemical 4 Ectopic 06/2022 9w6d ECTOPIC PREG Comments: missed ab at 11 weeks 3 SAB 09/2021 Biochemical Comments: 4-5 weeks 2 SAB 06/2021 8w4d AB, SP, 1 Comments: loss between [id number], more likely <10 weeks 1 Term 08/04/14 40w5d 16:42 / 01:36 3.9 kg (8 lb 9.6 oz) M Vag-Spont EPI N BOUBACAR Comments: no complications Obstetric Comments FOB#2: Antony 35 yo healthy, no other children from prior relationships Past Medical History: Diagnosis Date Alcohol abuse, unspecified 01/22/2004 Alcohol Abuse Antiphospholipid antibody syndrome (HCC) ASCUS with positive high risk HPV cervical 07/10/2021 Hx of ASCUS +HPV on pap Bipolar I disorder, most recent episode depressed, moderate (HCC) 08/14/2003 Borderline personality disorder (HCC) 08/14/2003 Ectopic of left ovary 06/25/2022 INFORMATION 01/22/2004 suicide thoughts Major depressive disorder, recurrent episode, moderate (HCC) 08/14/2003 Migraine Miscarriage 06/15/2021, 09/2021, 06/25/22 Mixed, or nondependent drug abuse 01/22/2004 Marijuana Nystagmus 09/16/2004 Varicella without complication 06/15/1991 Past Surgical History: Procedure Laterality Date NONE SD TX ECTOPIC W/O SALPING&/OOPHORECTOMY Left 06/25/2022 salpingectomy Family History Problem Relation Age of Onset Diabetes Mother Allergies Mother Seasonal Hypertension Mother Other (endometrosis) Mother Hypertension Father No Known Problems Brother Hypertension Aunt (Unspecified) maternal Diabetes Aunt (Unspecified) maternal Cancer Aunt (Unspecified) ovarian and skin; maternal aunt Blood Disorder Aunt (Unspecified) DVT Hypertension Uncle (Unspecified) maternal Diabetes Uncle (Unspecified) maternal Hypertension Grandmother (Maternal) Heart Disorder Grandmother (Maternal) [place] Cancer Grandmother (Maternal) throat and brain cancer Hypertension Grandfather (Maternal) Stroke Grandfather (Maternal) Heart Disorder Grandfather (Maternal) [place] Diabetes Grandfather (Maternal) Blood Disorder Grandfather (Maternal) DVT No Known Problems Brother (Half) No Known Problems Brother (Half) No Known Problems Brother (Half) No Known Problems Sister (Half) Social History Tobacco Use Smoking status: Former Current packs/day: 0.00 Average packs/day: 0.3 packs/day for 2.0 years (0.5 ttl pk-yrs) Types: Cigarettes Start date: 03/23/2011 Quit date: 03/23/2013 Years since quittin.5 Smokeless tobacco: Never Vaping Use Vaping Use: Never used Substance Use Topics Alcohol use: Not Currently Alcohol/week: 1.7 standard drinks of alcohol Types: 2 Mixed drink(s) containing 1.5 shots of alcohol per week Comment: none since + preg test Drug use: No Comment: Pt denies 02/04/13 REVIEW OF SYSTEMS: headaches: no nausea/vomiting: denies reports movement: yes abdominal pain/tenderness/cramping/contractions: no vaginal bleeding: no vaginal leaking of fluid: no all other systems negative PHYSICAL EXAM: LMP 03/28/2023 General: Well appearing Psych: Alert to time, place, and person and Pleasant DISCUSSION/RECOMMENDATIONS: Problem List Items Addressed This Visit [id number] Diet controlled gestational diabetes mellitus (GDM) in third trimester CONSIDERATIONS: Reviewed etiology and risks associated with gestational diabetes mellitus (GDM), including risks topregnancy, fetus, and maternal progression to Type 2 DM. Instructed on proper use of glucometer; supplies ordered, if indicated. Advised that life-long screening for diabetes is recommended every 1-3 years. RECOMMENDATIONS: Recommend monitoring blood sugars with daily fasting blood sugar (maintained at less than or equal to 95) and 1 hour postprandial measurements (maintained at less than or equal to 140). Medications should be adjusted to maintain these target values. Report levels to MFM (Maternal- Medicine) weekly. Recommend nutrition consult with RDN (Registered Dietitian Transmission Maintenance Supervisor). Lifestyle changes are also indicated including optimizing gestational weight gain and physical activity of 30 minutes per day, if not otherwise contraindicated in . Insulin is preferred if medications are indicated to optimize euglycemia. Metformin (preferred overglyburide) may also be used in some circumstances. Reviewed the risks and benefits of each. Recommend ultrasound, surveillance and delivery as follows: A1GDM, delivery should be accomplished by 41w0d. A2GDM, recommend growth assessment with MFM every 4 weeks, initiate surveillance at 32 weeks and continue until delivery at 39 weeks. Recommend intrapartum monitoring every 1-2 hours (A2GDM) or every 4 hours (A1GDM) and treat with insulin if indicated. Recommend 2-hour glucose tolerance testing with 75-gram glucose load 6-8 weeks . Follow up ultrasound with Maternal Medicine is scheduled on 11/05/2023 at [facility] for growth scan secondary to gestational diabetes and previously addressed indications. Patient isaware of upcoming MFM appointment. JOSETTE Leung 10/19/2023 5:20 PM documented in this encounter Miscellaneous Notes * Assessment & Plan Note - Sheba Mckinnon CRNP - 10/19/2023 4:34 PM EDT Associated Problem(s): Diet controlled gestational diabetes mellitus (GDM) in third trimester CONSIDERATIONS: Reviewed etiology and risks associated with gestational diabetes mellitus (GDM), including risks topregnancy, fetus, and maternal progression to Type 2 DM. Instructed on proper use of glucometer; supplies ordered, if indicated. Advised that life-long screening for diabetes is recommended every 1-3 years. RECOMMENDATIONS: Recommend monitoring blood sugars with daily fasting blood sugar (maintained at less than or equal to 95) and 1 hour postprandial measurements (maintained at less than or equal to 140). Medications should be adjusted to maintain these target values. Report levels to MFM (Maternal- Medicine) weekly. Recommend nutrition consult with RDN (Registered Dietitian Transmission Maintenance Supervisor). Lifestyle changes are also indicated including optimizing gestational weight gain and physical activity of 30 minutes per day, if not otherwise contraindicated in . Insulin is preferred if medications are indicated to optimize euglycemia. Metformin (preferred overglyburide) may also be used in some circumstances. Reviewed the risks and benefits of each. Recommend ultrasound, surveillance and delivery as follows: A1GDM, delivery should be accomplished by 41w0d. A2GDM, recommend growth assessment with MFM every 4 weeks, initiate surveillance at 32 weeks and continue until delivery at 39 weeks. Recommend intrapartum monitoring every 1-2 hours (A2GDM) or every 4 hours (A1GDM) and treat with insulin if indicated. Recommend 2-hour glucose tolerance testing with 75-gram glucose load 6-8 weeks . documented in this encounter Plan of Treatment Upcoming Encounters Date Type Department Care Team (Late st Contact Info) Description 10/27/2023 4:15 PM EDT Office Visit Gynecology/Obstetrics [place] [address] Mariya Dent, [place] [place] [address] 11/05/2023 11:45 AM EDT Imaging [place] [address] 12/03/2023 8:45 AM EDT Imaging [place] [address] Scheduled Referrals Name Type Priority Associated Diagnoses Orde r Schedule REMOTE PATIENT MONITORING REFERRAL Referral Within 3 days (urgent) Diet controlled gestational diabetes mellitus (GDM) in third trimester Ordered: 10/19/2023 Health Maintenance Due Date Last Done Comments [...] as of this encounter Visit Diagnoses Diagnosis Diet controlled gestational diabetes mellitus (GDM) in third trimester- Primary Supervision of high risk in third trimester Unspecified high-risk with 29 completed weeks gestation documented in this encounter
--- OUTSIDE RECORDS SUMMARY | 2023-12-28 07:50 | External Medical Summary | Summary of Care ---
Author Name Unknown Organization [facility] Address [address] [place] [address] Phone [phone] Care Team Providers Care Replanting Machine Crew Name Role Phone Unavailable Primary Care Provider Unavailabl e Encounter Details Date Type Department Care Team (Late st Contact Info) Description 11/05/2023 11:45 AM EDT Office Visit Tape Deck Installer Obstetrics Maternal Medicine, [facility] [address] [place] [address] Kiah Pompa, DO [address], [place] [id number] Obesity affecting , antepartum, unspecified obesity type*; Excessive growth affecting management of , antepartum, single or unspecified fetus; Antepartum multigravida of advanced maternal age; Diet controlled gestational diabetes mellitus (GDM) in third trimester Allergies No known active allergiesdocumented as of this encounter (statuses as of 11/05/2023) Medications Medication Sig Dispensed Refills Start Date [...] as of this encounter (statuses as of 11/05/2023) Active Problems Problem Noted Date Diagnosed Date with 29 completed weeks gestation 11/2023 Excessive growth affec ting management of , antepartum 10/08/2023 Last Assessment & Plan: LGA persists today, with EFW at 94%ile. Message left for patient and TapHome message sent to review her results; prior [...] 10/27/23: RPM reviewed; Stable. Continue diet control. 11/03/[id number] Last Assessment & Plan: Working with [facility]. Supervision of high risk in third trim annamarie 06/26/2023 Bipolar disease during 06/26/2023 Subchorionic hematoma, antepartum 06/09/2023 Overview: -At [facility] 9w1d -> "small GLENDY" [...] have US confirmed , demise sometime between 7u6s-97 w0d, no testing done, no difficulty conceiving, [...] Plan: -Ensure proper follow up by primary EMULSION COATER team History of migraine 06/28/2021 Overview: Fioricet not covered by insurance. Neurologist recommended propranolol. Message to [facility] for advice. Migraine with aura and [...] as of this encounter (statuses as of 11/05/2023) Resolved Problems Problem Noted Date Diagnosed Date [...] 05/25- pap ASCUS +HR HPV Colpo 07/27Dr Mastusu - ecc neg Pap 02/24 - ASCUs [...] as of this encounter (statuses as of 11/05/2023) Immunizations Name Administration Dates Next Due COVID-19 mRNA, LNP-s, No Pre serve, 2-Dose Series ([employer]) 05/04/2021,09/04/2020,08/14/2020 COVID-19, MRNA-LNP, 23-24, P F, 30 [...] money to get more. Never true 08/04/2023 [place] Depression Scale Answer Date Recorded [place] Depression Scale Total 5 05/29/2023 The thought [...] as of this encounter Progress Notes * Kaih Pompa, DO - 11/05/2023 12:54 PM EDT Yari presented today at 31w5d for an ultrasound for the following indications: Obesity affecting , antepartum, unspecified obesity type Excessive growth affecting management of , antepartum, single or unspecified fetus Assessment & Plan: LGA persists today, with EFW at 94%ile. Message left for patient and myG message sent to review herresults; prior at 4000g. This baby likely similar in size. We will reevaluate at next visit. Antepartum multigravida of advanced maternal age Diet controlled gestational diabetes mellitus (GDM) in third trimester Assessment & Plan: Working with [facility]. Ultrasound summary: Patient presented for growth assessment at 31w 5d. Large AC noted at >99% with overall EFW of 2293 g at 94%. ANTONIO 18.4 cm. Cephalic presentation. I reviewed the ultrasound images. Yari was given the opportunity to meet with me if she had any questions. Please refer to the ultrasound report for additional details about today's ultrasound examination. RECOMMENDATIONS: Recommend follow up ultrasound with MFM in 4-6 weeks for growth secondary to above indications. Weekly NSTs at 34 weeks. See prior formal MFM consultation note. Thank you for allowing us to participate in the care of this patient. Please call with any questions. Kiah Pompa DO 11/05/2023 12:54 PM documented in this encounter Miscellaneous Notes * Assessment & Plan Note - Kiah Pompa DO - 11/05/2023 12:53 PM EDT Associated Problem(s): Excessive growth affecting management of , antepartum LGA persists today, with EFW at 94%ile. Message left for patient and myG message sent to review herresults; prior at 4000g. This baby likely similar in size. We will reevaluate at next visit. * Assessment & Plan Note - Kiah Pompa DO - 11/05/2023 12:18 PM EDT Associated Problem(s): Diet controlled gestational diabetes mellitus (GDM) in third trimester Working with [facility]. documented in this encounter Plan of Treatment Upcoming Encounters Date Type Department Care Team (Late st Contact Info) Description 11/13/2023 4:30 PM EDT Office Visit Gynecology/Obstetrics [place] [address] [facility] [place] [address] Matilda Lambert PA-C [address] [place] [address] 12/03/2023 8:45 AM EDT Imaging Maternal Medicine Imaging, [place] [address] [place] [address] 12/03/2023 8:45 AM EDT Office Visit Tape Deck Installer Obstetrics Maternal Medicine, [place] [address] [facility] [place] [address] Kiah Pompa DO [address] [place] [address] Health Maintenance Due Date Last Done Comments [...] affecting , antepartum, unspecified obesity type- Primary Excessive growth affecting management of , antepartum, single or unspecified fetus Antepartum multigravida of advanced maternal age Diet controlled gestational diabetes mellitus (GDM) in third trimester documented in this encounter
--- OUTSIDE RECORDS SUMMARY | 2023-12-28 07:50 | External Medical Summary ---
Author Name Unknown Address Unknown Organization [id number]:[facility] - [address] [place] [id number] Laboratory Report Ordering Provider Test Date Status JOCE ROTH 11/05/2023 12:31:35 Final Serial titers for anti-e, an ti-C, anti- Fy(a) Observation Date Value Abnormality Reference (Units) Status RED BLOOD CELL ANTIBODY IDENTIFICATION 11/05/2023 12:31:35 No new alloantibodies identified Final Previously identified Anti-C , Anti-e, and Anti-Fya Performing Location [facility] - [address] [place] [id number]
--- OUTSIDE RECORDS SUMMARY | 2023-12-28 07:50 | External Medical Summary ---
Author Name Unknown Address Unknown Organization K01:LABORATORY [facility] - [address] [place] [id number] Laboratory Report Ordering Provider Test Date Status ARGELIANATHALIA 10/28/2023 14:37:39 Final Observation Date Value Abnormality Reference (Units) Status Bacteria identified in Specimen by Culture 10/28/2023 14:37:39 No significant growth Final Test: Culture, Urine, Quant itative
Specimen Source: Urine, Clean Catch
Specimen Type: Urine
Specimen Date: 10/28/2023 2:37 PM
Result Date: 10/29/2023 4:21 PM
Result Status: Final result
Resulting Lab: LABORATORY [facility]
[address]
[facility] [address]

CULTURE

No significant growth

null Performing Location LABORATORY [facility] - [address] [facility] [address]
--- OUTSIDE RECORDS SUMMARY | 2023-12-28 07:50 | External Medical Summary | Summary of Care ---
Author Name Unknown Organization [facility] Address [address] [place] [address] Phone [phone] Care Team Providers Care Associate Faculty Name Role Phone Unavailable Primary Care Provider Unavailabl e Reason for Visit * Reason Comments Medication Refill Encounter Details Date Type Department Care Team (Late st Contact Info) Description 10/21/2023 Refill Gynecology/Obstetrics [facility] 132 [facility] [place] [address] Aaron Chavez CNM [address] [place], [place] [id number] Allergies No known active allergiesdocumented as of this encounter (statuses as of 10/23/2023) Medications Medication Sig Dispensed Refills Start Date End Date Status Vitamin 27-0.8 MG Oral Tablet Take by mouth. 0 Active Aspirin 81 MG Oral Capsule Take by mouth. 0 Active Magnesium 400 MG Oral Tablet Take by mouth. 0 Active OneTouch Verio Flex System w/Device Kit [...] and dinner) 125 Strip 6 10/23/2023 Active OneTouch Verio In Vitro Strip (Glucose Blood) Use to test blood sugars 4 times daily (fasting, 1 hour after breakfast, lunch, and dinner) 125 Strip 6 10/09/2023 10/21/2023 Discontinue d(Refill) documented as of this encounter (statuses as of 10/23/2023) Active Problems Problem Noted Date Diagnosed Date [...] Recommend nutrition consult with RDN (Registered Dietitian Craft Coordinator). Lifestyle changes are also indicated including optimizing [...] weeks . Supervision of high risk in third [facility] 06/26/2023 Bipolar disease during 06/26/2023 Subchorionic hematoma, antepartum 06/09/2023 Overview: -At [facility] 9w1d -> "small GLENDY" per ER physician [...] have US confirmed , demise sometime between 8f0h-93 w0d, no testing done, no difficulty conceiving, [...] Plan: -Ensure proper follow up by primary FILLING AND STAPLING MACHINE OPERATOR team History of migraine 06/28/2021 Overview: Fioricet not covered by insurance. Neurologist recommended propranolol. Message to [facility] for advice. Migraine with aura and [...] as of this encounter (statuses as of 10/23/2023) Resolved Problems Problem Noted Date Diagnosed Date [...] other normal 06/28/2021 06/24/2022 , normal first 01/03/201402/2015 Overview: Urine culture contaminated at [facility]. Repeat [...] as of this encounter (statuses as of 10/23/2023) Immunizations Name Administration Dates Next Due COVID-19 mRNA, LNP-s, No Pre serve, 2-Dose Series (Chromatik) 05/04/2021,09/04/2020,08/14/2020 COVID-19, MRNA-LNP, 23-24, P F, 30 MCG/0.3 mL, 12 YRS AND ABOVE, IM ([facility]) 03/07/2023 HPV Vaccine, 4-Valent 05/26/2012,02/24/2012,07/17 PPD 08/19/2022,01/09/2012,02/10/2007 [...] money to get more. Never true 08/04/2023 [place] Depression Scale Answer Date Recorded [place] Depression Scale Total 5 05/29/2023 The thought [...] encounter Miscellaneous Notes * Telephone Encounter - Aaron Chavez CNM - 10/23/2023 8:08 AM EDTSigned Prescriptions: Disp Refills OneTouch Verio In Vitro Strip (Glucose Blo*125 St*6 Sig: Use to test blood sugars 4 times daily (fasting, 1 hour after breakfast, lunch, and dinner) Authorizing Provider: AARON CHAVEZ * Telephone Encounter - Padmini Albert LPN - 10/21/2023 4:34 PM EDTPending Prescriptions: Disp Refills OneTouch Verio In Vitro Strip (Glucose Blo*125 St*6 Sig: Use to test blood sugars 4 times daily (fasting, 1 hour after breakfast, lunch, and dinner) * Telephone Encounter - Padmini Albert LPN - 10/21/2023 4:34 PM EDT Patient is [facility] test [facility] documented in this encounter Plan of Treatment Upcoming Encounters Date Type Department Care Team (Late st Contact Info) Description 10/27/2023 4:15 PM EDT Office Visit Gynecology/Obstetrics Enzo Logan [place] [address] Mariya Dent, [facility] [address] [place] [address] 11/05/2023 11:45 AM EDT Imaging Maternal Medicine Imaging, Enoch Younger [address] [place] [phone] 12/03/2023 8:45 AM EDT Imaging Maternal Medicine Imaging, Enoch Snyder A[address] Dick[place]ail [place] [phone] Health Maintenance Due Date Last Done Comments [...]
--- OUTSIDE RECORDS SUMMARY | 2023-12-28 07:50 | External Medical Summary | Summary of Care ---
Author Name Unknown Organization [facility] Address [address] [place] [address] Phone [phone] Care Team Providers Care Retail Advertising Sales Manager Name Role Phone Unavailable Primary Care Provider Unavailabl e Reason for Visit * Reason Comments Non Stress Test Return Visit Encounter Details Date Type Department Care Team (Late st Contact Info) Description 10/28/2023 12:45 PM EDT Office Visit Gynecology/Obstetric s [facility] [address] [place] [address] Mariya Dent, [facility] [address] [place] [address] Snyder, Non Stress Tests Enoch [address] [place] [address] High-risk , third trimester*; Cramping affecting , antepartum Allergies No known active allergiesdocumented as of this encounter (statuses as of 10/28/2023) Medications Medication Sig Dispensed Refills Start Date [...] as of this encounter (statuses as of 10/28/2023) Active Problems Problem Noted Date Diagnosed Date [...] 10/27/23: RPM reviewed; Stable. Continue diet control. Last Assessment & Plan: CONSIDERATIONS: Reviewed etiology [...] Recommend nutrition consult with RDN (Registered Dietitian Commercial Floor Covering Installer). Lifestyle changes are also indicated including optimizing [...] weeks . Supervision of high risk in [facility] 06/26/2023 Bipolar disease during 06/26/2023 Subchorionic hematoma, antepartum 06/09/2023 Overview: -At [facility] 9w1d -> "small GLENDY" per ER [...] have US confirmed , demise sometime between 8i0v-53 w0d, no testing done, no difficulty conceiving, [...] Plan: -Ensure proper follow up by primary INDUSTRIAL AUTOMATION SPECIALIST team History of migraine 06/28/2021 Overview: Fioricet [...] as of this encounter (statuses as of 10/28/2023) Resolved Problems Problem Noted Date Diagnosed Date [...] as of this encounter (statuses as of 10/28/2023) Immunizations Name Administration Dates Next Due COVID-19 mRNA, LNP-s, No Pre serve, 2-Dose Series (WebLayers) 05/04/2021,09/04/2020,08/14/2020 COVID-19, MRNA-LNP, 23-24, P F, 30 [...] to get more. Never true 08/04/2023 [place] Depression Scale Answer Date Recorded [place] Depression Scale Total 5 05/29/2023 The thought [...] as of this encounter Progress Notes * Mariya Dent CNM - 10/28/2023 1:27 PM EDT Yari Lindquist is a 38 year old female here for an acute routine OB appointment at 30w4d Her Estimated Date of Delivery: 01/02/24 She affirms movement. Denies vaginal bleeding, LOF, N/V, headaches, vision changes, and RUQ pain. She has felt crampy since Thursday (10/26) morning, which has worsened today. Has been feeling intermittent contractions but no consistent pattern. Has felt only one contraction today. She left work because she felt that she needed to rest due to the cramping/contractions. She called the triage line and Dr. Tarango recommended she be seen in the office. She has had 60 ounces of water to drink today and 120 ounces of water yesterday. PHYSICAL EXAM: ASSESSMENT assessment with Non-stress Test completed on 10/28/2023 at 30w4d EGA for indication of patient's concern about contractions and cramping. heart baseline: 130 bpm Variability: Moderate Decelerations: absent Accelerations: present Contractions: None NST start time: 1336 NST stop time: 1406 NST strip reviewed, interpreted, and approved by OB provider, Mariya Dent CNM. NST strip stored in clinic storage file. NST reactive Fundal height: not assessed ASSESSMENT/PLAN: Supervision of - labor precautions and kick counts reviewed -urine culture ordered to rule out infection as a cause of cramping -patient is comfortable going home; she states that she called because she was worried and was needing reassurance - RTO in 2 weeks Mariya Dent CNM documented in this encounter Plan of Treatment Upcoming Encounters Date Type Department Care Team (Late st Contact Info) Description 11/05/2023 11:45 AM EDT Imaging Maternal Medicine Imaging, Enoch Snyder [address] [place] [address] 11/13/2023 4:30 PM EDT Office Visit Gynecology/Obstetrics Enzo Snyder [address] [place] [address] Matilda Lambert PA-C [address] [place] [address] 12/03/2023 8:45 AM EDT Imaging Maternal Medicine Imaging, Enoch Snyder [address] [place] [phone] Pending Results Name Type Priority Associated Diagnoses Date /Time CULTURE, URINE, QUANTITATIVE Lab Routine Cramping affecting , antepartum 10/28/2023 2:37 PM EDT Health Maintenance Due Date Last [...] as of this encounter Visit Diagnoses Diagnosis High-risk , third trimester- Primary Cramping affecting , antepartum documented in this encounter
--- OUTSIDE RECORDS SUMMARY | 2023-12-28 07:50 | External Medical Summary | Summary of Care ---
Author Name Unknown Organization [facility] Address [address] [place] [address] Phone [phone] Care Team Providers Care Commercial Producer Name Role Phone Unavailable Primary Care Provider Unavailabl e Reason for Visit * Reason Comments Outpatient Testing Encounter Details Date Type Department Care Team (Late st Contact Info) Description 11/05/2023 1:10 PM EDT Laboratory Laboratory, [facility] [address] [place] [phone] [facility] [address] [place] [address] Red blood cell antibody positive Allergies No [...] 10/27/23: RPM reviewed; Stable. Continue diet control. 11/03/20237884-WDQ-pleooz Last Assessment & Plan: Working with [facility]. Supervision of high risk in third trim [facility] 06/26/2023 Bipolar disease during 06/26/2023 Subchorionic hematoma, antepartum 06/09/2023 Overview: -At [facility] 9w1d -> "small GLENDY" per [...] have US confirmed , demise sometime between 5t3c-23 w0d, no testing done, no difficulty conceiving, [...] Plan: -Ensure proper follow up by primary PEDICURIST team History of migraine 06/28/2021 Overview: Fioricet not covered by insurance. Neurologist recommended propranolol. Message to [facility] for advice. Migraine with aura [...] mRNA, LNP-s, No Pre serve, 2-Dose Series (ipsy) 05/04/2021,09/04/2020,08/14/2020 COVID-19, MRNA-LNP, 23-24, P F, 30 MCG/0.3 mL, 12 YRS AND ABOVE, IM ([employer]) 03/07/2023 HPV Vaccine, 4-Valent 05/26/2012,02/24/2012,07/17 PPD 08/19/2022,01/09/2012,02/10/2007 [...] money to get more. Never true 08/04/2023 [place] Depression Scale Answer Date Recorded [place] Depression Scale Total 5 05/29/2023 The thought [...] 11/13/2023 4:30 PM EDT Office Visit Gynecology/Obstetrics [place] Claudio [address] [place] [address] Matilda Lambert PA-C [address] [place] [address] 12/03/2023 8:45 AM EDT Imaging Maternal Medicine Imaging, [place] [phone] 12/03/2023 8:45 AM EDT Office Visit Millinery Designer Obstetrics Maternal Medicine, Enoch Snyder [address] [place] [address] Kiah Pompa, DO [address] [facility] [place] [address] Pending Results Name Type Priority Associated Diagnoses Date /Time RED BLOOD CELL ANTIBODY TITER Lab Routine Red blood cell antibody positive 11/05/2023 12:31 PM EDT Health Maintenance Due Date Last [...]
--- OUTSIDE RECORDS SUMMARY | 2023-12-28 07:50 | External Medical Summary | Summary of Care ---
Author Name Unknown Organization [facility] Address [address] [place] [address] Phone [phone] Care Team Providers Care Fur Stretcher Name Role Phone Unavailable Primary Care Provider Unavailmitzy e Encounter Details Date Type Department Care Team (Late st Contact Info) Description 10/28/2023 Telephone Gynecology/Obstetrics [facility] 132 [facility] [place] [address] Mariya Dent, [facility] [address] [place], [place] [phone] Allergies No known active allergiesdocumented as of [...] Recommend nutrition consult with RDN (Registered Dietitian Search Engine Marketing Manager). Lifestyle changes are also indicated including optimizing [...] . Supervision of high risk in third trim [facility] 06/26/2023 Bipolar disease during 06/26/2023 Subchorionic hematoma, antepartum 06/09/2023 Overview: -At [facility] 9w1d -> "small GLENDY" per [...] have US confirmed , demise sometime between 6m9c-95 w0d, no testing done, no difficulty conceiving, [...] Plan: -Ensure proper follow up by primary MANAGER OF ALLIED HEALTH SERVICES team History of migraine 06/28/2021 Overview: Fioricet [...] other normal 06/28/2021 06/24/2022 , normal first 01/03/2014/0 02/2015 Overview: Urine culture contaminated at [facility]. [...] mRNA, LNP-s, No Pre serve, 2-Dose Series (Space-Time Insight) 05/04/2021,09/04/2020,08/14/2020 COVID-19, MRNA-LNP, 23-24, P F, 30 [...] money to get more. Never true 08/04/2023 [place] Depression Scale Answer Date Recorded [place] Depression Scale Total 5 05/29/2023 The thought [...] encounter Miscellaneous Notes * Telephone Encounter - Padmini Albert LPN - 10/28/2023 12:44 PM EDT Mariya agreeable to see patient. * Telephone Encounter - Santiago Moura MD - 10/28/2023 12:01 PM EDT No rooms in L&D Can she come to office for NST and VE? Thanks * Telephone Encounter - Arianna Zheng LPN - 10/28/2023 10:49 AM EDT Pt calling in (30w4d) with concerns of having cramping this morning. States she was seen yesterday (Mariya Dent) in office and was having lindsay bobby contractions. Advised to call office with any contractions that are happening more than 4 times an hour. States yesterday moving around was making the contractions worse. States yesterday morning it started with cramping and then started with contractions around noon and states today the same thing has happened, this morning she started with cramping (09/22) but she is with a lot of concern that the contractions are going to start up again and with being told yesterday that having contractions more than 4 times an hour at her gestation age is concerning she is now in tears worried something is wrong. States she has been getting 100-120 oz of water a day, has had 40oz today so far. + movement Denies vaginal pressure, LOF, vaginal bleeding. Denies trying tylenol the last 2 days, advised to try tylenol every 4-6 hours as needed for the discomfort as well as trying a warm bath and warm compresses to help. Please review with restoration technician provider and call pt back to discuss recommendations at [phone] Arianna Zheng LPN documented in this encounter Plan of Treatment Upcoming Encounters Date Type Department Care Team (Late st Contact Info) Description 11/05/2023 11:45 AM EDT Imaging Maternal Medicine Imaging, Enoch Snyder [address] [place] [address] 12/03/2023 8:45 AM EDT Imaging Maternal Medicine Imaging, Enoch Snyder [address] [place] [phone] Health Maintenance Due Date Last Done Comments [...]
--- OUTSIDE RECORDS SUMMARY | 2023-12-28 07:50 | External Medical Summary | Summary of Care ---
Author Name Unknown Organization [facility] Address [address] [place] [address] Phone [phone] Care Team Providers Care Residential Solar Consultant Name Role Phone Unavailable Primary Care Provider Unavailabl e Reason for Visit * Reason Onset Date Comments Home Monitoring Telephone 10/22/2023 Encounter Details Date Type Department Care Team (Late st Contact Info) Description 10/22/2023 Telephone Care Coordination [address] [place], [place] [phone] Brant Jerome Community Health Chemical Manager [address] [place] [address] Home Monitoring Telephone Allergies No known active allergiesdocumented as of this encounter (statuses as of 10/22/2023) Medications Medication Sig Dispensed Refills Start Date [...] as of this encounter (statuses as of 10/22/2023) Active Problems Problem Noted Date Diagnosed Date [...] Recommend nutrition consult with RDN (Registered Dietitian Health Benefits Specialist). Lifestyle changes are also indicated including optimizing [...] weeks . Supervision of high risk in [facility] 06/26/2023 Bipolar disease during 06/26/2023 [...] have US confirmed , demise sometime between 6r4x-36 w0d, no testing done, no difficulty conceiving, [...] Plan: -Ensure proper follow up by primary INSTRUCTIONAL LEADER team History of migraine 06/28/2021 Overview: Fioricet not covered by insurance. Neurologist recommended propranolol. Message to [facility] for advice. Migraine with aura and witho ut status migrainosus, not intractable 03/23/2018 Obesity affecting , antepartum 03/23/20 Overview: Pre gravid BMI: 42.6 Class 3 [...] as of this encounter (statuses as of 10/22/2023) Resolved Problems Problem Noted Date Diagnosed Date [...] 05/25- pap ASCUS +HR HPV Colpo 07/27Dr Whitmore - ecc neg Pap 02/24 - ASCUs [...] as of this encounter (statuses as of 10/22/2023) Immunizations Name Administration Dates Next Due COVID-19 mRNA, LNP-s, No Pre serve, 2-Dose Series ([facility]) 05/04/2021,09/04/2020,08/14/2020 COVID-19, MRNA-LNP, 23-24, P F, 30 MCG/0.3 mL, 12 YRS AND ABOVE, IM (drop.io-Comirnaty) 03/07/2023 HPV Vaccine, 4-Valent 05/26/2012,02/24/2012,07/17 PPD 08/19/2022,01/09/2012,02/10/2007 [...] money to get more. Never true 08/04/2023 [place] Depression Scale Answer Date Recorded [place] Depression Scale Total 5 05/29/2023 The thought [...] encounter Miscellaneous Notes * Telephone Encounter - Brant Jerome Community Health Chemical Manager - 10/22/2023 10:08 AM EDT Unable to contact for remote glucose monitoring. Attempts made on 10/19,10/20 and 10/21. Just Fab message also sent. Brant Jerome Community Programs Specialist documented in this encounter Plan of Treatment Upcoming Encounters Date Type Department Care Team (Late st Contact Info) Description 10/27/2023 4:15 PM EDT Office Visit Gynecology/Obstetrics Enzo [place] [address] Mariya Dent, [address] [place] [address] 11/05/2023 11:45 AM EDT Imaging Maternal Medicine Imaging, [place] [phone] 12/03/2023 8:45 AM EDT Imaging Maternal Medicine Imaging, [place] [phone] Health Maintenance Due Date Last Done Comments [...]
--- OUTSIDE RECORDS SUMMARY | 2023-12-28 07:50 | External Medical Summary | Summary of Care ---
Author Name Unknown Organization [facility] Address [address] [place] [address] Phone [phone] Care Team Providers Care Lettuce Trimmer Name Role Phone Unavailable Primary Care Provider Unavailabl e Reason for Visit * Reason Onset Date Comments Home Monitoring Orders Only 10/22/2023 Encounter Details Date Type Department Care Team (Late st Contact Info) Description 10/22/2023 Home Monitoring Metal Hanging Helper Obstetrics Maternal Medicine, [place] [address] [place] [address] Sheba Mckinnon CRNP [address] [place] [address] Diet controlled gestational diabetes mellitus (GDM) in third trimester* Allergies No known active allergiesdocumented as of [...] Recommend nutrition consult with RDN (Registered Dietitian Tag Meter Operator). Lifestyle changes are also indicated including optimizing [...] . Supervision of high risk in third [facility] 06/26/2023 Bipolar disease during 06/26/2023 Subchorionic hematoma, antepartum 06/09/2023 Overview: -At [facility] 9w1d -> "small GLENDY" per [...] have US confirmed , demise sometime between 1v5w-46 w0d, no testing done, no difficulty conceiving, [...] -Ensure proper follow up by primary MANAGER CONVENTION team History of migraine 06/28/2021 Overview: Fioricet not covered by insurance. Neurologist recommended propranolol. Message to [facility] for advice. Migraine with aura and witho [...] 06/05/14 Holley Eng RN Induction scheduled for Mon 08/07 Obesity, Class I, BMI 30.0-3 4.9 [...] mRNA, LNP-s, No Pre serve, 2-Dose Series (NXVISION) 05/04/2021,09/04/2020,08/14/2020 COVID-19, MRNA-LNP, 23-24, P F, 30 MCG/0.3 mL, 12 YRS AND ABOVE, IM (Nuovo WindComirnaty) 03/07/2023 HPV Vaccine, 4-Valent 05/26/2012,02/24/2012,07/17 PPD 08/19/2022,01/09/2012,02/10/2007 [...] money to get more. Never true 08/04/2023 [place] Depression Scale Answer Date Recorded [place] Depression Scale Total 5 05/29/2023 The thought [...] as of this encounter Progress Notes * Neris Mack, Community Health Engineering Faculty - 10/22/2023 10:23 AM EDT Patient has been successfully enrolled to the [id number] Diabetes Management in program. Standard alarm settings have been set as follows: Singular glucose level > 200 Singular glucose level < 60 Patient has been advised to take blood sugar four times a day (fasting upon waking, and one hour after each meal). Patient has been oriented to remote patient monitoring, assisted with initial device set-up, and provided with instruction and education regarding the program. Patient understands that this monitoring should not be used as a replacement for emergency and/or urgent care. If patient experiences any urgent symptoms, they are aware to call office/exceptional student education aide provider for additional instructions. In emergency situations, they will report directly to the ED for further evaluation. If you would like to customize the alert parameters and/or instructions for this patient, please let me know and we can have them changed. documented in this encounter Plan of Treatment Upcoming Encounters Date Type Department Care Team (Late st Contact Info) Description 10/27/2023 4:15 PM EDT Office Visit Gynecology/Obstetrics [place] [address] Mariya Dent, [address] [place] [address] 11/05/2023 11:45 AM EDT [place] [address] 12/03/2023 8:45 AM ED[place] [phone] Health Maintenance Due Date Last Done Comments [...] diabetes mellitus (GDM) in third trimester- Primary documented in this encounter
--- OUTSIDE RECORDS SUMMARY | 2023-12-28 07:50 | External Medical Summary | Summary of Care ---
Author Name Unknown Organization [facility] Address [address] [place] [address] Phone [phone] Care Team Providers Care Railroad Car Letterer Name Role Phone Unavailable Primary Care Provider Unavailabl e Reason for Visit * Reason Onset Date Comments Medication Refill 10/16/2023 Encounter Details Date Type Department Care Team (Late st Contact Info) Description 10/09/2023 Refill Gynecology/Obstetrics [facility] [address] [facility] [place] [address] Aaron Chavez, [place] [address] [facility] [place] [address] Allergies No known active allergiesdocumented as of [...] and dinner) 125 Strip 6 10/09/2023 Active OneTouch Verio Flex System w/Device Kit Use to test blood sugars 4 times daily (fasting, 1 hour after breakfast, lunch, and dinner) 1 Kit 0 10/09/2023 Active OneTouch Delica Lancets 30G Use to test blood sugars 4 times daily (fasting, 1 hour after breakfast, lunch, and dinner) 200 Each 6 10/09/2023 Active ScaleOut Software Verio Flex System w/Device Kit Use to test blood sugars 4 times daily (fasting, 1 hour after breakfast, lunch, and dinner) 1 Kit 0 10/09/2023 10/09/2023 Discontinued( Refill) OneTouch Verio In Vitro Strip (Glucose Blood) Use to test blood sugars 4 times daily (fasting, 1 hour after breakfast, lunch, and dinner) 125 Strip 6 10/09/2023 10/09/2023 Discontinued( Refill) [employer] Lancets 30G Use to test blood sugars 4 times daily (fasting, 1 hour after breakfast, lunch, and dinner) 200 Each 6 10/09/2023 10/09/2023 Discontinued( Refill) documented as of this encounter (statuses as of 10/19/2023) Active Problems Problem Noted Date Diagnosed Date Excessive growth affec ting management of , [...] FASTING - [facility] 84 10/08/2023 08:01 AM High-risk 06/26/2023 Bipolar disease during 06/26/2023 Subchorionic hematoma, [...] have US confirmed , demise sometime between 4n2m-73 w0d, no testing done, no difficulty conceiving, [...] Plan: -Ensure proper follow up by primary BOOM TENDER team History of migraine 06/28/2021 Overview: Fioricet not covered by insurance. Neurologist recommended propranolol. Message to [facility] for advice. Migraine with aura and [...] mRNA, LNP-s, No Pre serve, 2-Dose Series (GOOM) 05/04/2021,09/04/2020,08/14/2020 COVID-19, MRNA-LNP, 23-24, P F, 30 [...] money to get more. Never true 08/04/2023 [place] Depression Scale Answer Date Recorded [place] Depression Scale Total 5 05/29/2023 The thought [...] encounter Miscellaneous Notes * Addendum Note - Anibal Seo RN - 10/19/2023 4:14 PM EDTAddended by: ANIBAL SEO on: 10/19/2023 04:14 PM Modules accepted: Orders * Telephone Encounter - Anibal Seo RN - 10/19/2023 4:12 PM EDT Pt returned call. Made aware. She will use the lancets, but the test strips were not in stock at [facility], she is asking we send the prescription for the test strips to [facility]. Pended. * Telephone Encounter - Anibal Seo RN - 10/19/2023 3:55 PM EDT Attempted to call patient. No answer, LVM to return call. * Telephone Encounter - Aaron Chavez CNM - 10/17/2023 8:55 AM EDT Those lancets are fine to use with the Verio system. * Telephone Encounter - Padmini Albert LPN - 10/16/2023 3:39 PM EDT Patient called stating that She has lancets that do not go with her device and she is unsure what to do now. The lancets written for are OneTouch Delica. * Telephone Encounter - Aaron Chavez CNM - 10/09/2023 3:34 PM EDTSigned Prescriptions: Disp Refills OneTouch Verio In Vitro Strip (Glucose Blo*125 St*6 Sig: Use to test blood sugars 4 times daily (fasting, 1 hour after breakfast, lunch, and dinner)Authorizing Provider: AARON CHAVEZTouch Verio Flex System w/Device Kit 1 Kit 0 Sig: Use to test blood sugars 4times daily (fasting, 1 hour after breakfast, lunch, and dinner)Authorizing Provide r: AARON CHAVEZ OneTouch Delica Lancets 30G 200 Ea*6 Sig: Use to test blood sugars 4 times daily (fasting, 1 hour after breakfast, lunch, and dinner)Authorizing Provider: AARON CHAVEZ * Telephone Encounter - Padmini Albert LPN - 10/09/2023 3:11 PM EDT Al did not have stock of supplies, she asked if we could try [place] on [facility] * Telephone Encounter - Padmini Albert LPN - 10/09/2023 3:05 PM EDT left message for patient to call office * Telephone Encounter - Arianna Zheng LPN - 10/09/2023 2:57 PM EDT [facility] pt * Telephone Encounter - Arianna Zheng LPN - 10/09/2023 2:57 PM EDT ----- Message from Aaron Chavez CNM sent at 10/09/2023 11:07 AM EDT ----- Please let Yari know that I sent diabetes supplies to her pharmacy. documented in this encounter Plan of Treatment Upcoming Encounters Date Type Department Care Team (Late st Contact Info) Description 10/19/2023 4:15 PM EDT Telemedicine Coat Baster Obstetrics Maternal Medicine, [address] [place] [address] Sheba Mckinnon CRNP [address] [place] [address] Diet controlled gestational diabetes mellitus (GDM) in third trimester* 10/27/2023 4:15 PM EDT Office Visit Gynecology/Obstetric s Enzo Jacksons [address] [place] [address] Mariya Dent [facility] [address] [place] [address] 11/05/2023 11:45 AM EDT Imaging Maternal Medicine Imaging, [facility] [address] [place] [phone] 12/03/2023 8:45 AM EDT Imaging Maternal Medicine Imaging, [place] [address] [place] [phone] Health Maintenance Due Date Last Done Comments [...]
--- OUTSIDE RECORDS SUMMARY | 2023-12-28 07:50 | External Medical Summary | Summary of Care ---
Author Name Unknown Organization [facility] Address [address] [place] [address] Phone [phone] Care Team Providers Care Family Lawyer Name Role Phone Unavailable Primary Care Provider Unavailmitzy e Encounter Details Date Type Department Care Team (Late st Contact Info) Description 10/29/2023 Telephone Gynecology/Obstetrics [facility] [address] [place] [address] Mariya Dent, [facility] [address] [employer], [place] [phone] Allergies No known active allergiesdocumented as of this encounter (statuses as of 11/02/2023) Medications Medication Sig Dispensed Refills Start Date End Date Status Vitamin 27-0.8 MG Oral Tablet Take by mouth. Active Aspirin 81 MG Oral Capsule Take by mouth. Active Magnesium 400 MG Oral Tablet Take by mouth. Active NaviHealthTouch Verio Flex System w/Device Kit Use to [...] Additional Information Patient not taking.Reported on 10/19/2023 NaviHealthTouch Verio In Vitro Strip (Glucose Blood) Use to test blood sugars 4 times daily (fasting, 1 hour after breakfast, lunch, and dinner) 100 Strip 6 10/23/2023 Active FirstHand Technologiesuch VerProtein Bar In Vitro Strip (Glucose Blood) Use to test blood sugars 4 times daily (fasting, 1 hour after breakfast, lunch, and dinner) 125 Strip 6 10/23/2023 Active documented as of this encounter (statuses as of 11/02/2023) Active Problems Problem Noted Date Diagnosed Date [...] Recommend nutrition consult with RDN (Registered Dietitian Tubular Products Fabricator). Lifestyle changes are also indicated including optimizing [...] 06/26/2023 Subchorionic hematoma, antepartum 06/09/2023 Overview: -At [facility] 9w1d -> "small GLENDY" per ER physician [...] have US confirmed , demise sometime between 3a3w-92 w0d, no testing done, no difficulty conceiving, [...] Plan: -Ensure proper follow up by primary ELEVATOR OPERATOR team History of migraine 06/28/2021 Overview: Fioricet not covered by insurance. Neurologist recommended propranolol. Message to [facility] for advice. Migraine with aura and [...] as of this encounter (statuses as of 11/02/2023) Resolved Problems Problem Noted Date Diagnosed Date [...] other normal 06/28/2021 06/24/2022 , normal first 01/03/20140 02/2015 Overview: Urine culture contaminated at [facility]. [...] as of this encounter (statuses as of 11/02/2023) Immunizations Name Administration Dates Next Due COVID-19 mRNA, LNP-s, No Pre serve, 2-Dose Series ([email or web address][employer]) 05/04/2021,09/04/2020,08/14/2020 COVID-19, MRNA-LNP, 23-24, P F, 30 MCG/0.3 mL, 12 YRS AND ABOVE, IM ([employer]-Comirnat) 03/07/2023 HPV Vaccine, 4-Valent 05/26/2012,02/24/2012,07/17 PPD 08/19/2022,01/09/2012,02/10/2007 [...] money to get more. Never true 08/04/2023 [place] Depression Scale Answer Date Recorded [place] Depression Scale Total 5 05/29/2023 The thought [...] Telephone Encounter - Padmini Albert LPN - 10/29/2023 4:50 PM EDT ----- Message from Mariya Dent CNM sent at 10/29/2023 4:46 PM EDT ----- Please let patient know her urine culture showed no infection. Thanks! Mariya Dent CNM documented in this encounter Plan of Treatment Upcoming Encounters Date Type Department Care Team (Late st Contact Info) Description 11/05/2023 11:45 AM EDT Imaging Maternal Medicine [facility] [address] [place] [phone] 11/13/2023 4:30 PM EDT Office Visit Gynecology/Obstetrics Ulisesjosi Claudio [address] [place] [address] Matilda Lambert PA-C [address] [place] [address] 12/03/2023 8:45 AM EDT Imaging Maternal Medicine [facility] Nelson [address] [place] [phone] Health Maintenance Due Date Last Done Comments [...]
--- OUTSIDE RECORDS SUMMARY | 2023-12-28 07:50 | External Medical Summary | Summary of Care ---
Author Name Unknown Organization [facility] Address [address] [place] [address] Phone [phone] Care Team Providers Care Link Knitting Machine Operator Name Role Phone Unavailable Primary Care Provider Unavailabl e Encounter Details Date Type Department Care Team (Late st Contact Info) Description 11/05/2023 11:45 AM EDT Office Visit Regulatory Compliance Officer Obstetrics Maternal Medicine, [facility] [address] [place] [address] Kiah Pompa, DO [address] [place], [place] [phone] Obesity affecting , antepartum, unspecified obesity type*; [...] at 94%ile. Message left for patient and [employer] message sent to review her results; prior [...] 10/27/23: RPM reviewed; Stable. Continue diet control. 11/03/[id number] Last Assessment & Plan: Working with [facility]. Supervision of high risk in third trim annamarie 06/26/2023 Bipolar disease during 06/26/2023 Subchorionic hematoma, antepartum 06/09/2023 Overview: -At [facility] 9w1d -> "small GLENDY" per [...] have US confirmed , demise sometime between 7a2c-97 w0d, no testing done, no difficulty conceiving, [...] -Ensure proper follow up by primary DIRECTOR CHILD team History of migraine 06/28/2021 Overview: Fioricet not covered by insurance. Neurologist recommended propranolol. Message to [facility] for advice. Migraine with aura and [...] mRNA, LNP-s, No Pre serve, 2-Dose Series ([employer]) 05/04/2021,09/04/2020,08/14/2020 COVID-19, MRNA-LNP, 23-24, P F, 30 MCG/0.3 mL, 12 YRS AND ABOVE, IM ([employer]ane[employer]-ComirnatGuarnic) 03/07/2023 HPV Vaccine, 4-Valent 05/26/2012,02/24/2012,07/17 PPD 08/19/2022,01/09/2012,02/10/2007 [...] money to get more. Never true 08/04/2023 [place] Depression Scale Answer Date Recorded [place] Depression Scale Total 5 05/29/2023 The thought [...] this encounter Progress Notes * Kiah Pompa, - 11/05/2023 12:54 PM EDT Yari presented [...] EDT Office Visit Gynecology/Obstetrics Enzo Snyder [address] [address] Matilda Lambert PA-C [address] [place] [address] 12/03/2023 8:45 AM EDT Imaging Maternal Medicine Imaging, [place]noch Snyder [address] [place] [phone] 12/03/2023 8:45 AM EDT Office Visit Regulatory Compliance Officer Obstetrics Maternal Medicine, [facility] [address] [place] [address] Kiah Pompa, DO [address] [place] [address] Health Maintenance Due Date Last Done Comments [...]
--- OUTSIDE RECORDS SUMMARY | 2023-12-28 07:50 | External Medical Summary | Summary of Care ---
Author Name Unknown Organization [facility] Address [address] [place] [address] Phone [phone] Care Team Providers Care Charter Coach Driver Name Role Phone Unavailable Primary Care Provider Unavailabl e Reason for Visit * Reason Comments Return Visit Encounter Details Date Type Department Care Team (Late st Contact Info) Description 10/27/2023 4:15 PM EDT Office Visit Gynecology/Obstetric [facility] 132 [facility] [place] [address] Mariya Dent, [facility] 400 [facility] [place] [address] Supervision of high risk in third trimester*; Antiphospholipid antibody syndrome complicating (HCC); Antepartum multigravida of advanced maternal age; Red blood cell antibody positive; Diet controlled gestational diabetes mellitus (GDM) in third trimester; Excessive growth affecting management of , antepartum, single or unspecified fetus; Class 3 obesity (HCC) Allergies No known active allergiesdocumented as of this encounter (statuses as of 10/27/2023) Medications Medication Sig Dispensed Refills Start Date [...] as of this encounter (statuses as of 10/27/2023) Active Problems Problem Noted Date Diagnosed Date [...] Recommend nutrition consult with RDN (Registered Dietitian Oracle Data Warehouse Developer). Lifestyle changes are also indicated including optimizing [...] weeks . Supervision of high risk in [facility] 06/26/2023 Bipolar disease during 06/26/2023 Subchorionic hematoma, antepartum 06/09/2023 Overview: -At [facility] 9w1d -> "small GLENDY" per ER [...] have US confirmed , demise sometime between 1z8c-77 w0d, no testing done, no difficulty conceiving, [...] Plan: -Ensure proper follow up by primary ADVERTISING SALES MANAGER team History of migraine 06/28/2021 Overview: Fioricet not covered by insurance. Neurologist recommended propranolol. Message to [facility] for advice. Migraine with aura and [...] as of this encounter (statuses as of 10/27/2023) Resolved Problems Problem Noted Date Diagnosed Date [...] as of this encounter (statuses as of 10/27/2023) Immunizations Name Administration Dates Next Due COVID-19 mRNA, LNP-s, No Pre serve, 2-Dose Series ([employer]) 05/04/2021,09/04/2020,08/14/2020 COVID-19, MRNA-LNP, 23-24, P F, 30 [...] money to get more. Never true 08/04/2023 [place] Depression Scale Answer Date Recorded [place] Depression Scale Total 5 05/29/2023 The thought [...] Sign Reading Time Taken Comments Blood Pressure 124/76 10/27/2023 4:03 PM EDT Pulse - - Temperature - - Respiratory Rate - - Oxygen Saturation - - Inhaled Oxygen Concentration - - Weight 117 kg (258 lb) 10/27/2023 4:03 PM EDT Height - - Body Mass Index 44.29 10/08/2023 10:48 AM EDT documented in this encounter Progress Notes * Mariya Dent, ASIA - 10/27/2023 4:10 PM EDT Yari Lindquist is a 38 year old female here for her routine OB appointment at 30w3d Her Estimated Date of Delivery: 01/02/24 REVIEW OF SYSTEMS: She affirms movement. Denies vaginal bleeding, LOF, contractions, N/V, vision changes, and RUQ pain. +SOB, due to baby pushing on lungs +Mild cramping. Has occasional headaches, every few weeks, relieved by tylenol. Feels like there is fluid in her ears. Feels that she can hear fluid in her left ear and feel it inher right ear. 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 Has 3 more weeks of school. Seeing a chiropractor for numbness and burning in left thigh. Chiropractor is somewhat helpful. Still has some flare ups. PHYSICAL EXAM: Filed Vitals: 10/27/23 1603 BP: 124/76 Weight: 117 kg (258 lb) +FHT 120-130bpm Fundal height: not assessed ASSESSMENT/PLAN: (O99.119, D68.61) Antiphospholipid antibody syndrome complicating (HCC) Plan: -See previous notes. It is unclear whether or not she meets diagnostic criteria for APS, however the decision was made by MFM and hematology to defer Lovenox or other anticoagulation antepartum at this time. -She takes 81mg aspirin daily for pre-eclampsia prevention (O09.529) Antepartum multigravida of advanced maternal age (R76.8) Red blood cell antibody positive (O24.410) Diet controlled gestational diabetes mellitus (GDM) in third trimester Plan: -Discussed patient's concern about GDM management and body image and food. -Recommended book "Real food for gestational diabetes" -Encouraged patient to continue checking BG 4x daily and send to [facility] (O36.60X0) Excessive growth affecting management of , antepartum, single or unspecified fetus (E66.01) Class 3 obesity (HCC) Plan: -Will start weekly NSTs at 39 weeks (O09.93) Supervision of high risk in third trimester (primary encounter diagnosis) Plan: DURABLE MEDICAL EQUIPMENT -patient asking for a wheelchair prescription for an upcoming trip to [facility]; order placed -recommended following up with PCP due to concern for fluid in her ears - labor precautions and kick counts reviewed - RTO in 2 weeks Mariya Dent CNM * Padmini Albert LPN - 10/27/2023 4:03 PM EDT Pt is currently 30w3d with an Estimated Date of Delivery: 01/02/24 - documented in this encounter Plan of Treatment Upcoming Encounters Date Type Department Care Team (Late st Contact Info) Description 11/05/2023 11:45 AM EDT Imaging Maternal Medicine Imaging, [place] Snyder [address] [place] [phone] 12/03/2023 8:45 AM EDT Imaging Maternal Medicine Imaging, [place]no[place] Snyder [address] [place] [address] Health Maintenance Due Date Last Done Comments [...] risk in third trimester- Primary Unspecified high-risk Antiphospholipid antibody syndrome complicating (HCC) Other current maternal conditions classifiable elsewhere, complicating , childbirth, or the puerperium, unspecified as to episode of care Antepartum multigravida of advanced maternal age Red blood cell antibody positive Other and unspecified nonspecific immunological findings Diet controlled gestational diabetes mellitus (GDM) in third trimester Excessive growth affecting management of , antepartum, single or unspecified fetus Class 3 obesity (HCC) documented in this encounter
--- OUTSIDE RECORDS SUMMARY | 2023-12-28 07:50 | External Medical Summary ---
Author Name Unknown Address Unknown Organization [id number]:[facility] - [address] [place] [id number] Laboratory Report Ordering Provider Test Date Status JOCE ROTH 11/05/2023 12:31:35 Final Serial titers for anti-e, an ti-C, anti- Fy(a) Observation Date Value Abnormality Reference (Units ) Status ANTIBODY TITER 11/05/2023 12:31:35 Anti-C Titer: Less than 1 Final Fya and e antibidies not pre sent in tube testing Titers not performed. Performing Location [facility] - [address] [place] [id number]
--- OUTSIDE RECORDS SUMMARY | 2023-12-28 07:50 | External Medical Summary ---
Author Name Unknown Address Unknown Organization K01:LABORATORY [facility] [place] [facility] - [address] [place] [address] Laboratory Report Ordering Provider Test Date Status JOCE ROTH 11/05/2023 12:31:35 Final Serial titers for anti-e, an ti-C, anti- Fy(a) Observation Date Value Abnormality Reference (Units ) Status ABO 11/05/2023 12:31:35 O Final RH 11/05/2023 12:31:35 Positive Final RED BLOOD CELL ANTIBODY SCREEN 11/05/2023 12:31:35 Positive Final Antibodies may delay blood a vailability
If RBC use is anticipated, place a prepare order SPECIMEN EXPIRATION DATE 11/05/2023 12:31:35 11/08/2023 23:5 9 Final Performing Location LABOR[facility]ORY [facility] - [address] [place] [id number]
--- OUTSIDE RECORDS SUMMARY | 2023-12-28 07:51 | External Medical Summary ---
Author Name Unknown Address Unknown Organization [id number]:[facility] [address] [place] [id number] Laboratory Report Ordering Provider Test Date Status JOCE ROTH 10/12/2023 12:27:57 Final Serial titers for anti-e, an ti-C, anti- Fy(a) Observation Date Value Abnormality Reference (Units) Status RED BLOOD CELL ANTIBODY IDENTIFICATION 10/12/2023 12:27:57 No new alloantibodies identified Final Previously Identified anti-e , anti-C and anti-FYa Performing Location [facility] [address] [place] [id number]
--- OUTSIDE RECORDS SUMMARY | 2023-12-28 07:51 | External Medical Summary | Summary of Care ---
Author Name Unknown Organization [facility] Address [address] [place] [address] Phone [phone] Care Team Providers Care Top Cager Name Role Phone Unavailable Primary Care Provider Unavailabl e Encounter Details Date Type Department Care Team (Late st Contact Info) Description 10/09/2023 Refill Gynecology/Obstetrics [facility] [address] [place] [address] Aaron Chavez, [place] [address] [place], [place] [phone] Allergies No known active allergiesdocumented as of this encounter (statuses as of 10/09/2023) Medications Medication Sig Dispensed Refills Start Date [...] and dinner) 200 Each 6 10/09/2023 Active OneTouch Verio Flex System w/Device Kit Use to test blood sugars 4 times daily (fasting, 1 hour after breakfast, lunch, and dinner) 1 Kit 0 10/09/2023 10/09/2023 Discontinued( Refill) OneTouch Verio In Vitro Strip (Glucose Blood) Use to test blood sugars 4 times daily (fasting, 1 hour after breakfast, lunch, and dinner) 125 Strip 6 10/09/2023 10/09/2023 Discontinued( Refill) OneTouch Delica Lancets 30G Use to test blood sugars 4 times daily (fasting, 1 hour after breakfast, lunch, and dinner) 200 Each 6 10/09/2023 10/09/2023 Discontinued( Refill) documented as of this encounter (statuses as of 10/09/2023) Active Problems Problem Noted Date Diagnosed Date Excessive growth affec ting management of , antepartum 10/08/2023 Last Assessment & Plan: LGA growth noted today. 3'GTT performed today is positive. Recommend aggressive blood glucose management and will continue to follow for growth. Please refer to [facility] if we can assist with GDM. Abnormal glucose tolerance in mother complicatin g 07/06/2023 Overview: Elevated early 1 hr GTT - normal 3 hr GTT at 15 weeks High-risk 06/26/2023 Bipolar disease during 06/26/2023 Subchorionic hematoma, antepartum 06/09/2023 Overview: -At [facility] 9w1d -> "small GLENDY" per [...] have US confirmed , demise sometime between 7b3z-39 w0d, no testing done, no difficulty conceiving, [...] Plan: -Ensure proper follow up by primary MUSKRAT TRAPPER team History of migraine 06/28/2021 Overview: Fioricet not covered by insurance. Neurologist recommended propranolol. Message to [facility] for advice. Migraine with aura [...] as of this encounter (statuses as of 10/09/2023) Resolved Problems Problem Noted Date Diagnosed Date [...] as of this encounter (statuses as of 10/09/2023) Immunizations Name Administration Dates Next Due COVID-19 mRNA, LNP-s, No Pre serve, 2-Dose Series ([employer]) 05/04/2021,09/04/2020,08/14/2020 COVID-19, MRNA-LNP, 23-24, P F, 30 MCG/0.3 mL, 12 YRS AND ABOVE, IM ([facility]) 03/07/2023 HPV Vaccine, 4-Valent 05/26/2012,02/24/2012,07/17 PPD 08/19/2022,01/09/2012,02/10/2007 [...] money to get more. Never true 08/04/2023 [place] Depression Scale Answer Date Recorded [place] Depression Scale Total 5 05/29/2023 The thought [...] lunch, and dinner)Authorizing Provide r: AARON CHAVEZ Delica Lancets 30G 200 Ea*6 Sig: Use to test blood sugars 4 times daily (fasting, 1 hour after breakfast, lunch, and dinner)Authorizing Provider: AARON CHAVEZ * Telephone Encounter - Padmini Albert LPN - 10/09/2023 3:11 PM EDT Al did not have stock of supplies, she asked if we could try [place] [facility] * Telephone Encounter - Padmini Albert LPN [...] Info) Description 10/19/2023 4:15 PM EDT Telemedicine Estimator Lumber Obstetrics Maternal Medicine, [place] [address] [place] [address] Sheba Mckinnon CRNP [address] [place] [address] 10/27/2023 4:15 PM EDT Office Visit Gynecology/Obstetrics [place] [address] Mariya Dent CNM [address] [place], [place] [address] [address] 11/05/2023 11:45 AM EDT [place] [address] 12/03/2023 8:45 AM ED[place] [address] Health Maintenance Due Date Last Done Comments [...]
--- OUTSIDE RECORDS SUMMARY | 2023-12-28 07:51 | External Medical Summary | Summary of Care ---
Author Name Unknown Organization [facility] Address [address] [place] [address] Phone [phone] Care Team Providers Care Mail Inserter Name Role Phone Unavailable Primary Care Provider Unavailabl e Reason for Visit * Reason Onset Date Comments Medication Refill 10/16/2023 Encounter Details Date Type Department Care Team (Late st Contact Info) Description 10/09/2023 Refill Gynecology/Obstetrics [facility] [address] [facility] [place] [address] Aaron Chavez, [place] 400 [facility] [place] [address] Allergies No known active allergiesdocumented as of this encounter (statuses as of 10/17/2023) Medications Medication Sig Dispensed Refills Start Date [...] and dinner) 200 Each 6 10/09/2023 Active Snapette Verio Flex System w/Device Kit Use to test blood sugars 4 times daily (fasting, 1 hour after breakfast, lunch, and dinner) 1 Kit 0 10/09/2023 10/09/2023 Discontinued( Refill) OneTouch Verio In Vitro Strip (Glucose Blood) Use to test blood sugars 4 times daily (fasting, 1 hour after breakfast, lunch, and dinner) 125 Strip 6 10/09/2023 10/09/2023 Discontinued( Refill) SungevityToStoryful Lancets 30G Use to test blood sugars 4 times daily (fasting, 1 hour after breakfast, lunch, and dinner) 200 Each 6 10/09/2023 10/09/2023 Discontinued( Refill) documented as of this encounter (statuses as of 10/17/2023) Active Problems Problem Noted Date Diagnosed Date [...] have US confirmed , demise sometime between 9k4n-90 w0d, no testing done, no difficulty conceiving, [...] Plan: -Ensure proper follow up by primary MANAGING DIRECTOR team History of migraine 06/28/2021 Overview: Fioricet not covered by insurance. Neurologist recommended propranolol. Message to [facility] for advice. Migraine with aura [...] as of this encounter (statuses as of 10/17/2023) Resolved Problems Problem Noted Date Diagnosed Date [...] as of this encounter (statuses as of 10/17/2023) Immunizations Name Administration Dates Next Due COVID-19 mRNA, LNP-s, No Pre serve, 2-Dose Series ([employer]) 05/04/2021,09/04/2020,08/14/2020 COVID-19, MRNA-LNP, 23-24, P F, 30 [...] lancets are fine to use with the [employer] system. * Telephone Encounter - Padmini Albert [...] breakfast, lunch, and dinner)Authorizing Provider: AARON CHAVEZ SungevityTouch Verio Flex System w/Device Kit 1 Kit [...] asked if we could try mansoort on [facility] * Telephone Encounter - Padmini Albert LPN [...] Info) Description 10/19/2023 4:15 PM EDT Telemedicine Slot Floorperson Obstetrics Maternal Medicine, [place] [address] [place] [address] Sheba Mckinnon CRNP [address] [place] [address] 10/27/2023 4:15 PM EDT Office Visit Gynecology/Obstetrics [facility] Doreen [place] [address] Mariya Dent CNM [address] [place] [address] 11/05/2023 11:45 AM EDT Imaging Maternal Medicine Imaging, [place] [phone] 12/03/2023 8:45 AM EDT Imaging Maternal Medicine Imaging, [place] [phone] Health Maintenance Due Date Last Done Comments [...]
--- OUTSIDE RECORDS SUMMARY | 2023-12-28 07:51 | External Medical Summary | Summary of Care ---
Author Name Unknown Organization [facility] Address [address] [place] [address] Phone [phone] Care Team Providers Care Recreation Leader Name Role Phone Unavailable Primary Care Provider Unavailabl e Reason for Visit * Reason Onset Date Comments Medication Refill 10/16/2023 Encounter Details Date Type Department Care Team (Late st Contact Info) Description 10/09/2023 Refill Gynecology/Obstetrics [facility] 132 [facility] [place] [address] Aaron Chavez, [place] 400 [place] [address] Allergies No known active allergiesdocumented [...] and dinner) 200 Each 6 10/09/2023 Active Topmall Verio Flex System w/Device Kit Use to test blood sugars 4 times daily (fasting, 1 hour after breakfast, lunch, and dinner) 1 Kit 0 10/09/2023 10/09/2023 Discontinued( Refill) OneTouch Verio In Vitro Strip (Glucose Blood) Use to test blood sugars 4 times daily (fasting, 1 hour after breakfast, lunch, and dinner) 125 Strip 6 10/09/2023 10/09/2023 Discontinued( Refill) DrivenBIToMYOMO Lancets 30G Use to test blood sugars [...] have US confirmed , demise sometime between 1f9m-07 w0d, no testing done, no difficulty conceiving, [...] Plan: -Ensure proper follow up by primary MIDDLE SCHOOL SPECIAL EDUCATION TEACHER team History of migraine 06/28/2021 Overview: Fioricet not covered by insurance. Neurologist recommended propranolol. Message to [facility] for advice. Migraine with aura and [...] mRNA, LNP-s, No Pre serve, 2-Dose Series ([employer]OCS) 05/04/2021,09/04/2020,08/14/2020 COVID-19, MRNA-LNP, 23-24, P F, 30 [...] money to get more. Never true 08/04/2023 [place] Depression Scale Answer Date Recorded Spring Depression Scale Total 5 05/29/2023 The thought [...] breakfast, lunch, and dinner)Authorizing Provider: AARON CHAVEZ Verio Flex System w/Device Kit 1 Kit 0 Sig: Use to test blood sugars 4 [...] asked if we could try mansoort on [facility] * Telephone Encounter - Padmini Albert LPN [...] Info) Description 10/19/2023 4:15 PM EDT Telemedicine Weather Clerk Obstetrics Maternal Medicine, [place] [address] [place], [place] [id number] Sheba Mckinnon CRNP [address] [place] [address] 10/27/2023 4:15 PM EDT Office Visit Gynecology/Obstetrics Enzo Snyder [address] [place] [address] [place] [address] Mariya Dent CNM [address] [place] [address] 11/05/2023 11:45 AM EDT Imaging Maternal Medicine Imaging, [place] [phone] 12/03/2023 8:45 AM EDT Imaging Maternal Medicine ImagingEnochgail [place] [phone] Health Maintenance Due Date Last Done [...]
--- OUTSIDE RECORDS SUMMARY | 2023-12-28 07:51 | External Medical Summary | Summary of Care ---
Author Name Unknown Organization [facility] Address [address] [place] [address] Phone [phone] Care Team Providers Care Tack Cleaner Name Role Phone Unavailable Primary Care Provider Unavailabl e Reason for Visit * Reason Comments Outpatient Testing Encounter Details Date Type Department Care Team (Late st Contact Info) Description 10/12/2023 12:50 PM EDT Laboratory Laboratory, [facility] [address] [place] [phone] [facility] [address] [place] [address] Red blood cell antibody positive Allergies No known active allergiesdocumented as of this encounter (statuses as of 10/12/2023) Medications Medication Sig Dispensed Refills Start Date End Date Status Vitamin 27-0.8 MG Oral Tablet Take by mouth. 0 Active Aspirin 81 MG Oral Capsule Take by mouth. 0 Active Magnesium 400 MG Oral Tablet Take by mouth. 0 Active SquareHubTouch Verio In Vitro Strip (Glucose Blood) Use to test blood sugars 4 times daily (fasting, 1 hour after breakfast, lunch, and dinner) 125 Strip 6 10/09/2023 Active SquareHubTouch Verio Flex System w/Device Kit Use to test blood sugars 4 times daily (fasting, 1 hour after breakfast, lunch, and dinner) 1 Kit 0 10/09/2023 Active SquareHubTouch Delica Lancets 30G Use to test blood sugars 4 times daily (fasting, 1 hour after breakfast, lunch, and dinner) 200 Each 6 10/09/2023 Active documented as of this encounter (statuses as of 10/12/2023) Active Problems Problem Noted Date Diagnosed Date [...] 06/26/2023 Subchorionic hematoma, antepartum 06/09/2023 Overview: -At [facility] [place] 9w1d -> "small GLENDY" per ER physician [...] have US confirmed , demise sometime between 4m2y-77 w0d, no testing done, no difficulty conceiving, [...] Plan: -Ensure proper follow up by primary LOAN REPRESENTATIVE team History of migraine 06/28/2021 Overview: Fioricet not covered by insurance. Neurologist recommended propranolol. Message to [facility] for advice. Migraine with aura [...] as of this encounter (statuses as of 10/12/2023) Resolved Problems Problem Noted Date Diagnosed Date [...] as of this encounter (statuses as of 10/12/2023) Immunizations Name Administration Dates Next Due COVID-19 mRNA, LNP-s, No Pre serve, 2-Dose Series ([employer] 05/04/2021,09/04/2020,08/14/2020 COVID-19, MRNA-LNP, 23-24, P F, 30 MCG/0.3 mL, 12 YRS AND ABOVE, IM (Artoo[employer]Comirnat) 03/07/2023 HPV Vaccine, 4-Valent 05/26/2012,02/24/2012,07/17 PPD 08/19/2022,01/09/2012,02/10/2007 [...] money to get more. Never true 08/04/2023 Lyle Depression Scale Answer Date Recorded Lyle Depression Scale Total 5 05/29/2023 The thought [...] Info) Description 10/19/2023 4:15 PM EDT Telemedicine Dopeman Obstetrics Maternal Medicine, [place] [address] [place] [address] Sheba Mckinnon CRNP [address] [place] [address] 10/27/2023 4:15 PM EDT Office Visit Gynecology/Obstetrics Enzo Snyder [facility] [place] [address] Mariya Dent CNM 400 [facility] [address] 11/05/2023 11:45 AM EDT Imaging Maternal Medicine Imaging, [place] [phone] 12/03/2023 8:45 AM EDT Imaging Maternal Medicine Imaging, Enoch Dick[place]ail [place] [phone] Pending Results Name Type Priority Associated Diagnoses Date /Time RED BLOOD CELL ANTIBODY TITER Lab Routine Red blood cell antibody positive 10/12/2023 12:27 PM EDT Health Maintenance Due Date Last [...]
--- OUTSIDE RECORDS SUMMARY | 2023-12-28 07:51 | External Medical Summary ---
Author Name Unknown Address Unknown Organization K01:[facility] [place] [address] [facility] [address] Laboratory Report Ordering Provider Test Date Status JOCE ROTH 10/12/2023 12:27:57 Final Observation Date Value Abnormality Reference (Units) Status Blood group antibody investigation [Interpretation] in Plasma or RBC 10/12/2023 12:27:57 Anti-C (titer =2), Anti-e (titer =1), Anti-Fy(a) (titer <1) identified. Final Blood group antibody investigation [Interpretation] in Plasma or RBC 10/12/2023 12:27:57 Final Blood group antibody investigation [Interpretation] in Plasma or RBC 10/12/2023 12:27:57 The patient is a 38 year old female with ABO/RH type of O positive. Results of this antibody identification testing are consistent with the patient's history of Anti-C, Anti-e, Anti-Fy(a). Antibody to C-antigen, e-antigen, Fy(a)-antigen can result from alloimmunization from transfusion or . These findings place the patient at risk for hemolytic transfusion reaction. Crossmatch compatible P-xucpfln-syxtqggv, j-jyyvvgs-hrffjziz, Fy(a)-antigen-negative RBCs should be given if transfusion is necessary, approximately less than 1% of blood donors will be compatible. Final Blood group antibody investigation [Interpretation] in Plasma or RBC 10/12/2023 12:27:57 Final Blood group antibody investigation [Interpretation] in Plasma or RBC 10/12/2023 12:27:57 The above antibodies may be involved in hemolytic disease of the fetus and (HDFN). Recommend monitoring per OB protocol. Final Performing Location [facility] [place] [address] [facility] [address]
--- OUTSIDE RECORDS SUMMARY | 2023-12-28 07:51 | External Medical Summary | Summary of Care ---
Author Name Unknown Organization [facility] Address [address] [place] [address] Phone [phone] Care Team Providers Care Auto Body Service Mechanic Name Role Phone Unavailable Primary Care Provider Unavailabl e Reason for Visit * Reason Comments Outpatient Testing Encounter Details Date Type Department Care Team (Late st Contact Info) Description 10/12/2023 12:50 PM EDT Laboratory Laboratory, [facility] [address] [place] [address] [facility] [address] [place] [address] Red blood cell antibody positive Allergies No known active allergiesdocumented as of this encounter (statuses as of 10/14/2023) Medications Medication Sig Dispensed Refills Start Date End Date Status Vitamin 27-0.8 MG Oral Tablet Take by mouth. 0 Active Aspirin 81 MG Oral Capsule Take by mouth. 0 Active Magnesium 400 MG Oral Tablet Take by mouth. 0 Active Ness ComputingTouch Verio In Vitro Strip (Glucose Blood) Use to test blood sugars 4 times daily (fasting, 1 hour after breakfast, lunch, and dinner) 125 Strip 6 10/09/2023 Active Ness ComputingTouch Verio Flex System w/Device Kit Use to test blood sugars 4 times daily (fasting, 1 hour after breakfast, lunch, and dinner) 1 Kit 0 10/09/2023 Active Ness ComputingTouch Delica Lancets 30G Use to test blood sugars 4 times daily (fasting, 1 hour after breakfast, lunch, and dinner) 200 Each 6 10/09/2023 Active documented as of this encounter (statuses as of 10/14/2023) Active Problems Problem Noted Date Diagnosed Date [...] have US confirmed , demise sometime between 7b4s-38 w0d, no testing done, no difficulty conceiving, [...] Plan: -Ensure proper follow up by primary EMERGENCY DEPARTMENT RN team History of migraine 06/28/2021 Overview: Fioricet not covered by insurance. Neurologist recommended propranolol. Message to [facility] for advice. Migraine with aura and [...] as of this encounter (statuses as of 10/14/2023) Resolved Problems Problem Noted Date Diagnosed Date [...] as of this encounter (statuses as of 10/14/2023) Immunizations Name Administration Dates Next Due COVID-19 mRNA, LNP-s, No Pre serve, 2-Dose Series (MYR) 05/04/2021,09/04/2020,08/14/2020 COVID-19, MRNA-LNP, 23-24, P F, 30 [...] money to get more. Never true 08/04/2023 [place] Depression Scale Answer Date Recorded [place] Depression Scale Total 5 05/29/2023 The thought [...] encounter Miscellaneous Notes * Addendum Note - Anastacia Harry TECH - 10/14/2023 12:31 PM EDTAddended by: ANASTACIA HARRY on: 10/14/2023 12:31 PM Modules accepted: Orders documented in this encounter Plan of Treatment Upcoming Encounters Date Type Department Care Team (Late st Contact Info) Description 10/19/2023 4:15 PM EDT Telemedicine Cutting Machine Operator Obstetrics Maternal Medicine, [place] [address] [place] [address] Sheba Mckinnon CRNP [address] [place] [address] 10/27/2023 4:15 PM EDT Office Visit Gynecology/Obstetrics [facility] 132 [facility] [place] [address] Mariya Dent CNM [address] [place] [address] [place] [address] 11/05/2023 11:45 AM EDT Imaging Maternal Medicine Imaging, Enoch Snyder [address]ore[address] Calderón [place] [phone] 12/03/2023 8:45 AM EDT Imaging Maternal Medicine Imaging, Enoch Snyder [address] Calderón [place] [phone] Pending Results Name Type Priority Associated Diagnoses Date /Time RED BLOOD CELL ANTIBODY IDENTIFICATION INTERPRETATION Lab STAT Red blood cell antibody positive 10/12/2023 12:27 [...] Comments RED BLOOD CELL ANTIBODY IDENTIFICATION STAT 10/12/2023 12:27 PM EDT Red blood cell antibody positive RED BLOOD CELL ANTIBODY TITER Routine 10/12/2023 12:27 PM EDT Red blood cell antibody positive TYPE AND SCREEN STAT 10/12/2023 12:27 PM EDT Red blood cell antibody positive documented in this encounter Results * RED BLOOD CELL ANTIBODY IDENTIFICATION (10/12/2023 12:27 PM EDT) Red Blood Cell Antibody Identification No new alloantibodies identified 10/13/2023 12:05 PM EDT [facility] Comment:Previously Identifie d anti-e, anti-C and anti-FYa Blood Venous blood specimen / Unknown Venipuncture / Unknown 10/12/2023 12:27 PM EDT 10/12/2023 12:27 PM EDT Eloy Bae MD LAB BLOOD BANK TEST ORDERABLES Performing Organization Address [facility] de Phone Number [facility] [address] [place] [address] * TYPE AND SCREEN (10/12/2023 12:27 PM EDT) ABO O 10/12/2023 9:50 PM EDT [facility] Rh Positive 10/12/2023 9:50 PM EDT [facility] Red Blood Cell Antibody Screen Positive 10/12/2023 9:50 PM EDT [facility] Comment: Antibodies may delay blood availability If RBC use is anticipated, place a prepare order Specimen Expiration Date 10/15/2023 23:59 10/12/2023 9:50 PM EDT [facility] Blood Venous blood specimen / Unknown Venipuncture / Unknown 10/12/2023 12:27 PM EDT 10/12/2023 12:27 PM EDT Eloy Bae MD LAB BLOOD BANK TEST ORDERABLES Performing Organization Address [facility] Co de Phone Number [facility]ORY [facility] [address] [place] [address] * RED BLOOD CELL ANTIBODY TITER (10/12/2023 12:27 PM EDT) Antibody Titer Anti-C Titer : 2 Anti-e Titer : 1 Anti-Fya Titer : Less than 1 10/13/2023 3:34 PM EDT [facility] Blood Venous blood specimen / Unknown Venipuncture / Unknown 10/12/2023 12:27 PM EDT 10/12/2023 12:27 PM EDT Eloy Bae MD LAB BLOOD BANK TEST ORDERABLES [facility] [address] [place] [address] documented in this encounter Visit Diagnoses Diagnosis Red blood cell antibody positive Other and unspecified nonspecific immunological findings documented in this encounter
--- OUTSIDE RECORDS SUMMARY | 2023-12-28 07:51 | External Medical Summary | Summary of Care ---
Author Name Unknown Organization [facility] Address [address] [place] [address] Phone [phone] Care Team Providers Care Ichthyology Teacher Name Role Phone Unavailable Primary Care Provider Unavailabl e Reason for Visit * Reason Onset Date Comments Medication Refill 10/16/2023 Encounter Details Date Type Department Care Team (Late st Contact Info) Description 10/09/2023 Refill Gynecology/Obstetrics [facility] 132 [facility] [place] [address] Aaron Chavez, [place] 400 [facility] [place] [address] Allergies No known active allergiesdocumented as of this encounter (statuses as of 10/16/2023) Medications Medication Sig Dispensed Refills Start Date [...] and dinner) 200 Each 6 10/09/2023 Active [employer] Verio Flex System w/Device Kit Use to test blood sugars 4 times daily (fasting, 1 hour after breakfast, lunch, and dinner) 1 Kit 0 10/09/2023 10/09/2023 Discontinued( Refill) OneTouch Verio In Vitro Strip (Glucose Blood) Use to test blood sugars 4 times daily (fasting, 1 hour after breakfast, lunch, and dinner) 125 Strip 6 10/09/2023 10/09/2023 Discontinued( Refill) [employer] Compass Lancets 30G Use to test blood sugars 4 times daily (fasting, 1 hour after breakfast, lunch, and dinner) 200 Each 6 10/09/2023 10/09/2023 Discontinued( Refill) documented as of this encounter (statuses as of 10/16/2023) Active Problems Problem Noted Date Diagnosed Date [...] 06/26/2023 Subchorionic hematoma, antepartum 06/09/2023 Overview: -At [facility] 9w1d -> "small GLENDY" [...] have US confirmed , demise sometime between 5s0n-67 w0d, no testing done, no difficulty conceiving, [...] Plan: -Ensure proper follow up by primary PRODUCTION TESTER team History of migraine 06/28/2021 Overview: Fioricet not covered by insurance. Neurologist recommended propranolol. Message to [facility] for advice. Migraine with aura and [...] as of this encounter (statuses as of 10/16/2023) Resolved Problems Problem Noted Date Diagnosed Date [...] as of this encounter (statuses as of 10/16/2023) Immunizations Name Administration Dates Next Due COVID-19 mRNA, LNP-s, No Pre serve, 2-Dose Series ([employer]) 05/04/2021,09/04/2020,08/14/2020 COVID-19, MRNA-LNP, 23-24, P F, 30 [...] money to get more. Never true 08/04/2023 [place] Depression Scale Answer Date Recorded [place] Depression Scale Total 5 05/29/2023 The thought [...] asked if we could try mansoort on [facility] * Telephone Encounter - Padmini Albert LPN [...] Info) Description 10/19/2023 4:15 PM EDT Telemedicine Edging Machine Catcher Obstetrics Maternal Medicine, [place] [address] [place], [place] [id number] Sheba Mckinnon CRNP [address] [place] [address] 10/27/2023 4:15 PM EDT Office Visit Gynecology/Obstetrics Enzo Snyder [address] [place] [address] [place] [address] Mariya Dent CNM [address] [place] [address] 11/05/2023 11:45 AM EDT Imaging Maternal Medicine [...]
--- OUTSIDE RECORDS SUMMARY | 2023-12-28 07:51 | External Medical Summary ---
Author Name Unknown Address Unknown Organization K01:[facility] - [address] [place] [address] Laboratory Report Ordering Provider Test Date Status JOCE ROTH 10/12/2023 12:27:57 Final Serial titers for anti-e, an ti-C, anti- Fy(a) Observation Date Value Abnormality Reference (Units ) Status ABO 10/12/2023 12:27:57 O Final RH 10/12/2023 12:27:57 Positive Final RED BLOOD CELL ANTIBODY SCREEN 10/12/2023 12:27:57 Positive Final Antibodies may delay blood a vailability
If RBC use is anticipated, place a prepare order SPECIMEN EXPIRATION DATE 10/12/2023 12:27:57 10/15/2023 23:5 9 Final Performing Location LAB[facility] - [address] [place] [address]
--- OUTSIDE RECORDS SUMMARY | 2023-12-28 07:51 | External Medical Summary | Summary of Care ---
Author Name Unknown Organization [facility] Address [address] [place] [address] Phone [phone] Care Team Providers Care Machine Adjuster Name Role Phone Unavailable Primary Care Provider Unavailabl e Reason for Visit * Reason Onset Date Comments Referral 10/09/2023 Encounter Details Date Type Department Care Team (Late st Contact Info) Description 10/09/2023 Telephone Candle Wrapper Obstetrics Maternal Medicine, [place] [address] [place], [place] [phone] [place], Nurse Candle Wrapper [facility] [address] [place], [place] [phone] Referral Allergies No known active allergiesdocumented as of [...] have US confirmed , demise sometime between 0p4u-00 w0d, no testing done, no difficulty conceiving, [...] Plan: -Ensure proper follow up by primary TELECOM ASSISTANT team History of migraine 06/28/2021 Overview: Fioricet not covered by insurance. Neurologist recommended propranolol. Message to [facility] for advice. Migraine with aura and [...] mRNA, LNP-s, No Pre serve, 2-Dose Series ([employer]) 05/04/2021,09/04/2020,08/14/2020 COVID-19, MRNA-LNP, 23-24, P F, 30 MCG/0.3 mL, 12 YRS AND ABOVE, IM ([employer] 03/07/2023 HPV Vaccine, 4-Valent 05/26/2012,02/24/2012,07/17 PPD 08/19/2022,01/09/2012,02/10/2007 [...] money to get more. Never true 08/04/2023 [place] Depression Scale Answer Date Recorded [place] Depression Scale Total 5 05/29/2023 The thought [...] encounter Miscellaneous Notes * Telephone Encounter - Sabine De La Paz OSA - 10/09/2023 3:41 PM EDT Spoke with Yari. Appointment scheduled. Patient aware of date, time and location of Maternal Medicine appointment. * Telephone Encounter - Margie Otero CCMA - 10/09/2023 3:21 PM EDT Estimated Date of Delivery: 01/02/24 Please schedule for 45 MINUTE ADAPT WITH DECKHAND MAINTENANCE, in time frame of within 1 week at location [facility] with the indication of GDM. Follow-up ultrasound scheduled 11/05/23. Referring Provider: Nubia Saab CNM documented in this encounter Plan of Treatment Upcoming Encounters Date Type Department Care Team (Late st Contact Info) Description 10/19/2023 4:15 PM EDT Telemedicine Candle Wrapper Obstetrics Maternal Medicine, [place] [address] [place] [address] Sheba Mckinnon CRNP [address] [place] [address] 10/27/2023 4:15 PM EDT Office Visit Gynecology/Obstetrics [place] [place] [address] Mariya Dent CNM [address] [place] [address] [place] [address] 11/05/2023 11:45 AM EDT Imaging Maternal Medicine Imaging, [address] [place] [address] 12/03/2023 8:45 AM EDT Imaging Maternal Medicine Imaging, Enochtayo Snyder [address] [place] [phone] Health Maintenance Due Date Last Done Comments [...]
--- OUTSIDE RECORDS SUMMARY | 2023-12-28 07:51 | External Medical Summary | Summary of Care ---
Author Name Unknown Organization [facility] Address [address] [place] [address] Phone [phone] Care Team Providers Care Corrections Nurse Name Role Phone Unavailable Primary Care Provider Unavailabl e Reason for Visit * Reason Onset Date Comments Medication Refill 10/16/2023 Encounter Details Date Type Department Care Team (Late st Contact Info) Description 10/09/2023 Refill Gynecology/Obstetrics [facility] 132 [facility] [place] [address] Aaron Chavez, [place] [address] [facility] [place] [address] Allergies No known active allergiesdocumented [...] and dinner) 200 Each 6 10/09/2023 Active Zipcar Verio Flex System w/Device Kit Use to test blood sugars 4 times daily (fasting, 1 hour after breakfast, lunch, and dinner) 1 Kit 0 10/09/2023 10/09/2023 Discontinued( Refill) OneTouch Verio In Vitro Strip (Glucose Blood) Use to test blood sugars 4 times daily (fasting, 1 hour after breakfast, lunch, and dinner) 125 Strip 6 10/09/2023 10/09/2023 Discontinued( Refill) Reaqua SystemsToLime&Tonic Lancets 30G Use to test blood sugars [...] Subchorionic hematoma, antepartum 06/09/2023 Overview: -At [facility] 9w1d -> "small GLENDY" per [...] have US confirmed , demise sometime between 6j5o-80 w0d, no testing done, no difficulty conceiving, [...] Plan: -Ensure proper follow up by primary PANEL MACHINE TENDER team History of migraine 06/28/2021 Overview: Fioricet not covered by insurance. Neurologist recommended propranolol. Message to [facility] for advice. Migraine with aura and [...] mRNA, LNP-s, No Pre serve, 2-Dose Series (ResponseTek) 05/04/2021,09/04/2020,08/14/2020 COVID-19, MRNA-LNP, 23-24, P F, 30 [...] money to get more. Never true 08/04/2023 [place] Depression Scale Answer Date Recorded [place] Depression Scale Total 5 05/29/2023 The thought [...] Telephone Encounter - Jaky Santamaria RN - 10/19/2023 3:55 PM EDT Attempted [...] 10/09/2023 3:34 PM EDTSigned Prescriptions: Disp Refills Oneremocean In Vitro Strip (Glucose Blo*125 St*6 Sig: Use totest blood sugars 4 times daily (fasting, 1 hour after breakfast, lunch, and dinner)Authorizing Provider: AARON CHAVEZ Extreme Wireless Communication Flex System w/Device Kit 1 Kit 0 Sig: Use to test blood sugars 4 times daily (fasting, 1 hour after breakfast, lunch, and dinner)Authorizing Provide r: AARON CHAVEZ Smart Cube Lancets 30G 200 Ea*6 Sig: Use to test blood sugars 4 times daily (fasting, 1 hour after breakfast, lunch, and dinner)Authorizing Provider: AARON CHAVEZ * Telephone Encounter - Padmini Albert LPN - 10/09/2023 3:11 PM EDT Al did not have stock of supplies, she asked if we could try [place] on [facility] * Telephone Encounter - Padmini Albert LPN [...] Info) Description 10/19/2023 4:15 PM EDT Telemedicine Retail Administrative Assistant Obstetrics Maternal Medicine, [place] [address] [place] [address] Sheba Mckinnon CRNP [address] [place] [address] 10/27/2023 4:15 PM EDT Office Visit Gynecology/Obstetrics Enzo Snyder [address] [facility] [place] [address] Mariya Dent CNM [address] [place] [address] 11/05/2023 11:45 AM EDT Imaging Maternal Medicine Imaging Enoch Snyder [address] [facility] [place] [phone] 12/03/2023 8:45 AM EDT Imaging Maternal Medicine Imaging, [facility] [address] [facility] [place] [phone] Health Maintenance Due Date Last Done Comments [...]
--- OUTSIDE RECORDS SUMMARY | 2023-12-28 07:51 | External Medical Summary | Summary of Care ---
Author Name Unknown Organization [facility] Address [address] [place] [address] Phone [phone] Care Team Providers Care Glassine Machine Tender Name Role Phone Unavailable Primary Care Provider Unavailabl e Reason for Visit * Reason Onset Date Comments Medication Refill 10/16/2023 Encounter Details Date Type Department Care Team (Late st Contact Info) Description 10/09/2023 Refill Gynecology/Obstetrics [facility] 132 [facility] [place] [address] Aaron Chavez, [place] 400 [facility] [place] [address] Allergies No known active allergiesdocumented [...] and dinner) 200 Each 6 10/09/2023 Active Space [employer] Verio Flex System w/Device Kit Use to test blood sugars 4 times daily (fasting, 1 hour after breakfast, lunch, and dinner) 1 Kit 0 10/09/2023 10/09/2023 Discontinued( Refill) OneTouch Verio In Vitro Strip (Glucose Blood) Use to test blood sugars 4 times daily (fasting, 1 hour after breakfast, lunch, and dinner) 125 Strip 6 10/09/2023 10/09/2023 Discontinued( Refill) Sensicast SystemsToUnblab Lancets 30G Use to test blood sugars [...] have US confirmed , demise sometime between 8y3g-28 w0d, no testing done, no difficulty conceiving, [...] -Ensure proper follow up by primary PRE CODER team History of migraine 06/28/2021 Overview: Fioricet not covered by insurance. Neurologist recommended propranolol. Message to [facility] for advice. Migraine with aura and witho [...] mRNA, LNP-s, No Pre serve, 2-Dose Series (Actifi) 05/04/2021,09/04/2020,08/14/2020 COVID-19, MRNA-LNP, 23-24, P F, 30 [...] money to get more. Never true 08/04/2023 [place] Depression Scale Answer Date Recorded [place] Depression Scale Total 5 05/29/2023 The thought [...] lancets are fine to use with the [employer] system. * Telephone Encounter - Padmini Albert [...] breakfast, lunch, and dinner)Authorizing Provider: AARON CHAVEZ Sensicast SystemsTouch Verio Flex System w/Device Kit 1 Kit [...] asked if we could try [place] on [facility] * Telephone Encounter - Padmini Albert [...] Info) Description 10/19/2023 4:15 PM EDT Telemedicine White Metal Caster Obstetrics Maternal Medicine, [place] [address] [place] [address] Sheba Mckinnon CRNP [address] [place] [address] 10/27/2023 4:15 PM EDT Office Visit Gynecology/Obstetrics [facility] [place] [address] Mariya Dent CNM [address] [place] [address] 11/05/2023 11:45 AM EDT Imaging Maternal Medicine Imaging, [place] [phone] 12/03/2023 8:45 AM EDT Imaging Maternal Medicine Imaging, [place] [phone] Health Maintenance Due Date Last Done Comments [...]
--- OUTSIDE RECORDS SUMMARY | 2023-12-28 07:51 | External Medical Summary ---
Author Name Unknown Address Unknown Organization K01:LABORATORY [facility] - [address] [place] [address] Laboratory Report Ordering Provider Test Date Status JOCE ROTH 10/12/2023 12:27:57 Final Serial titers for anti-e, an ti-C, anti- Fy(a) Observation Date Value Abnormality Reference (Units ) Status ANTIBODY TITER 10/12/2023 12:27:57 Anti-C Titer : 2 Final ANTIBODY TITER 10/12/2023 12:27:57 Anti-e Titer : 1 Final ANTIBODY TITER 10/12/2023 12:27:57 Anti-Fya Titer : Less than 1 Final Performing Location LAB[facility]ATORY [facility] - [address] [place] [address]
--- OUTSIDE RECORDS SUMMARY | 2023-12-28 07:52 | External Medical Summary ---
Author Name Unknown Address Unknown Organization K01:LABORATORY [facility] - [address] [facility] [address] Laboratory Report Ordering Provider Test Date Status KATHY WALKER 10/08/2023 08:01:21 Final Observation Date Value Abnormality Reference (Units ) Status Treponema pallidum Ab [Presence] in Serum by Immunoassay 10/08/2023 08:01:21 Nonreactive Nonreactive Final No serologic evidence of syp hilis. No additional testing clinicially indicated at this time. Consider repeat testing in 2-4 weeks if acute or primary syphilis is suspected. Performing Location LABORATORY [facility] - [address] [place] [address]
--- OUTSIDE RECORDS SUMMARY | 2023-12-28 07:52 | External Medical Summary | Summary of Care ---
Author Name Unknown Organization [facility] Address [address] [place] [address] Phone [phone] Care Team Providers Care Plant Breeder Name Role Phone Unavailable Primary Care Provider Unavailabl e Reason for Visit * Reason Comments Outpatient Testing Encounter Details Date Type Department Care Team (Late st Contact Info) Description 10/08/2023 7:50 AM EDT Laboratory Laboratory, [facility] [address] [place] [phone] [facility] [address] [place] [address] Abnormal glucose tolerance in mother complicating ; High-risk in second trimester Allergies No known active allergiesdocumented as of this encounter (statuses as of 10/08/2023) Medications Medication Sig Dispensed Refills Start Date End Date Status Vitamin 27-0.8 MG Oral Tablet Take by mouth. 0 Active Aspirin 81 MG Oral Capsule Take by mouth. 0 Active Magnesium 400 MG Oral Tablet Take by mouth. 0 Active documented as of this encounter (statuses as of 10/08/2023) Active Problems Problem Noted Date Diagnosed Date Abnormal glucose tolerance in mother complicatin g 07/06/2023 Overview: Elevated early 1 hr GTT - normal 3 hr GTT at 15 weeks High-risk 06/26/2023 Bipolar disease during 06/26/2023 Subchorionic hematoma, antepartum 06/09/2023 Overview: -At [facility] 9w1d -> "small GLENDY" per ER physician [...] have US confirmed , demise sometime between 7v1r-86 w0d, no testing done, no difficulty conceiving, [...] Plan: -Ensure proper follow up by primary SPORTS INSTRUCTOR team History of migraine 06/28/2021 Overview: Fioricet not covered by insurance. Neurologist recommended propranolol. Message to [facility] for advice. Migraine with aura [...] as of this encounter (statuses as of 10/08/2023) Resolved Problems Problem Noted Date Diagnosed Date [...] BETTY Patient declines Tdap vaccine 06/05/14 Holley Eng, [...] as of this encounter (statuses as of 10/08/2023) Immunizations Name Administration Dates Next Due COVID-19 mRNA, LNP-s, No Pre serve, 2-Dose Series (Qual[employer]) 05/04/2021,09/04/2020,08/14/2020 COVID-19, MRNA-LNP, 23-24, P F, 30 MCG/0.3 mL, 12 YRS AND ABOVE, IM ([employer]-[email or web address]) 03/07/2023 HPV Vaccine, 4-Valent 05/26/2012,02/24/2012,07/17 PPD 08/19/2022,01/09/2012,02/10/2007 [...] money to get more. Never true 08/04/2023 [place] Depression Scale Answer Date Recorded [place] Depression Scale Total 5 05/29/2023 The thought [...] Care Team (Late st Contact Info) Description 10/08/2023 11:45 AM EDT Imaging Maternal Medicine Imaging, Enoch Snyder [address] [place] [address] [place] [phone] Arrived 10/08/2023 11:45 AM EDT Office Visit Spooler Rubber Strand Obstetrics Maternal Medicine, [place] [address] [facility] [place] [address] Kiah Pompa, DO [address] [place] [address] Arrived 10/27/2023 4:15 PM EDT Office Visit Gynecology/Obstetrics Ulises Snyder[address] [place] [address] Mariya Dent, CN[address] [place] [address] 11/05/2023 11:45 AM EDT Imaging Maternal Medicine Imaging, Enoch Snyder [address] [place] [phone] 12/03/2023 8:45 AM EDT Imaging Maternal Medicine Imaging, Enoch Snyder [address] [place] [phone] Pending Results Name Type Priority Associated Diagnoses Date /Time GESTATIONAL GLUCOSE TOLERANCE, 3 HOUR Lab Routine Abnormal glucose tolerance in mother complicating 10/08/2023 8:01 AM EDT SYPHILIS ANTIBODY SCREEN WITH REFLEX TO RPR Lab Routine High-risk in second trimester 10/08/2023 8:01 AM EDT CBC WITH WBC DIFFERENTIAL AND ANEMIA REFLEX WORKUP Lab Routine High-risk in second trimester 10/08/2023 8:01 AM EDT SYPHILIS ANTIBODY SCREEN Lab Routine High-risk in second trimester 10/08/2023 8:01 AM EDT ANEMIA CBC Lab Routine High-risk in second trimester 10/08/2023 8:01 AM EDT DIFFERENTIAL, AUTOMATED Lab Routine High-risk in second trimester 10/08/2023 8:01 AM EDT ANEMIA REFLEX CHEMISTRY HOLD Lab Routine High-risk in second trimester 10/08/2023 8:01 AM EDT 100-G GESTATIONAL GLUCOSE, 3 HOUR Lab Routine Abnormal glucose tolerance in mother complicating 10/08/2023 11:02 AM EDT Health Maintenance Due Date Last [...] Procedure Name Priority Date/Time Associated Diagnosis Comments 100-G GESTATIONAL GLUCOSE, 2 HOUR Routine 10/08/2023 10:05 AM EDT Abnormal glucose tolerance in mother complicating 100-G GESTATIONAL GLUCOSE, 1 HOUR Routine 10/08/2023 9:08 AM EDT Abnormal glucose tolerance in mother complicating 100-G GESTATIONAL GLUCOSE, FASTING Routine 10/08/2023 8:01 AM EDT Abnormal glucose tolerance in mother complicating documented in this encounter Results * (ABNORMAL) 100-G GESTATIONAL GLUCOSE, 2 HOUR (10/08/2023 10:05 AM EDT) 100-g Gestational Glucose, 2 Hour 186(H) 70 - 154 mg/dL 10/08/2023 11:21 AM EDT LABORATORY [facility] 57-10 Blood Venous blood specimen / Unknown Venipuncture / Unknown 10/08/2023 10:05 AM EDT 10/08/2023 10:05 AM EDT Nubia Saab CNM LAB BLOOD ORDERABLES LABORATORY [facility] 57-10 132 [facility] [place] [address] * (ABNORMAL) 100-G GESTATIONAL GLUCOSE, 1 HOUR (10/08/2023 9:08 AM EDT) 100-g Gestational Glucose, 1 Hour 196(H) 70 - 179 mg/dL 10/08/2023 9:40 AM EDT LABORATORY [facility] 57-10 Blood Venous blood specimen / Unknown Venipuncture / Unknown 10/08/2023 9:08 AM EDT 10/08/2023 9:08 AM EDT Nubia BENEDICT LAB BLOOD ORDERABLES Performing Organization Address City/[facility]/ZIP Co de Phone Number LABORATORY [facility] [phone] [place] [address] * 100-G GESTATIONAL GLUCOSE, FASTING (10/08/2023 8:01 AM EDT) 100-g Gestational Glucose, Fasting 84 70 - 94 mg/dL 10/08/2023 8:59 AM EDT LABORATORY [facility] 57-10 Blood Venous blood specimen / Unknown Venipuncture / Unknown 10/08/2023 8:01 AM EDT 10/08/2023 8:01 AM EDT Narrative LABORATORY [facility] 57-10 - 10/08/2023 8:59 AM EDT Based on ACOG guideline, gestational diabetes mellitus is diagnosed when any of the following is met: Fasting is greater than or equal to 95 mg/dL 1 hour is greater than or equal to 180 mg/dL 2 hour is greater than or equal to 155 mg/dL 3 hour is greater than or equal to 140 mg/dL Nubia BENEDICT LAB BLOOD ORDERABLES Performing Organization Address City/[facility]/ZIP Co de Phone Number LABORATORY [place] [phone] [place] [address] documented in this encounter Visit Diagnoses Diagnosis Abnormal glucose tolerance in mother complicating Abnormal maternal glucose tolerance, complicating , childbirth, or the puerperium, unspecified as to episode of care High-risk in second trimester documented in this encounter
--- OUTSIDE RECORDS SUMMARY | 2023-12-28 07:52 | External Medical Summary | Summary of Care ---
Author Name Unknown Organization [facility] Address [address] [place] [address] Phone [phone] Care Team Providers Care Continuous Mining Operator Name Role Phone Unavailable Primary Care Provider Unavailabl e Reason for Referral * Evaluate & Treat - Unlimited Visits (Within 10 days (routine)) - Authorized Specialty Diagnoses / Procedures Referred By Contkarl cassidy Referred To Contact Water Team Leader / Nutrition Services Diagnoses Gestational diabetes mellitus (GDM), antepartum, gestational diabetes method of control unspecified Nubia Saab CNM [address] [place] [address] Referral ID Status Reason Start Date Expiration Date Visits Requested Visits Authorized [id number] Authorized Specialty Services Required 10/09/[phone] Question Answer Is the patient ? Yes Referral Priority Within 10 days (routine) Where should this appointment be scheduled? Michael Comments This referral is for Diabetes Self-Management Training (DSMT) by a recognized [place] Diabetes Association (ADA) asthma educator: Nurse (RN), Registered Dietitian Site Acquisition Manager (RDN), and/or Diabetes Medical Nutrition Therapy (MNT) Management (dietitian only). Diabetes educators are responsible for assessing the participant's diabetes education needs, and providing diabetes self-management training in accordance with the standards set by the ADA for DSMT. Any adjustment in diabetes therapy will be made within the guidelines of standards of practice and [facility] approved policies and procedures. I understand that the asthma educator will keep me informed. Areas of Education: Pathophysiology Nutrition Physical Activity Medications Monitoring Acute Complications Chronic Complications Psychosocial Management Promote Health/Behavior Change Participant will be offered 1:1 education training if there is a lack of classes available within 2 months. Providers can also order 1:1 training if indicated for participant for the following reasons: 1:1 Training for Insulin Initiation Participant Inappropriate for Class Setting By my electronic signature, I understand that my patient will be offered the comprehensive ADA content area above unless deemed not appropriate of I specify otherwise here: * Evaluate & Treat - Unlimited Visits (Within 3 days (urgent)) - Authorized Specialty Diagnoses / Procedures Referred By Lesley cassidy Referred To Contact Obstetrics/Gynecology / Maternal Medicine Diagnoses Gestational diabetes mellitus (GDM), antepartum, gestational diabetes method of control unspecified Nubia Saab CNM [address] [place] [id number] Referral ID Status Reason Start Date Expiration Date Visits Requested Visits Authorized [id number] Authorized Specialty Services Required 10/09/[phone] Question Answer Referral Priority Within 3 days (urgent) Has the patient had a viability scan? Yes Date performed 05/22/2023 Location performed Radiology Reason for referral Diabetes Diabetes type Gestational [facility]: LMP: Patient's last menstrual period was 03/28/2023. Patient is . CEDRIC: 01/02/2024, by Last Menstrual Period Pre-Gravid BMI: 43.75 Encounter Details Date Type Department Care Team (Late st Contact Info) Description 10/09/2023 Orders Only Gynecology/Obstetrics [address] [address] Nubia Saab CNM [address] [place] [address] [place] [id number] Gestational diabetes mellitus (GDM), antepartum, gestational diabetes method of control unspecified* Allergies No known active allergiesdocumented as of this encounter (statuses as of 10/09/2023) Medications Medication Sig Dispensed Refills Start Date End Date Status Vitamin 27-0.8 MG Oral Tablet Take by mouth. 0 Active Aspirin 81 MG Oral Capsule Take by mouth. 0 Active Magnesium 400 MG Oral Tablet Take by mouth. 0 Active SocialEarsTouch Verio Flex System w/Device Kit Use to test blood sugars 4 times daily (fasting, 1 hour after breakfast, lunch, and dinner) 1 Kit 0 10/09/2023 Active OneTouch Verio In Vitro Strip (Glucose Blood) Use to test blood sugars 4 times daily (fasting, 1 hour after breakfast, lunch, and dinner) 125 Strip 6 10/09/2023 Active SocialEarsTouch Delica Lancets 30G Use to test blood [...] Subchorionic hematoma, antepartum 06/09/2023 Overview: -At [facility] 9w1d -> "small GLENDY" per [...] have US confirmed , demise sometime between 7a9v-67 w0d, no testing done, no difficulty conceiving, [...] Plan: -Ensure proper follow up by primary WEDDING COORDINATOR team History of migraine 06/28/2021 Overview: [...] normal 06/28/2021 06/24/2022 , normal first 01/03/2014 03/02/2015 Overview: Urine culture contaminated at [facility]. Repeat [...] mRNA, LNP-s, No Pre serve, 2-Dose Series ([employer]) 05/04/2021,09/04/2020,08/14/2020 COVID-19, MRNA-LNP, 23-24, P F, 30 MCG/0.3 mL, 12 YRS AND ABOVE, IM ([employer]-Comirnatuberlife) 03/07/2023 HPV Vaccine, 4-Valent 05/26/2012,02/24/2012,07/17 PPD 08/19/2022,01/09/2012,02/10/2007 [...] money to get more. Never true 08/04/2023 [place] Depression Scale Answer Date Recorded [place] Depression Scale Total 5 05/29/2023 The thought [...] 4:15 PM EDT Office Visit Gynecology/Obstetrics [place] Snyder [facility] [address] [place] [address] Mariya Dent, [address] [place] [address] 11/05/2023 11:45 AM EDT Imaging Maternal Medicine Imaging, [place] [phone] 12/03/2023 8:45 AM EDT Imaging Maternal Medicine Imaging, Enoch [place] [phone] Scheduled Orders Name Type Priority Associated Diagnoses Orde r Schedule MFM US MATERNAL 1ST FETUS Medical Imaging Routine Gestational diabetes mellitus (GDM), antepartum, gestational diabetes method of control unspecified Expected: 10/09/2023, Expires: 11/07/2024 Scheduled Referrals Name Type Priority Associated Diagnoses Orde r Schedule MATERNAL MEDICINE REFERRAL OP Referral Within 3 days (urgent) Gestational diabetes mellitus (GDM), antepartum, gestational diabetes method of control unspecified Ordered: 10/09/2023 DIABETES MANAGEMENT EDUCATION (ADA) REFERRAL Referral Within 10 days (routine) Gestational diabetes mellitus (GDM), antepartum, gestational diabetes method of control unspecified Ordered: 10/09/2023 Health Maintenance Due Date Last Done Comments [...] as of this encounter Visit Diagnoses Diagnosis Gestational diabetes mellitus (GDM), antepartum, gestational diabetes method of control unspecified- Primary documented in this encounter
--- OUTSIDE RECORDS SUMMARY | 2023-12-28 07:52 | External Medical Summary | Summary of Care ---
Author Name Unknown Organization [facility] Address [address] [place] [address] Phone [phone] Care Team Providers Care Crisis Intervention Specialist Name Role Phone Unavailable Primary Care Provider Unavailabl e Encounter Details Date Type Department Care Team (Late st Contact Info) Description 10/08/2023 11:45 AM EDT Office Visit Senior Inspector Obstetrics Maternal Medicine, [facility] [address] [facility] [place] [address] Kiah Pompa, DO [address] [place], [place] [id number] Obesity affecting , antepartum, unspecified obesity type*; Antepartum multigravida of advanced maternal age; Ultrasound for screening for growth restriction; 27 weeks gestation of ; Excessive growth affecting management of , antepartum, [...] Subchorionic hematoma, antepartum 06/09/2023 Overview: -At [facility] 9w1d -> "small GLENDY" per ER [...] have US confirmed , demise sometime between 6a9b-31 w0d, no testing done, no difficulty conceiving, [...] Plan: -Ensure proper follow up by primary ELECTRIC ACCOUNTING MACHINE OPERATOR team History of migraine 06/28/2021 Overview: Fioricet not covered by insurance. Neurologist recommended propranolol. Message to [facility] for advice. Migraine with aura and [...] mRNA, LNP-s, No Pre serve, 2-Dose Series ([employer]) 05/04/2021,09/04/2020,08/14/2020 COVID-19, MRNA-LNP, 23-24, P F, [...] money to get more. Never true 08/04/2023 [place] Depression Scale Answer Date Recorded [place] Depression Scale Total 5 05/29/2023 The thought [...] Progress Notes * Kiah Pompa DO - 10/08/2023 12:58 PM EDT Yari presented today at 27w5d for an ultrasound for the following indications: Obesity affecting , antepartum, unspecified obesity type Antepartum multigravida of advanced maternal age Ultrasound for screening for growth restriction 27 weeks gestation of Excessive growth affecting management of , antepartum, single or unspecified fetus Assessment & Plan: LGA growth noted today. 3'GTT performed today is positive. Recommend aggressive blood glucose management and will continue to follow for growth. Please refer to [facility] if we can assist withGDM. Ultrasound summary: Patient presented for growth assessment at 27w 5d. Large AC noted at 96% with overall EFW of 1425 g at 95%. ANTONIO 19.3 cm. Cephalic presentation. I reviewed the ultrasound images. Yari was given the opportunity to meet with me if she had any questions. Please refer to the ultrasound report for additional details about today's ultrasound examination. RECOMMENDATIONS: Recommend follow up ultrasound with MFM in 4-6 weeks for growth secondary to above indications. See prior formal MFM consultation note. Thank you for allowing us to participate in the care of this patient. Please call with any questions. Kiah Pompa DO 10/08/2023 12:58 PM documented in this encounter Miscellaneous Notes * Assessment & Plan Note - Kiah Pompa DO - 10/08/2023 12:59 PM EDT Associated Problem(s): Excessive growth affecting management of , antepartum LGA growth noted today. 3'GTT performed today is positive. Recommend aggressive blood glucose management and will continue to follow for growth. Please refer to [facility] if we can assist withGDM. documented in this encounter Plan of Treatment Upcoming Encounters Date Type Department Care Team (Late st Contact Info) Description 10/27/2023 4:15 PM EDT Office Visit Gynecology/Obstetrics Enzo Snyder [address] [place] [address] Mariya Dent, [facility] [address] [facility] [place] [address] 11/05/2023 11:45 AM EDT Imaging Maternal Medicine Imaging, Enoch Snyder [address] [place] [phone] 12/03/2023 8:45 AM EDT Imaging Maternal Medicine Imaging, Enoch [place] [phone] Health Maintenance Due Date Last Done Comments [...] affecting , antepartum, unspecified obesity type- Primary Antepartum multigravida of advanced maternal age Ultrasound for screening for growth restriction screening for growth retardation using ultrasonics 27 weeks gestation of state, incidental Excessive growth affecting management of , antepartum, single or unspecified fetus documented in this encounter
--- OUTSIDE RECORDS SUMMARY | 2023-12-28 07:52 | External Medical Summary ---
Author Name Unknown Address Unknown Organization [id number]:LABORATORY [facility] - [address] [facility] [place] [address] Laboratory Report Ordering Provider Test Date Status KATHY WALKER 10/08/2023 08:01:21 Final Observation Date Value Abnormality Reference (Units ) Status SYNC LEUKOCYTES IN BLOOD BY AUTOMATED COUNT 10/08/2023 08:01:21 12.82 Above high normal 4.00-10.80 (K/uL) Final Segs 10/08/2023 08:01:21 75.4 Above high normal 40.0-75.0 (%) Final Lymphs % 10/08/2023 08:01:21 15.8 Below low normal 18.0-42.0 (%) Final Monos 10/08/2023 08:01:21 6.6 1.0-11.0 (%) Final Eosinophils 10/08/2023 08:01:21 0.6 0.0-6.0 (%) Final Basos 10/08/2023 08:01:21 0.4 0.0-2.0 (%) Final Immature Granulocyte, Percent 10/08/2023 08:01:21 1.2 0.0-2.0 (%) Final Absolute Segs 10/08/2023 08:01:21 9.67 Above high normal 1.80-7.70 (K/uL) Final Lymphs, absolute 10/08/2023 08:01:21 2.03 1.00-4.80 (K/ul) Final Monos, Abs 10/08/2023 08:01:21 0.84 0.00-1.10 (K/uL) Final Eos, Abs 10/08/2023 08:01:21 0.08 0.00-0.70 (K/uL) Final Basos, Abs 10/08/2023 08:01:21 0.05 0.00-0.20 (K/uL) Final Immature Granulocytes, Number 10/08/2023 08:01:21 0.15 0.00-0.20 (K/uL) Final Performing Location LABORATORY [facility] - [facility] [address] [facility] [place] [address]
--- OUTSIDE RECORDS SUMMARY | 2023-12-28 07:52 | External Medical Summary ---
Author Name Unknown Address Unknown Organization [id number][facility] [address] [place] [id number] Laboratory Report Ordering Provider Test Date Status KATHY WALKER 10/08/2023 10:05:45 Final Observation Date Value Abnormality Reference (Units ) Status Glucose, 2-hr post glucose challenge 10/08/2023 10:05:45 186 Above high normal 70-154 (mg/dL) Final Performing Location LABORATORY [facility] [place] 57-1 0 - [address] [place] [address]
--- OUTSIDE RECORDS SUMMARY | 2023-12-28 07:52 | External Medical Summary | Summary of Care ---
Author Name Unknown Organization [facility] Address [address] [place] [address] Phone [phone] Care Team Providers Care Workers' Compensation Magistrate Name Role Phone Unavailable Primary Care Provider Unavailabl e Encounter Details Date Type Department Care Team (Late st Contact Info) Description 10/08/2023 Telephone Gynecology/Obstetrics [facility] [address] [place] [address] Nubia Saab [facility] [address] [place] [address] Allergies No known active allergiesdocumented [...] 06/26/2023 Subchorionic hematoma, antepartum 06/09/2023 Overview: -At [facility] 9w1d -> "small GLENDY" per ER [...] have US confirmed , demise sometime between 7f6u-16 w0d, no testing done, no difficulty conceiving, [...] Plan: -Ensure proper follow up by primary FIRE HOSE CURER team History of migraine 06/28/2021 Overview: Fioricet not covered by insurance. Neurologist recommended propranolol. Message to [facility] for advice. Migraine with aura [...] mRNA, LNP-s, No Pre serve, 2-Dose Series ([employer]) 05/04/2021,09/04/2020,08/14/2020 COVID-19, MRNA-LNP, 23-24, P F, 30 MCG/0.3 mL, 12 YRS AND ABOVE, IM ([employer]) 03/07/2023 HPV Vaccine, 4-Valent 05/26/2012,02/24/2012,07/17 PPD 08/19/2022,01/09/2012,02/10/2007 Seasonal Influenza Vac, Quad , Cell Cult, PF, 6 Mos and Up, IM, (Flucelvax Quad) 02/27/2022 Seasonal Influenza Virus Vac cine, Unspecified Formulation 03/21/2020 Seasonal Influenza, PF, 6 M & above, IM , (FluLaval or Fluzone) 03/02/2021,03/23/2018 Seasonal Influenza, Quadriva lent, No Preserve, IM 03/07/2023 Seasonal Influenza, Split, I IV3, With Preserve, Inj 02/24/2012,05/30/2011,03/29/2010 TDAP (age 11 and older)(Adacel) 05/30/2011 documented [...] money to get more. Never true 08/04/2023 [place] Depression Scale Answer Date Recorded [place] Depression Scale Total 5 05/29/2023 The thought [...] Team (Late st Contact Info) Description 10/08/2023 10:45 AM EDT Office Visit Gynecology/Obstetrics Enzo Snyder [address] [place] [address] Wandy Li CRNP [address] [place] [address] 10/08/2023 11:45 AM EDT Imaging Maternal Medicine Imaging, Enoch Jacksons [address] [place] [phone] 10/08/2023 11:45 AM EDT Office Visit Project Intern Obstetrics Maternal Medicine, Enoch Snyder [address] [place] [address] Kiah Pompa, DO [address] [place] [facility] [place] [address] 11/05/2023 11:45 AM EDT Imaging Maternal Medicine Imaging, Enoch Jacksons [address] [place] [phone] 12/03/2023 8:45 AM EDT Imaging Maternal Medicine [facility], [facility] [place] [phone] Pending Results Name Type Priority Associated Diagnoses Date /Time GESTATIONAL GLUCOSE TOLERANCE, 3 HOUR Lab Routine Abnormal glucose tolerance in mother complicating 10/08/2023 8:01 AM EDT Scheduled Orders Name Type Priority Associated Diagnoses Orde r Schedule GESTATIONAL GLUCOSE TOLERANCE, 3 HOUR Lab Routine Abnormal glucose tolerance in mother complicating Expected: 10/22/2023 (Approximate), Expires: 10/07/2024 Health Maintenance Due Date Last Done Comments DTaP,Tdap,and Td Vaccines (7 - Td or Tdap) 05/30/2021 05/30/2011, 02/04/2000, 06/16/1992, Additional history exists Diabetes Screening 05/29/2026 05/29/2023, 0 07/15/2022, 03/14/2004 Pap Smear 05/29/2026 05/29/2023, 06/15, 05/18/2018, Additional history exists Cervical Cancer Screening 05/29/2028 HPV/Co-Test 05/29/2028 05/29/2023 Hepatitis B Completed 06/22/2000, 03/16, 02/04/2000 GARDASIL-HPV [...] as of this encounter Visit Diagnoses Diagnosis Abnormal glucose tolerance in mother complicating - Primary Abnormal maternal glucose tolerance, complicating , childbirth, or the puerperium, unspecified as to episode of care documented in this encounter
--- OUTSIDE RECORDS SUMMARY | 2023-12-28 07:52 | External Medical Summary | Summary of Care ---
Author Name Unknown Organization [facility] Address [address] [place] [address] Phone [phone] Care Team Providers Care Psychologist Experimental Name Role Phone Unavailable Primary Care Provider Unavailabl e Reason for Visit * Reason Comments Outpatient Testing Encounter Details Date Type Department Care Team (Late st Contact Info) Description 09/14/2023 4:30 PM EDT Laboratory Laboratory, [facility] [address] [place] [phone] [facility] [address] [place] [address] Red blood cell antibody positive Allergies No known active allergiesdocumented as of this encounter (statuses as of 09/14/2023) Medications Medication Sig Dispensed Refills Start Date End Date Status Vitamin 27-0.8 MG Oral Tablet Take by mouth. 0 Active Aspirin 81 MG Oral Capsule Take by mouth. 0 Active Magnesium 400 MG Oral Tablet Take by mouth. 0 Active documented as of this encounter (statuses as of 09/14/2023) Active Problems Problem Noted Date Diagnosed Date [...] have US confirmed , demise sometime between 6n9j-69 w0d, no testing done, no difficulty conceiving, [...] Plan: -Ensure proper follow up by primary AIRSET CASTER team History of migraine 06/28/2021 Overview: Fioricet not covered by insurance. Neurologist recommended propranolol. Message to [facility] for advice. Migraine with aura and [...] as of this encounter (statuses as of 09/14/2023) Resolved Problems Problem Noted Date Diagnosed Date [...] as of this encounter (statuses as of 09/14/2023) Immunizations Name Administration Dates Next Due COVID-19 mRNA, LNP-s, No Pre serve, 2-Dose Series ([employer]) 05/04/2021,09/04/2020,08/14/2020 COVID-19, MRNA-LNP, 23-24, P F, 30 MCG/0.3 mL, 12 YRS AND ABOVE, IM ([employer]) 03/07/2023 HPV Vaccine, 4-Valent 05/26/2012,02/24/2012,07/17 PPD 08/19/2022,01/09/2012,02/10/2007 [...] money to get more. Never true 08/04/2023 [place] Depression Scale Answer Date Recorded [place] Depression Scale Total 5 05/29/2023 The thought [...] Description 10/08/2023 7:50 AM EDT [facility] [address] [place] [phone] Candis Snyder [address] [place] [address] 10/08/2023 10:45 AM EDT Office Visit Gynecology/Obstetrics Enzo [place] [address] Wandy Li CRNP [address] [place] [address] 10/08/2023 11:45 AM EDT Imaging Maternal Medicine Imaging, [place] [phone] 11/05/2023 11:45 AM EDT Imaging Maternal Medicine Imaging, Enoch [place] [phone] 12/03/2023 8:45 AM EDT Imaging Maternal Medicine Imaging, Enoch Snyder [address] [place] [address] Pending Results Name Type Priority Associated Diagnoses Date /Time RED BLOOD CELL ANTIBODY TITER Lab Routine Red blood cell antibody positive 09/14/2023 4:29 PM EDT Health Maintenance Due Date Last Done Comments Depression Screening 10/26/2019 10/25/2018, 03/23/20 DTaP,Tdap,and Td Vaccines (7 - Td or [...]
--- OUTSIDE RECORDS SUMMARY | 2023-12-28 07:52 | External Medical Summary ---
Author Name Unknown Address Unknown Organization K0G:LABORATORY [facility] [place] 57-[address] - [address] [place] [address] Laboratory Report Ordering Provider Test Date Status KATHY WALKER 10/08/2023 09:08:26 Final Observation Date Value Abnormality Reference (Units ) Status Glucose [Mass/volume] in Serum or Plasma --1 hour post dose glucose 10/08/2023 09:08:26 196 Above high normal 70-179 (mg/dL) Final Performing Location LABORATORY [facility] [place] 57-[address] 0 - [address] [place] [address]
--- OUTSIDE RECORDS SUMMARY | 2023-12-28 07:52 | External Medical Summary ---
Author Name Unknown Address Unknown Organization [id number]:LABORATORY [place] [facility] - [address] [place] [address] Laboratory Report Ordering Provider Test Date Status AARONPRAFULALLYSSA 10/08/2023 08:01:03 Final Based on ACOG guideline, ges tational diabetes mellitus is diagnosed when any of the following is met:
Fasting is greater than or equal to 95 mg/dL
1 hour is greater than or equal to 180 mg/dL
2 hour is greater than or equal to 155 mg/dL
3 hour is greater than or equal to 140 mg/dL Observation Date Value Abnormality Reference (Units ) Status Glucose, fasting 10/08/2023 08:01:03 84 70- 94 (mg/dL) Final Performing Location LABORATORY [facility] [place] 57-[address] 0 - [address] [place] [address]
--- OUTSIDE RECORDS SUMMARY | 2023-12-28 07:52 | External Medical Summary ---
Author Name Unknown Address Unknown Organization [id number]:LABORATORY [facility] - [address] [place] [address] Laboratory Report Ordering Provider Test Date Status KATHY WALKER 10/08/2023 08:01:21 Final Observation Date Value Abnormality Reference (Units ) Status WBC, Total 10/08/2023 08:01:21 12.82 Above high normal 4 .00-10.80 (K/uL) Final RBC 10/08/2023 08:01:21 4.14 3.85-5.15 (M/uL) Final Hemoglobin 10/08/2023 08:01:21 12.4 12.0-15.3 (g/dL) Final Anemia reflex testing trigge rs on a HGB < 12.0 for Females and HGB < 13.0 for Males in accordance with the WHO Anemia Guidelines
Anemia reflex testing triggers on a HGB < 12.0 for Females and HGB < 13.0 for Males in accordance with the WHO Anemia Guidelines HCT 10/08/2023 08:01:21 37.8 36.0-45.2 (%) Final MCV 10/08/2023 08:01:21 91.3 81.5-97.5 (fL) Final MCH 10/08/2023 08:01:21 30.0 27.0-34.0 (pg) Final MCHC 10/08/2023 08:01:21 32.8 32.0-36.0 (g/dL) Final RDW 10/08/2023 08:01:21 14.0 11.5-15.5 (%) Final Platelets 10/08/2023 08:01:21 267 140-400 (K /uL) Final MPV 10/08/2023 08:01:21 11.7 6.6-11.1 ( fL) Final Nucleated erythrocytes/100 leukocytes [Ratio] in Blood by Automated count 10/08/2023 08:01:21 0 <=0 (/100 WBCs) [facility] Performing Location LABORATORY [facility] - [address] [facility] [address]
--- OUTSIDE RECORDS SUMMARY | 2023-12-28 07:52 | External Medical Summary | Summary of Care ---
Author Name Unknown Organization [facility] Address [address] [place] [address] Phone [phone] Care Team Providers Care Multiple Drum Sander Name Role Phone Unavailable Primary Care Provider Unavailabl e Reason for Visit * Reason Comments Outpatient Testing Encounter Details Date Type Department Care Team (Late st Contact Info) Description 09/14/2023 4:30 PM EDT Laboratory Laboratory, [facility] [address] [place] [phone] [facility] [address] [place] [address] Red blood cell antibody positive Allergies No known active allergiesdocumented as of this encounter (statuses as of 09/16/2023) Medications Medication Sig Dispensed Refills Start Date End Date Status Vitamin 27-0.8 MG Oral Tablet Take by mouth. 0 Active Aspirin 81 MG Oral Capsule Take by mouth. 0 Active Magnesium 400 MG Oral Tablet Take by mouth. 0 Active documented as of this encounter (statuses as of 09/16/2023) Active Problems Problem Noted Date Diagnosed Date Abnormal glucose tolerance in mother complicatin g 07/06/2023 Overview: Elevated early 1 hr GTT - normal 3 hr GTT at 15 weeks High-risk 06/26/2023 Bipolar disease during 06/26/2023 Subchorionic hematoma, antepartum 06/09/2023 Overview: -At [facility] 9w1d -> "small GLENDY" per [...] have US confirmed , demise sometime between 7r4n-32 w0d, no testing done, no difficulty conceiving, [...] Plan: -Ensure proper follow up by primary GLOBAL SAFETY OFFICER team History of migraine 06/28/2021 Overview: Fioricet not covered by insurance. Neurologist recommended propranolol. Message to [facility] for advice. Migraine with aura [...] as of this encounter (statuses as of 09/16/2023) Resolved Problems Problem Noted Date Diagnosed Date [...] as of this encounter (statuses as of 09/16/2023) Immunizations Name Administration Dates Next Due COVID-19 mRNA, LNP-s, No Pre serve, 2-Dose Series ([employer]) 05/04/2021,09/04/2020,08/14/2020 COVID-19, MRNA-LNP, 23-24, P F, 30 MCG/0.3 mL, 12 YRS AND ABOVE, IM ([employer]ir[employer]) 03/07/2023 DTaP Dipth/Tet/Acell Pertussis (Infanrix), Peds 06/16/1992,11/13/1988,01/14/1988,1987,1987 [...] TD - Tetanus/Diptheria (ADULT) 02/04/2000 TDAP (age 11 and older)(Adacel) 05/30/2011 documented [...] money to get more. Never true 08/04/2023 [place] Depression Scale Answer Date Recorded [place] Depression Scale Total 5 05/29/2023 The thought [...] encounter Miscellaneous Notes * Addendum Note - Soledad Mora TECH - 09/16/2023 11:01 AM EDTAddended by: SOLEDAD MORA on: 09/16/2023 11:01 AM Modules accepted: Orders documented in this encounter Plan of Treatment Upcoming Encounters Date Type Department Care Team (Late st Contact Info) Description 10/08/2023 7:50 AM EDT [facility] [address] [place] [phone] Candis Snyder Eno[place] [address] 10/08/2023 10:45 AM EDT Office Visit Gynecology/Obstetrics [place] [address] Wandy Li CRNP [address] [place] [address] 10/08/2023 11:45 AM EDT Imaging Maternal Medicine Imaging, [place] [phone] 11/05/2023 11:45 AM EDT Imaging Maternal Medicine Imaging, [place] [place] [phone] 12/03/2023 8:45 AM EDT Imaging Maternal Medicine Imaging, [address] [place] [phone] Pending Results Name Type Priority Associated Diagnoses Date /Time RED BLOOD CELL ANTIBODY IDENTIFICATION INTERPRETATION Lab STAT Red blood cell antibody positive 09/14/2023 4:29 PM EDT Health Maintenance Due Date Last Done Comments Depression Screening 10/26/2019 10/25/2018, 03/23/20 18 DTaP,Tdap,and Td Vaccines (7 - Td or [...] Comments RED BLOOD CELL ANTIBODY IDENTIFICATION STAT 09/14/2023 4:29 PM EDT Red blood cell antibody positive RED BLOOD CELL ANTIBODY TITER Routine 09/14/2023 4:29 PM EDT Red blood cell antibody positive TYPE AND SCREEN STAT 09/14/2023 4:29 PM EDT Red blood cell antibody positive documented in this encounter Results * RED BLOOD CELL ANTIBODY IDENTIFICATION (09/14/2023 4:29 PM EDT) Red Blood Cell Antibody Identification No new alloantibodies identified 09/15/2023 1:[address] [facility] Comment:Previously identifie d Anti-C, e, Fya, no additional alloantibodies Blood Venous blood specimen / Unknown Venipuncture / Unknown 09/14/2023 4:29 PM EDT 09/14/2023 4:29 PM EDT Eloy Bae MD LAB BLOOD BANK TEST ORDERABLES [facility]ATORY [facility] [address] [place], [place] [id number] * TYPE AND SCREEN (09/14/2023 4:29 PM EDT) ABO O 09/15/2023 1:[address] [facility] Rh Positive 09/15/2023 1:[address] [facility] Red Blood Cell Antibody Screen Positive 09/15/2023 1:[address] [facility] Comment: If RBC use is anticipated, place a prepare order Antibodies may delay blood availability Specimen Expiration Date 09/17/2023 23:59 09/15/2023 1:[address] [facility] Blood Venous blood specimen / Unknown Venipuncture / Unknown 09/14/2023 4:29 PM EDT 09/14/2023 4:29 PM EDT Eloy Bae MD LAB BLOOD BANK TEST ORDERABLES Performing Organization Address [facility] de Phone Number LABORATORY [facility] [address] [place] [address] * RED BLOOD CELL ANTIBODY TITER (09/14/2023 4:29 PM EDT) Antibody Titer Anti-C Titer : 1 Anti-e Titer : Less than 1 Anti-Fya Titer : Less than 1 09/15/2023 1:[address] [facility] Blood Venous blood specimen / Unknown Venipuncture / Unknown 09/14/2023 4:29 PM EDT 09/14/2023 4:29 PM EDT Eloy Bae MD LAB BLOOD BANK TEST ORDERABLES Performing Organization Address [facility] de Phone Number LABORATORY [facility] [address] [place] [address] documented in this encounter Visit Diagnoses Diagnosis Red blood cell antibody positive Other and unspecified nonspecific immunological findings documented in this encounter
--- OUTSIDE RECORDS SUMMARY | 2023-12-28 07:52 | External Medical Summary ---
Author Name Unknown Address Unknown Organization K01:LABORATORY [facility] - [address] [place] [address] Laboratory Report Ordering Provider Test Date Status JOCE ROTH 09/14/2023 16:29:02 Correction Serial titers for anti-e, an ti-C, anti- Fy(a) Observation Date Value Abnormality Reference (Units) Status RED BLOOD CELL ANTIBODY IDENTIFICATION 16:29:02 No new alloantibodies identified Correction Previously identified Anti-C , e, Fya, no additional alloantibodies Performing Location LABORATORY [facility] - [address] [place] [address]
--- OUTSIDE RECORDS SUMMARY | 2023-12-28 07:52 | External Medical Summary ---
Author Name Unknown Address Unknown Organization K01:LAB[facility]ATORY [facility] - [address] [facility] [address] Laboratory Report Ordering Provider Test Date Status JOCE ROTH 09/14/2023 16:29:02 Final Observation Date Value Abnormality Reference (Units) Status Blood group antibody investigation [Interpretation] in Plasma or RBC 09/14/2023 16:29:02 Anti-C identified (titer=1). Anti-e identified (titer<1). History of Anti-Fy(a) (titer<1). Final Blood group antibody investigation [Interpretation] in Plasma or RBC 09/14/2023 16:29:02 Final Blood group antibody investigation [Interpretation] in Plasma or RBC 09/14/2023 16:29:02 The patient is a 38 year old female with ABO/RH type of O positive. Results of this antibody identification testing are consistent with the patient's known Anti-C, Anti-e, and history of Anti-Fy(a). Antibody to C-antigen, e-antigen, Fy(a)-antigen can result from alloimmunization from transfusion or . These findings place the patient at risk for hemolytic transfusion reaction and may also be implicated in hemolytic disease of the fetus and (HDFN). Recommend monitoring per OB protocol. Crossmatch compatible S-phvyujt-osotexpp, x-bshvitl-sonqfpio, Fy(a)-antigen-negative RBCs should be given if transfusion is necessary, approximately less than 1% of blood donors will be compatible. Final Performing Location LAB[facility]ORY [facility] - [address] [facility] [address]
--- OUTSIDE RECORDS SUMMARY | 2023-12-28 07:52 | External Medical Summary | Summary of Care ---
Author Name Unknown Organization [facility] Address [address] [place] [address] Phone [phone] Care Team Providers Care Oiler Bander Name Role Phone Unavailable Primary Care Provider Unavailabl e Encounter Details Date Type Department Care Team (Late st Contact Info) Description 10/08/2023 11:45 AM EDT Office Visit Past Due Accounts Clerk Obstetrics Maternal Medicine, [facility] [address] [place] [address] Kiah Pompa, DO [address] [place], [place] [id number] Obesity affecting , antepartum, unspecified obesity type*; [...] 06/26/2023 Subchorionic hematoma, antepartum 06/09/2023 Overview: -At [facility] 9w1d -> "small GLENDY" per ER physician [...] have US confirmed , demise sometime between 6m5t-01 w0d, no testing done, no difficulty conceiving, [...] Plan: -Ensure proper follow up by primary STEEL POURER team History of migraine 06/28/2021 Overview: Fioricet not covered by insurance. Neurologist recommended propranolol. Message to [facility] for advice. Migraine with aura and [...] mRNA, LNP-s, No Pre serve, 2-Dose Series ([employer]) 05/04/2021,09/04/2020,08/14/2020 COVID-19, MRNA-LNP, 23-24, P F, 30 MCG/0.3 mL, 12 YRS AND ABOVE, IM ([employer]) 03/07/2023 HPV Vaccine, 4-Valent 05/26/2012,02/24/2012,07/17 PPD 08/19/2022,01/09/2012,02/10/2007 [...] money to get more. Never true 08/04/2023 [place] Depression Scale Answer Date Recorded [place] Depression Scale Total 5 05/29/2023 The [...] Progress Notes * Kiah Pompa, DO - 10/08/2023 12:58 PM EDT Yari [...] 4:15 PM EDT Office Visit Gynecology/Obstetrics Ulises Snyder [address] [place] [address] Mariya Dnet CNM [address] [place] [address] [place] [address] 11/05/2023 11:45 AM EDT Imaging Maternal Medicine Imaging, Enoch Snydertayo [place] [address] 12/03/2023 8:45 AM EDT Imaging Maternal Medicine Imaging, [facility] [address] [facility] [place] [address] Health Maintenance Due Date Last Done [...]
--- OUTSIDE RECORDS SUMMARY | 2023-12-28 07:52 | External Medical Summary ---
Author Name Unknown Address Unknown Organization K01:LABORATORY [facility] [place]OD [facility] - [address] [place] [address] Laboratory Report Ordering Provider Test Date Status JOCE ROTH 09/14/2023 16:29:02 Correction Serial titers for anti-e, an ti-C, anti- Fy(a) Observation Date Value Abnormality Reference (Units ) Status ABO 09/14/2023 16:29:02 O Final RH 09/14/2023 16:29:02 Positive Final RED BLOOD CELL ANTIBODY SCREEN 09/14/2023 16:29:02 Positive Correction If RBC use is anticipated, car zee prepare order
Antibodies may delay blood availability SPECIMEN EXPIRATION DATE 09/14/2023 16:29:02 09/17/2023 23:5 9 Final Performing Location LABORATORY [facility] B[facility]OD [facility] - [address] [address]
--- OUTSIDE RECORDS SUMMARY | 2023-12-28 07:52 | External Medical Summary | Summary of Care ---
Author Name Unknown Organization [facility] Address [address] [place] [address] Phone [phone] Care Team Providers Care Access Lead Name Role Phone Unavailable Primary Care Provider Unavailabl e Reason for Visit * Reason Comments Return Visit Encounter Details Date Type Department Care Team (Late st Contact Info) Description 09/14/2023 3:45 PM EDT Office Visit Gynecology/Obstetric [facility] [address] [facility] [place] [address] Nubia Saab CNM [address] [facility] [place] [phone] Antepartum multigravida of advanced maternal age*; Obesity affecting , antepartum, unspecified obesity type; Antiphospholipid antibody syndrome complicating (HCC); Red blood cell antibody positive; High-risk in second trimester; Bipolar disease during in second trimester (HCC); Abnormal glucose tolerance in mother complicating Allergies No known active allergiesdocumented as of [...] 06/26/2023 Subchorionic hematoma, antepartum 06/09/2023 Overview: -At [facility] 9w1d -> "small GLENDY" per [...] have US confirmed , demise sometime between 2v7m-02 w0d, no testing done, no difficulty conceiving, [...] Plan: -Ensure proper follow up by primary 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 Neurologist recommended propranolol. Message to [facility] for advice. Migraine with aura and [...] mRNA, LNP-s, No Pre serve, 2-Dose Series ([employer]) 05/04/2021,09/04/2020,08/14/2020 COVID-19, MRNA-LNP, 23-24, P F, 30 MCG/0.3 mL, 12 YRS AND ABOVE, IM ([employer]ir[employer]formed[employer]) 03/07/2023 HPV Vaccine, 4-Valent 05/26/2012,02/24/2012,07/17 PPD 08/19/2022,01/09/2012,02/10/2007 [...] money to get more. Never true 08/04/2023 [place] Depression Scale Answer Date Recorded [place] Depression Scale Total 5 05/29/2023 The thought [...] Sign Reading Time Taken Comments Blood Pressure 116/72 09/14/2023 3:47 PM EDT Pulse - - Temperature - - Respiratory Rate - - Oxygen Saturation - - Inhaled Oxygen Concentration - - Weight 116.7 kg (257 lb 3.2 oz) 09/14/2023 3:47 PM EDT Height 162.6 cm (5' 4") 09/14/2023 3:47 PM EDT Body Mass Index 44.15 09/14/2023 3:47 PM EDT documented in this encounter Progress Notes * Nubia Saab CNM - 09/14/2023 3:35 PM EDT Yari Lindquist is a 38 year old female here for her routine OB appointment at 24w2d Her Estimated Date of Delivery: 01/02/24 REVIEW OF SYSTEMS: She affirms movement. Denies vaginal bleeding, LOF, contractions, N/V, headaches PHYSICAL EXAM: Filed Vitals: 09/14/23 1547 BP: 116/72 Weight: 116.7 kg (257 lb 3.2 oz) Height: 1.626 m (5' 4") +FHT 140s Fundal height 24 ASSESSMENT/PLAN: 1. Obesity affecting , antepartum, unspecified obesity type Seeing M 2. Antiphospholipid antibody syndrome complicating (HCC) 3. Red blood cell antibody positive 4. High-risk - SYPHILIS ANTIBODY SCREEN WITH REFLEX TO RPR; Future - CBC WITH WBC DIFFERENTIAL AND ANEMIA REFLEX WORKUP; Future 5. Bipolar disease during (HCC) 6. Abnormal glucose tolerance in mother complicating - GESTATIONAL GTT (3HR) EDU 7. Antepartum multigravida of advanced maternal age - we reviewed and ordered GTT and CBC for patient to complete between now and her next visit - reviewed recommendation for tdap vaccine at next visit - RTO in 4 weeks Nubia Saab CNM documented in this encounter Nursing Notes * Jaky Santamaria RN - 09/14/2023 3:48 PM EDT Patient here for ANDREW 24w2d No concerns 28 wk labs pended - needs 3 hr gtt Jaky Santamaria RN documented in this encounter Plan of Treatment Upcoming Encounters Date Type Department Care Team (Late st Contact Info) Description 10/08/2023 7:50 AM EDT Laboratory Laboratory, Enzo Snyder [place] [address] [place] [phone] Candis Snyder [address] [place] [address] 10/08/2023 10:45 AM EDT Office Visit Gynecology/Obstetrics Enzo Snyder [address] [place] [address] Wandy Li CRNP [address] [place] [address] 10/08/2023 11:45 AM EDT Imaging Maternal Medicine Imaging, [place] [phone] 11/05/2023 11:45 AM EDT Imaging Maternal Medicine Imaging, Enoch Calder[address] [place] [address] 12/03/2023 8:45 AM EDT Imaging Maternal Medicine Imaging, Enoch [address] [place] [address] Scheduled Orders Name Type Priority Associated Diagnoses Orde r Schedule SYPHILIS ANTIBODY SCREEN WITH REFLEX TO RPR Lab Routine High-risk in second trimester Expected: 09/14/2023, Expires: 09/13/2024 CBC WITH WBC DIFFERENTIAL AND ANEMIA REFLEX WORKUP Lab Routine High-risk in second trimester Expected: 09/14/2023, Expires: 09/13/2024 Health Maintenance Due Date Last Done Comments [...] puerperium, unspecified as to episode of care Red blood cell antibody positive Other and unspecified nonspecific immunological findings High-risk in second trimester Bipolar disease during in second trimester (HCC) Abnormal glucose tolerance in mother complicating Abnormal maternal glucose tolerance, complicating , childbirth, or the puerperium, unspecified as to episode of care documented in this encounter
--- OUTSIDE RECORDS SUMMARY | 2023-12-28 07:52 | External Medical Summary | Summary of Care ---
Author Name Unknown Organization [facility] Address [address] [place] [address] Phone [phone] Care Team Providers Care Rounder And Backer Name Role Phone Unavailable Primary Care Provider Unavailabl e Reason for Visit * Reason Comments Return Visit Encounter Details Date Type Department Care Team (Late st Contact Info) Description 10/08/2023 10:45 AM EDT Office Visit Gynecology/Obstetric s Enzo Snyder [address] [place] [address] Wandy Li CRNP [address] [place] [address] High-risk in third trimester*; Obesity affecting , antepartum, unspecified obesity type; Antiphospholipid antibody syndrome complicating (HCC); Family history of autism; Antepartum multigravida of advanced maternal age; Red blood cell antibody positive; History of transfusion; Subchorionic hematoma, antepartum, single or unspecified fetus; Bipolar disease during , antepartum (HCC); Abnormal glucose tolerance in mother complicating ; Need for prophylactic vaccination with combined runeeqqlxq-ukwsbza-bm rtussis (DTP) vaccine Allergies No known active allergiesdocumented as of [...] Subchorionic hematoma, antepartum 06/09/2023 Overview: -At [facility] 9w1d -> "small GLENDY" per [...] have US confirmed , demise sometime between 9k7z-31 w0d, no testing done, no difficulty conceiving, [...] Plan: -Ensure proper follow up by primary BERRY PLANTER team History of migraine 06/28/2021 Overview: Fioricet not covered by insurance. Neurologist recommended propranolol. Message to [facility] for advice. Migraine with aura and [...] mRNA, LNP-s, No Pre serve, 2-Dose Series (ConnectionPlus) 05/04/2021,09/04/2020,08/14/2020 COVID-19, MRNA-LNP, 23-24, P F, 30 MCG/0.3 mL, 12 YRS AND ABOVE, IM (Spl[employer].it-Comirnaty) 03/07/2023 HPV Vaccine, 4-Valent 05/26/2012,02/24/2012,07/17 PPD 08/19/2022,01/09/2012,02/10/2007 [...] money to get more. Never true 08/04/2023 [place] Depression Scale Answer Date Recorded [place] Depression Scale Total 5 05/29/2023 The thought [...] Sign Reading Time Taken Comments Blood Pressure 120/72 10/08/2023 10:48 AM EDT Pulse - - Temperature - - Respiratory Rate - - Oxygen Saturation - - Inhaled Oxygen Concentration - - Weight 116.6 kg (257 lb) 10/08/2023 10:46 AM EDT Height 162.6 cm (5' 4") 10/08/2023 10:48 AM EDT Body Mass Index 44.11 10/08/2023 10:46 AM EDT documented in this encounter Progress Notes * Wandy Li CRNP - 10/08/2023 10:59 AM EDT 27w5d Has chiropractor appt for some leg/sciatic pain. No other concerns. Baby is active. No contractions, bleeding, LOF. Completing 3hr GTT today. TDAP today. JOSETTE Byers * Erinn Lucas LPN - 10/08/2023 10:46 AM EDT 27w5d Doing 3gtt documented in this encounter Nursing Notes * Erinn Lucas LPN - 10/08/2023 11:06 AM EDT Patient here for tdap injection. Patient doing well no complaints. Injection given IM as ordered. Patient tolerated well. Patient to follow up as directed. Patient instructed to call if any complications. Patient verbalized understanding of instructions given and her follow up appt for 2 weeks Injection site: Left Deltoid Medication Source: Dispensed stock medication documented in this encounter Plan of Treatment Upcoming Encounters Date Type Department Care Team (Late st Contact Info) Description 10/08/2023 11:45 AM EDT Imaging Maternal Medicine Imaging, [place] [phone] Arrived 10/08/2023 11:45 AM EDT Office Visit Fiber Analyst Obstetrics Maternal Medicine, [place] [address] Kiah Pompa, DO [address] [facility] [address] Arrived 10/27/2023 4:15 PM EDT Office Visit Gynecology/Obstetrics [place] [address] Mariya Dent [facility] [address] [place] [address] 11/05/2023 11:45 AM EDT Imaging Maternal Medicine Imaging, Enoch Snyder [address] [place] [phone] 12/03/2023 8:45 AM EDT Imaging Maternal Medicine Imaging, Enoch Snyder [address] [place] [address] Health Maintenance Due Date Last Done [...] of this encounter Visit Diagnoses Diagnosis High-risk in third trimester- Primary Obesity affecting , antepartum, unspecified obesity [...] single or unspecified fetus Bipolar disease during , antepartum (HCC) Abnormal glucose tolerance in mother complicating Abnormal maternal glucose tolerance, complicating , childbirth, or the puerperium, unspecified as to episode of care Need for prophylactic vaccination with combined jostoqafzf-ysbfqsp-vcuzydlns (DTP) vaccine documented in this encounter
--- OUTSIDE RECORDS SUMMARY | 2023-12-28 07:52 | External Medical Summary ---
Author Name Unknown Address Unknown Organization K01:LABORATORY [facility] - [address] [address] Laboratory Report Ordering Provider Test Date Status JOCE ROTH 09/14/2023 16:29:02 Final Serial titers for anti-e, an ti-C, anti- Fy(a) Observation Date Value Abnormality Reference (Units ) Status ANTIBODY TITER 09/14/2023 16:29:02 Anti-C Titer : 1 Final ANTIBODY TITER 09/14/2023 16:29:02 Anti-e Titer : Less than 1 Final ANTIBODY TITER 09/14/2023 16:29:02 Anti-Fya Titer : Less than 1 Final Performing Location LABORATORY [facility] - [address] [address]
--- OUTSIDE RECORDS SUMMARY | 2023-12-28 07:53 | External Medical Summary ---
Author Name Unknown Address Unknown Organization K01:[facility] - [address] [address] Laboratory Report Ordering Provider Test Date Status JOCE ROTH 07/24/2023 14:11:28 Correction Serial titers for anti-e, an ti-C, anti- Fy(a) Observation Date Value Abnormality Reference (Units ) Status ANTIBODY TITER 07/24/2023 14:11:28 Anti-e Titer : Less than 1 Correction ANTIBODY TITER 07/24/2023 14:11:28 Anti-Fya Titer : Less than 1 Correction ANTIBODY TITER 07/24/2023 14:11:28 Anti-C Titer : 1 Correction Performing Location [facility] - [address] [address]
--- OUTSIDE RECORDS SUMMARY | 2023-12-28 07:53 | External Medical Summary | Summary of Care ---
Author Name Unknown Organization [facility] Address [address] [facility] [place] [address] Phone [phone] Care Team Providers Care Triage Rn Name Role Phone Unavailable Primary Care Provider Unavailabl e Reason for Visit * Reason Comments Return Visit Encounter Details Date Type Department Care Team (Late st Contact Info) Description 08/18/2023 8:00 AM EST Office Visit Gynecology/Obstetric s Enzo Snyder [address] [place] [address] Wandy Li CRNP [address] [place] [address] High-risk in second trimester*; Obesity affecting , antepartum, unspecified obesity type; Antiphospholipid antibody syndrome complicating (HCC); Family history of autism; Antepartum multigravida of advanced maternal age; Red blood cell antibody positive; History of transfusion; Bipolar disease during , antepartum (HCC); Abnormal glucose tolerance in mother complicating Allergies No known active allergiesdocumented as of this encounter (statuses as of 08/18/2023) Medications Medication Sig Dispensed Refills Start Date End Date Status Vitamin 27-0.8 MG Oral Tablet Take by mouth. 0 Active Aspirin 81 MG Oral Capsule Take by mouth. 0 Active documented as of this encounter (statuses as of 08/18/2023) Active Problems Problem Noted Date Diagnosed Date Abnormal glucose tolerance in mother complicatin g 07/06/2023 Overview: Elevated early 1 hr GTT - normal 3 hr GTT at 15 weeks High-risk 06/26/2023 Bipolar disease during 06/26/2023 Subchorionic hematoma, antepartum 06/09/2023 Overview: -At [facility] 9w1d -> "small GLENDY" per ER [...] 05/29/2023 Antiphospholipid antibody syndrome complicating 05/29/2023 Overview: Possible diagnosis of APS [biochemical and ectopic [...] have US confirmed , demise sometime between 2c8k-01 w0d, no testing done, no difficulty conceiving, [...] Plan: -Ensure proper follow up by primary RESTORATIVE AIDE team History of migraine 06/28/2021 Overview: Fioricet not covered by insurance. Neurologist recommended propranolol. Message to [facility] for advice. Migraine with aura and witho [...] Last Assessment & Plan: I reviewed the ultrasound with her. The anatomy that was visualized appears unremarkable and the biometry is appropriate for the gestational age. The amniotic fluid volume is subjectively normal. The fetus is in the vertex presentation. Estimated Date of Delivery Comme nts Yes 01/02/2024 Based on last me nstrual period of 03/28/2023 documented as of this encounter (statuses as of 08/18/2023) Resolved Problems Problem Noted Date Diagnosed Date [...] as of this encounter (statuses as of 08/18/2023) Immunizations Name Administration Dates Next Due COVID-19 mRNA, LNP-s, No Pre serve, 2-Dose Series ([employer]) 05/04/2021,09/04/2020,08/14/2020 COVID-19, MRNA-LNP, 23-24, P F, 30 MCG/0.3 mL, 12 YRS AND ABOVE, IM ([employer]) 03/07/2023 HPV Vaccine, 4-Valent 05/26/2012,02/24/2012,07/17 PPD 08/19/2022,01/09/2012,02/10/2007 [...] money to get more. Never true 08/04/2023 [place] Depression Scale Answer Date Recorded [place] Depression Scale Total 5 05/29/2023 The thought [...] Sign Reading Time Taken Comments Blood Pressure 116/76 08/18/2023 7:57 AM EST Pulse - - Temperature - - Respiratory Rate - - Oxygen Saturation - - Inhaled Oxygen Concentration - - Weight 115.7 kg (255 lb) 08/18/2023 7:57 AM EST Height 164.7 cm (5' 4.84") 08/18/2023 7:57 AM ES T Body Mass Index 42.64 08/18/2023 7:57 AM EST documented in this encounter Progress Notes * Wandy Li CRNP - 08/18/2023 8:27 AM EST 20w3d Some pain in left leg, suggested chiropractor if needed. No other concerns. +FM. No bleeding. Anatomy u/s with MFM last week. JOSETTE Byers documented in this encounter Nursing Notes * Naomi Oshea LPN - 08/18/2023 8:01 AM EST 20W3D Right leg pain. documented in this encounter Plan of Treatment Upcoming Encounters Date Type Department Care Team (Late st Contact Info) Description 09/07/2023 2:45 PM EDT Office Visit Asbestos Wire Finisher Obstetrics Maternal Medicine, [place] [address] [place] [address] Praveen Mcconnell MD [address] [place] [address] 09/07/2023 2:45 PM EDT Imaging Radiology [facility] [place], [place] [address] [place] [address] 09/14/2023 3:45 PM EDT Office Visit Gynecology/Obstetrics Enzo [address] [place] [address] Nubia Saab, [facility] [address] [place] [address] 10/08/2023 11:45 AM EDT Imaging Maternal Medicine Imaging, Enoch Snyder [address] [place] [phone] 11/05/2023 11:45 AM EDT Imaging Maternal Medicine Imaging, [facility]noch Snyder [facility] [place] [address] 12/03/2023 8:45 AM EDT Imaging Maternal Medicine Imaging, Enoch Snyder [address] [place] [address] Health Maintenance Due Date Last Done Comments [...] this encounter Visit Diagnoses Diagnosis High-risk in second trimester- Primary Obesity affecting , antepartum, unspecified [...] specified personal history presenting hazards to health Bipolar disease during , antepartum (HCC) Abnormal glucose tolerance in mother complicating Abnormal maternal glucose tolerance, complicating , childbirth, or the puerperium, unspecified as to episode of care documented in this encounter
--- OUTSIDE RECORDS SUMMARY | 2023-12-28 07:53 | External Medical Summary ---
Author Name Unknown Address Unknown Organization K01:LABORATORY [facility] [place] [facility]OD [facility] - [address] [address] Laboratory Report Ordering Provider Test Date Status JOCE ROTH 08/18/2023 08:37:44 Final Serial titers for anti-e, an ti-C, anti- Fy(a) Observation Date Value Abnormality Reference (Units ) Status ANTIBODY TITER 08/18/2023 08:37:44 Anti-C Titer : 1 Final ANTIBODY TITER 08/18/2023 08:37:44 Anti-e Titer : Less than 1 Final ANTIBODY TITER 08/18/2023 08:37:44 Anti-Fya Titer : Less than 1 Final Performing Location LABORATORY [facility] [place] [facility]OD [facility] - [address] [address]
--- OUTSIDE RECORDS SUMMARY | 2023-12-28 07:53 | External Medical Summary | Summary of Care ---
Author Name Unknown Organization [facility] Address [address] [place] [address] Phone [phone] Care Team Providers Care Crimping Machine Operator Name Role Phone Unavailable Primary Care Provider Unavailabl e Reason for Visit * Reason Comments Outpatient Testing Encounter Details Date Type Department Care Team (Late st Contact Info) Description 07/24/2023 2:20 PM EST Laboratory Laboratory, [facility] [address] [place] [phone] [facility] [address] [place] [address] Red blood cell antibody positive Allergies No known active allergiesdocumented as of this encounter (statuses as of 07/27/2023) Medications Medication Sig Dispensed Refills Start Date End Date Status Vitamin 27-0.8 MG Oral Tablet Take by mouth. 0 Active Aspirin 81 MG Oral Capsule Take by mouth. 0 Active documented as of this encounter (statuses as of 07/27/2023) Active Problems Problem Noted Date Diagnosed Date Abnormal glucose tolerance in mother complicatin g 07/06/2023 Overview: Elevated early 1 hr GTT - normal 3 hr GTT at 15 weeks High-risk 06/26/2023 Bipolar disease during 06/26/2023 Subchorionic hematoma, antepartum 06/09/2023 Overview: -At [facility] 9w1d -> "small GLENDY" per ER physician [...] regarding transfusion recommendations Last Assessment & Plan: CONSIDERATIONS: Explained the etiology of maternal alloimmunization and associated risks. Confirmed that she is certain of paternity (FOB = father of baby). If FOB is homozygous for the antigen, the fetus is at risk for anemia, hydrops, and . If FOB is heterozygous for the antigen, the fetus is at 50% risk of inheriting the antigen and would then be at risk of anemia, hydrops and . If FOB is heterozygous, antigen status unknown, or if paternity is uncertain, we discussed the risks, benefits and alternatives of amniocentesis (including karyotype) versus serial maternal titers. Chart made for NESHADee Antony Cade 02/25/1988 > orders placed for RBC phenotyping She declines amniocentesis at this time. RECOMMENDATIONS: Recommend that FOB be tested for RBC antigen for which the mother has antibodies. If he is negative for the antigen and paternity is assured, then no further obstetric monitoring is necessary. If the FOB has an unknown or positive antigen status, then we recommend monitoring maternal antibody titers every 4 weeks until critical value of 1:16. [facility] will coordinate ordering the FOB's antigen status and maternal titers. Standing RBC titers placed for patient today We recommend MFM ultrasound assessments of MCA Doppler velocimetry to assess for anemia every 1-2 weeks starting at 18 weeks if critical titer reached. After 35 weeks, the trend of MCA Dopplers should be assessed between visits. If this is noted to be increasing, then we recommend delivery. If the trend remains stable, recommend delivery (without amniocentesis) at 38 0/7 - 38 6/7 weeks. Initiate testing at 32 weeks in all patients being followed with MCA Dopplers. If severe anemia is noted at any time during the , we may recommend transfusion, maternal steroids for lung maturity, and/or delivery. Place T&C for pRBC on admission to hospital for delivery given risk for transfusion reaction and time to ensure available compatible blood. Antepartum multigravida of advanced maternal age 1206/02/2023 [...] have US confirmed , demise sometime between 4k8o-08 w0d, no testing done, no difficulty conceiving, [...] -Ensure proper follow up by primary INDUSTRIAL TRUCK DRIVER team History of migraine 06/28/2021 Overview: Fioricet not covered by insurance. Neurologist recommended propranolol. Message to [facility] for advice. Migraine with aura and [...] 05/29/2023 03:07 PM Last Assessment & Plan: CONSIDERATIONS: Discussed obstetrical risks associated with class III obesity (pre- BMI of greater than or equal to 40) Reviewed that the accuracy of ultrasound at diagnosing anomalies is significantly decreased for women with an increased BMI. RECOMMENDATIONS: Recommend restricting weight gain during to 11-20 pounds. Patient should be referred for a nutrition consult. Recommend evaluation for signs and symptoms (snoring, excessive daytime sleepiness witnessed apnea or unexplained hypoxia) of obstructive sleep apnea. If any of these are present, referral to Sleep Medicine specialist for further evaluation should be considered. Recommend performing gestational diabetes mellitus screen now (if not performed at first visit) and repeat again at 26-28 weeks if early screen is normal. Recommend Maternal- Medicine ultrasound for anatomy at 20 weeks and for growth every 4 weeks thereafter. For patients with Class 3 obesity, we recommend baseline preeclamptic labs with CBC, serum AST/ALT/creatinine and 24 hour urine protein RANDOLPH if not already done. For patients with Class 3 obesity, we recommend weekly surveillance starting at 34 weeks and delivery by EDC. Recommend anesthesia consult during the antepartum period. Estimated Date of Delivery Comme nts Yes 01/02/2024 Based on last me nstrual period of 03/28/2023 documented as of this encounter (statuses as of 07/27/2023) Resolved Problems Problem Noted Date Diagnosed Date [...] as of this encounter (statuses as of 07/27/2023) Immunizations Name Administration Dates Next Due COVID-19 mRNA, LNP-s, No Pre serve, 2-Dose Series (Adzerk) 05/04/2021,09/04/2020,08/14/2020 COVID-19, MRNA-LNP, 23-24, P F, 30 [...] Date Smoking Tobacco: Former Cigarettes 0.3 2 Q uit: 03/23/2013 Smokeless Tobacco: Never Alcohol Use Standard [...] the money to buy more. Never true 10/13/19 23 Within the past 12 months, t he food you bought just didn't last and you didn't have money to get more. Never true 10/12/2022 [place] Depression Scale Answer Date Recorded [place] Depression Scale Total 5 05/29/2023 The thought [...] Miscellaneous Notes * Addendum Note - Anastacia Harry, TECH - 07/27/2023 12:01 PM ESTAddended by: ANASTACIA HARRY on: 07/27/2023 12:01 PM Modules accepted: Orders documented in this encounter Plan of Treatment Upcoming Encounters Date Type Department Care Team (Late st Contact Info) Description 08/10/2023 10:30 AM EST Office Visit Wharf Operator Obstetrics Maternal Medicine, [place] [address] [place] [address] Praveen Mcconnell MD [address] [place] [address] 08/10/2023 10:30 AM EST Imaging Radiology [facility], [place] [address] [place] [address] 08/18/2023 8:00 AM EST Office Visit Gynecology/Obstetrics [facility] [address] [place] [address] Wandy Li CRNP [address] [place] [address] Pending Results Name Type Priority Associated Diagnoses Date /Time RED BLOOD CELL ANTIBODY IDENTIFICATION INTERPRETATION Lab STAT Red blood cell antibody positive 07/24/2023 2:11 PM EST Health Maintenance Due Date Last Done Comments [...] Comments RED BLOOD CELL ANTIBODY IDENTIFICATION STAT 07/24/2023 2:11 PM EST Red blood cell antibody positive RED BLOOD CELL ANTIBODY TITER Routine 07/24/2023 2:11 PM EST Red blood cell antibody positive TYPE AND SCREEN STAT 07/24/2023 2:11 PM EST Red blood cell antibody positive documented in this encounter Results * RED BLOOD CELL ANTIBODY IDENTIFICATION (07/24/2023 2:11 PM EST) Red Blood Cell Antibody Identification No new alloantibodies identified 07/27/2023 9:39 AM EST [facility] Comment:Previously identifie d Anti-C, Anti-e, and Anti-Fya Blood Venous blood specimen / Unknown Venipuncture / Unknown 07/24/2023 2:11 PM EST 07/24/2023 2:11 PM EST Eloy Bae MD LAB BLOOD BANK TEST ORDERABLES [facility] [address] [place] [address] * TYPE AND SCREEN (07/24/2023 2:11 PM EST) ABO O 07/24/2023 6:28 PM EST [facility] Rh Positive 07/24/2023 6:28 PM EST [facility] Red Blood Cell Antibody Screen Positive 07/24/2023 6:28 PM EST [facility] Comment: PREVIOUSLY IDENTIFIED ANTI-C, ANTI-e, AND ANTI-Fya If RBC use is anticipated, place a prepare order Antibodies may delay blood availability Specimen Expiration Date 07/27/2023 23:59 07/24/2023 6:28 PM EST [facility] Blood Venous blood specimen / Unknown Venipuncture / Unknown 07/24/2023 2:11 PM EST 07/24/2023 2:11 PM EST Eloy Bae MD LAB BLOOD BANK TEST ORDERABLES Performing Organization Address City/[facility] Co de Phone Number LABORATORY [facility] [address] [place] [address] * RED BLOOD CELL ANTIBODY TITER (07/24/2023 2:11 PM EST) Antibody Titer Anti-e Titer : Less than 1 Anti-Fya Titer : Less than 1 Anti-C Titer : 1 07/27/2023 10:29 AM EST [facility] Blood Venous blood specimen / Unknown Venipuncture / Unknown 07/24/2023 2:11 PM EST 07/24/2023 2:11 PM EST Eloy Bae MD LAB BLOOD BANK TEST ORDERABLES Performing Organization Address [facility] Co de Phone Number [facility] [address] [place] [address] documented in this encounter Visit Diagnoses Diagnosis Red blood cell antibody positive Other and unspecified nonspecific immunological findings documented in this encounter
--- OUTSIDE RECORDS SUMMARY | 2023-12-28 07:53 | External Medical Summary | Summary of Care ---
Author Name Unknown Organization [facility] Address [address] [place] [address] Phone [phone] Care Team Providers Care Packing Line Operator Name Role Phone Unavailable Primary Care Provider Unavailabl e Reason for Visit * Reason Comments Outpatient Testing Encounter Details Date Type Department Care Team (Late st Contact Info) Description 08/18/2023 8:50 AM EST Laboratory Laboratory, [facility] [address] [place] [phone] [facility] [address] [place] [address] Red blood cell antibody positive Allergies No known active allergiesdocumented as of this encounter (statuses as of 08/20/2023) Medications Medication Sig Dispensed Refills Start Date End Date Status Vitamin 27-0.8 MG Oral Tablet Take by mouth. 0 Active Aspirin 81 MG Oral Capsule Take by mouth. 0 Active documented as of this encounter (statuses as of 08/20/2023) Active Problems Problem Noted Date Diagnosed Date Abnormal glucose tolerance in mother complicatin g 07/06/2023 Overview: Elevated early 1 hr GTT - normal 3 hr GTT at 15 weeks High-risk 06/26/2023 Bipolar disease during 06/26/2023 Subchorionic hematoma, antepartum 06/09/2023 Overview: -At [facility] 9w1d -> "small GLENDY" per [...] have US confirmed , demise sometime between 6w3j-87 w0d, no testing done, no difficulty conceiving, [...] Plan: -Ensure proper follow up by primary MARKET DEVELOPMENT MANAGER team History of migraine 06/28/2021 Overview: Fioricet not covered by insurance. Neurologist recommended propranolol. Message to [facility] for advice. Migraine with aura [...] as of this encounter (statuses as of 08/20/2023) Resolved Problems Problem Noted Date Diagnosed Date [...] as of this encounter (statuses as of 08/20/2023) Immunizations Name Administration Dates Next Due COVID-19 mRNA, LNP-s, No Pre serve, 2-Dose Series (Pfizer) 05/04/2021,09/04/2020,08/14/2020 COVID-19, MRNA-LNP, 23-24, P F, 30 [...] money to get more. Never true 08/04/2023 [place] Depression Scale Answer Date Recorded [place] Depression Scale Total 5 05/29/2023 The thought [...] Miscellaneous Notes * Addendum Note - Favio Peters TECH - 08/20/2023 10:17 AM ESTAddended by: FAVIO PETERS on: 08/20/2023 10:17 AM Modules accepted: Orders documented in this encounter Plan of Treatment Upcoming Encounters Date Type Department Care Team (Late st Contact Info) Description 09/07/2023 2:45 PM EDT Office Visit Cardiology Coordinator Obstetrics Maternal Medicine, [place] [address] [place] [address] Praveen Mcconnell MD [address] [place] [address] 09/07/2023 2:45 PM EDT [facility] [address] [place] [address] 09/14/2023 3:45 PM EDT Office [facility] [place] [address] Nubia Saab, [place] [address] [place] [address] 10/08/2023 11:45 AM EDT Imaging Maternal Medicine Imaging, Enoch Logan [place] [address] 11/05/2023 11:45 AM EDT Imaging Maternal Medicine Imaging, Enoch Younger [facility] [place] [phone] 12/03/2023 8:45 AM EDT Imaging Maternal Medicine [facility] [place] [phone] Pending Results Name Type Priority Associated Diagnoses Date /Time RED BLOOD CELL ANTIBODY IDENTIFICATION INTERPRETATION Lab STAT Red blood cell antibody positive 08/18/2023 8:37 AM EST Health Maintenance Due Date Last Done [...] Comments RED BLOOD CELL ANTIBODY IDENTIFICATION STAT 08/18/2023 8:37 AM EST Red blood cell antibody positive RED BLOOD CELL ANTIBODY TITER Routine 08/18/2023 8:37 AM EST Red blood cell antibody positive TYPE AND SCREEN STAT 08/18/2023 8:37 AM EST Red blood cell antibody positive documented in this encounter Results * RED BLOOD CELL ANTIBODY IDENTIFICATION (08/18/2023 8:37 AM EST) Red Blood Cell Antibody Identification No new alloantibodies identified 08/19/2023 10:02 AM EST [facility] Comment:PREVIOUSLY IDENTIFIE D ANTI-C, ANTI-e AND ANTI-Fya Blood Venous blood specimen / Unknown Venipuncture / Unknown 08/18/2023 8:37 AM EST 08/18/2023 8:37 AM EST Eloy Bae MD LAB BLOOD BANK TEST ORDERABLES [facility] [address] [place] [address] * TYPE AND SCREEN (08/18/2023 8:37 AM EST) ABO O 08/18/2023 2:53 PM EST [facility] Rh Positive 08/18/2023 2:53 PM EST [facility] Red Blood Cell Antibody Screen Positive 08/18/2023 2:53 PM EST [facility] Comment: If RBC use is anticipated, place a prepare order Antibodies may delay blood availability Specimen Expiration Date 08/21/2023 23:59 08/18/2023 2:53 PM EST [facility] Blood Venous blood specimen / Unknown Venipuncture / Unknown 08/18/2023 8:37 AM EST 08/18/2023 8:37 AM EST Eloy Bae MD LAB BLOOD BANK TEST ORDERABLES Performing Organization Address City/[facility]/ZIP Co de Phone Number [facility] [address] [place] [address] * RED BLOOD CELL ANTIBODY TITER (08/18/2023 8:37 AM EST) Antibody Titer Anti-C Titer : 1 Anti-e Titer : Less than 1 Anti-Fya Titer : Less than 1 08/19/2023 10:58 AM EST [facility] Blood Venous blood specimen / Unknown Venipuncture / Unknown 08/18/2023 8:37 AM EST 08/18/2023 8:37 AM EST Eloy Bae MD LAB BLOOD BANK TEST ORDERABLES Performing Organization Address [facility] Co de Phone Number [facility] [address] [place] [address] documented in this encounter Visit Diagnoses Diagnosis Red blood cell antibody positive Other and unspecified nonspecific immunological findings documented in this encounter
--- OUTSIDE RECORDS SUMMARY | 2023-12-28 07:53 | External Medical Summary ---
Author Name Unknown Address Unknown Organization K01:LABORATORY [facility] - [address] [place] [id number] Laboratory Report Ordering Provider Test Date Status JOCE ROTH 08/18/2023 08:37:44 Final Serial titers for anti-e, an ti-C, anti- Fy(a) Observation Date Value Abnormality Reference (Units) Status RED BLOOD CELL ANTIBODY IDENTIFICATION 08/18/2023 08:37:44 No new alloantibodies identified Final PREVIOUSLY IDENTIFIED ANTI-C , ANTI-e AND ANTI-Fya Performing Location LABORATORY [facility] - [address] [place] [id number]
--- OUTSIDE RECORDS SUMMARY | 2023-12-28 07:53 | External Medical Summary ---
Author Name Unknown Address Unknown Organization K01:[facility] - [address] [place] [id number] Laboratory Report Ordering Provider Test Date Status JOCE ROTH 07/24/2023 14:11:28 Final Serial titers for anti-e, an ti-C, anti- Fy(a) Observation Date Value Abnormality Reference (Units ) Status ABO 07/24/2023 14:11:28 O Final RH 07/24/2023 14:11:28 Positive Final RED BLOOD CELL ANTIBODY SCREEN 07/24/2023 14:11:28 Positive Final PREVIOUSLY IDENTIFIED ANTI-C , ANTI-e, AND ANTI-Fya
If RBC use is anticipated, place a prepare order
Antibodies may delay blood availability SPECIMEN EXPIRATION DATE 07/24/2023 14:11:28 07/27/2023 23:5 9 Final Performing Location [facility] - [address] [address]
--- OUTSIDE RECORDS SUMMARY | 2023-12-28 07:53 | External Medical Summary | Summary of Care ---
Author Name Unknown Organization [facility] Address [address] [place] [address] Phone [phone] Care Team Providers Care Screenplay Writer Name Role Phone Unavailable Primary Care Provider Unavailabl e Reason for Visit * Reason Comments Return Visit Encounter Details Date Type Department Care Team (Late st Contact Info) Description 07/24/2023 1:45 PM EST Office Visit Gynecology/Obstetric s Enzo [place] [address] [place] [address] Niya Goodrich CRNP [address] [place] [address] High-risk in second trimester*; Obesity affecting , antepartum, unspecified obesity type; Antiphospholipid antibody syndrome complicating (HCC); Family history of autism; Antepartum multigravida of advanced maternal age; Red blood cell antibody positive; History of transfusion; Subchorionic hematoma, antepartum, single or unspecified fetus; Bipolar disease during in second trimester ([facility]); Abnormal glucose tolerance in mother complicating Allergies No known active allergiesdocumented as of this encounter (statuses as of 07/24/2023) Medications Medication Sig Dispensed Refills Start Date End Date Status Vitamin 27-0.8 MG Oral Tablet Take by mouth. 0 Active Aspirin 81 MG Oral Capsule Take by mouth. 0 Active Progesterone 200 MG Oral Capsule (Prometrium)Fatuma cations:Recurren t loss without current ,Female infertility Take 1 tablet intravaginally every evening. 30 Capsule 2 3 07/24/19 24 Discontinued documented as of this encounter (statuses as of 07/24/2023) Active Problems Problem Noted Date Diagnosed Date Abnormal glucose tolerance in mother complicatin g 07/06/2023 Overview: Elevated early 1 hr GTT - normal 3 hr GTT at 15 weeks High-risk 06/26/2023 Bipolar disease during 06/26/2023 Subchorionic hematoma, antepartum 06/09/2023 Overview: -At [facility] 9w1d -> "small GLENDY" [...] versus serial maternal titers. Chart made for FODee, Antony Cade 02/25/1988 > orders placed for [...] 4 weeks until critical value of 1:16. [facility] will coordinate ordering the FOB's antigen status and maternal titers. 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 Neurologist recommended propranolol. Message to [facility] for advice. Migraine with aura and witho [...] as of this encounter (statuses as of 07/24/2023) Resolved Problems Problem Noted Date Diagnosed Date [...] as of this encounter (statuses as of 07/24/2023) Immunizations Name Administration Dates Next Due COVID-19 mRNA, LNP-s, No Pre serve, 2-Dose Series ([employer]) 05/04/2021,09/04/2020,08/14/2020 COVID-19, MRNA-LNP, 23-24, P F, 30 MCG/0.3 mL, 12 YRS AND ABOVE, IM ([employer]) 03/07/2023 HPV Vaccine, 4-Valent 05/26/2012,02/24/2012,07/17 PPD 08/19/2022,01/09/2012,02/10/2007 [...] money to get more. Never true 10/12/2022 [place] Depression Scale Answer Date Recorded [place] Depression Scale Total 5 05/29/2023 The thought [...] Sign Reading Time Taken Comments Blood Pressure 122/84 07/24/2023 1:52 PM EST Pulse - - Temperature - - Respiratory Rate - - Oxygen Saturation - - Inhaled Oxygen Concentration - - Weight 115.7 kg (255 lb) 07/24/2023 1:52 PM EST Height - - Body Mass Index 42.64 05/29/2023 1:07 PM EST documented in this encounter Progress Notes * Niya Goodrich CRNP - 07/24/2023 1:54 PM EST 16w6d Feeling movement. No cramping or bleeding. Declines genetic screening. Scheduled for anatomy scan with [facility]. JOSETTE To * Caroline Cbarera LPN - 07/24/2023 1:50 PM EST 16w6d Denies vaginal bleeding/rom + movement Increased constipation documented in this encounter Plan of Treatment Upcoming Encounters Date Type Department Care Team (Late st Contact Info) Description 07/24/2023 2:20 PM EST Laboratory Laboratory, [facility] [address] [facility] [place] [phone] [facility] [address] [facility] [place] [address] Red blood cell antibody positive 08/10/2023 10:30 AM EST Office Visit Digital Account Executive Obstetrics Maternal Medicine, [address] [address] Praveen Mcconnell MD [address] [place] [address] 08/10/2023 10:30 AM EST [facility] [place] [address] [place] [address] 08/18/2023 8:00 AM EST Office Visit Gynecology/Obstetric s Enzo Snyder [address] [facility] [place] [address] Wandy Li CRNP [address] [facility] [place] [address] Health Maintenance Due Date Last Done Comments [...] or unspecified fetus Bipolar disease during in second trimester (HCC) Abnormal glucose tolerance in mother complicating Abnormal maternal glucose tolerance, complicating , childbirth, or the puerperium, unspecified as to episode of care Red blood cell antibody positive Other and unspecified nonspecific immunological findings documented in this encounter
--- OUTSIDE RECORDS SUMMARY | 2023-12-28 07:53 | External Medical Summary | Summary of Care ---
Author Name Unknown Organization [facility] Address [address] [place] [address] Phone [phone] Care Team Providers Care Airplane Patrol Pilot Name Role Phone Unavailable Primary Care Provider Unavailabl e Reason for Visit * Reason Comments Outpatient Testing Encounter Details Date Type Department Care Team (Late st Contact Info) Description 08/18/2023 8:50 AM EST Laboratory Laboratory, [facility] [address] [place] [id number] [facility] [address] [place] [address] Red blood cell antibody positive Allergies No [...] have US confirmed , demise sometime between 2t7u-59 w0d, no testing done, no difficulty conceiving, [...] Plan: -Ensure proper follow up by primary SUPERVISOR STAVE FINISHING team History of migraine 06/28/2021 Overview: Fioricet not covered by insurance. Neurologist recommended propranolol. Message to [facility] for advice. Migraine with aura and [...] mRNA, LNP-s, No Pre serve, 2-Dose Series (Architectural Daily) 05/04/2021,09/04/2020,08/14/2020 COVID-19, MRNA-LNP, 23-24, P F, 30 MCG/0.3 mL, 12 YRS AND ABOVE, IM (Breadcrumbtracking-ComirnatBvents) 03/07/2023 HPV Vaccine, 4-Valent 05/26/2012,02/24/2012,07/17 PPD 08/19/2022,01/09/2012,02/10/2007 [...] money to get more. Never true 08/04/2023 [place] Depression Scale Answer Date Recorded [place] Depression Scale Total 5 05/29/2023 The thought [...] Description 09/07/2023 2:45 PM EDT Office Visit Threat Monitoring Analyst Obstetrics Maternal Medicine, [place] [address] [place] [address] Praveen Mcconnell MD [address] [place] [address] 09/07/2023 2:45 PM EDT Imaging Radiology [facility] [address] [place] [address] 09/14/2023 3:45 PM EDT Office Visit Gynecology/Obstetrics [facility] [address] [place] [address] Nubia Saab, ASIA [address] [facility] [place] [address] 10/08/2023 11:45 AM EDT Imaging Maternal Medicine Imaging, Enoch [place] [address] 11/05/2023 11:45 AM EDT Imaging Maternal Medicine Imaging, Enoch Snyder Aren [place] [address] 12/03/2023 8:45 AM EDT Imaging Maternal Medicine Imaging, [facility] [address] [facility] [place] [address] Pending Results Name Type Priority Associated Diagnoses Date /Time RED BLOOD CELL ANTIBODY TITER Lab Routine Red blood cell antibody positive 08/18/2023 8:37 [...]
--- OUTSIDE RECORDS SUMMARY | 2023-12-28 07:53 | External Medical Summary ---
Author Name Unknown Address Unknown Organization K01:LABORATORY [facility] [place] [facility] - [address] [place] [id number] Laboratory Report Ordering Provider Test Date Status JOCE ROTH 07/24/2023 14:11:28 Correction Serial titers for anti-e, an ti-C, anti- Fy(a) Observation Date Value Abnormality Reference (Units) Status RED BLOOD CELL ANTIBODY IDENTIFICATION 14:11:28 No new alloantibodies identified Correction Previously identified Anti-C , Anti-e, and Anti-Fya Performing Location [facility] [place] [facility] - [address] [place] [id number]
--- OUTSIDE RECORDS SUMMARY | 2023-12-28 07:53 | External Medical Summary | Summary of Care ---
Author Name Unknown Organization [facility] Address [address] [place] [address] Phone [phone] Care Team Providers Care Pmo Project Manager Name Role Phone Unavailable Primary Care Provider Unavailabl e Reason for Visit * Reason Comments Outpatient Testing Encounter Details Date Type Department Care Team (Late st Contact Info) Description 07/24/2023 2:20 PM EST Laboratory Laboratory, [facility] [address] [place] [phone] [facility] [address] [place] [address] Red blood cell antibody positive Allergies No [...] Subchorionic hematoma, antepartum 06/09/2023 Overview: -At [facility] 9w1d -> "small GLENDY" per [...] 4 weeks until critical value of 1:16. [facility] will coordinate ordering the FOB's antigen [...] have US confirmed , demise sometime between 9y8x-90 w0d, no testing done, no difficulty conceiving, [...] Plan: -Ensure proper follow up by primary MISSILE TECHNICIAN team History of migraine 06/28/2021 Overview: Fioricet not covered by insurance. Neurologist recommended propranolol. Message to [facility] for advice. Migraine with aura and [...] mRNA, LNP-s, No Pre serve, 2-Dose Series (InnoCC) 05/04/2021,09/04/2020,08/14/2020 COVID-19, MRNA-LNP, 23-24, P F, 30 MCG/0.3 mL, 12 YRS AND ABOVE, IM (Currently-ComirnatCommunity Bound, Inc.) 03/07/2023 HPV Vaccine, 4-Valent 05/26/2012,02/24/2012,07/17 PPD [...] money to get more. Never true 10/12/2022 [place] Depression Scale Answer Date Recorded [place] Depression Scale Total 5 05/29/2023 The thought [...] Description 08/10/2023 10:30 AM EST Office Visit Home Office Claim Specialist Obstetrics Maternal Medicine, [place] [address] [place] [address] Praveen Mcconnell MD [address] [place] [address] 08/10/2023 10:30 AM EST [facility] [place] [address] [place] [address] 08/18/2023 8:00 AM EST Office Visit Gynecology/Obstetrics [facility] [address] [place] [address] Wandy Li CRNP [address] [place] [address] Pending Results Name Type Priority Associated Diagnoses Date /Time RED BLOOD CELL ANTIBODY TITER Lab Routine Red blood cell antibody positive 07/24/2023 2:11 [...]
--- OUTSIDE RECORDS SUMMARY | 2023-12-28 07:53 | External Medical Summary | Summary of Care ---
Author Name Unknown Organization [facility] Address [address] [place] [address] Phone [phone] Care Team Providers Care Debit Agent Name Role Phone Unavailable Primary Care Provider Unavailabl e Reason for Visit * Reason Comments Ultrasound Encounter Details Date Type Department Care Team (Late st Contact Info) Description 08/10/2023 10:30 AM EST Office Visit Industrial Gas Production Operator Obstetrics Maternal Medicine, [place] [address] [place] [address] Praveen Mcconnell MD [address] [place] [address] Antepartum multigravida of advanced maternal age*; Antiphospholipid antibody syndrome complicating (HCC); Class 3 severe obesity due to excess calories without serious comorbidity with body mass index (BMI) of 40.0 to 44.9 in adult (HCC); Migraine with aura and without status migrainosus, not intractable; Obesity affecting , antepartum, unspecified obesity type; Red blood cell antibody positive Allergies No known active allergiesdocumented as of this encounter (statuses as of 08/10/2023) Medications Medication Sig Dispensed Refills Start Date End Date Status Vitamin 27-0.8 MG Oral Tablet Take by mouth. 0 Active Aspirin 81 MG Oral Capsule Take by mouth. 0 Active documented as of this encounter (statuses as of 08/10/2023) Active Problems Problem Noted Date Diagnosed Date [...] have US confirmed , demise sometime between 1n7i-24 w0d, no testing done, no difficulty conceiving, [...] Plan: -Ensure proper follow up by primary TRANSFER PUMPER team History of migraine 06/28/2021 Overview: Fioricet not covered by insurance. Neurologist recommended propranolol. Message to [facility] for advice. Migraine with aura and [...] as of this encounter (statuses as of 08/10/2023) Resolved Problems Problem Noted Date Diagnosed Date [...] as of this encounter (statuses as of 08/10/2023) Immunizations Name Administration Dates Next Due COVID-19 mRNA, LNP-s, No Pre serve, 2-Dose Series (Freedom2) 05/04/2021,09/04/2020,08/14/2020 COVID-19, MRNA-LNP, 23-24, P F, 30 MCG/0.3 mL, 12 YRS AND ABOVE, IM (Liquid Engines) 03/07/2023 HPV Vaccine, 4-Valent 05/26/2012,02/24/2012,07/17 PPD 08/19/2022,01/09/2012,02/10/2007 [...] money to get more. Never true 08/04/2023 [place] Depression Scale Answer Date Recorded [place] Depression Scale Total 5 05/29/2023 The thought [...] as of this encounter Progress Notes * Praveen Mcconnell MD - 08/10/2023 11:12 AM EST MATERNAL MEDICINE VISIT Yari Lindquist is at 19w2d who presents to [facility] for an ultrasound and follow-up of her high risk . The patient is currently 19 weeks and 2 days gestation with a subchorionic hematoma identified on afirst-trimester ultrasound scan, advanced maternal age and class 3 obesity. 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 Her last titer on July 24 showed them to be less than 1 for the e and c antigen and 1 for the fya antigen. The patient has a possible diagnosis of antiphospholipid antibody syndrome. For specifics, I refer you to the [facility] consultation note. She is being seen today by Maternal- Medicine for the following reasons: Problem List Items Addressed This Visit Class 3 severe obesity due to excess calories without serious comorbidity with body mass index (BMI) of 40.0 to 44.9 in adult (HCC) (Chronic) Antiphospholipid antibody syndrome complicating (HCC) (Chronic) Migraine with aura and without status migrainosus, not intractable Obesity affecting , antepartum I reviewed the ultrasound with her. The anatomy that was visualized appears unremarkable and the biometry is appropriate for the gestational age. The amniotic fluid volume is subjectivelynormal. The fetus is in the vertex presentation. Antepartum multigravida of advanced maternal age - Primary Red blood cell antibody positive I reviewed her most recent antibody titer. I told her that the critical titer would be 8 or above for MCA Doppler evaluation. We reviewed today's ultrasound findings. (For full report, please refer to ultrasound report provided separately). Ms. Lindquist's questions were answered to her satisfaction. Ms. Lindquist was instructed to notify her primary city collector if she felt regular contractions (approximately every 10 mins), leaking of fluid, vaginal bleeding or if movement decreased. RECOMMENDATIONS: Recommend surveillance starting at 34 weeks secondary to class 3 obesity. Recommend follow up ultrasound with MFM in 4 weeks for growth secondary to class 3 obesity. Recommend delivery at 39 weeks gestation. Thank you for allowing us to participate in the care of this patient. Please call with any questions. I spent 20 minutes with Ms. Lindquist of which greater than 50% was spent in face to face consultation and coordination of care for the above. Praveen Mcconnell MD 08/10/2023 11:12 AM documented in this encounter Nursing Notes * Margie Otero CCMA - 08/10/2023 10:20 AM EST Patient states she has been experiencing numbness and tingling in her left thigh over the past 2 weeks. documented in this encounter Miscellaneous Notes * Assessment & Plan Note - Praveen Mcconnell MD - 08/10/2023 11:43 AM EST Associated Problem(s): Red blood cell antibody positive I reviewed her most recent antibody titer. I told her that the critical titer would be 8 or above for MCA Doppler evaluation. * Assessment & Plan Note - Praveen Mcconnell MD - 08/10/2023 11:30 AM EST Associated Problem(s): Obesity affecting , antepartum I reviewed the ultrasound with her. The anatomy that was visualized appears unremarkable and the biometry is appropriate for the gestational age. The amniotic fluid volume is subjectivelynormal. The fetus is in the vertex presentation. documented in this encounter Plan of Treatment Upcoming Encounters Date Type Department Care Team (Late st Contact Info) Description 08/18/2023 8:00 AM EST Office Visit Gynecology/Obstetrics [place] [address] [place] [address] Wandy Li CRNP [address] [place] [address] 09/07/2023 2:45 PM EDT Office Visit Industrial Gas Production Operator Obstetrics Maternal Medicine, [address] [address] Praveen Mcconnell MD [address] [place] [address] 09/07/2023 2:45 PM EDT Imaging Radiology [facility] [address] [place] [address] 10/08/2023 11:45 AM EDT Imaging Maternal Medicine Imaging, Enoch Snyder [address] [place] [address] 11/05/2023 11:45 AM EDT Imaging Maternal Medicine Imaging, Enoch Snyder [address] [place] [address] 12/03/2023 8:45 AM EDT Imaging Maternal Medicine Imaging, Enoch Snyder [address] [place] [address] Scheduled Orders Name Type Priority Associated Diagnoses Orde r Schedule [facility] US PREG FOLLOW UP EACH FETUS Medical Imaging Routine Antepartum multigravida of advanced maternal age Antiphospholipid antibody syndrome complicating (HCC) Class 3 severe obesity due to excess calories without serious comorbidity with body mass index (BMI) of 40.0 to 44.9 in adult (HCC) Migraine with aura and without status migrainosus, not intractable Obesity affecting , antepartum, unspecified obesity type Red blood cell antibody positive 6 Occurrences starting 08/10/2023 until 02/08/2024 [facility] US BIOPHYSICAL WO NON STRESS Medical Imaging Routine Antepartum multigravida of advanced maternal age Antiphospholipid antibody syndrome complicating (HCC) Class 3 severe obesity due to excess calories without serious comorbidity with body mass index (BMI) of 40.0 to 44.9 in adult (HCC) Migraine with aura and without status migrainosus, not intractable Obesity affecting , antepartum, unspecified obesity type Red blood cell antibody positive 2 Occurrences starting 08/10/2023 until 02/08/2024 Health Maintenance Due Date Last Done Comments [...] Antepartum multigravida of advanced maternal age- Primary Antiphospholipid antibody syndrome complicating (HCC) Other [...]
--- OUTSIDE RECORDS SUMMARY | 2023-12-28 07:53 | External Medical Summary ---
Author Name Unknown Address Unknown Organization K01[place] [place] [address] [place] [address] Ave. [facility] [address] Laboratory Report Ordering Provider Test Date Status JOCE ROTH 07/24/2023 14:11:28 Final Observation Date Value Abnormality Reference (Units) Status Blood group antibody investigation [Interpretation] in Plasma or RBC 07/24/2023 14:11:28 Anti-C, Anti-e, and Anti-Fy(a) are identified. Final Blood group antibody investigation [Interpretation] in Plasma or RBC 07/24/2023 14:11:28 Final Blood group antibody investigation [Interpretation] in Plasma or RBC 07/24/2023 14:11:28 The patient is a 38 year old female with ABO/RH type of O positive. Results of this antibody identification testing are consistent with the patient's history of Anti-C, Anti-e, Anti-Fy(a). Antibody to C-antigen, e-antigen, Fy(a)-antigen can result from alloimmunization from transfusion or . These findings place the patient at risk for hemolytic transfusion reaction. Crossmatch compatible Q-nttotrt-lpcynpoy, f-zbyqcyv-wukuijen, Fy(a)-antigen-negative RBCs should be given if transfusion is necessary, approximately less than 1% of blood donors will be compatible. Final Performing Location [facility] [place] [address] [facility] [address]
--- OUTSIDE RECORDS SUMMARY | 2023-12-28 07:53 | External Medical Summary | Summary of Care ---
Author Name Unknown Organization [facility] Address [address] [place] [address] Phone [phone] Care Team Providers Care Global Logistics Analyst Name Role Phone Unavailable Primary Care Provider Unavailabl e Reason for Visit * Reason Comments Ultrasound Encounter Details Date Type Department Care Team (Late st Contact Info) Description 08/10/2023 10:30 AM EST Office Visit Die Hardener Obstetrics Maternal Medicine, [place] [address] [place] [address] Praveen Mcconnell MD [address] [place] [address] Antepartum multigravida of advanced maternal age*; Antiphospholipid [...] Subchorionic hematoma, antepartum 06/09/2023 Overview: -At [facility] 9w1d -> "small GLENDY" per ER physician [...] have US confirmed , demise sometime between 6q8x-08 w0d, no testing done, no difficulty conceiving, [...] Plan: -Ensure proper follow up by primary DAIRY PROCESSING EQUIPMENT OPERATOR team History of migraine 06/28/2021 Overview: Fioricet not covered by insurance. Neurologist recommended propranolol. Message to [facility] for advice. Migraine with aura and [...] mRNA, LNP-s, No Pre serve, 2-Dose Series (Liberata) 05/04/2021,09/04/2020,08/14/2020 COVID-19, MRNA-LNP, 23-24, P F, 30 MCG/0.3 mL, 12 YRS AND ABOVE, IM (indico) 03/07/2023 HPV Vaccine, 4-Valent 05/26/2012,02/24/2012,07/17 PPD 08/19/2022,01/09/2012,02/10/2007 [...] money to get more. Never true 08/04/2023 [place] Depression Scale Answer Date Recorded [place] Depression Scale Total 5 05/29/2023 The thought [...] Lindquist is at 19w2d who presents to [facility] for an ultrasound and follow-up of her [...] For specifics, I refer you to the [facility] consultation note. She is being seen today [...] Lindquist was instructed to notify her primary keno writer/runner if she felt regular contractions (approximately every [...] Will[place] Jacksons [address] [place] [address] Wandy Li CRNP [address] [place] [address] 09/07/2023 2:45 PM EDT Office Visit Die Hardener Obstetrics Maternal Medicine, [address] [address] Praveen Mcconnell MD [address] [place] [address] 09/07/2023 2:45 PM EDT Imaging Radiology [facility] [address] [place] [address] 10/08/2023 11:45 AM EDT Imaging Maternal Medicine Imaging, Enoch Snyder [address] [place] [address] 11/05/2023 11:45 AM EDT Imaging Maternal Medicine Imaging, Enoch Synder [address] [place] [address] 12/03/2023 8:45 AM EDT Imaging Maternal Medicine Imaging, Enoch Snyder [address] [place] [address] Scheduled Orders Name Type Priority Associated Diagnoses Orde r Schedule [facility] US PREG FOLLOW UP EACH FETUS Medical [...] positive 6 Occurrences starting 08/10/2023 until 02/08/2024 [facility] US BIOPHYSICAL WO NON STRESS Medical Imaging [...]
--- OUTSIDE RECORDS SUMMARY | 2023-12-28 07:53 | External Medical Summary | Summary of Care ---
Author Name Unknown Organization [facility] Address [address] [place] [address] Phone [phone] Care Team Providers Care Care Transition Manager Name Role Phone Unavailable Primary Care Provider Unavailabl e Reason for Visit * Reason Onset Date Comments Referral 06/01/2023 Encounter Details Date Type Department Care Team (Late st Contact Info) Description 06/01/2023 Telephone Procurement Forester Obstetrics Maternal Medicine, [place] [address] [place], [place] [phone] [place], Nurse Procurement Forester [facility] [address] [place], [place] [phone] Referral Allergies No known active allergiesdocumented as of this encounter (statuses as of 08/31/2023) Medications Medication Sig Dispensed Refills Start Date End Date Status Vitamin 27-0.8 MG Oral Tablet Take by mouth. 0 Active Aspirin 81 MG Oral Capsule Take by mouth. 0 Active documented as of this encounter (statuses as of 08/31/2023) Active Problems Problem Noted Date Diagnosed Date Abnormal glucose tolerance in mother complicatin g 07/06/2023 Overview: Elevated early 1 hr GTT - normal 3 hr GTT at 15 weeks High-risk 06/26/2023 Bipolar disease during 06/26/2023 Subchorionic hematoma, antepartum 06/09/2023 Overview: -At [facility] 9w1d -> "small GLENDY" per [...] have US confirmed , demise sometime between 5g7z-28 w0d, no testing done, no difficulty conceiving, [...] Plan: -Ensure proper follow up by primary MASTER CONTROL OPERATOR team History of migraine 06/28/2021 Overview: Fioricet not covered by insurance. Neurologist recommended propranolol. Message to [facility] for advice. Migraine with aura and witho [...] as of this encounter (statuses as of 08/31/2023) Resolved Problems Problem Noted Date Diagnosed Date [...] moderate 08/14/2003 08/13/2020 BIPOLAR AFFEC, DEPR-MOD 08/14/2003 06/2020 Borderline personality disorder 08/14/2003 08/13/2020 documented as of this encounter (statuses as of 08/31/2023) Immunizations Name Administration Dates Next Due COVID-19 mRNA, LNP-s, No Pre serve, 2-Dose Series ([employer]ations Studio) 05/04/2021,09/04/2020,08/14/2020 COVID-19, MRNA-LNP, 23-24, P F, 30 MCG/0.3 mL, 12 YRS AND ABOVE, IM (Oakmonkey-Comirnaty) 03/07/2023 HPV Vaccine, 4-Valent 05/26/2012,02/24/2012,07/17 PPD 08/19/2022,01/09/2012,02/10/2007 [...] money to get more. Never true 08/04/2023 [place] Depression Scale Answer Date Recorded [place] Depression Scale Total 5 05/29/2023 The thought [...] encounter Miscellaneous Notes * Telephone Encounter - Natalia Moncada OSA - 06/01/2023 2:17 PM EST Spoke with Yari. Appointment scheduled. Patient aware of date, time and location of Maternal Medicine appointment. * Telephone Encounter - Margie Otero MED ASSIST - 06/01/2023 1:42 PM EST Estimated Date of Delivery: 01/02/24 Please schedule for 45 MINUTE CONSULT SIMPLE MEDICAL WITH AUTOMATIC FABRIC CUTTER, in time frame of next available or atpatient's earliest convenience at location [facility] with the indication of AMA (38), class III obesity, APS, fibroid, family hx autism (patient's 's siblings) Please schedule anatomy between 19-21 weeks (08/08/23-08/23/23). Referring Provider: Matilda Lambert PA-C documented in this encounter Plan of Treatment Upcoming Encounters Date Type Department Care Team (Late st Contact Info) Description 09/07/2023 2:45 PM EDT Office Visit Procurement Forester Obstetrics Maternal Medicine, [place] [address] [place] [address] Praveen Mcconnell MD [address] [place] [address] 09/07/2023 2:45 PM EDT Imaging Radiology [facility], [place] [address] [place] [address] 09/14/2023 3:45 PM EDT Office Visit Gynecology/Obstetrics Enzo Snyder [address] [place] [address] Nubia Saab, ASIA [address] [place] [address] 10/08/2023 11:45 AM EDT Imaging Maternal Medicine Imaging, Enoch [place] [address] 11/05/2023 11:45 AM EDT Imaging Maternal Medicine Imaging, Enoch [place] [address] 12/03/2023 8:45 AM EDT Imaging Maternal Medicine Imaging, Enoch Snyder [address] [place] [address] Health Maintenance Due Date Last Done Comments [...]
--- OUTSIDE RECORDS SUMMARY | 2023-12-28 07:53 | External Medical Summary | Summary of Care ---
Author Name Unknown Organization [facility] Address [address] [place] [address] Phone [phone] Care Team Providers Care Moving Van Driver Name Role Phone Unavailable Primary Care Provider Unavailabl e Reason for Visit * Reason Comments Ultrasound Encounter Details Date Type Department Care Team (Late st Contact Info) Description 09/07/2023 2:45 PM EDT Office Visit Furniture Technician Obstetrics Maternal Medicine, [place] [address] [place] [address] Praveen Mcconnell MD [address] [place] [address] Antepartum multigravida of advanced maternal age*; Class 3 severe obesity due to excess calories without serious comorbidity with body mass index (BMI) of 40.0 to 44.9 in adult (HCC); Migraine with aura and without status migrainosus, not intractable; Obesity affecting , antepartum, unspecified obesity type; Red blood cell antibody positive Allergies No known active allergiesdocumented as of this encounter (statuses as of 09/07/2023) Medications Medication Sig Dispensed Refills Start Date End Date Status Vitamin 27-0.8 MG Oral Tablet Take by mouth. 0 Active Aspirin 81 MG Oral Capsule Take by mouth. 0 Active documented as of this encounter (statuses as of 09/07/2023) Active Problems Problem Noted Date Diagnosed Date Abnormal glucose tolerance in mother complicatin g 07/06/2023 Overview: Elevated early 1 hr GTT - normal 3 hr GTT at 15 weeks High-risk 06/26/2023 Bipolar disease during 06/26/2023 Subchorionic hematoma, antepartum 06/09/2023 Overview: -At [facility] 9w1d -> "small GLENDY" per [...] have US confirmed , demise sometime between 0f9j-01 w0d, no testing done, no difficulty conceiving, [...] Plan: -Ensure proper follow up by primary BOILER BLOWER team History of migraine 06/28/2021 Overview: Fioricet not covered by insurance. Neurologist recommended propranolol. Message to [facility] for advice. Migraine with aura and witho [...] as of this encounter (statuses as of 09/07/2023) Resolved Problems Problem Noted Date Diagnosed Date [...] as of this encounter (statuses as of 09/07/2023) Immunizations Name Administration Dates Next Due COVID-19 mRNA, LNP-s, No Pre serve, 2-Dose Series (Fineline) 05/04/2021,09/04/2020,08/14/2020 COVID-19, MRNA-LNP, 23-24, P F, 30 MCG/0.3 mL, 12 YRS AND ABOVE, IM (Akademos-Comirnaty) 03/07/2023 HPV Vaccine, 4-Valent 05/26/2012,02/24/2012,07/17 PPD 08/19/2022,01/09/2012,02/10/2007 [...] money to get more. Never true 08/04/2023 [place] Depression Scale Answer Date Recorded [place] Depression Scale Total 5 05/29/2023 The thought [...] Progress Notes * Praveen Mcconnell MD - 09/07/2023 3:00 PM EDT MATERNAL MEDICINE VISIT Yari Lindquist is at 23w2d who presents to [facility] for an ultrasound and follow-up of her high risk . The patient is currently 23 weeks and 2 days gestation with class 3 obesity, antiphospholipid antibody syndrome and maternal red cell alloimmunization. She comes in for evaluation of growth. Ofnote, she had antibody titer drawn on August 17 that was normal. She is being seen today by Maternal- Medicine for the following reasons: Problem List Items Addressed This Visit Class 3 severe obesity due to excess calories without serious comorbidity with body mass index (BMI) of 40.0 to 44.9 in adult (HCC) (Chronic) Migraine with aura and without status migrainosus, not intractable Obesity affecting , antepartum I reviewed the ultrasound. The overall estimated weight is consistent with the 89th percentile for the gestational age and the anatomy that was visualized appears unremarkable. The amniotic fluid volume is subjectively normal and the fetus is in the transverse presentation. Antepartum multigravida of advanced maternal age - Primary Red blood cell antibody positive RECOMMENDATIONS: Recommend surveillance starting at 32 weeks secondary to antiphospholipid antibody syndrome. Recommend follow up ultrasound with MFM in 4 weeks for growth secondary to class 3 obesity. Recommend delivery at 39 weeks gestation. Thank you for allowing us to participate in the care of this patient. Please call with any questions. Praveen Mcconnell MD 09/07/2023 3:00 PM documented in this encounter Miscellaneous Notes * Assessment & Plan Note - Praveen Mcconnell MD - 09/07/2023 3:27 PM EDT Associated Problem(s): Obesity affecting , antepartum I reviewed the ultrasound. The overall estimated weight is consistent with the 89th percentile for the gestational age and the anatomy that was visualized appears unremarkable. The amniotic fluid volume is subjectively normal and the fetus is in the transverse presentation. documented in this encounter Plan of Treatment Upcoming Encounters Date Type Department Care Team (Late st Contact Info) Description 09/14/2023 3:45 PM EDT Office Visit Gynecology/Obstetrics [place] [address] Nubia Saab CNM [address] [facility] [place] [address] 10/08/2023 11:45 AM EDT Imaging Maternal Medicine Imaging, [place] [address] 11/05/2023 11:45 AM EDT [place] [address] 12/03/2023 8:45 AM EDT Imaging Maternal Medicine Imaging, [place] [address] Health Maintenance Due Date Last Done Comments [...] Antepartum multigravida of advanced maternal age- Primary Class 3 severe obesity due to excess [...]
--- OUTSIDE RECORDS SUMMARY | 2023-12-28 07:53 | External Medical Summary ---
Author Name Unknown Address Unknown Organization [id number]:[place] [place] [address] [facility] [place] [address] Laboratory Report Ordering Provider Test Date Status JOCE ROTH 08/18/2023 08:37:44 Final Observation Date Value Abnormality Reference (Units) Status Blood group antibody investigation [Interpretation] in Plasma or RBC 08/18/2023 08:37:44 Findings: Final Blood group antibody investigation [Interpretation] in Plasma or RBC 08/18/2023 08:37:44 Final Blood group antibody investigation [Interpretation] in Plasma or RBC 08/18/2023 08:37:44 Anti-C (titer = 1) Final Blood group antibody investigation [Interpretation] in Plasma or RBC 08/18/2023 08:37:44 Anti-e (titer <1) Final Blood group antibody investigation [Interpretation] in Plasma or RBC 08/18/2023 08:37:44 Anti-Fya (titer <1) Final Blood group antibody investigation [Interpretation] in Plasma or RBC 08/18/2023 08:37:44 Final Blood group antibody investigation [Interpretation] in Plasma or RBC 08/18/2023 08:37:44 The patient is a 38 year old female with ABO/RH type of O positive. Results of this antibody identification testing are consistent with the patient's history of Anti-C, Anti-e, Anti-Fy(a). Antibody to C-antigen, e-antigen, Fy(a)-antigen can result from alloimmunization from transfusion or . These findings place the patient at risk for hemolytic transfusion reaction. Crossmatch compatible A-hpkqqye-ldjhkujb, y-xlylpef-taczowja, Fy(a)-antigen-negative RBCs should be given if transfusion is necessary, approximately less than 1% of blood donors will be compatible. Final Blood group antibody investigation [Interpretation] in Plasma or RBC 08/18/2023 08:37:44 Final Performing Location [facility] [facility] [place] [address] [place] [address]
--- OUTSIDE RECORDS SUMMARY | 2023-12-28 07:53 | External Medical Summary ---
Author Name Unknown Address Unknown Organization [id number]:LABORATORY [facility] [place] [facility] - [address] [place] [id number] Laboratory Report Ordering Provider Test Date Status JOCE ROTH 08/18/2023 08:37:44 Correction Serial titers for anti-e, an ti-C, anti- Fy(a) Observation Date Value Abnormality Reference (Units ) Status ABO 08/18/2023 08:37:44 O Final RH 08/18/2023 08:37:44 Positive Final RED BLOOD CELL ANTIBODY SCREEN 08/18/2023 08:37:44 Positive Correction If RBC use is anticipated, car zee prepare order
Antibodies may delay blood availability SPECIMEN EXPIRATION DATE 08/18/2023 08:37:44 08/21/2023 23:5 9 Final Performing Location LAB[facility]ATORY [facility] [place] [facility] - [address] [place] [id number]
--- OUTSIDE RECORDS SUMMARY | 2023-12-28 07:53 | External Medical Summary | Summary of Care ---
Author Name Unknown Organization [facility] Address [address] [place] [address] Phone [phone] Care Team Providers Care Appraisal Analyst Name Role Phone Unavailable Primary Care Provider Unavailabl e Reason for Visit * Reason Onset Date Comments Referral 06/04/2023 Encounter Details Date Type Department Care Team (Late st Contact Info) Description 06/04/2023 Telephone Asparagus Buncher Obstetrics Maternal Medicine, [place] [address] [place], [place] [phone] [place], Nurse Asparagus Buncher [facility] [address] [place], [place] [phone] Referral Allergies No known active allergiesdocumented as of this encounter (statuses as of 09/03/2023) Medications Medication Sig Dispensed Refills Start Date End Date Status Vitamin 27-0.8 MG Oral Tablet Take by mouth. 0 Active Aspirin 81 MG Oral Capsule Take by mouth. 0 Active documented as of this encounter (statuses as of 09/03/2023) Active Problems Problem Noted Date Diagnosed Date Abnormal glucose tolerance in mother complicatin g 07/06/2023 Overview: Elevated early 1 hr GTT - normal 3 hr GTT at 15 weeks High-risk 06/26/2023 Bipolar disease during 06/26/2023 Subchorionic hematoma, antepartum 06/09/2023 Overview: -At [facility] 9w1d -> "small GLENDY" per [...] have US confirmed , demise sometime between 7q7g-66 w0d, no testing done, no difficulty conceiving, [...] Plan: -Ensure proper follow up by primary WIRE ROPE FABRICATION SUPERVISOR team History of migraine 06/28/2021 Overview: Fioricet not covered by insurance. Neurologist recommended propranolol. Message to [facility] for advice. Migraine with aura [...] as of this encounter (statuses as of 09/03/2023) Resolved Problems Problem Noted Date Diagnosed Date [...] as of this encounter (statuses as of 09/03/2023) Immunizations Name Administration Dates Next Due COVID-19 mRNA, LNP-s, No Pre serve, 2-Dose Series (inTarvo) 05/04/2021,09/04/2020,08/14/2020 COVID-19, MRNA-LNP, 23-24, P F, 30 MCG/0.3 mL, 12 YRS AND ABOVE, IM (Giftxoxo-Comirnaty) 03/07/2023 HPV Vaccine, 4-Valent 05/26/2012,02/24/2012,07/17 PPD 08/19/2022,01/09/2012,02/10/2007 [...] money to get more. Never true 08/04/2023 [place] Depression Scale Answer Date Recorded [place] Depression Scale Total 5 05/29/2023 The [...] Telephone Encounter - Natalia Moncada OSA - 06/04/2023 11:51 AM EST Spoke with Yari. Appointment scheduled. Patient aware of date, time and location of Maternal Medicine appointment. * Telephone Encounter - Margie Otero MED ASSIST - 06/04/2023 11:41 AM EST Estimated Date of Delivery: 01/02/24 Please schedule for 60 MINUTE CONSULT SIMPLE MEDICAL WITH FELLOW , in time frame of next available or at patient's earliest convenience at location [facility] with the indication of antibody positive, pt positive for anti- c, anti-e, and anti-fya antibodies on new labs. RESIDENTIAL CONSTRUCTION INSTRUCTOR consult for 06/05/23 can be cancelled since patient will need visit with Fellow. Patient is scheduled 08/10/23 for anatomy scan. Referring Provider: Matilda Lambert PA-C documented in this encounter Plan of Treatment Upcoming Encounters Date Type Department Care Team (Late st Contact Info) Description 09/07/2023 2:45 PM EDT Office Visit Asparagus Buncher Obstetrics Maternal Medicine, [place] [address] [place] [address] Praveen Mcconnell MD [address] [place] [address] 09/07/2023 2:45 PM EDT Imaging Rad[facility], [place] [address] [place] [address] 09/14/2023 3:45 PM EDT Office Visit Gynecology/Obstetrics Enzo [place] [address] [place] [address] Nubia Saab, [place] [address] [facility] [place] [address] 10/08/2023 11:45 AM EDT Imaging Maternal Medicine Imaging, [place] [address] [place] [address] 11/05/2023 11:45 AM EDT Imaging Maternal Medicine Imaging, [place] [address] 12/03/2023 8:45 AM EDT Imaging Maternal Medicine Imaging, [place] [address] Health Maintenance Due Date Last Done Comments [...]
--- OUTSIDE RECORDS SUMMARY | 2023-12-28 07:53 | External Medical Summary | Summary of Care ---
Author Name Unknown Organization [facility] Address [address] [place] [address] Phone [phone] Care Team Providers Care Quality Control Lead Name Role Phone Unavailable Primary Care Provider Unavailabl e Reason for Visit * Reason Comments Outpatient Testing Encounter Details Date Type Department Care Team (Late st Contact Info) Description 07/13/2023 9:00 AM EST Laboratory Laboratory, [facility] [address] [place] [phone] [facility] [address] [place] [address] Abnormal glucose tolerance in mother complicating Allergies No known active allergiesdocumented as of this encounter (statuses as of 07/13/2023) Medications Medication Sig Dispensed Refills Start Date End Date Status Vitamin 27-0.8 MG Oral Tablet Take by mouth. 0 Active Progesterone 200 MG Oral Capsule (Prometrium)Indic ations:Recurrent loss without current ,Female infertility Take 1 tablet intravaginally every evening. 30 Capsule 2 02/02/2023 Active Aspirin 81 MG Oral Capsule Take by mouth. 0 Active documented as of this encounter (statuses as of 07/13/2023) Active Problems Problem Noted Date Diagnosed Date Abnormal glucose tolerance in mother complicatin g 07/06/2023 Overview: Elevated early 1 hr GTT - normal 3 hr GTT at 15 weeks High-risk 06/26/2023 Bipolar disease during 06/26/2023 Subchorionic hematoma, antepartum 06/09/2023 Overview: -At [facility] 9w1d -> "small GLENDY" per ER [...] versus serial maternal titers. Chart made for FOB, Antony Cade 02/25/1988 > orders placed for [...] 4 weeks until critical value of 1:16. M will coordinate ordering the FOB's antigen status [...] have US confirmed , demise sometime between 1g4j-04 w0d, no testing done, no difficulty conceiving, [...] Plan: -Ensure proper follow up by primary PARKING TECHNICIAN team History of migraine 06/28/2021 Overview: [...] as of this encounter (statuses as of 07/13/2023) Resolved Problems Problem Noted Date Diagnosed Date [...] moderate 08/14/2003 08/13/2020 BIPOLAR AFFEC, DEPR-MOD 08/14/2003 03/06/2020 Borderline personality disorder 08/14/2003 08/13/2020 documented as of this encounter (statuses as of 07/13/2023) Immunizations Name Administration Dates Next Due COVID-19 mRNA, LNP-s, No Pre serve, 2-Dose Series (Tigerstripe) 05/04/2021,09/04/2020,08/14/2020 COVID-19, MRNA-LNP, 23-24, P F, 30 MCG/0.3 mL, 12 YRS AND ABOVE, IM (GNS HealthcareComirnatTerapio) 03/07/2023 HPV Vaccine, 4-Valent 05/26/2012,02/24/2012,07/17 PPD 08/19/2022,01/09/2012,02/10/2007 [...] money to get more. Never true 10/12/2022 [place] Depression Scale Answer Date Recorded [place] Depression Scale Total 5 05/29/2023 The thought [...] Description 07/24/2023 1:45 PM EST Office Visit Gynecology/Obstetrics [facility] [address] [place] [address] Niya Goodrich CRNP [address] [place] [address] 08/10/2023 10:30 AM EST Office Visit Vehicle Insurance Agent Obstetrics Maternal Medicine, [place] [address] [place] [address] Praveen Mcconnell MD [address] [place] [address] 08/10/2023 10:30 AM EST Imaging Rad[facility], [place] [address] [place] [address] Health Maintenance Due Date Last Done Comments [...] Date/Time Associated Diagnosis Comments 100-G GESTATIONAL GLUCOSE, 3 HOUR Routine 07/13/2023 11:43 AM EST Abnormal glucose tolerance in mother complicating 100-G GESTATIONAL GLUCOSE, 2 HOUR Routine 07/13/2023 10:46 AM EST Abnormal glucose tolerance in mother complicating 100-G GESTATIONAL GLUCOSE, 1 HOUR Routine 07/13/2023 9:50 AM EST Abnormal glucose tolerance in mother complicating GESTATIONAL GLUCOSE TOLERANCE, 3 HOUR Routine 07/13/2023 8:41 AM EST Abnormal glucose tolerance in mother complicating 100-G GESTATIONAL GLUCOSE, FASTING Routine 07/13/2023 8:41 AM EST Abnormal glucose tolerance in mother complicating documented in this encounter Results * 100-G GESTATIONAL GLUCOSE, 3 HOUR (07/13/2023 11:43 AM EST) 100-g Gestational Glucose, 3 Hour 111 70 - 139 mg/dL 07/13/2023 12:59 PM EST [facility] Blood Venous blood specimen / Unknown Venipuncture / Unknown 07/13/2023 11:43 AM EST 07/13/2023 11:43 AM EST Niya FINCH LAB BLOOD O RDERABLES Performing Organization Address City/[facility]/ZIP Co de Phone Number [facility] [address] [facility] [place] [address] * (ABNORMAL) 100-G GESTATIONAL GLUCOSE, 2 HOUR (07/13/2023 10:46 AM EST) 100-g Gestational Glucose, 2 Hour 157(H) 70 - 154 mg/dL 07/13/2023 12:42 PM EST [facility] Blood Venous blood specimen / Unknown Venipuncture / Unknown 07/13/2023 10:46 AM EST 07/13/2023 10:46 AM EST Niya FINCH LAB BLOOD O RDERABLES [facility] [address] [place] [address] * 100-G GESTATIONAL GLUCOSE, 1 HOUR (07/13/2023 9:50 AM EST) 100-g Gestational Glucose, 1 Hour 165 70 - 179 mg/dL 07/13/2023 10:32 AM EST [facility] Blood Venous blood specimen / Unknown Venipuncture / Unknown 07/13/2023 9:50 AM EST 07/13/2023 9:50 AM EST Niya FINCH LAB BLOOD O RDERABLES Performing Organization Address City/[facility]/ZIP Co de Phone Number [facility] [address] [place] [address] * 100-G GESTATIONAL GLUCOSE, FASTING (07/13/2023 8:41 AM EST) 100-g Gestational Glucose, Fasting 87 70 - 94 mg/dL 07/13/2023 9:41 AM EST [facility] Blood Venous blood specimen / Unknown Venipuncture / Unknown 07/13/2023 8:41 AM EST 07/13/2023 8:41 AM EST Narrative [facility] - 07/13/2023 9:41 AM EST Based on ACOG guideline, gestational diabetes mellitus is diagnosed when any of the following is met: Fasting is greater than or equal to 95 mg/dL 1 hour is greater than or equal to 180 mg/dL 2 hour is greater than or equal to 155 mg/dL 3 hour is greater than or equal to 140 mg/dL Niya FINCH LAB BLOOD O RDERABLES [facility] [address] [place] [address] documented in this encounter Visit Diagnoses Diagnosis Abnormal glucose tolerance in mother complicating Abnormal maternal glucose tolerance, complicating , childbirth, or the puerperium, unspecified as to episode of care documented in this encounter
--- OUTSIDE RECORDS SUMMARY | 2023-12-28 07:54 | External Medical Summary ---
Author Name Unknown Address Unknown Organization K0G:LABORATORY [facility] - [address] [place] [id number] Laboratory Report Ordering Provider Test Date Status ERLIN WINSTON 07/13/2023 08:41:32 Final Based on ACOG guideline, ges tational [...] Abnormality Reference (Units ) Status Glucose, fasting 07/13/2023 08:41:32 87 70- 94 (mg/dL) Final Performing Location LAB[facility]ATORY [facility] 0 - [address] [place] [id number]
--- OUTSIDE RECORDS SUMMARY | 2023-12-28 07:54 | External Medical Summary | Summary of Care ---
Author Name Unknown Organization [facility] Address [address] [place] [address] Phone [phone] Care Team Providers Care Service Delivery Management Consultant Name Role Phone Unavailable Primary Care Provider Unavailabl e Reason for Visit * Reason Comments Outpatient Testing Encounter Details Date Type Department Care Team (Late st Contact Info) Description 07/11/2023 8:30 AM EST Laboratory Laboratory, [facility] [address] [place] [phone] [facility] [address] [place] [address] Arrived Allergies No known active allergiesdocumented as of this encounter (statuses as of 07/11/2023) Medications Medication Sig Dispensed Refills Start Date End Date Status Vitamin 27-0.8 MG Oral Tablet Take by mouth. 0 Active Progesterone 200 MG Oral Capsule (Prometrium)Indic ations:Recurrent loss without current ,Female infertility Take 1 tablet intravaginally every evening. 30 Capsule 2 02/02/2023 Active Aspirin 81 MG Oral Capsule Take by mouth. 0 Active documented as of this encounter (statuses as of 07/11/2023) Active Problems Problem Noted Date Diagnosed Date Abnormal glucose tolerance in mother complicatin g 07/06/2023 Overview: Elevated early 1 hr GTT High-risk 06/26/2023 Bipolar disease during 06/26/2023 Subchorionic hematoma, antepartum 06/09/2023 Overview: -At [facility] 9w1d -> "small GLENDY" per ER physician [...] versus serial maternal titers. Chart made for Antony LAMA 02/25/1988 > orders placed for RBC phenotyping [...] 4 weeks until critical value of 1:16. MFM will coordinate ordering the FOB's antigen status [...] have US confirmed , demise sometime between 2e1t-58 w0d, no testing done, no difficulty conceiving, [...] Plan: -Ensure proper follow up by primary NURSING SECRETARY team History of migraine 06/28/2021 Overview: Fioricet not covered by insurance. Neurologist recommended propranolol. Message to [facility] for advice. Migraine with aura [...] as of this encounter (statuses as of 07/11/2023) Resolved Problems Problem Noted Date Diagnosed Date [...] RN Patient declines Tdap vaccine 06/05/14 Holley nEg RN Induction scheduled for 08/07 Obesity, Class [...] as of this encounter (statuses as of 07/11/2023) Immunizations Name Administration Dates Next Due COVID-19 mRNA, LNP-s, No Pre serve, 2-Dose Series (LogicSource) 05/04/2021,09/04/2020,08/14/2020 COVID-19, MRNA-LNP, 23-24, P F, 30 MCG/0.3 mL, 12 YRS AND ABOVE, IM (Intellikine-ComirnatTalasim) 03/07/2023 HPV Vaccine, 4-Valent 05/26/2012,02/24/2012,07/17 PPD 08/19/2022,01/09/2012,02/10/2007 [...] money to get more. Never true 10/12/2022 [place] Depression Scale Answer Date Recorded [place] Depression Scale Total 5 05/29/2023 The [...] 07/24/2023 1:45 PM EST Office Visit Gynecology/Obstetrics [facility] [address] [place] [address] Niya Goodrich CRNP [address] [place] [address] 08/10/2023 10:30 AM EST Office Visit Anvil Worker Obstetrics Maternal Medicine, [place] [address] [place] [address] Praveen Mcconnell MD [address] [place] [address] 08/10/2023 10:30 AM EST [facility] [place] [address] [place] [address] Health Maintenance Due Date Last Done Comments [...]
--- OUTSIDE RECORDS SUMMARY | 2023-12-28 07:54 | External Medical Summary ---
Author Name Unknown Address Unknown Organization K0G:LAB[facility]ATORY [facility] - [address] [place] [address] Laboratory Report Ordering Provider Test Date Status ERLIN WINSTON 07/13/2023 11:43:08 Final Observation Date Value Abnormality Reference (Units ) Status Glucose [Mass/volume] in Serum or Plasma --3 hours post dose glucose 07/13/2023 11:43:08 111 70-139 (mg/dL) Final Performing Location [facility]ATORY [facility]1 0 - [address] [place] [address]
--- OUTSIDE RECORDS SUMMARY | 2023-12-28 07:54 | External Medical Summary | Summary of Care ---
Author Name Unknown Organization [facility] Address [address] [facility] [address] Phone [phone] Care Team Providers Care Medical Biller Name Role Phone Unavailable Primary Care Provider Unavailabl e Encounter Details Date Type Department Care Team (Late st Contact Info) Description 07/07/2023 Orders Only PATIENT PORTAL DO NOT DELETE THIS DEPT USED BY [place] [id number] Allergies No known active allergiesdocumented as of this encounter (statuses as of 07/07/2023) Medications Medication Sig Dispensed Refills Start Date End Date Status Vitamin 27-0.8 MG Oral Tablet Take by mouth. 0 Active Progesterone 200 MG Oral Capsule (Prometrium)Indic ations:Recurrent loss without current ,Female infertility Take 1 tablet intravaginally every evening. 30 Capsule 2 02/02/2023 Active Aspirin 81 MG Oral Capsule Take by mouth. 0 Active documented as of this encounter (statuses as of 07/07/2023) Active Problems Problem Noted Date Diagnosed Date Abnormal glucose tolerance in mother complicatin g 07/06/2023 Overview: Elevated early 1 hr GTT High-risk 06/26/2023 Bipolar disease during 06/26/2023 Subchorionic hematoma, antepartum 06/09/2023 Overview: -At [facility] 9w1d -> "small GLENDY" per ER [...] have US confirmed , demise sometime between 1d2o-11 w0d, no testing done, no difficulty conceiving, [...] Plan: -Ensure proper follow up by primary SCARF AND ANNEAL OPERATOR team History of migraine 06/28/2021 Overview: Fioricet not covered by insurance. Neurologist recommended propranolol. Message to [facility] for advice. Migraine with aura [...] as of this encounter (statuses as of 07/07/2023) Resolved Problems Problem Noted Date Diagnosed Date [...] as of this encounter (statuses as of 07/07/2023) Immunizations Name Administration Dates Next Due COVID-19 mRNA, LNP-s, No Pre serve, 2-Dose Series (Skyhood) 05/04/2021,09/04/2020,08/14/2020 COVID-19, MRNA-LNP, 23-24, P F, 30 MCG/0.3 mL, 12 YRS AND ABOVE, IM ([facility]) 03/07/2023 HPV Vaccine, 4-Valent 05/26/2012,02/24/2012,07/17 PPD 08/19/2022,01/09/2012,02/10/2007 [...] money to get more. Never true 10/12/2022 [place] Depression Scale Answer Date Recorded [place] Depression Scale Total 5 05/29/2023 The thought [...] 07/24/2023 1:45 PM EST Office Visit Gynecology/Obstetrics [facility] [address] [facility] [place] [address] Niya Goodrich CRNP [address] [facility] [address] 08/10/2023 10:30 AM EST Office Visit Hip Hop Dance Instructor Obstetrics Maternal [facility], [place] [address] [place] [address] Praveen Mcconnell MD [address] [place] [facility] [place] [address] 08/10/2023 10:30 AM EST Imaging Radiology [facility], [place] [address] [place] [address] Health Maintenance Due Date Last Done Comments [...]
--- OUTSIDE RECORDS SUMMARY | 2023-12-28 07:54 | External Medical Summary ---
Author Name Unknown Address Unknown Organization K0G:LABORATORY [facility] [address] [place] [id number] Laboratory Report Ordering Provider Test Date Status ERLIN WINSTON 07/04/2023 12:39:58 Final Observation Date Value Abnormality Reference (Units ) Status Glucose [Moles/volume] in Serum or Plasma --1 hour post 50 g glucose PO 07/04/2023 12:39:58 175 Above high normal 70-129 (mg/dL) Final Performing Location LABORATORY [place] [address] - [address] [place] [id number]
--- OUTSIDE RECORDS SUMMARY | 2023-12-28 07:54 | External Medical Summary ---
Author Name Unknown Address Unknown Organization K0G:LABORATORY [place] [address] - [address] [place] [id number] Laboratory Report Ordering Provider Test Date Status ERLIN WINSTON 07/13/2023 09:50:39 Final Observation Date Value Abnormality Reference (Units ) Status Glucose [Mass/volume] in Serum or Plasma --1 hour post dose glucose 07/13/2023 09:50:39 165 70-179 (mg/dL) Final Performing Location LABORATORY [facility] [address] [place] [id number]
--- OUTSIDE RECORDS SUMMARY | 2023-12-28 07:54 | External Medical Summary | Summary of Care ---
Author Name Unknown Organization [facility] Address [address] [place] [address] Phone [phone] Care Team Providers Care Grain Unloader Name Role Phone Unavailable Primary Care Provider Unavailabl e Reason for Visit * Reason Comments Outpatient Testing Encounter Details Date Type Department Care Team (Late st Contact Info) Description 07/04/2023 11:20 AM EST Laboratory Laboratory, [facility] [address] [place] [phone] [facility] [address] [place] [address] Obesity affecting , antepartum, unspecified obesity type Allergies No known active allergiesdocumented as of this encounter (statuses as of 07/04/2023) Medications Medication Sig Dispensed Refills Start Date End Date Status Vitamin 27-0.8 MG Oral Tablet Take by mouth. 0 Active Progesterone 200 MG Oral Capsule (Prometrium)Indic ations:Recurrent loss without current ,Female infertility Take 1 tablet intravaginally every evening. 30 Capsule 2 02/02/2023 Active Aspirin 81 MG Oral Capsule Take by mouth. 0 Active documented as of this encounter (statuses as of 07/04/2023) Active Problems Problem Noted Date Diagnosed Date High-risk 06/26/2023 Bipolar disease during 06/26/2023 Subchorionic [...] versus serial maternal titers. Chart made for DAINA Antony Cade 02/25/1988 > orders placed for [...] 4 weeks until critical value of 1:16. [facility] will coordinate ordering the FOB's antigen [...] have US confirmed , demise sometime between 3p2u-87 w0d, no testing done, no difficulty conceiving, [...] Plan: -Ensure proper follow up by primary CAVING GUIDE team History of migraine 06/28/2021 Overview: Fioricet not covered by insurance. Neurologist recommended propranolol. Message to [facility] for advice. Migraine with aura and [...] as of this encounter (statuses as of 07/04/2023) Resolved Problems Problem Noted Date Diagnosed Date [...] as of this encounter (statuses as of 07/04/2023) Immunizations Name Administration Dates Next Due COVID-19 mRNA, LNP-s, No Pre serve, 2-Dose Series (YupiCall) 05/04/2021,09/04/2020,08/14/2020 COVID-19, MRNA-LNP, 23-24, P F, 30 MCG/0.3 mL, 12 YRS AND ABOVE, IM (GetTaxi-Comirnat) 03/07/2023 DTaP Dipth/Tet/Acell Pertussis (Infanrix), Peds 06/16/1992,11/13/1988,01/14/1988,1987,1987 [...] money to get more. Never true 10/12/2022 [place] Depression Scale Answer Date Recorded [place] Depression Scale Total 5 05/29/2023 The thought [...] 07/24/2023 1:45 PM EST Office Visit Gynecology/Obstetrics [address] [place] [address] Niya Goodrich CRNP [address] [place] [address] 08/10/2023 10:30 AM EST Office Visit Switch Tender Obstetrics Maternal Medicine, [place] [address] [place] [address] Praveen Mcconnell MD [address] [place] [address] 08/10/2023 10:30 AM EST Imaging Radiology [facility], [place] [address] [place] [address] Pending Results Name Type Priority Associated Diagnoses Date /Time 50-G GESTATIONAL GLUCOSE, 1 HOUR Lab Routine Obesity affecting , antepartum, unspecified obesity type 07/04/2023 12:39 PM EST Health Maintenance Due Date Last [...] Diagnosis Obesity affecting , antepartum, unspecified obesity type documented in this encounter
--- OUTSIDE RECORDS SUMMARY | 2023-12-28 07:54 | External Medical Summary | Summary of Care ---
Author Name Unknown Organization [facility] Address [address] [place] [address] Phone [phone] Care Team Providers Care Help Desk Assistant Name Role Phone Unavailable Primary Care Provider Unavailabl e Reason for Visit * Reason Onset Date Comments Test Results 07/06/2023 Encounter Details Date Type Department Care Team (Late st Contact Info) Description 07/06/2023 Telephone Gynecology/Obstetrics [facility] [address] [place] [address] Niya Goodrich CRNP [address] [place] [address] Test Results Allergies No known active allergiesdocumented as of this encounter (statuses as of 07/06/2023) Medications Medication Sig Dispensed Refills Start Date End Date Status Vitamin 27-0.8 MG Oral Tablet Take by mouth. 0 Active Progesterone 200 MG Oral Capsule (Prometrium)Indic ations:Recurrent loss without current ,Female infertility Take 1 tablet intravaginally every evening. 30 Capsule 2 02/02/2023 Active Aspirin 81 MG Oral Capsule Take by mouth. 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 Neurologist recommended propranolol. Message to [facility] for advice. Migraine with aura [...] as of this encounter (statuses as of 07/06/2023) Resolved Problems Problem Noted Date Diagnosed Date [...] as of this encounter (statuses as of 07/06/2023) Immunizations Name Administration Dates Next Due COVID-19 mRNA, LNP-s, No Pre serve, 2-Dose Series (Qompium) 05/04/2021,09/04/2020,08/14/2020 COVID-19, MRNA-LNP, 23-24, P F, 30 MCG/0.3 mL, 12 YRS AND ABOVE, IM (MusicXray-Comirnaty) 03/07/2023 HPV Vaccine, 4-Valent 05/26/2012,02/24/2012,07/17 PPD 08/19/2022,01/09/2012,02/10/2007 [...] money to get more. Never true 10/12/2022 [place] Depression Scale Answer Date Recorded [place] Depression Scale Total 5 05/29/2023 The thought [...] Telephone Encounter - Padmini Albert LPN - 07/06/2023 1:16 PM EST Patient notified of abnormal glucola. The order has been placed in [employer] [facility]. Patient. advised to be NPO after 10pm the night before the test.The patient must stay on the premises for the entire time of the test. Patient counseled to take something to eat for after testing. Patient transferred to [facility] to schedule. * Telephone Encounter - Padmini Albert LPN - 07/06/2023 10:52 AM EST left message for patient to call office * Telephone Encounter - Niya Goodrich CRNP - 07/06/2023 8:23 AM EST Elevated 1 hr GTT. Needs to schedule 3 hr testing, please let pt know and have her schedule this. JOSETTE To documented in this encounter Plan of Treatment Upcoming Encounters Date Type Department Care Team (Late st Contact Info) Description 07/24/2023 1:45 PM EST Office Visit Gynecology/Obstetrics [facility] [address] [place] [address] Niya Goodrich CRNP [address] [place] [address] 08/10/2023 10:30 AM EST Office Visit Agency Development Manager Obstetrics Maternal Medicine, [place] [address] [place] [address] Praveen Mcconnell MD [address] [place] [address] 08/10/2023 10:30 AM EST Imaging Radiology [facility] [address], [place] [id number] Scheduled Orders Name Type Priority Associated Diagnoses Orde r Schedule GESTATIONAL GLUCOSE TOLERANCE, 3 HOUR Lab Routine Abnormal glucose tolerance in mother complicating Expected: 07/06/2023 (Approximate), Expires: 07/06/2024 Health Maintenance Due Date Last Done Comments [...]
--- OUTSIDE RECORDS SUMMARY | 2023-12-28 07:54 | External Medical Summary | Summary of Care ---
Author Name Unknown Organization [facility] Address [address] [place] [address] Phone [phone] Care Team Providers Care Engineering Project Designer Name Role Phone Unavailable Primary Care Provider Unavailabl e Reason for Visit * Reason Comments Outpatient Testing Encounter Details Date Type Department Care Team (Late st Contact Info) Description 07/04/2023 11:20 AM EST Laboratory Laboratory, [facility] [address] [place] [phone] [facility] [address] [place] [address] Arrived Allergies No known active allergiesdocumented as [...] Subchorionic hematoma, antepartum 06/09/2023 Overview: -At [facility] 9w1d -> "small GLENDY" per ER physician [...] 4 weeks until critical value of 1:16. 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 Neurologist recommended propranolol. Message to [facility] for advice. Migraine with aura [...] mRNA, LNP-s, No Pre serve, 2-Dose Series (Activity Rocket) 05/04/2021,09/04/2020,08/14/2020 COVID-19, MRNA-LNP, 23-24, P F, 30 MCG/0.3 mL, 12 YRS AND ABOVE, IM ([employer]Comirnat[employer]) 03/07/2023 HPV Vaccine, 4-Valent 05/26/2012,02/24/2012,07/17 PPD 08/19/2022,01/09/2012,02/10/2007 [...] money to get more. 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
--- OUTSIDE RECORDS SUMMARY | 2023-12-28 07:54 | External Medical Summary ---
Author Name Unknown Address Unknown Organization K0G:LABORATORY [facility] [address] - [address] [place] [id number] Laboratory Report Ordering Provider Test Date Status ERLIN WINSTON 07/13/2023 10:46:23 Final Observation Date Value Abnormality Reference (Units ) Status Glucose, 2-hr post glucose challenge 07/13/2023 10:46:23 157 Above high normal 70-154 (mg/dL) Final Performing Location LABORATORY [facility] [address] - [address] [place] [id number]
[2023-12-28] MEDS ORDERED: OXYTOCIN 30 UNITS/NSS 30 UNITS/500 ML BAG IV PRN (08:38)
[2023-12-28] MEDS ORDERED: LIDOCAINE 1% LOCAL 20 ML VIAL INFIL PRN (08:38)
[2023-12-28 09:26] LABS: Hemoglobin 11.9 g/dl (12.0-16.0); Mean Corpuscular Hemoglobin 28.4 pg (25.0-34.0); Mean Corpuscular Hgb Conc 33.1 g/dL (32.0-36.0); Mean Corpuscular Volume 85.9 fL (80.0-100.0); Mean Platelet Volume 12.1 fL (9.4-12.4); Platelet Count 255 K/uL (130-400); RDW Coefficient of Variation 14.9 % (11.5-14.5); RDW Standard Deviation 46.5 fL (36.4-46.3); Red Blood Count 4.19 M/uL (4.20-5.40); White Blood Count 13.07 K/ul (4.8-10.8)
[2023-12-28] MEDS: LACTATED RINGER'S 1,000 ML IV PRN (09:32)
[2023-12-28] MEDS: OXYTOCIN 30 UNITS/NSS 30 UNITS/500 ML BAG IV PRN (09:33)
[2023-12-28] MEDS ORDERED: SODIUM CHLORIDE 0.9% 250 ML IV PRN (09:46)
[2023-12-28] MEDS ORDERED: ePHEDrine sulfate 50 MG/ML AMP ONE (12:05)
[2023-12-28] MEDS ORDERED: BUPIVACAINE 0.25% PF 30 ML VIAL EPI PRN (12:17)
[2023-12-28] MEDS ORDERED: SODIUM CHLORIDE 0.9% PF INJ 10 ML VIAL EPI PRN (12:17)
[2023-12-28] MEDS ORDERED: NALBUPHINE HCL 5 MG in SYRINGE 0 ML IV PRN (12:17)
[2023-12-28] MEDS ORDERED: diphenhydrAMINE 50 MG/ML VIAL IV PRN (12:17)
[2023-12-28] MEDS ORDERED: ePHEDrine sulfate 50 MG/ML AMP IV PRN (12:17)
[2023-12-28] MEDS ORDERED: NALOXONE HCL 1 MG in SODIUM CHLORIDE 0.9% 1,000 ML IV PRN (12:17)
[2023-12-28] MEDS ORDERED: ROPIVACAINE 0.5% PF 5 MG/ML 20 ML VIAL EPI PRN (12:17)
[2023-12-28] MEDS ORDERED: fentANYL 2 MCG/ML BUPIVacaine 0.125%-NSS 100ML BAG EPI PRN (12:17)
[2023-12-28] MEDS ORDERED: LIDOCAINE 2% MPF LOCAL 5 ML VIAL EPI PRN (12:17)
[2023-12-28] MEDS ORDERED: fentaNYL citrate PF 100 MCG/2 ML VIAL EPI PRN (12:17)
[2023-12-28] MEDS ORDERED: NALOXONE HCL 0.4 MG/1 ML VIAL/CARP IV PRN (12:17)
--- NOTE | 2023-12-28 12:17 | Anesthesiology Consultation ---
Date of Service December 28, 2023 Assessment & Plan Chart Review Chart Review: Patient NOT seen in Pre Admission Testing and Acceptable Risk for Labor Epidural Consults Requested none ASA ASA3 Proposed Anesthesia Anesthesia Type: Labor Epidural Risk / Benefits Reviewed With: PT / POA / Parent / Guardian, Accepts Plan and Informed Consent Obtained History Height/Weight Height: 5 ft 4 in Weight: 115.666 kg Allergies Allergy/AdvReac Type Severity Reaction Status Date / Time No Known Allergies Allergy Verified 05/31/23 02:23 Medications Home Medications Medication Instructions Recorded Confirmed Last Taken vit no.133-ferrous 1 tab PO DAILY 06/25/22 12/28/23 12/28/23 fumarate 28 mg-folic acid 800 mcg tablet () acetaminophen 325 mg tablet 650 mg PO QID PRN Pain 05/31/23 05/31/23 12/16/23 (Tylenol) aspirin 81 mg tablet,delayed 81 mg PO DAILY 05/31/23 12/28/23 12/28/23 release Lactobacillus acidophilus and cap PO 12/28/23 12/27/23 rhamnosus 15 billion cell capsule (Probiotic) choline cap PO 12/28/23 12/27/23 magnesium 12/28/23 12/27/23 Active Medications Generic Name Dose Route Start Last Admin Trade Name Freq PRN Reason Stop Dose Admin Lactated Ringer's 1,000 mls @ 125 mls/hr 12/28/23 08:38 12/28/23 12:03 Lr IV 12/30/23 08:37 999 mls/hr .Q8H PRN Infusion L&D Protocol Protocol Oxytocin 30 units in 500 mls @ 9 mls/hr 12/28/23 08:42 12/28/23 12:02 Pitocin 30 Units/Nss IV 12/30/23 08:41 0.54 units/hr .Q24H PRN 9 mls/hr Labor Induction/Augmentation Titration Protocol 0.54 UNITS/HR NPO Date Last Intake of Fluids: 12/28/23 Time Last Intake of Fluids: 12:00 Date Last Intake of Solids: 12/28/23 Time Last Intake of Solids: 06:15 Past Medical History Medical History ASCUS with positive high risk HPV cervical Migraines Gestational diabetes Bipolar disease during Red blood cell antibody positive Anti-C, Anti-E, Anti-FYA Past Family History Family History Aunt Deep vein thrombosis Ovarian cancer Skin cancer Diabetes Hypertension Grandfather (Maternal) Deep vein thrombosis Myocardial infarction Hypertension Stroke Grandmother (Maternal) Throat cancer Brain cancer Myocardial infarction Hypertension Mother Diabetes Hypertension Uncle Diabetes Hypertension Father Hypertension Past Anesthesia History No Hx of Anesthesia Complications and No Family Hx of Anesthesia Complications History of PONV No Hx of PONV and No Hx of Motion Sickness Social History Smoking Status: Former smoker Hx Alcohol Use: No Hx Substance Use: No Review of Systems ROS Unobtainable: All systems reviewed & are unremarkable except as noted in HPI & below Physical Exam Vital Signs Last Vital Signs Temp 36.7 C 12/28/23 07:59 Pulse 99 H 12/28/23 10:54 Resp 16 12/28/23 07:59 BP 131/87 12/28/23 10:54 ENMT Mouth: no TMJ abnormality and oral opening not small Thyromental Distance: > or= 3.5 Finger Breadths Mallampati Class: III Neck normal visual inspection and trachea midline; neck extension not limited Respiratory normal respiratory effort Auscultation: lungs clear to auscultation bilaterally Cardiovascular Rate/Rhythm: regular rate and regular rhythm Heart Sounds: no murmur Musculoskeletal Spine: normal cervical ROM Extremities: full ROM of extremities Neurologic moves all extremities Psychiatric Orientation: alert and oriented x 3 Testing Laboratory Results 12/28/23 09:05 Blood Type O Positive 12/28/23 09:05 Antibody Screen POSITIVE A 12/28/23 09:05
[2023-12-28] MEDS: fentANYL 2 MCG/ML BUPIVacaine 0.125%-NSS 100ML BAG ONE (12:45)
[2023-12-28] MEDS: LIDOCAINE 2%/EPINEPHRINE 1:200,000 20 ML PF EPI STA (12:48)
[2023-12-28] MEDS: fentaNYL citrate PF 100 MCG/2 ML VIAL EPI STA (12:48)
[2023-12-28] MEDS: BUPIVACAINE 0.25% PF 30 ML VIAL ONE (12:48)
--- NOTE | 2023-12-28 13:05 | Labor Progress Brief Note ---
Date of Service December 28, 2023 Assessment & Plan Admission and Anticipated Discharge Date Admission Date: December 28, 2023 Physical Exam Genitourinary: Manual OB Exam: + cervical dilation 2 cm and 3 cm, + cervical effacement 50% and + station high OB Exam Monitor Tracing: + external FHT monitor used, + external uterine monitor used, + category I and + normal FHT variability epidural in place Results & Data Vital Signs (Past 12 Hours) Vital Signs Temp Pulse Resp BP Pulse Ox 12/28/23 13:02 105 H 97 12/28/23 13:01 100 H 127/60 12/28/23 12:57 36.5 C 98 H 96 12/28/23 12:53 120 H 141/86 H 12/28/23 12:52 115 H 98 12/28/23 12:50 112 H 143/75 H 12/28/23 12:47 98 12/28/23 12:47 112 H 12/28/23 12:47 110 H 153/96 H 12/28/23 12:44 104 H 149/90 H 12/28/23 12:42 99 H 155/93 H 95 12/28/23 12:41 93 H 170/102 H 12/28/23 12:37 91 H 99 12/28/23 12:32 93 H 98 12/28/23 12:27 88 99 12/28/23 12:22 88 98 12/28/23 12:17 94 H 98 12/28/23 10:54 99 H 131/87 12/28/23 09:36 98 H 139/91 12/28/23 08:11 113 H 144/90 H 12/28/23 07:59 36.7 C 113 H 16 144/90 H
[2023-12-28] MEDS: fentaNYL citrate PF 100 MCG/2 ML VIAL ONE (13:11)
[2023-12-28] MEDS: LIDOCAINE 2%/EPINEPHRINE 1:200,000 20 ML PF ONE (13:11)
[2023-12-28] MEDS: SODIUM CHLORIDE 0.9% PF INJ 10 ML VIAL ONE (13:11)
[2023-12-28] MEDS: BUPIVACAINE 0.25% PF 30 ML VIAL EPI STA (13:12)
[2023-12-28] MEDS: SODIUM CHLORIDE 0.9% PF INJ 10 ML VIAL EPI STA (13:12)
--- NOTE | 2023-12-28 15:54 | Labor Progress Brief Note ---
Date of Service December 28, 2023 Assessment & Plan Admission and Anticipated Discharge Date Admission Date: December 28, 2023 Physical Exam Genitourinary: Manual OB Exam: + cervical dilation 4 cm, + cervical effacement 80%, + station (AROM with Amni-hook clear fluid) -2 and + amniotic fluid clear OB Exam Monitor Tracing: + external FHT monitor used, + external uterine monitor used, + category I and + normal FHT variability Results & Data Vital Signs (Past 12 Hours) Vital Signs Temp Pulse Resp BP Pulse Ox 12/28/23 15:47 90 99 12/28/23 15:42 88 97 12/28/23 15:37 85 97 12/28/23 15:33 83 94 12/28/23 15:32 85 97 12/28/23 15:30 88 112/66 12/28/23 15:27 91 H 98 12/28/23 15:22 88 97 12/28/23 15:17 82 97 12/28/23 15:16 83 113/69 12/28/23 15:15 18 12/28/23 15:15 18 12/28/23 15:12 83 96 12/28/23 15:07 88 98 12/28/23 15:02 101 H 97 12/28/23 15:01 83 110/74 12/28/23 14:57 81 97 12/28/23 14:52 82 97 12/28/23 14:47 89 97 12/28/23 14:46 90 112/65 12/28/23 14:45 18 12/28/23 14:45 18 12/28/23 14:42 112 H 98 12/28/23 14:37 99 H 99 12/28/23 14:32 98 H 97 12/28/23 14:30 88 128/81 12/28/23 14:27 97 H 97 12/28/23 14:22 106 H 97 12/28/23 14:17 92 H 97 12/28/23 14:15 98 H 18 129/81 12/28/23 14:12 105 H 97 12/28/23 14:07 98 H 96 12/28/23 14:02 97 H 97 12/28/23 14:00 95 H 18 119/76 12/28/23 13:57 93 H 95 12/28/23 13:55 95 H 94 12/28/23 13:52 105 H 95 12/28/23 13:49 100 H 94 12/28/23 13:47 90 93 12/28/23 13:45 105 H 115/74 12/28/23 13:42 94 H 93 12/28/23 13:37 94 12/28/23 13:37 96 H 12/28/23 13:37 95 H 94 12/28/23 13:32 112 H 96 12/28/23 13:30 114 H 119/72 94 12/28/23 13:27 98 H 95 12/28/23 13:24 92 H 94 12/28/23 13:22 110 H 96 12/28/23 13:17 97 H 95 12/28/23 13:14 98 H 94 12/28/23 13:12 114 H 96 12/28/23 13:10 100 H 125/73 12/28/23 13:07 97 12/28/23 13:07 118 H 12/28/23 13:07 103 H 123/75 91 12/28/23 13:02 105 H 97 12/28/23 13:01 100 H 127/60 12/28/23 12:57 36.5 C 98 H 96 12/28/23 12:53 120 H 141/86 H 12/28/23 12:52 115 H 98 12/28/23 12:50 112 H 143/75 H 12/28/23 12:47 98 12/28/23 12:47 112 H 12/28/23 12:47 110 H 153/96 H 12/28/23 12:44 104 H 149/90 H 12/28/23 12:42 99 H 155/93 H 95 12/28/23 12:41 93 H 170/102 H 12/28/23 12:37 91 H 99 12/28/23 12:32 93 H 98 12/28/23 12:27 88 99 12/28/23 12:22 88 98 12/28/23 12:17 94 H 98 12/28/23 10:54 99 H 131/87 12/28/23 09:36 98 H 139/91 12/28/23 08:11 113 H 144/90 H 12/28/23 07:59 36.7 C 113 H 16 144/90 H
--- NOTE | 2023-12-28 19:05 | Delivery Summary ---
Vaginal Delivery Summary Date of Service December 28, 2023 Vaginal Delivery Summary live male PATRICE with delayed cord clamping Apgars 8/9 weight pending. Cord blood obtained followed by spontaneous delivery of intact placenta. First degree tear repaired with 3/0 Vicryl suture. EBL 210 ml. Final sponge, needle and instrument count are correct. Mom and baby stable.
[2023-12-28] MEDS ORDERED: ACETAMINOPHEN 325 MG TAB PO PRN (19:41)
[2023-12-28] MEDS ORDERED: HYDROCORTISONE ACETATE 25 MG SUPP PR PRN (19:41)
[2023-12-28] MEDS ORDERED: bisacodyL 10 MG SUPP PR PRN (19:41)
[2023-12-28] MEDS ORDERED: DIPHTHER/TETAN/PERTUS Vaccine (Tdap, Adol/Adult) 0.5mL IM ONE (19:41)
--- NOTE | 2023-12-28 19:49 | Anesthesia Procedure Note ---
Date of Service December 28, 2023 Anesthesia Post Epidural Note Vital Signs Vital Signs: Temp Pulse Resp BP Pulse Ox 36.5 C 111 H 18 154/97 H 97 12/28/23 12:57 12/28/23 19:30 12/28/23 16:15 12/28/23 19:30 12/28/23 18:27 Notes Mental Status: alert / awake / arousable and participated in evaluation Nausea / Vomiting: adequately controlled Pain: adequately controlled Airway Patency, RR, SpO2: stable & adequate BP & HR: stable & adequate Hydration State: stable & adequate Neuraxial Anesthesia: was administered and sensory block is resolving Anesthetic Complications: no major complications apparent Epidural: Removed without complications and With tip intact
[2023-12-28] MEDS: DOCUSATE SODIUM 100 MG CAP PO SCH (21:17)
[2023-12-28] MEDS: BENZOCAINE 20% SPRY 85 APPLN/85 GM CAN EXT PRN (21:17)
[2023-12-28] MEDS: IBUPROFEN 600 MG TAB PO PRN (21:57)
[2023-12-28] MEDS: LACTATED RINGER'S 500 ML IV ONE (22:16)
[2023-12-29 06:18] LABS: Hematocrit (blood only) 30.7 % (37.0-47.0); Hemoglobin 10.3 g/dl (12.0-16.0); Mean Corpuscular Hemoglobin 28.9 pg (25.0-34.0); Mean Corpuscular Hgb Conc 33.6 g/dL (32.0-36.0); Mean Platelet Volume 12.1 fL (9.4-12.4); Platelet Count 233 K/uL (130-400); RDW Coefficient of Variation 14.7 % (11.5-14.5); RDW Standard Deviation 45.3 fL (36.4-46.3); Red Blood Count 3.57 M/uL (4.20-5.40)
--- NOTE | 2023-12-29 08:52 | Obstetrical Progress Note ---
Date of Service December 29, 2023 Assessment & Plan Admission and Anticipated Discharge Date Admission Date: December 28, 2023 Subjective Patient is seen and examined. She feels well, no complaints. Desires d/c tonight Ambulating without dizziness Voiding without difficulty Tolerating regular diet with out N&V Bleeding is minimal No fever/ chills/ CP/ SOB/ N&V/ Leg pain Breast feeding without problems Vital Signs Temp Pulse Pulse Resp BP Pulse Ox O2 Del Method 12/29/23 04:05 36.9 C 91 H 20 136/89 99 Room Air 12/29/23 00:03 36.9 C 106 H 22 127/90 98 Room Air 12/28/23 21:50 36.9 C 118 H 20 132/87 98 Room Air Lab Results 12/28/23 12/28/23 12/28/23 Range/Units 09:05 09:05 09:05 WBC 13.07 H (4.8-10.8) K/ul RBC 4.19 L (4.20-5.40) M/uL Hgb 11.9 L (12.0-16.0) g/dl Hct 36.0 L (37.0-47.0) % MCV 85.9 (80.0-100.0) fL MCH 28.4 (25.0-34.0) pg MCHC 33.1 (32.0-36.0) g/dL RDW Std Deviation 46.5 H (36.4-46.3) fL RDW Coeff of Eveline 14.9 H (11.5-14.5) % Plt Count 255 (130-400) K/uL MPV 12.1 (9.4-12.4) fL Blood Type O Positive Antibody Screen POSITIVE A Antibody Identification Anti-C Anti-Fya Anti-e Antibody ID Comment Antigen Identification C Antigen - NEGATIVE Crossmatch 12/28/23 12/28/23 12/29/23 Range/Units 09:05 09:05 05:42 WBC 17.10 H (4.8-10.8) K/ul RBC 3.57 L (4.20-5.40) M/uL Hgb 10.3 L (12.0-16.0) g/dl Hct 30.7 L (37.0-47.0) % MCV 86.0 (80.0-100.0) fL MCH 28.9 (25.0-34.0) pg MCHC 33.6 (32.0-36.0) g/dL RDW Std Deviation 45.3 (36.4-46.3) fL RDW Coeff of Eveline 14.7 H (11.5-14.5) % Plt Count 233 (130-400) K/uL MPV 12.1 (9.4-12.4) fL Blood Type Antibody Screen Antibody Identification Antibody ID Comment Antigen Identification Fya Antigen - NEGATIVE e Antigen - NEGATIVE Crossmatch See Detail PE: General: Alert, orientedx3, NAD Abd: soft, NT, fundus firm, below Umbilicus Perineum intact, Lochia rubra minimal Ext; NT, no edema AP: 38 yo s/p , ppd# 1 VSS Afebrile doing well Continue routine care All questions were answered D/C home tonight per her request Repeat WBCC before d/c Results & Data Vital Signs (Past 12 Hours) Vital Signs Temp Pulse Pulse Resp BP Pulse Ox O2 Del Method 12/29/23 04:05 36.9 C 91 H 20 136/89 99 Room Air 12/29/23 00:03 36.9 C 106 H 22 127/90 98 Room Air 12/28/23 21:50 36.9 C 118 H 20 132/87 98 Room Air
[2023-12-29] MEDS: FERROUS SULFATE 325 MG TAB PO SCH (09:26)
[2023-12-29] MEDS: PRENATAL VITAMIN 1 TAB PO SCH (09:27)
[2023-12-29] MEDS: oxyCODONE/ACETAMINOPHEN 5mg/325mg TAB PO PRN (10:06)
[2023-12-29 18:38] LABS: Basophils # (auto) 0.05 K/uL (0.00-0.20); Basophils % (auto) 0.3 %; Eosinophils # (auto) 0.14 K/uL (0.00-0.50); Hematocrit (blood only) 30.6 % (37.0-47.0); Hemoglobin 10.1 g/dl (12.0-16.0); Immature Granulocytes % (auto) 0.7 %; Lymphocytes % (auto) 21.3 %; Mean Corpuscular Hemoglobin 28.6 pg (25.0-34.0); Mean Corpuscular Volume 86.7 fL (80.0-100.0); Mean Platelet Volume 11.9 fL (9.4-12.4); Monocytes # (auto) 1.16 K/uL (0.11-0.59); Neutrophils # (auto) 10.03 K/uL (1.40-6.50); Neutrophils % (auto) 68.7 %; Platelet Count 264 K/uL (130-400); RDW Coefficient of Variation 15.3 % (11.5-14.5); RDW Standard Deviation 47.6 fL (36.4-46.3); Red Blood Count 3.53 M/uL (4.20-5.40); White Blood Count 14.58 K/ul (4.8-10.8)
[2023-12-29] MEDS ORDERED: bisacodyL 5 MG TABEC PO SCH (20:00)
== END 2023-12-29 19:01 | disposition home health service (06) | DRG 807 ==
LOC: 4S1 07:40 → 4E2 21:55